=== PATIENT | male | born 1950 | race Caucasian/White ===

== ENCOUNTER → 2017-08-26 | Outpatient (CLI) | payer MEDICARE, OTHER ==
[2017-08-26 12:39] LABS: ADD MAN DIFF? NO
[2017-08-26 12:51] LABS: BASO # 0.1 x10^3/uL (0.0-0.2); BASO % 1 % (0-3); EOS # 0.1 x10^3/uL (0.0-0.7); EOS % 2 % (0-3); HEMATOCRIT 40.7 % (39.0-53.0); HEMOGLOBIN 13.9 g/dL (13.0-17.5); LYMPH # 0.9 x10^3/uL (1.0-4.8); LYMPH % 12 % (24-48); MEAN CORPUSCULAR HEMOGLOBIN 32 pg (25-35); MEAN CORPUSCULAR HGB CONC 34 g/dL (31-37); MEAN CORPUSCULAR VOLUME 93 fL (79-100); MONO # 0.7 x10^3/uL (0.0-1.1); MONO % 9 % (0-9); NEUT # 5.5 x10^3uL (1.8-7.7); NEUT % 76 % (31-73); PLATELET COUNT 289 x10^3/uL (140-400); RED BLOOD COUNT 4.38 x10^6/uL (4.30-5.70); RED CELL DISTRIBUTION WIDTH 13.5 % (11.5-14.5); WHITE BLOOD COUNT 7.2 x10^3/uL (4.0-11.0)
[2017-08-26 12:53] LABS: ANION GAP 9 (6-14); BLOOD UREA NITROGEN 18 mg/dL (8-26); CALCIUM 9.8 mg/dL (8.5-10.1); CARBON DIOXIDE 30 mmol/L (21-32); CHLORIDE 102 mmol/L (98-107); CREATININE 0.6 mg/dL (0.7-1.3); GFR 134.4; GLUCOSE 104 mg/dL (70-99); POTASSIUM 3.8 mmol/L (3.5-5.1); SODIUM 141 mmol/L (136-145)
== END | disposition home or self-care (01) ==
LOC: SURGPAT 11:49
DX: K43.9 Ventral hernia without obstruction or gangrene (principal); R94.31 Abnormal electrocardiogram [ECG] [EKG]
CPT/HCPCS: 36415; 80048; 85025; 93005

== ENCOUNTER 2017-09-02 10:19 | Day surgery (SDC) | payer MEDICARE, OTHER ==
[~2017-09-02 10:19] MED LIST: LIDOCAINE 1% PF 2 ML VIAL. ID; ONDANSETRON PF 4 MG/2 ML VIAL. IV; ceFAZolin 2GM PREMIX 2 GM/50 ML BAG IV; fentaNYL PF VIAL 100 MCG/2 ML VIAL IV
[2017-09-02] MEDS: IV RINGERS,LACTATED 1000ML 1,000 ML IV (11:03)
[2017-09-02] MEDS ORDERED: PROPOFOL 20 ML IV (11:34)
[2017-09-02] MEDS ORDERED: fentaNYL PF VIAL 100 MCG/2 ML VIAL (11:34)
[2017-09-02] MEDS ORDERED: ROCURONIUM 50 MG/5 ML VIAL. (11:35)
[2017-09-02] MEDS ORDERED: DEXAMETHASONE SOD PHOS 20 MG/5 ML VIAL. (12:14)
[2017-09-02] MEDS ORDERED: DESFLURANE 61 TO 120 MINUTES IH (12:14)
[2017-09-02] MEDS ORDERED: NEOSTIGMINE 10 MG/10 ML VIAL. (12:22)
[2017-09-02] MEDS ORDERED: ONDANSETRON PF 4 MG/2 ML VIAL. (12:22)
[2017-09-02] MEDS ORDERED: GLYCOPYRROLATE 1 MG/5 ML VIAL. (12:23)
[2017-09-02] MEDS: BUPIVACAINE-EPI 0.25%-1:200000 50 ML VIAL. (12:27)
[2017-09-02] MEDS: PROCHLORPERAZINE 10 MG/2 ML VIAL. IV (13:50)
[2017-09-02] MEDS: fentaNYL PF VIAL 100 MCG/2 ML VIAL IV ×4 (13:51→14:16)
[2017-09-02] MEDS: MORPHINE SULFATE 4 MG/ML DISP.SYRIN. IV ×4 (13:56→14:41)
[2017-09-02] MEDS: oxyCODONE/APAP 5/325 1 TAB TABLET PO (14:42)
== END 2017-09-02 15:43 | disposition home or self-care (01) ==
LOC: SURG 10:19
DX: K43.6 Other and unspecified ventral hernia with obstruction, without gangrene (principal); E66.01 Morbid (severe) obesity due to excess calories; Z68.41 Body mass index [BMI] 40.0-44.9, adult; I25.10 Atherosclerotic heart disease of native coronary artery without angina pectoris; G47.33 Obstructive sleep apnea (adult) (pediatric); E55.9 Vitamin D deficiency, unspecified; E78.5 Hyperlipidemia, unspecified; I10 Essential (primary) hypertension; J44.9 Chronic obstructive pulmonary disease, unspecified; Z87.891 Personal history of nicotine dependence
CPT/HCPCS: 49653; C1781; J0690; J0780; J1100; J2270; J2405; J2704; J2710; J3010; J3490; J7120

== ENCOUNTER 2018-09-24 14:17 | Emergency (ER) | payer MEDICARE ==
[~2018-09-24] VITALS: Ht 170.2 cm; Wt 124.7 kg
[~2018-09-24 14:17] MED LIST changes: +ALBU0.63 IH; +ASPI-424 PO; +ATORVASTATIN CA80 MG PO; +CRESTOR40 MG PO; +ERGO50007 PO; +HYDR-2145 PO; +ISOS30TA4 PO; -LIDOCAINE 1% PF 2 ML VIAL. ID; +LOSA100T14 PO; +MULT-496 PO; +NIAC500C6 PO; -ONDANSETRON PF 4 MG/2 ML VIAL. IV; +OXYC1TAB15 PO; +TAMS0.4C2 PO; +TELM80TA8 PO; +TEST1.25 TD; -ceFAZolin 2GM PREMIX 2 GM/50 ML BAG IV; -fentaNYL PF VIAL 100 MCG/2 ML VIAL IV
--- NOTE | 2018-09-24 15:08 | RAD ---
Left leg venous Doppler study: Clinical indications: Left leg swelling and pain. Findings: Duplex sonography (including watts scale evaluation and color flow and waveform spectral analysis) of the proximal aspect of the greater saphenous vein and the proximal aspect of the profunda femoral vein and the entire length of the common femoral and superficial femoral and popliteal veins and the tibioperoneal trunk and the proximal aspect of the posterior tibial and peroneal veins of the left leg was performed. Normal compressibility, augmentation of color Doppler flow after calf compression, and respiratory variation of Doppler flow is seen. Thus, there are no sonographic findings of deep venous thrombosis within these veins. Impression: There are no sonographic findings of deep venous thrombosis within the veins discussed above of the left lower extremity. Electronically signed by: Linwood Linton MD (09/24/2018 3:06 PM) [facility]
--- NOTE | 2018-09-24 15:33 | RAD ---
4 views left knee 09/24/2018 2:42 PM Indication: PT STATES HAVING PAIN AND TROUBLE BEARING WT ON KNEE, SWELLING UNABLE TO MOVE KNEE ON HIS OWN. Comparison: None Findings: No evidence of acute fracture or dislocation is seen. Articular surfaces are uninterrupted. Some soft tissue edema may be present anteriorly. There is minimal lateral subluxation of patella with narrowing of the lateral facet joint space. IMPRESSION: 1. No evidence of acute fracture 2. Minimal lateral subluxation of the patella with narrowing of the lateral patellofemoral joint space. Electronically signed by: Nathan Aguirre MD (09/24/2018 3:30 PM) [facility]
[2018-09-24 16:00] VITALS: BP 129/72
--- NOTE | 2018-09-24 16:25 | PHYS DOC ---
Past Medical History Past Medical History: Arthritis Additional Past Surgical Histo: Back, hernia mesh placement, and rotator cuff x 's 2 surgery. Additional Information: Quit 2007. Alcohol Use: None Drug Use: None Adult General Chief Complaint Chief Complaint: LOWER EXT PAIN HPI HPI Patient is a 68 year old male who presents to the ED today complaining of 10 out of 10 left knee pain that began on Friday. Patient denies any known injury. He states the pain is worse on weight-bearing. Patient is concerned he could have a DVT. He is in the ED with a significant other who states she has family history of DVTs and would like patient to be checked out for it. Patient denies any recent long air or car travel, denies any chest pain or shortness of breath. Denies any calf pain. Denies being on any steroids or hormones. Review of Systems Review of Systems Constitutional: Denies fever or chills [] Eyes: Denies change in visual acuity, redness, or eye pain [] HENT: Denies nasal congestion or sore throat [] Respiratory: Denies cough or shortness of breath [] Cardiovascular: No additional information not addressed in HPI [] GI: Denies abdominal pain, nausea, vomiting, bloody stools or diarrhea [] : Denies dysuria or hematuria [] Musculoskeletal: Reports left knee pain Integument: Denies rash or skin lesions [] Neurologic: Denies headache, focal weakness or sensory changes [] All other systems were reviewed and found to be within normal limits, except as documented in this note. Allergies Allergies Allergies Coded Allergies Type Severity Reaction Last Updated Verified No Known Drug Allergies 09/02/17 No Physical Exam Physical Exam Constitutional: Well developed, well nourished, no acute distress, non-toxic appearance. [] HENT: Normocephalic, atraumatic, bilateral external ears normal, oropharynx moist, no oral exudates, nose normal. [] Eyes: PERRLA, EOMI, conjunctiva normal, no discharge. [] Neck: Normal range of motion, no tenderness, supple, no stridor. [] Cardiovascular:Heart rate regular rhythm, no murmur [] Lungs & Thorax: Bilateral breath sounds clear to auscultation [] Abdomen: Bowel sounds normal, soft, no tenderness, no masses, no pulsatile masses. [] Skin: Warm, dry, no erythema, no rash. [] Back: No tenderness, no CVA tenderness. [] Extremities: Morbidly obese patient. Left knee with no obvious deformity. Mild soft tissue swelling noted diffusely throughout the knee. Tenderness on the medial and lateral aspect of the knee. Full range of motion to the left knee. Negative Brent sign, negative Doyle sign, negative anterior-posterior drawer sign. +2 left pedal pulse. Cap refill less than 2 seconds the left toes. Negative Homans sign to the left lower extremity. Neurologic: Alert and oriented X 3, normal motor function, normal sensory function, no focal deficits noted. [] Psychologic: Affect normal, judgement normal, mood normal. [] Current Patient Data Vital Signs Vital Signs Date Time Temp Pulse Resp B/P (MAP) Pulse Ox O2 Delivery O2 Flow Rate FiO2 09/24/18 15:05 98.2 97 20 132/68 (89) 96 Room Air 98.2 EKG EKG [] Radiology/Procedures Radiology/Procedures []PROCEDURE: KNEE LEFT 4V 4 views left knee 09/24/2018 2:42 PM Indication: PT STATES HAVING PAIN AND TROUBLE BEARING WT ON KNEE, SWELLING UNABLE TO MOVE KNEE ON HIS OWN. Comparison: None Findings: No evidence of acute fracture or dislocation is seen. Articular surfaces are uninterrupted. Some soft tissue edema may be present anteriorly. There is minimal lateral subluxation of patella with narrowing of the lateral facet joint space. IMPRESSION: 1. No evidence of acute fracture 2. Minimal lateral subluxation of the patella with narrowing of the lateral patellofemoral joint space. Electronically signed by: Nathan Brady MD (09/24/2018 3:30 PM) [facility] DICTATED and SIGNED BY: NATHAN BRADY MD DATE: 09/24/18 1530 PROCEDURE: VENOUS LOWER EXTREMITY LEFT Left leg venous Doppler study: Clinical indications: Left leg swelling and pain. Findings: Duplex sonography (including watts scale evaluation and color flow and waveform spectral analysis) of the proximal aspect of the greater saphenous vein and the proximal aspect of the profunda femoral vein and the entire length of the common femoral and superficial femoral and popliteal veins and the tibioperoneal trunk and the proximal aspect of the posterior tibial and peroneal veins of the left leg was performed. Normal compressibility, augmentation of color Doppler flow after calf compression, and respiratory variation of Doppler flow is seen. Thus, there are no sonographic findings of deep venous thrombosis within these veins. Impression: There are no sonographic findings of deep venous thrombosis within the veins discussed above of the left lower extremity. Electronically signed by: Rigoberto Linton MD (09/24/2018 3:06 PM) [facility] DICTATED and SIGNED BY: RIGOBERTO LINTON MD DATE: 09/24/18 1506 Course & Med Decision Making Course & Med Decision Making Pertinent Labs and Imaging studies reviewed. (See chart for details) This is a 68-year-old male patient presented to the ED today complaining of left knee pain since Friday, no known injury. Left knee x-rays interpreted by radiologist are negative for any acute findings, patient was worried he could have a blood clot in the left lower extremity. Venous Doppler of the left lower extremity is negative. Anand bandage applied to the left knee by the ED RN, neurovascular exam is intact, ice/ elevation encouraged. Patient has oxycodone at home. Instructed to take it as needed for pain. Provided orthopedic doctor for follow-up as an outpatient Dragon Disclaimer Dragon Disclaimer This electronic medical record was generated, in whole or in part, using a voice recognition dictation system. Departure Departure Impression: Primary Impression: Left knee pain Disposition: HOME, SELF-CARE Condition: STABLE Referrals: Christina MAJANO MD (PCP) KOBY NORTON II, MD follow up in 1-2 weeks Patient Instructions: Knee Pain, Yvja-aw-Jnra Additional Instructions: You were evaluated in the emergency room for left knee pain, your venous Doppler of the left lower extremity is negative for blood clot. Your knee x- rays are negative for any acute findings. Try to ice and elevate the extremity. Take your oxycodone as needed for pain. Follow-up with the provided orthopedic doctor in the next 1 week. 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
== END 2018-09-24 16:45 | disposition home or self-care (01) ==
LOC: ER 14:17
DX: M25.562 Pain in left knee (principal); G89.11 Acute pain due to trauma; Z87.891 Personal history of nicotine dependence; W18.39XA Other fall on same level, initial encounter; Y93.89 Activity, other specified; Y92.89 Other specified places as the place of occurrence of the external cause; Y99.8 Other external cause status
CPT/HCPCS: 73564; 93971; 99284-25

== ENCOUNTER 2019-01-04 08:54 | Day surgery (SDC) | payer MEDICARE ==
[~2019-01-04 08:54] MED LIST changes: +AMIO200T4 PO; +APIX5TAB PO; +BUME1TAB3 PO; +DIGO125T PO; +DILT120C85 PO; +DILT240C2 PO; +HYDROmorphone 2 MG/ML VIAL IV PRN; +IV RINGERS,LACTATED 1000ML 1,000 ML IV SCH; +LIDOCAINE 1% PF 2 ML VIAL. ID PRN; +METO-247 PO; +MORPHINE SULFATE 2 MG/ML VIAL. IV PRN; +ONDANSETRON PF 4 MG/2 ML VIAL. IV PRN; +POTA20TA82 PO; +PROCHLORPERAZINE 10 MG/2 ML VIAL. IV PRN; +fentaNYL PF VIAL 100 MCG/2 ML VIAL IV PRN
[2019-01-04 10:13] LABS: HEMATOCRIT 38.2 % (39.0-53.0); HEMOGLOBIN 12.8 g/dL (13.0-17.5); RED BLOOD COUNT 4.29 x10^6/uL (4.30-5.70); RED CELL DISTRIBUTION WIDTH 16.9 % (11.5-14.5); WHITE BLOOD COUNT 8.8 x10^3/uL (4.0-11.0)
[2019-01-04] MEDS ORDERED: PROPOFOL 20 ML IV ONE (10:16)
[2019-01-04 10:21] LABS: PROTHROMBIN TIME PATIENT 14.2 SEC (11.7-14.0)
[2019-01-04 10:26] LABS: CALCIUM 9.5 mg/dL (8.5-10.1); CREATININE 1.1 mg/dL (0.7-1.3); GFR 66.6; POTASSIUM 3.3 mmol/L (3.5-5.1)
--- NOTE | 2019-01-04 11:04 | PDOC4 ---
PROCEDURE Procedure PROCEDURE Successful external cardioversion INDICATIONS Atrial fibrillation COMPLICATIONS None PROCEDURAL DETAILS An informed consent was obtained from patient. Anesthesiology team administered intravenous propofol for deep sedation. Patient was then given 200 J followed by 300 J of synchronized biphasic DC current with successful conversion of patient's rhythm from atrial fibrillation to sinus rhythm. He was hemodynamically stable without any neurological deficits at the end of procedure. He tolerated the procedure well. CONCLUSIONS Successful cardioversion of atrial fibrillation to sinus rhythm. CASSIE GARCIA MD Jan 04, 2019 11:04
--- NOTE | 2019-01-04 11:06 | EKG ---
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
[2019-01-04 11:37] VITALS: BP 100/63
== END 2019-01-04 12:00 | disposition home or self-care (01) ==
LOC: SURG 08:54
PROVIDERS: ATTEND Internal Medicine Cardiovascular Disease
DX: I48.91 Unspecified atrial fibrillation (principal); I10 Essential (primary) hypertension; J44.9 Chronic obstructive pulmonary disease, unspecified; G47.33 Obstructive sleep apnea (adult) (pediatric); E78.5 Hyperlipidemia, unspecified; I25.10 Atherosclerotic heart disease of native coronary artery without angina pectoris; Z98.890 Other specified postprocedural states
CPT/HCPCS: 36415; 80048; 85027; 85610; 85730; 92960; 93005; J2704

== ENCOUNTER → 2019-01-19 | Outpatient (CLI) | payer MEDICARE ==
[2019-01-04 11:37] VITALS: BP 100/63
[~2019-01-19] MED LIST changes: -HYDROmorphone 2 MG/ML VIAL IV PRN; -IV RINGERS,LACTATED 1000ML 1,000 ML IV SCH; -LIDOCAINE 1% PF 2 ML VIAL. ID PRN; -MORPHINE SULFATE 2 MG/ML VIAL. IV PRN; -ONDANSETRON PF 4 MG/2 ML VIAL. IV PRN; -PROCHLORPERAZINE 10 MG/2 ML VIAL. IV PRN; +ZOLPIDEM 5 MG TABLET. PO ONE; -fentaNYL PF VIAL 100 MCG/2 ML VIAL IV PRN
--- NOTE | 2019-01-20 09:23 | SLEEP ---
DATE OF STUDY: 01/19/2019 SLEEP STUDY ATTENDING PHYSICIAN: Dr. Jesus. REFERRING PHYSICIAN: Dr. Nur. The patient is 68 years old who weighs 255 pounds with a BMI of 39. The patient's Shelton score was 4. The patient underwent a diagnostic sleep study performed at [facility]. During the night study, the patient spent 414 minutes in the bed and slept for 258 minutes with a low sleep efficiency of 62%. Sleep latency was prolonged at 95 minutes with a REM latency of 144 minutes. Overall, sleep architecture showed normal stage 1 sleep, increased stage 2 sleep, normal slow wave and reduced REM sleep. During the night study, the patient had 9 obstructive apneas, no mixed or central apnea and 43 hypopneas. The patient's apnea hypopnea index was 12 per hour with a supine index of 10 per hour and a REM index of 63 per hour. EKG monitoring revealed abnormal rhythm which was irregular and that is consistent with paroxysmal atrial fibrillation with frequent PVCs. Maximum heart rate was 119 beats per minute. PLMS were seen at index of 62 per hour and 14 per hour caused EEG arousals. Nocturnal oximetry study revealed an average oxygen saturation of 90% with lowest of 50%. The nocturnal hypoxia was worse during REM sleep. The 81% of time oxygen saturation remained between 80% and 89% and 6% of time between 70% and 79%. Due to low AHI, the patient did not meet the split night criteria for CPAP initiation. IMPRESSION: 1. Mild sleep apnea-hypopnea syndrome with worsening during REM sleep. Total AHI 12 per hour with a REM AHI of 63 per hour. 2. Nocturnal hypoxia which was worse during REM sleep and is related to obstructive sleep apnea. 3. Abnormal EKG with paroxysmal atrial fibrillation and frequent PVCs. 4. Severe PLMS. RECOMMENDATIONS: 1. The patient would benefit from return to the sleep lab for CPAP titration study.2. Alternate treatment option would include oral appliance as recommended by the dentist. 3. Once the patient is optimally treated, then follow up in 4-6 weeks to assess compliance and to document clinical improvement with treatment. 4. Weight loss is strongly advised. 5. Avoid SPECIAL DAY CLASS TEACHER depressants. 6. Cautioned regarding driving until symptoms of sleep apnea resolve with the above recommendations. 7. The patient should also be further evaluated for symptoms of restless legs during the day. 8. Follow up with Cardiology regarding abnormal EKG. ANGELA COATS MD DR: DESMOND/latricia JOB#: [id number] / [id number] Christina Haque MD, SABATO MD
== END | disposition home or self-care (01) ==
LOC: SLPLAB 19:03
PROVIDERS: ATTEND Internal Medicine Pulmonary Disease
DX: G47.33 Obstructive sleep apnea (adult) (pediatric) (principal); G47.34 Idiopathic sleep related nonobstructive alveolar hypoventilation; G47.61 Periodic limb movement disorder; I48.0 Paroxysmal atrial fibrillation; R94.31 Abnormal electrocardiogram [ECG] [EKG]
CPT/HCPCS: 95810

== ENCOUNTER → 2019-03-10 | Outpatient (CLI) | payer MEDICARE ==
[~2019-03-10] MED LIST changes: -DILT120C85 PO; +DILT120C99 PO
--- NOTE | 2019-03-24 10:08 | SLEEP ---
DATE OF STUDY: ATTENDING PHYSICIAN: Dr. Doug Jesus. The patient is a 69-year-old who weighs 245 pounds with a BMI of 38. The patient's Albion score was 4. The patient had a previous sleep study and was found to have SPENSER at an AHI of 12 per hour with a REM AHI of 63 per hour. The patient returned for CPAP titration study. During the night study, the patient spent 441 minutes in bed and slept for 348 minutes with a sleep efficiency of 79%. Sleep latency was 25 minutes with a REM latency of 37 minutes, which was short. Sleep architecture showed normal stage 1 and stage 2 sleep, increased slow wave and normal REM sleep. EKG monitoring revealed average heart rate of 80 beats per minute, no sustained arrhythmias observed. PLMS were seen at index of 110 per hour and 9 per hour caused EEG arousals. The patient was started on CPAP at a pressure of 5 cm water and titrated up to 17 cm water. At the final pressure, the patient slept for 46 minutes. The patient had supine sleep, but no REM sleep. The patient's AHI was reduced to 0 per hour and oxygen saturation remained above 92%. The patient used a medium size full face mask. IMPRESSION: 1. Sleep apnea diagnosed by previous sleep study. 2. Severe PLMS at an index of 110 per hour and 9 per hour caused EEG arousals. RECOMMENDATIONS: 1. CPAP at 17 cm water completely eliminated the patient's sleep apnea and should be used on a nightly basis. 2. Follow up in 4-6 weeks to assess compliance with CPAP and to document clinical improvement. 3. Weight loss is strongly advised. 4. Avoid SCHEDULING REPRESENTATIVE depressants. 5. Cautioned regarding driving until symptoms of sleep apnea resolve with the use of CPAP. ANGELA COATS MD DR: DESMOND/latricia JOB#: [id number] / [id number] Christina Haque MD, SABATO MD
== END | disposition home or self-care (01) ==
LOC: RT 18:39
PROVIDERS: ATTEND Internal Medicine Pulmonary Disease
DX: G47.30 Sleep apnea, unspecified (principal); G47.61 Periodic limb movement disorder
CPT/HCPCS: 95811

== ENCOUNTER → 2019-07-28 | Outpatient (CLI) | payer MEDICARE ==
[~2019-07-28] MED LIST changes: -DIGO125T PO; +DIGO125T3 PO; +POTA20TA4 PO; -POTA20TA82 PO; -ZOLPIDEM 5 MG TABLET. PO ONE
--- NOTE | 2019-07-29 13:36 | CARD ---
MR#: [id number] Date of Study: 07/28/2019 Ordering Physician: CASSIE GARCIA, Referring Physician: CASSIE GARCIA, Tech: Patricia Sharpe RDCS APPROVED REPORT EXAM: Two-dimensional and M-mode echocardiogram with Doppler and color Doppler. Other Information Quality : AverageHR: 58bpm INDICATION Atrial Fibrillation RISK FACTORS Hypertension Hyperlipidemia 2D DIMENSIONS RVDd4.1 (2.9-3.5cm)Left Atrium(2D)4.2 (1.6-4.0cm) IVSd1.3 (0.7-1.1cm)Aortic Root(2D)3.4 (2.0-3.7cm) LVDd5.5 (3.9-5.9cm)LVOT Diameter2.4 (1.8-2.4cm) PWd1.2 (0.7-1.1cm)LVDs3.7 (2.5-4.0cm) FS (%) 33.1 %SV90.0 ml LVEF(%)61.1 (>50%) Aortic Valve AoV Peak Chetan.170.9cm/Citlaly Peak GR.11.7mmHg LVOT Peak Chetan.108.1cm/sAVA (VMAX)2.95cm2 Mitral Valve MV E Zglyyijc16.6cm/sMV DECEL [id number] MV A Nilajavh50.9cm/sE/A Ratio1.5 Pulmonary Valve PV Peak Hdkprfru405.0cm/s Tricuspid Valve RAP [id number] Pulmonary Vein S1 Cnwvmnwy69.8cm/sD2 Khgklivz16.0cm/s PVa vbsrindn120mqio LEFT VENTRICLE The Left Ventricle is mildly dilated. There is mild concentric left ventricular hypertrophy. The left ventricular systolic function is normal and the ejection fraction is within normal range. The Ejecti on Fraction is 60-65%. There is normal LV segmental wall motion. Tissue Doppler imaging reveals moder ate left ventricular diastolic dysfunction. There is no ventricular septal defect visualized. RIGHT VENTRICLE The right ventricle is mildly dilated. The right ventricular systolic function is normal. ATRIA The left atrium is mildly dilated. The right atrium is moderately dilated. The interatrial septum is intact with no evidence for an atrial septal defect or patent foramen ovale as noted on 2-D or Dopple r imaging. AORTIC VALVE The aortic valve is normal in structure and function. Doppler and Color Flow revealed no significant aortic regurgitation. There is no significant aortic valvular stenosis. MITRAL VALVE The mitral valve is normal in structure and function. There is no mitral valve stenosis. Doppler and Color Flow revealed no mitral valve regurgitation noted. TRICUSPID VALVE The tricuspid valve is normal in structure and function. Doppler and Color Flow revealed no tricuspid valve regurgitation noted. Unable to assess PA pressure. There is no tricuspid valve stenosis. PULMONIC VALVE The pulmonic valve is not well visualized. Doppler and Color Flow revealed no pulmonic valvular regur gitation. There is no pulmonic valvular stenosis. GREAT VESSELS The aortic root is normal in size. The ascending aorta is normal in size. The IVC is normal in size a nd collapses >50% with inspiration. PERICARDIAL EFFUSION There is no pleural effusion. There is no evidence of significant pericardial effusion. Critical Notification Critical Value: No <Conclusion> The left ventricular systolic function is normal and the ejection fraction is within normal range. Th e Ejection Fraction is 60-65%. There is normal LV segmental wall motion. The right ventricle is mildly dilated. Signed by : Fabricio Jenkins, Electronically Approved : 07/28/2019 15:15:53
== END | disposition home or self-care (01) ==
LOC: ECHO 12:30
PROVIDERS: ATTEND Internal Medicine Cardiovascular Disease
DX: I51.7 Cardiomegaly (principal); I48.91 Unspecified atrial fibrillation
CPT/HCPCS: 93306

== ENCOUNTER → 2020-06-13 | Outpatient (CLI) | payer MEDICARE ==
[~2020-06-13] MED LIST changes: -AMIO200T4 PO; +AMIO200T6 PO
--- NOTE | 2020-06-13 10:47 | RAD ---
EXAM: Chest CT without intravenous contrast. HISTORY: COPD. TECHNIQUE: Computed tomographic images of the chest were obtained without contrast. Multiplanar refor matting was performed. *One or more of the following individualized dose reduction techniques were utilized for this examina tion: 1. Automated exposure control. 2. Adjustment of the mA and/or kV according to patient size. 3. Use of iterative reconstruction technique. COMPARISON: 11/25/2018. FINDINGS: The heart is normal in size. The aorta is normal in caliber. There is calcified atheroscler otic plaque involving the aorta and coronary arteries. There is calcification of the aortic valve. No pathologically enlarged mediastinal or hilar lymph node is seen. There are left hilar granulomas. Th ere is patchy groundglass opacity within the bilateral lower lobes, lingula and right middle lobe lik joy due to atelectasis or scarring. There is no consolidated infiltrate. There is no pneumothorax or pleural effusion. There is mild apical predominant emphysema with subpleu ral bleb formation. There is a 4 mm nodule within the anterior right upper lobe (series 3, image 28). There is a 4 mm nodule within the medial right upper lobe (series 3, image 29). There is a 2 mm nodu le within the lateral right upper lobe (series 3, image 27) disease. This may be a partially calcifie d granulomatous. There is no acute finding involving the upper abdomen. There is a 1.8 cm cyst along the upper pole of the left kidney. There is a 3.7 cm cyst within the posterior mid zone of the right kidney. There are degenerative changes throughout the spine. There is no acute osseous finding. There are small areas of lucency within the left aspects of T3 and T4. There are few healed rib fractures. There is left gy necomastia. IMPRESSION: 1. Mild emphysema with mid lower lung predominant atelectasis or pleural parenchymal scarring. There is no consolidated infiltrate. 2. Small right pulmonary nodules, largest of which measures 4 mm is stable compared to the study date d 11/25/2018. Follow-up can be performed in one year to confirm longer-term stability. 3. Bilateral renal cysts. Follow-up is not routinely recommended for simple renal cysts. 4. Multiple small lucent lesions within the left aspects of the T3 and T4 vertebral bodies The absenc e of a correlate on the fairly recent prior exam does not favor hemangiomas. The possibility of lytic lesions is not excluded. Electronically signed by: Haley Can MD (06/13/2020 10:45 AM) [id number]
== END ==
LOC: CT 10:06
PROVIDERS: ATTEND Internal Medicine Pulmonary Disease
DX: J43.9 Emphysema, unspecified (principal); I70.0 Atherosclerosis of aorta; I25.10 Atherosclerotic heart disease of native coronary artery without angina pectoris; N28.1 Cyst of kidney, acquired; R91.1 Solitary pulmonary nodule; N62 Hypertrophy of breast
CPT/HCPCS: 71250

== ENCOUNTER → 2020-08-01 | Outpatient (CLI) | payer MEDICARE, OTHER ==
[~2020-08-01] MED LIST changes: -ISOS30TA4 PO; +ISOS30TA68 PO
--- NOTE | 2020-08-01 21:39 | CARD ---
MR#: [id number] Date of Study: 08/01/2020 Ordering Physician: CASSIE GARCIA, Referring Physician: CASSIE GARCIA, Tech: Deena Ibrahim [facility] APPROVED REPORT EXAM: Two-dimensional and M-mode echocardiogram with Doppler and color Doppler. Other Information Quality : AverageHR: 92bpm Technically limited study due to body habitus. INDICATION Atrial Fibrillation RISK FACTORS Hypertension Hyperlipidemia 2D DIMENSIONS RVDd4.0 (2.9-3.5cm)Left Atrium(2D)4.5 (1.6-4.0cm) IVSd1.2 (0.7-1.1cm)Aortic Root(2D)2.9 (2.0-3.7cm) LVDd6.0 (3.9-5.9cm)LVOT Diameter2.1 (1.8-2.4cm) PWd1.2 (0.7-1.1cm)LVDs3.9 (2.5-4.0cm) FS (%) 34.9 %SV113.7 ml LVEF(%)58.3 (>50%) Aortic Valve AoV Peak Chetan.175.5cm/sAoV VTI42.7cm AO Peak GR.12.3mmHgLVOT Peak Chetan.119.3cm/s LVOT VTI 28.98cmAO Mean GR.7mmHg GARY (VMAX)1.84jd7YCY (VTI)2.34cm2 Mitral Valve MV E Srrkfqvf94.6cm/sMV DECEL OILJ453mo MV A Ejlztvyh61.3cm/sMV EVF16qz E/A Ratio1.5MVA (PHT)3.50cm2 TDI E/Lateral E'6.6E/Medial E'7.5 Pulmonary Valve PV Peak Bqzdayzi142.9cm/sPV Peak Grad.4mmHg Tricuspid Valve TR P. Yckpyjqs570ei/sRAP VEQOUNQK7itFl TR Peak Gr.16lmMuLYLF00rgXf Pulmonary Vein S1 Ftrujwca22.2cm/sD2 Xrojpvxx53.7cm/s PVa lnahogbf182ailg LEFT VENTRICLE The Left Ventricle is mildly dilated. There is mild concentric left ventricular hypertrophy. The left ventricular systolic function is normal and the ejection fraction is within normal range. The Ejecti on Fraction is 50-55%. There is normal LV segmental wall motion. The left ventricular diastolic funct ion and filling is normal for age. RIGHT VENTRICLE The right ventricle is mildly dilated. There is normal right ventricular wall thickness. The right ve ntricular systolic function is normal. ATRIA The left atrium is moderately dilated. The right atrium is mildly dilated. The interatrial septum is intact with no evidence for an atrial septal defect or patent foramen ovale as noted on 2-D or Dopple r imaging. AORTIC VALVE The aortic valve is thickened but opens well. Doppler and Color Flow revealed trace aortic regurgitat ion. There is no significant aortic valvular stenosis. Calculated aortic valve area is 2.52 cm2 with maximum pressure gradient of 14 mmHg and mean pressure gradient of 7 mmHg. MITRAL VALVE The mitral valve is normal in structure and function. There is no evidence of mitral valve prolapse. There is no mitral valve stenosis. Doppler and Color-flow revealed trace mitral regurgitation. TRICUSPID VALVE The tricuspid valve is normal in structure and function. Doppler and Color Flow revealed trace tricus pid regurgitation with an estimated PAP of 27 mmHg. There is no tricuspid valve stenosis. PULMONIC VALVE The pulmonic valve is not well visualized. Doppler and Color Flow revealed no pulmonic valvular regur gitation. There is no pulmonic valvular stenosis. GREAT VESSELS The aortic root is normal in size. The IVC is normal in size and collapses >50% with inspiration. PERICARDIAL EFFUSION There is no evidence of significant pericardial effusion. Critical Notification Critical Value: No <Conclusion> The left ventricular systolic function is normal and the ejection fraction is within normal range. Th e Ejection Fraction is 50-55%. There is normal LV segmental wall motion. Technically difficult study Signed by : Fabricio Jenkins, Electronically Approved : 08/01/2020 21:38:57
== END ==
LOC: ECHO 10:35
PROVIDERS: ATTEND Internal Medicine Cardiovascular Disease
DX: I48.0 Paroxysmal atrial fibrillation (principal); I51.7 Cardiomegaly
CPT/HCPCS: 93306

== ENCOUNTER → 2020-08-07 | Outpatient (CLI) | payer MEDICARE ==
[~2020-08-07] MED LIST changes: +CYCL10TA2 PO; +DILT240T8 PO; +ESZO3TAB28 PO; +FERR-36 PO; +MELO15TA23 PO
[2020-08-07 08:48] LABS: BASO % 1 % (0-3); EOS # 0.1 x10^3/uL (0.0-0.7); EOS % 1 % (0-3); HEMATOCRIT 28.8 % (39.0-53.0); HEMOGLOBIN 9.2 g/dL (13.0-17.5); LYMPH # 0.8 x10^3/uL (1.0-4.8); LYMPH % 12 % (24-48); MEAN CORPUSCULAR HEMOGLOBIN 28 pg (25-35); MEAN CORPUSCULAR HGB CONC 32 g/dL (31-37); MEAN CORPUSCULAR VOLUME 88 fL (79-100); MONO # 0.6 x10^3/uL (0.0-1.1); MONO % 10 % (0-9); NEUT # 4.8 x10^3/uL (1.8-7.7); NEUT % 76 % (31-73); PLATELET COUNT 288 x10^3/uL (140-400); RED BLOOD COUNT 3.26 x10^6/uL (4.30-5.70); RED CELL DISTRIBUTION WIDTH 16.7 % (11.5-14.5); WHITE BLOOD COUNT 6.3 x10^3/uL (4.0-11.0)
[2020-08-07 08:51] LABS: PROTHROMBIN TIME PATIENT 13.9 SEC (11.7-14.0)
[2020-08-07 09:02] LABS: ALBUMIN 3.3 g/dL (3.4-5.0); ANION GAP 7 (6-14); BLOOD UREA NITROGEN 21 mg/dL (8-26); CARBON DIOXIDE 31 mmol/L (21-32); CHLORIDE 103 mmol/L (98-107); CREATININE 1.6 mg/dL (0.7-1.3); GFR 42.9; GLUCOSE 102 mg/dL (70-99); POTASSIUM 4.2 mmol/L (3.5-5.1); SODIUM 141 mmol/L (136-145)
[2020-08-07 09:04] LABS: C-REACTIVE PROTEIN < 0.5 mg/L (0-3.3)
--- NOTE | 2020-08-07 17:13 | RAD ---
EXAM: XR CHEST 2V INDICATION: Reason: JOINT PREHAB CLASS-HX HYPERTENSION-PREOP EVAL RIGHT KNEE REPLACMENT 08/28 / Spl. I nstructions: / History: . TECHNIQUE: PA and lateral views COMPARISON: 11/25/2018 chest x-ray FINDINGS: The heart size is upper normal in size. The great vessels appear unremarkable. There is no hilar or mediastinal mass. Lungs show mild prominence of the central pulmonary vessels. No overt edema. Calcified granuloma in t he posterior left lower lobe incidentally noted. There is no pleural effusion or pneumothorax. There are no significant osseous abnormalities. IMPRESSION: Mild pulmonary vascular congestion. Otherwise no acute process. Electronically signed by: Glenis Mccormack MD (08/07/2020 5:10 PM) [id number]
[2020-08-08 02:08] LABS: HEMOGLOBIN A1C 5.4 % (4.8-5.6)
== END ==
LOC: SURGPAT 14:58
PROVIDERS: ATTEND Orthopaedic Surgery
DX: Z01.818 Encounter for other preprocedural examination (principal); M17.0 Bilateral primary osteoarthritis of knee; I10 Essential (primary) hypertension; Z96.651 Presence of right artificial knee joint
CPT/HCPCS: 36415; 71046; 80048; 82040; 82306; 83036; 85025; 85610; 85730; 86140; 87641

== ENCOUNTER 2020-08-14 18:27 | Emergency (ER) | payer MEDICARE ==
[~2020-08-14] VITALS: Ht 172.7 cm; Wt 115.0 kg
[2020-08-14] MEDS ORDERED: ACETAMINOPHEN 500 MG TABLET PO ONE (19:00)
[2020-08-14] MEDS ORDERED: IV NORMAL SALINE 500ML BAG 500 ML IV ONE ×2 (19:00→21:45)
[2020-08-14 19:12] LABS: BASO % 0 % (0-3); EOS % 0 % (0-3); HEMOGLOBIN 8.7 g/dL (13.0-17.5); LYMPH # 0.2 x10^3/uL (1.0-4.8); LYMPH % 5 % (24-48); MEAN CORPUSCULAR HEMOGLOBIN 30 pg (25-35); MEAN CORPUSCULAR HGB CONC 33 g/dL (31-37); MEAN CORPUSCULAR VOLUME 89 fL (79-100); MONO # 0.3 x10^3/uL (0.0-1.1); MONO % 9 % (0-9); NEUT # 3.2 x10^3/uL (1.8-7.7); NEUT % 85 % (31-73); PLATELET COUNT 225 x10^3/uL (140-400); RED BLOOD COUNT 2.93 x10^6/uL (4.30-5.70); RED CELL DISTRIBUTION WIDTH 18.9 % (11.5-14.5); WHITE BLOOD COUNT 3.8 x10^3/uL (4.0-11.0)
[2020-08-14] MEDS: fentaNYL PF VIAL 100 MCG/2 ML VIAL IV PRN ×3 (19:18→22:17)
[2020-08-14 19:31] LABS: CALCIUM 8.3 mg/dL (8.5-10.1); CREATININE 1.4 mg/dL (0.7-1.3); GFR 50.1; POTASSIUM 3.1 mmol/L (3.5-5.1)
--- NOTE | 2020-08-14 19:35 | RAD ---
AP chest. HISTORY: Fever, short of breath AP view was taken of the chest. Patient's taken a poor inspiration. There is mild atelectasis or infi ltrate at the left costophrenic angle. Heart is mildly prominent. There is no definite effusion. IMPRESSION: 1. Left basilar atelectasis or infiltrate. Electronically signed by: Sukhdeep Champagne MD (08/14/2020 7:33 PM) [id number]
[2020-08-14 19:36] LABS: ALBUMIN/GLOBULIN RATIO 0.9 (1.0-1.7); TOTAL BILIRUBIN 0.6 mg/dL (0.2-1.0); TOTAL PROTEIN 6.4 g/dL (6.4-8.2)
[2020-08-14 19:45] LABS: % BANDS 37 % (0-9); % EOS 1 % (0-5); % LYMPHS 3 % (24-48); % MONOS 6 % (0-10); % OTHERS 1 % (0-0); % SEGS 52 % (35-66)
[2020-08-14 19:46] LABS: ANISOCYTOSIS SLIGHT; PLT ESTIMATE ADEQUATE (ADEQUATE)
[2020-08-14 19:47] LABS: PROTHROMBIN TIME PATIENT 17.6 SEC (11.7-14.0)
[2020-08-14 20:11] LABS: INFLUENZA A PATIENT NEGATIVE (NEGATIVE); INFLUENZA B PATIENT NEGATIVE (NEGATIVE)
--- NOTE | 2020-08-14 20:25 | EKG ---
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
[2020-08-14] MEDS ORDERED: cefTRIAXone IV Push 1 GM VIAL. IVP ONE (20:30)
[2020-08-14] MEDS ORDERED: AZITHRMYCN 500MG IVPB FOR OMNI 250 ML IV ONE (20:30)
[2020-08-14] MEDS ORDERED: POTASSIUM CHLORIDE 20 MEQ TABLET.ER. PO ONE (21:45)
[2020-08-14] MEDS ORDERED: AZIT250T6 PO (23:36)
[2020-08-14] MEDS ORDERED: AMOX1TAB61 PO (23:36)
--- NOTE | 2020-08-14 23:36 | PHYS DOC ---
Past Medical History Past Medical History: A-Fib, Arthritis, Hypertension Past Surgical History: Other Additional Past Surgical Histo: Back, hernia mesh placement, and rotator cuff x's 2 surgery. Smoking Status: Former Smoker Alcohol Use: None Drug Use: None General Adult EDM: Chief Complaint: SHORTNESS OF BREATH HPI: HPI: Patient is a 70 year old male who presents to the emergency department today via EMS with complaints of off-and-on fevers for the past 2 days with increasing shortness of breath. Patient complains of increased shortness of breath with ambulation and moving around the house over the past 2 days. 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 Patient denies chest pain, denies palpitations, denies chest congestion, denies nasal congestion. Patient denies nausea, vomiting, or diarrhea. Patient states he has swelling to his lower extremities that is normal for him and has not noticed any increased swelling lately. Patient denies rashes of his skin, denies abdominal pain, denies constipation, denies loss of taste or loss of smell, does have generalized body aches. Patient states he has not had a COVID-19 vaccine this year, denies being around anybody that has a COVID-19 virus. Patient denies have any recent flu vaccine, patient is unsure if he has had a pneumonia vaccine or not. Review of Systems: Review of Systems: 14 body systems of review of systems have been reviewed. See HPI for pertinent positives and negative responses, otherwise all other systems are negative, nonpertinent or noncontributory. Heart Score: C/O Chest Pain: No Risk Factors: Risk Factors: DM, Current or recent (<one month) smoker, HTN, HLP, family history of CAD, obesity. Risk Scores: Score 0 - 3: 2.5% MACE over next 6 weeks - Discharge Home Score 4 - 6: 20.3% MACE over next 6 weeks - Admit for Clinical Observation Score 7 - 10: 72.7% MACE over next 6 weeks - Early Invasive Strategies Current Medications: Current Medications Medications (Trade) Dose Ordered Sig/Renetta Start Time Stop Time Status Last Admin Dose Admin Acetaminophen (Tylenol) 1,000 mg 1X ONCE 08/14/20 19:00 08/14/20 19:01 DC 08/14/20 19:17 1,000 MG Azithromycin 250 ml @ 250 mls/hr 1X ONCE 08/14/20 20:30 08/14/20 21:29 DC 08/14/20 21:22 250 MLS/HR Ceftriaxone Sodium (Rocephin) 2 gm 1X ONCE 08/14/20 20:30 08/14/20 20:32 DC 08/14/20 21:21 2 GM Fentanyl Citrate (Fentanyl 2ml Vial) 25 mcg PRN Q15MIN PRN 08/14/20 19:00 08/15/20 18:59 08/14/20 22:17 25 MCG Potassium Chloride (Klor-Con) 40 meq 1X ONCE 08/14/20 21:45 08/14/20 21:48 DC 08/14/20 22:17 40 MEQ Sodium Chloride 500 ml @ 500 mls/hr 1X ONCE 08/14/20 21:45 08/14/20 22:44 DC 08/14/20 22:18 500 MLS/HR Allergies: Allergies: Allergies Coded Allergies Type Severity Reaction Last Updated Verified No Known Drug Allergies 12/30/18 No Physical Exam: PE: Constitutional: Well developed, well nourished, no acute distress, non-toxic appearance. 70-year-old male no apparent distress, in no apparent respiratory distress. HENT: Normocephalic, atraumatic, bilateral external ears normal, oropharynx chad st, no oral exudates, nose normal. Oropharynx pink, no uvular edema, no swelling of tonsils, no postnasal drip, no lymphadenopathy noted of the head or neck. Eyes: PERRLA, EOMI, conjunctiva normal, no discharge. Neck: Normal range of motion, no tenderness, supple, no stridor. No meningismus signs, no nuchal rigidity. Cardiovascular:Heart rate regular rhythm, no murmur, heart sounds S1-S2 to auscultation. Lungs & Thorax: Bilateral breath sounds clear to auscultation upper lobes, lower lobes diminished to auscultation. No other adventitious lung sounds appreciated consultation. Abdomen: Bowel sounds normal, soft, no tenderness, no masses, no pulsatile masses. Skin: Warm, dry, no erythema, no rash. Back: No tenderness, no CVA tenderness. Extremities: No tenderness, no cyanosis, no clubbing, ROM intact, no edema. Distal cap refill less than 2 seconds, mild 1+ pitting edema to lower extremities, +2/4 pulses. Neurologic: Alert and oriented X 3, normal motor function, normal sensory function, no focal deficits noted. Psychologic: Affect normal, judgement normal, mood normal. Current Patient Data: Labs: Laboratory Tests Test 08/14/20 19:00 08/14/20 19:41 White Blood Count 3.8 x10^3/uL (4.0-11.0) L Red Blood Count 2.93 x10^6/uL (4.30-5.70) L Hemoglobin 8.7 g/dL (13.0-17.5) L Hematocrit 26.0 % (39.0-53.0) L Mean Corpuscular Volume 89 fL (79-100) Mean Corpuscular Hemoglobin 30 pg (25-35) Mean Corpuscular Hemoglobin Concent 33 g/dL (31-37) Red Cell Distribution Width 18.9 % (11.5-14.5) H Platelet Count 225 x10^3/uL (140-400) Neutrophils (%) (Auto) 85 % (31-73) H Lymphocytes (%) (Auto) 5 % (24-48) L Monocytes (%) (Auto) 9 % (0-9) Eosinophils (%) (Auto) 0 % (0-3) Basophils (%) (Auto) 0 % (0-3) Neutrophils # (Auto) 3.2 x10^3/uL (1.8-7.7) Lymphocytes # (Auto) 0.2 x10^3/uL (1.0-4.8) L Monocytes # (Auto) 0.3 x10^3/uL (0.0-1.1) Eosinophils # (Auto) 0.0 x10^3/uL (0.0-0.7) Basophils # (Auto) 0.0 x10^3/uL (0.0-0.2) Segmented Neutrophils % 52 % (35-66) Band Neutrophils % 37 % (0-9) H Lymphocytes % 3 % (24-48) L Monocytes % 6 % (0-10) Eosinophils % 1 % (0-5) Other Cells % 1 % (0-0) H Platelet Estimate Adequate (ADEQUATE) Anisocytosis Slight Prothrombin Time 17.6 SEC (11.7-14.0) H Prothrombin Time INR 1.5 (0.8-1.1) H Activated Partial Thromboplast Time 45 SEC (24-38) H Sodium Level 132 mmol/L (136-145) L Potassium Level 3.1 mmol/L (3.5-5.1) L Chloride Level 97 mmol/L (98-107) L Carbon Dioxide Level 30 mmol/L (21-32) Anion Gap 5 (6-14) L Blood Urea Nitrogen 22 mg/dL (8-26) Creatinine 1.4 mg/dL (0.7-1.3) H Estimated GFR (Cockcroft-Gault) 50.1 BUN/Creatinine Ratio 16 (6-20) Glucose Level 102 mg/dL (70-99) H Lactic Acid Level 2.0 mmol/L (0.4-2.0) Calcium Level 8.3 mg/dL (8.5-10.1) L Magnesium Level 1.9 mg/dL (1.8-2.4) Total Bilirubin 0.6 mg/dL (0.2-1.0) Aspartate Amino Transferase (AST) 587 U/L (15-37) H Alanine Aminotransferase (ALT) 849 U/L (16-63) H Alkaline Phosphatase 76 U/L (46-116) Total Protein 6.4 g/dL (6.4-8.2) Albumin 3.0 g/dL (3.4-5.0) L Albumin/Globulin Ratio 0.9 (1.0-1.7) L Influenza Type A Antigen Negative (NEGATIVE) Influenza Type B Antigen Negative (NEGATIVE) Laboratory Tests 08/14/20 19:00 Laboratory Tests 08/14/20 19:00 Vital Signs: Vital Signs Date Time Temp Pulse Resp B/P (MAP) Pulse Ox O2 Delivery O2 Flow Rate FiO2 08/14/20 22:17 22 96 Nasal Cannula 1.0 08/14/20 21:32 61 117/58 (77) 08/14/20 18:28 102.6 102.6 EKG: EKG: EKG performed at 2004 by ED nursing staff, shows a normal sinus rhythm without ectopy with a heart rate of 61 bpm, UT interval 0.178, QTc interval 0.543, no acute STEMI, no ACS, no acute ischemia appreciated, EKG interpreted by ED attending physician Dr. Liz. Radiology/Procedures: Radiology/Procedures: PATIENT: JOSE GOLDSTEIN ACCOUNT: [id number] : 1950 LOCATION: ER AGE: 70 SEX: M EXAM STATUS: REG ER ORD. PHYSICIAN: TORSTEN BARBOSA APRN REASON: SOB, FEVER PROCEDURE: CHEST AP ONLY AP chest. HISTORY: Fever, short of breath AP view was taken of the chest. Patient's taken a poor inspiration. There is mild atelectasis or infiltrate at the left costophrenic angle. Heart is mildly prominent. There is no definite effusion. IMPRESSION: 1. Left basilar atelectasis or infiltrate. Electronically signed by: Sukhdeep Champagne MD (08/14/2020 7:33 PM) [id number] DICTATED and SIGNED BY: SUKHDEEP CHAMPAGNE MD DATE: 08/14/20 [id number] Course & Med Decision Making: Course & Med Decision Making Pertinent Labs and Imaging studies reviewed. (See chart for details) 70-year-old male, vital signs reviewed, presents emergency department with signs of shortness of breath over the past 2 days and fevers at home. Patient's oral temperature during examination was 102.6. Patient given 1 g Tylenol in the emergency department, ED work-up consisted of EKG, chest x-ray, serum lab work. Chest x-ray concerning for community-acquired pneumonia, recheck of patient's temperature is now 99.0 oral temp. Patient's laboratory work concerning for mild dehydration, hypokalemia, hyponatremia. Examination of the patient, patient is nontoxic in appearance. Patient is in no respiratory distress. Alba with patient concerns for community-acquired pneumonia, discussed admission to the hospital with patient for IV antibiotics and further evaluation of pneumonia and abnormal labs. Patient states he does not want to be admitted to the hospital. Patient states that he would rather try oral antibiotics at home to treat his pneumonia as he fears catching the COVID-19 virus while he is in the hospital. Patient states that he had a family member of the COVID-19 virus in the hospital here, and he would rather treat himself at home. Discussed with patient will start IV antibiotics in the ED today, will give p.o. potassium. Discussed with patient strict follow-up with primary care doctor tomorrow or the next day, discussed with patient strict return to ER precautions if he is not feeling better or if he feels as if he is doing worse. Patient gave verbal un derstanding of discharge home instructions, strict return to ER precautions with admission to hospital for community-acquired pneumonia and further evaluation of abnormal labs. Prescribed Augmentin and Zithromax prescriptions for home. Patient was given 2 g Rocephin IV in the ED and 500 mg azithromycin IV in the ED prior to discharge. Patient was given IV 1 L of normal saline in the ED. Patient remained nontoxic in appearance, there is no respiratory distress, patient was discharged home for trial of oral antibiotics for pneumonia. Dragon Disclaimer: healthfinch Disclaimer: This electronic medical record was generated, in whole or in part, using a voice recognition dictation system. Departure Departure Impression: Primary Impression: Community acquired pneumonia Qualified Codes: J18.9 - Pneumonia, unspecified organism Additional Impressions: Hyponatremia Hypokalemia Disposition: 01 DC HOME SELF CARE/HOMELESS Condition: GOOD Referrals: Christina JESUS MD (PCP) Patient Instructions: Pneumonia, Adult Additional Instructions: Your evaluated today in the emergency department and I am diagnosing you with community-acquired pneumonia. I have recommended that you stay here for admission and treatment of this pneumonia. You have elected to trial home treatment with antibiotics first, I have given your first IV antibiotics here in the ED today. Please get your antibiotics filled and start taking them in the morning. We discussed that it is imperative you see Dr. Jesus this week preferably by Friday. If at anytime you feel that your symptoms are worsening or you are not getting better please return to the emergency de partment immediately for admission to the hospital for pneumonia. Please return to the emergency department for worsening symptoms or other concerns. Please take your antibiotics as directed, I have prescribed 2 antibiotics that you will take. EMERGENCY DEPARTMENT GENERAL DISCHARGE INSTRUCTIONS Thank you for coming to [facility] Emergency Department (ED) today and trusting us with you care. We trust that you had a positive experience in our Emergency Department. If you wish to speak to the department management, you may call the Director at [phone]. YOUR FOLLOW UP INSTRUCTIONS ARE FOLLOWS: 1. Do you have a private Doctor? If you do not have a private doctor, please ask for a resource list of physicians or clinics that may be able to assist you with fo llow up care. 2. The Emergency Physicain has interpreted your x-rays. The X-Ray specialist will also review them. If there is a change in the findings, you will be notified in 48 hours when at all possible. 3. A lab test or culture has been done, your results will be reviewed and you will be notified if you need a change in treatment. ADDITIONAL INSTRUCTIONS AND INFORMATION: 1. Your care today has been supervised by a physician who is specially trained in emergency care. Many problems require more than one evaluation for a complete diagnosis and treatment. We recommend that you schedule your follow up appointment as recommended to ensure complete treatment of you illness or injury. If you are unable to obtain follow up care and continue to have a problem, or if your condition worsens, we recommend that you return to the ED. 2. We are not able to safely determine your condition over the phone nor are we able to give sound medical advice over the phone. For these safety reasons, if you call for medical advice we will ask you to come to the ED for further evaluation. 3. If you have any questions regarding these discharge instructions please call the ED at [phone]. SAFETY INFORMATION: In the interest of safety, wellness, and injury prevention; we encourage you to wear your sealbelt, if you smoke; quite smoking, and we encourage family to use a protective helmet for bicycling and other sporting events that present an increased risk for head injury. IF YOUR SYMPTOMS WORSEN OR NEW SYMPTOMS DEVELOP, OR YOU HAVE CONCERNS ABOUT YOUR CONDITION; OR IF YOUR CONDITION WORSENS WHILE YOU ARE WAITING FOR YOUR FOLLOW UP APPOINTMENT; EITHER CONTACT YOUR PRIMARY CARE DOCTOR, THE PHYSICIAN WHOSE NAME AND NUMBER YOU WERE GIVEN, OR RETURN TO THE ED IMMEDIATELY. Scripts Azithromycin (AZITHROMYCIN TABLET) 250 Mg Tablet 1 PKG PO UD for PNEUMONIA for 5 Days, #6 TAB 0 Refills 2 the first day followed by 1 for days 2-5 Prov: TORSTEN BARBOSA APRN 08/14/20 Amoxicillin/Potassium Clav (AUGMENTIN 875-125 TABLET) 1 Each Tablet 1 TAB PO BID for PNEUMONIA for 7 Days, #14 TAB 0 Refills Prov: TORSTEN BARBOSA APRN 08/14/20 TORSTEN BARBOSA APRN Aug 14, 2020 23:36
[2020-08-15 00:02] VITALS: BP 137/67
--- NOTE | 2020-08-16 08:56 | NUR ---
IP: Attempted to contact pt concerning COVID results. No answer, left a voicemail to return the call.
--- NOTE | 2020-08-16 10:05 | NUR ---
IP: Pt returned call. Informed pt of negative COVID test. Pt verbalized understanding.
== END 2020-08-15 00:30 | disposition home or self-care (01) ==
LOC: ER 18:27
DX: J18.9 Pneumonia, unspecified organism (principal); Z20.822 Contact with and (suspected) exposure to COVID-19; E87.1 Hypo-osmolality and hyponatremia; E87.6 Hypokalemia; I10 Essential (primary) hypertension; I48.91 Unspecified atrial fibrillation; Z87.891 Personal history of nicotine dependence
CPT/HCPCS: 36415; 71045; 80053; 83605; 83735; 85007; 85025; 85610; 85730; 87040; 87804; 93005; 96365; 96375; 96376; 99285; C9803; J0456; J0696; J3010; J7040; U0003

== ENCOUNTER → 2020-12-08 | Outpatient (CLI) | payer MEDICARE ==
[~2020-12-08] MED LIST changes: +AMOX1TAB61 PO; +AZIT250T6 PO
--- NOTE | 2020-12-08 09:47 | RAD ---
CT chest without contrast. HISTORY: Lung nodule CT scan of the chest was done without contrast. Comparison is made with a study from June 13. There are emphysematous changes in the lungs. There is a 6 mm nodule on image [address] series 3 in the rig ht lower lobe near the diaphragm without change. There is scarring along the spine in the medial righ t lower lobe. There are groundglass changes or groundglass nodule in the lateral right lower lobe on image 44 measuring 1.5 cm without change. There is a 4 mm nodule on image #28 in the anterior right l madison without change. There is linear scarring or atelectasis in the lateral left upper lobe without ch hector. There is mild scarring in the lingula without change. There are calcified granulomas in the lef t lower lobe without change. A new pulmonary nodule is not identified. There is no mediastinal adenop athy. Thyroid is homogeneous. Visualized portions of the liver and spleen are unremarkable. Adrenal g lands are normal. There is a complicated cyst or solid mass in the upper pole of the left kidney mikey uring 1.6 cm without change. Ultrasound of the kidney could be of benefit. There is mild hypertrophic and degenerative change in the thoracic spine. Lucent lesions noted in T3 and T4 are unchanged from the prior study. IMPRESSION: 1. Small pulmonary nodules right lung, follow-up 1 year recommended. 2. Groundglass nodule lateral right lower lobe unchanged. 3. Lucent lesions in the thoracic spine unchanged. 4. Renal lesions unchanged but lesion upper pole left kidney somewhat high in density for a simple cy st, possible complicated cyst or solid lesion follow-up or ultrasound could be of benefit. PQRS Compliance Statement: One or more of the following individualized dose reduction techniques were utilized for this examinat ion: 1. Automated exposure control 2. Adjustment of the mA and/or kV according to patient size 3. Use of iterative reconstruction technique Electronically signed by: Sukhdeep Champagne MD (12/08/2020 9:45 AM) [facility]
== END ==
LOC: CT 09:06
PROVIDERS: ATTEND Internal Medicine Pulmonary Disease
DX: R91.8 Other nonspecific abnormal finding of lung field (principal); J43.9 Emphysema, unspecified; J98.4 Other disorders of lung; M47.814 Spondylosis without myelopathy or radiculopathy, thoracic region; N28.9 Disorder of kidney and ureter, unspecified
CPT/HCPCS: 71250

== ENCOUNTER → 2021-02-13 | Outpatient (CLI) | payer MEDICARE ==
[~2021-02-13] MED LIST changes: +AMIO100T4 PO; +CHOL5000 PO; +LACT1CAP19 PO
[2021-02-13 14:34] LABS: BASO % 1 % (0-3); EOS # 0.1 x10^3/uL (0.0-0.7); EOS % 2 % (0-3); HEMATOCRIT 21.9 % (39.0-53.0); HEMOGLOBIN 7.2 g/dL (13.0-17.5); LYMPH # 0.5 x10^3/uL (1.0-4.8); LYMPH % 10 % (24-48); MEAN CORPUSCULAR HEMOGLOBIN 25 pg (25-35); MEAN CORPUSCULAR HGB CONC 33 g/dL (31-37); MEAN CORPUSCULAR VOLUME 75 fL (79-100); MONO # 0.5 x10^3/uL (0.0-1.1); MONO % 9 % (0-9); NEUT # 4.3 x10^3/uL (1.8-7.7); NEUT % 79 % (31-73); PLATELET COUNT 311 x10^3/uL (140-400); RED BLOOD COUNT 2.91 x10^6/uL (4.30-5.70); RED CELL DISTRIBUTION WIDTH 18.2 % (11.5-14.5); WHITE BLOOD COUNT 5.5 x10^3/uL (4.0-11.0)
[2021-02-13 14:41] LABS: PROTHROMBIN TIME PATIENT 14.6 SEC (11.7-14.0)
[2021-02-13 14:46] LABS: ALBUMIN 3.3 g/dL (3.4-5.0); CREATININE 1.6 mg/dL (0.7-1.3); GFR 42.8; POTASSIUM 3.8 mmol/L (3.5-5.1)
--- NOTE | 2021-02-13 15:38 | RAD ---
AP and Lateral Views of the Chest 02/13/2021 2:26 PM Indication: Reason: pre-op chest,pt to have knee surgery / Spl. Instructions: / History: Comparison: August 07, 2020 Findings: There is diffuse interstitial coarsening. Allowing for differences in technique the appeara nce is similar to comparison study. No pneumothorax, pleural effusion, or acute focal infiltrate is i dentified. Heart is mildly enlarged. Slight granuloma noted left lower lobe. No acute osseous changes are identified. Wedging of inferior thoracic vertebral bodies noted with exaggerated kyphosis. IMPRESSION: Diffuse interstitial coarsening, similar to prior exams, most likely relating to chronic lung disease . Electronically signed by: Nathan Aguirre MD (02/13/2021 3:35 PM) [id number]
[2021-02-14 07:16] LABS: HEMOGLOBIN A1C 5.2 % (4.8-5.6)
== END ==
LOC: SURGPAT 13:08
PROVIDERS: ATTEND Orthopaedic Surgery
DX: Z01.818 Encounter for other preprocedural examination (principal); J84.10 Pulmonary fibrosis, unspecified; I51.7 Cardiomegaly; M40.204 Unspecified kyphosis, thoracic region; M17.11 Unilateral primary osteoarthritis, right knee
CPT/HCPCS: 36415; 71046; 80048; 82040; 82306; 83036; 85025; 85610; 85651; 85730; 87641

== ENCOUNTER → 2021-02-23 | Outpatient (CLI) | payer MEDICARE ==
[~2021-02-23] VITALS: Ht 170.2 cm; Wt 113.9 kg
[~2021-02-23] MED LIST changes: +FERRIC CARBOXYMALTOSE 750 MG in IV NORMAL SALINE 250ML 250 ML IV ONE
[2021-02-23 08:34] VITALS: BP 124/58
[2021-02-23 08:50] VITALS: BP 124/58
[2021-02-23 09:07] LABS: HEMATOCRIT 22.3 % (39.0-53.0)
[2021-02-23 10:09] VITALS: BP 117/56
[2021-02-23 11:10] VITALS: BP 131/67
[2021-02-23 12:30] VITALS: BP 144/68
[2021-02-23 13:17] VITALS: BP 158/69
== END | disposition home or self-care (01) ==
LOC: OPS 08:16
PROVIDERS: ATTEND Family Medicine
DX: D64.9 Anemia, unspecified (principal); M17.11 Unilateral primary osteoarthritis, right knee
CPT/HCPCS: 36415; 36430; 85014; 85018; 86850; 86900; 86901; 86920; 96365; J1439; J7050; P9016; J7030

== ENCOUNTER → 2021-05-22 | Outpatient (CLI) | payer MEDICARE ==
[2021-02-23 13:17] VITALS: BP 158/69
[~2021-05-22] MED LIST changes: +AMIO200T53 PO; -AMIO200T6 PO; +CYCL10TA19 PO; -CYCL10TA2 PO; +FERR325T14 PO; -FERRIC CARBOXYMALTOSE 750 MG in IV NORMAL SALINE 250ML 250 ML IV ONE
--- NOTE | 2021-05-22 14:06 | EKG ---
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
[2021-05-22 14:37] LABS: BASO # 0.1 x10^3/uL (0.0-0.2); BASO % 1 % (0-3); EOS # 0.1 x10^3/uL (0.0-0.7); EOS % 1 % (0-3); HEMATOCRIT 29.9 % (39.0-53.0); HEMOGLOBIN 9.8 g/dL (13.0-17.5); LYMPH # 0.6 x10^3/uL (1.0-4.8); LYMPH % 7 % (24-48); MEAN CORPUSCULAR HEMOGLOBIN 31 pg (25-35); MEAN CORPUSCULAR HGB CONC 33 g/dL (31-37); MEAN CORPUSCULAR VOLUME 94 fL (79-100); MONO # 0.8 x10^3/uL (0.0-1.1); MONO % 9 % (0-9); NEUT # 6.9 x10^3/uL (1.8-7.7); NEUT % 82 % (31-73); PLATELET COUNT 355 x10^3/uL (140-400); RED BLOOD COUNT 3.18 x10^6/uL (4.30-5.70); RED CELL DISTRIBUTION WIDTH 22.4 % (11.5-14.5); WHITE BLOOD COUNT 8.4 x10^3/uL (4.0-11.0)
[2021-05-22 14:53] LABS: ALBUMIN 3.3 g/dL (3.4-5.0); CALCIUM 9.1 mg/dL (8.5-10.1); CREATININE 1.2 mg/dL (0.7-1.3); GFR 59.7; POTASSIUM 3.6 mmol/L (3.5-5.1); PROTHROMBIN TIME PATIENT 14.7 SEC (11.7-14.0)
[2021-05-22 15:57] LABS: % BANDS 2 % (0-9); % BASOS 1 % (0-3); % LYMPHS 5 % (24-48); % MONOS 6 % (0-10); % MYELOS 1 % (0-0); % SEGS 85 % (35-66); ANISOCYTOSIS MOD; PLT ESTIMATE ADEQUATE (ADEQUATE)
--- NOTE | 2021-05-22 16:33 | RAD ---
Site ID: [id number] EXAMINATION: XR CHEST 2V. HISTORY: 71 years Male shortness of breath. COMPARISON: February 13, 2021. Findings: Calcified granuloma in the left lung base measuring 1 cm is again seen with no change. Foot Specialist kim appearing mild interstitial thickening is noted with no airspace consolidation. There is flatteni ng of the diaphragms compatible with pulmonary hyperinflation.. The heart size is normal. There is no effusion or pneumothorax. The mediastinum and fransico appear unremarkable. Impression: COPD. Electronically signed by: Willian Dorman MD (05/22/2021 4:31 PM) [id number]
[2021-05-23 03:25] LABS: HEMOGLOBIN A1C 5.1 % (4.8-5.6)
== END ==
LOC: SURGPAT 13:06
PROVIDERS: ATTEND Orthopaedic Surgery
DX: Z01.818 Encounter for other preprocedural examination (principal); J44.9 Chronic obstructive pulmonary disease, unspecified; J84.10 Pulmonary fibrosis, unspecified; I10 Essential (primary) hypertension; I50.22 Chronic systolic (congestive) heart failure; I25.10 Atherosclerotic heart disease of native coronary artery without angina pectoris; I48.91 Unspecified atrial fibrillation; M17.0 Bilateral primary osteoarthritis of knee; Z79.899 Other long term (current) drug therapy
CPT/HCPCS: 36415; 71046; 80048; 82040; 82306; 83036; 85007; 85025; 85610; 85730; 87641; 93005

== ENCOUNTER → 2021-06-14 | Outpatient (CLI) | payer MEDICARE ==
[2021-02-23 13:17] VITALS: BP 158/69
--- NOTE | 2021-06-15 11:41 | RESP ---
DATE OF SERVICE: 06/14/2021 PULMONARY FUNCTION TEST ATTENDING PHYSICIAN: Pepe Panda MD The patient's FVC was 2.67, which is 69% predicted, FEV1 1.59, which is 56% predicted. The FEV1/FVC ratio was reduced. There was minimal response to bronchodilators. Lung volumes were not performed. Diffusion capacity was 65% predicted. IMPRESSION: 1. Moderate obstructive airway disease. 2. Minimal response to bronchodilators. 3. Mild to moderately reduced diffusion capacity. TONY DR: Shilpa TID: [id number] MTDD
== END ==
LOC: PF 09:42
PROVIDERS: ATTEND Internal Medicine Pulmonary Disease
DX: J44.9 Chronic obstructive pulmonary disease, unspecified (principal)
CPT/HCPCS: 94060; 94640; 94729; 94664

== ENCOUNTER → 2021-06-27 | Outpatient (CLI) | payer MEDICARE ==
[2021-02-23 13:17] VITALS: BP 158/69
[~2021-06-27] MED LIST changes: +VENTOLIN HFA18 GM INH
[2021-06-27 14:04] LABS: BASO # 0.1 x10^3/uL (0.0-0.2); BASO % 1 % (0-3); EOS # 0.1 x10^3/uL (0.0-0.7); EOS % 1 % (0-3); HEMATOCRIT 26.1 % (39.0-53.0); HEMOGLOBIN 8.8 g/dL (13.0-17.5); LYMPH # 0.6 x10^3/uL (1.0-4.8); LYMPH % 7 % (24-48); MEAN CORPUSCULAR HEMOGLOBIN 33 pg (25-35); MEAN CORPUSCULAR HGB CONC 34 g/dL (31-37); MEAN CORPUSCULAR VOLUME 97 fL (79-100); MONO # 0.5 x10^3/uL (0.0-1.1); MONO % 7 % (0-9); NEUT # 6.8 x10^3/uL (1.8-7.7); NEUT % 85 % (31-73); PLATELET COUNT 402 x10^3/uL (140-400); RED BLOOD COUNT 2.69 x10^6/uL (4.30-5.70); RED CELL DISTRIBUTION WIDTH 15.4 % (11.5-14.5)
[2021-06-27 14:10] LABS: ALBUMIN 3.4 g/dL (3.4-5.0); CALCIUM 8.4 mg/dL (8.5-10.1); CREATININE 1.2 mg/dL (0.7-1.3); GFR 59.7; POTASSIUM 3.3 mmol/L (3.5-5.1)
[2021-06-27 14:11] LABS: PROTHROMBIN TIME PATIENT 13.9 SEC (11.7-14.0)
--- NOTE | 2021-07-03 18:12 | PN ---
DATE: 07/04/2021 Postoperative day #1 for right total knee arthroplasty. He is doing very well today. Dressings are intact. No excessive bleeding is noted. He has no signs or symptoms of infection, no signs or symptoms of DVT. He is breathing very well. His pain is very well under control at this point. His hemoglobin is stabilized. He is up and around eating and doing quite well. He has been having a lower blood pressure today, which has been stabilized recently. We will watch that very closely. We will see how he does with physical and occupational therapy and plan on reevaluating him tomorrow and see how he is doing at that point. BRIAN DR: Sharda TID: [id number]
== END ==
LOC: SURGPAT 13:17
PROVIDERS: ATTEND Orthopaedic Surgery
DX: Z01.812 Encounter for preprocedural laboratory examination (principal); M17.0 Bilateral primary osteoarthritis of knee; I10 Essential (primary) hypertension; I25.10 Atherosclerotic heart disease of native coronary artery without angina pectoris; I48.91 Unspecified atrial fibrillation; I50.22 Chronic systolic (congestive) heart failure; Z20.822 Contact with and (suspected) exposure to COVID-19; Z79.899 Other long term (current) drug therapy
CPT/HCPCS: 36415; 80048; 82040; 82306; 85025; 85610; 85651; 85730; 87641; U0003; U0005

== ENCOUNTER 2021-07-31 19:05 | Inpatient (IN) | payer MEDICARE ==
[~2021-07-31] VITALS: Ht 172.7 cm; Wt 113.6 kg
[2021-07-31 19:00] VITALS: BP 131/62
[~2021-07-31 19:05] MED LIST changes: +GABA-585 PO; +GUAI120L35 PO; +METH4TAB2 PO
[2021-07-31] MEDS: oxyCODONE/APAP 5/325 1 TAB TABLET PO PRN (20:46)
[2021-07-31 23:17] VITALS: BP 116/57
[2021-08-01] VITALS (11 sets, daily range): BP systolic 90–144; BP diastolic 46–61
[2021-08-01] MEDS: oxyCODONE/APAP 5/325 1 TAB TABLET PO PRN ×2 (02:21→08:51)
[2021-08-01 08:28] LABS: BASO % 0 % (0-3); EOS # 0.1 x10^3/uL (0.0-0.7); EOS % 1 % (0-3); HEMATOCRIT 23.9 % (39.0-53.0); HEMOGLOBIN 7.8 g/dL (13.0-17.5); LYMPH # 0.4 x10^3/uL (1.0-4.8); LYMPH % 7 % (24-48); MEAN CORPUSCULAR HEMOGLOBIN 32 pg (25-35); MEAN CORPUSCULAR HGB CONC 33 g/dL (31-37); MEAN CORPUSCULAR VOLUME 96 fL (79-100); MONO # 0.4 x10^3/uL (0.0-1.1); MONO % 8 % (0-9); NEUT # 4.3 x10^3/uL (1.8-7.7); NEUT % 83 % (31-73); PLATELET COUNT 233 x10^3/uL (140-400); RED BLOOD COUNT 2.48 x10^6/uL (4.30-5.70); RED CELL DISTRIBUTION WIDTH 18.1 % (11.5-14.5)
[2021-08-01 09:12] LABS: CALCIUM 7.1 mg/dL (8.5-10.1); CREATININE 0.8 mg/dL (0.7-1.3); GFR 95.3; PHOSPHORUS 1.9 mg/dL (2.6-4.7)
[2021-08-01] MEDS ORDERED: ONDANSETRON PF 4 MG/2 ML VIAL. ONE (09:56)
[2021-08-01] MEDS ORDERED: LIDOCAINE 2% PF 5 ML VIAL. ONE (09:56)
[2021-08-01] MEDS ORDERED: PROPOFOL 10 MG/ML (20ML) VIAL. IV ONE (09:56)
[2021-08-01] MEDS ORDERED: DEXAMETHASONE SOD PHOS 4 MG/ML VIAL ONE (09:56)
[2021-08-01] MEDS ORDERED: FAMOTIDINE 20 MG/2 ML VIAL ONE (09:56)
[2021-08-01] MEDS ORDERED: HYDROmorphone 2 MG/ML INJ. ONE ×2 (09:59→14:00)
[2021-08-01] MEDS ORDERED: 0.9 % SODIUM CHLORIDE 20 ML VIAL. IJ ONE (10:00)
[2021-08-01] MEDS ORDERED: DEXMEDETOMIDINE 200 MCG/2 ML VIAL. IV ONE (10:15)
[2021-08-01] MEDS ORDERED: BUPIVACAINE-EPI 0.5% 30 ML VIAL KIT. ONE (10:36)
[2021-08-01] MEDS ORDERED: VANCOMYCIN 1 GM VIAL. ONE (10:36)
[2021-08-01] MEDS: IV RINGERS,LACTATED 1000ML 1,000 ML IV SCH ×2 (11:25→20:30)
[2021-08-01] MEDS: BUMETANIDE 1 MG TABLET. PO SCH ×2 (12:00→21:07)
[2021-08-01] MEDS ORDERED: PHENYLEPHRINE 10 MG/ML VIAL. ONE (12:12)
[2021-08-01 12:23] LABS: % BANDS 11 % (0-9); % EOS 1 % (0-5); % LYMPHS 6 % (24-48); % MYELOS 1 % (0-0); % SEGS 81 % (35-66)
[2021-08-01 12:24] LABS: PLT ESTIMATE ADEQUATE (ADEQUATE)
--- NOTE | 2021-08-01 13:05 | PDOC1 ---
History and Physical Date of Service: DOS: DATE: 08/01/21 TIME: 13:05 Chief Complaint: Chief Complain: Wound dehiscence History of Present Illness: HPI: Patient is a 71-year-old male patient due to a hospital due to concern for right knee wound dehiscence. Patient underwent right TKA on 07/02. It well surgery at that time however developed Covid pneumonia afterwards. Was treated with antibiotics steroids. Patient is discharged to [facility] on Jul 16. Reported to me working with PT there. Noted his previous surgical site was not really healing up at all. Was also having some pain with it as well. Patient was brought back to the hospital due to a wound and capsule dehiscence. Planning to undergo I&D of the surgical site. When I evaluated the patient he was resting in bed. No major complaints to me. Right leg was significantly wrapped. Eager for surgery. Past Medical/Surgical History: PMH/PSH: atrial fibrillation, hypertension, COPD, sleep apnea, hyperlipidemia, vitamin D deficiency, coronary artery disease. Allergies: Allergies: Coded Allergies: No Known Drug Allergies (Unverified , 07/02/21) Family History: Family History: Pancreatic cancer, stomach ulcers Social History: Social History: Former smoker quit in 2007. Denies current alcohol or drug use Current Medications: Current Medications Current Medications Oxycodone/ Acetaminophen (Percocet 5/325) 1 tab PRN Q4HRS PRN PO PAIN Last administered on 08/01/21at 08:51; Start 07/31/21 at 20:00 Propofol (Diprivan) 200 mg STK-MED ONCE IV ; Start 08/01/21 at 09:56; Stop 08/01/21 at 09:56; Status DC Lidocaine HCl (Lidocaine Pf 2% Vial) 5 ml STK-MED ONCE .ROUTE ; Start 08/01/21 at 09:56; Stop 08/01/21 at 09:56; Status DC Ondansetron HCl (Zofran) 4 mg STK-MED ONCE .ROUTE ; Start 08/01/21 at 09:56; Stop 08/01/21 at 09:56; Status DC Dexamethasone Sodium Phosphate (Decadron) 4 mg STK-MED ONCE .ROUTE ; Start 08/01/21 at 09:56; Stop 08/01/21 at 09:57; Status DC Famotidine (Pepcid Vial) 20 mg STK-MED ONCE .ROUTE ; Start 08/01/21 at 09:56; Stop 08/01/21 at 09:57; Status DC Hydromorphone HCl (Dilaudid) 2 mg STK-MED ONCE .ROUTE ; Start 08/01/21 at 09:59; Stop 08/01/21 at 09:59; Status DC Sodium Chloride (SODIUM CHLORIDE 20ml) 20 ml STK-MED ONCE IJ ; Start 08/01/21 at 10:00; Stop 08/01/21 at 10:01; Status DC Dexmedetomidine HCl (Precedex) 200 mcg 1X ONCE IV ; Start 08/01/21 at 10:15; S top 08/01/21 at 10:16; Status DC Bupivacaine HCl/ Epinephrine Bitart (Sensorcain-Epi 0.5% Kit) 30 ml STK-MED ONCE .ROUTE Last administered on 08/01/21at 12:17; Start 08/01/21 at 10:36; Stop 08/01/21 at 10:37; Status DC Vancomycin HCl (Vancomycin) 1 gm STK-MED ONCE .ROUTE Last administered on 08/01/21at 12:17; Start 08/01/21 at 10:36; Stop 08/01/21 at 10:37; Status DC Amiodarone HCl (Cordarone) 200 mg DAILY08 PO ; Start 08/01/21 at 12:00 Bumetanide (Bumex) 1 mg BID PO ; Start 08/01/21 at 12:00 Vitamin D (Vitamin D3) 5,000 unit DAILY PO ; Start 08/01/21 at 12:00 Gabapentin (Neurontin) 100 mg Q8HRS PO ; Start 08/01/21 at 14:00 Metoprolol Succinate (Toprol Xl) 100 mg DAILY PO ; Start 08/01/21 at 12:00 Tamsulosin HCl (Flomax) 0.4 mg DAILY PO ; Start 08/01/21 at 12:00 Amiodarone HCl (Cordarone) 100 mg HS PO ; Start 08/01/21 at 21:00 Atorvastatin Calcium (Lipitor) 80 mg QHS PO ; Start 08/01/21 at 21:00 Diltiazem HCl (Cardizem 24hr Cd) 120 mg DAILY PO ; Start 08/01/21 at 12:00 Losartan Potassium (Cozaar) 50 mg DAILY PO ; Start 08/01/21 at 12:00 Phenylephrine HCl (Jamey-Synephrine Inj) 10 mg STK-MED ONCE .ROUTE ; Start 08/01/21 at 12:12; Stop 08/01/21 at 12:13; Status DC Ringer's Solution 1,000 ml @ 125 mls/hr Q8H IV Last administered on 08/01/21at 11:25; Start 08/01/21 at 12:30; Stop 08/02/21 at 00:29 Active Scripts Active Medrol (Methylprednisolone) 4 Mg Tab.ds.pk 1 Pkg PO UD Codeine-Guaifen 10-100 mg/5 ml (Guaifenesin/Codeine Phosphate) 120 Ml Liquid 5 Ml PO PRN Q6HRS PRN 7 Days Gabapentin (Gabapentin) 100 Mg Capsule 100 Mg PO Q8HRS 30 Days Percocet 5-325 Mg Tablet (Oxycodone/Acetaminophen) 1 Each Tablet 1 Tab PO PRN Q6HRS PRN 10 Days Lunesta (Eszopiclone) 3 Mg Tablet 3 Mg PO HS PRN 10 Days Reported Ventolin Hfa Inhaler (Albuterol Sulfate) 18 Gm Hfa.aer.ad 2 Puff INH Q4HRS Ferrous Sulfate 325 Mg Tablet 1 Tab PO DAILY Culturelle (Lactobacillus Rhamnosus Gg) 1 Each Cap.sprink 1 Cap PO DAILY 30 Days Vitamin D3 (Vitamin D) 125 Mcg Capsule 125 Mcg PO DAILY 5,000 UNITS = 125 MCG Amiodarone Hcl 100 Mg Tablet 1 Tab PO HS 30 Days Meloxicam 15 Mg Tablet 15 Mg PO DAILY Diltiazem 24Hr ER (LA) (Diltiazem HCl) 240 Mg Tab.er.24h 120 Mg PO DAILY Cyclobenzaprine Hcl 10 Mg Tablet 10 Mg PO PRN TID PRN Amiodarone Hcl 200 Mg Tablet 1 Tab PO DAILY08 Metoprolol Succinate ( Xl ) (Metoprolol Succinate) 100 Mg Tab.er.24h 1 Tab PO DAILY Eliquis (Apixaban) 5 Mg Tablet 5 Mg PO BID Potassium Chloride (Potassium Chloride) 20 Meq Tablet.er 80 Meq PO DAILY Bumetanide 1 Mg Tablet 1 Tab PO BID Losartan Potassium 100 Mg Tablet 50 Mg PO DAILY Atorvastatin Calcium 80 Mg Tablet 1 Tab PO DAILY Tamsulosin Hcl 0.4 Mg Cap.er.24h 0.4 Mg PO DAILY Daily Value (Multivitamin) 1 Each Tablet 1 Each PO DAILY Hydrochlorothiazide Tablet (Hydrochlorothiazide) 25 Mg Tablet 25 Mg PO DAILY Adult Low Dose Aspirin Ec (Aspirin) 81 Mg Tablet. 81 Mg PO DAILY ROS: Review of Systems Review of System Unless noted in HPI 14 point review of systems was negative Physical Exam: Vital Signs: Vital Signs Date Time Temp Pulse Resp B/P (MAP) Pulse Ox O2 Delivery O2 Flow Rate FiO2 08/01/21 11:26 99.6 60 23 123/65 93 Nasal Cannula 3.0 99.6 Physcial Exam: GEN: No apparent distress. Alert and oriented HEENT: Normal cephalic, atraumatic, external auditory canals are patent EYES: Extraocular muscles are intact, pupil are equally round and reactive to light and accommodation MUSCULOSKELETAL: Well developed , well nourished, good range of motion ENDOCRINE: No thyromegaly was palpated LYMPHATICS: No cervical chain or axillary nodes were noted HEMATOPOIETIC: No bruising NECK: Supple, no JVD, no thyromegaly was noted LUNGS: Clear to auscultation in all lung carmona without rhonchi or wheezing HEART: RRR, S!, S2 present. Peripheral pulses intact, no obvious murmurs noted ABDOMEN: Soft, nontender. Positive bowel sounds, no organomegaly, normal bowel sounds EXTREMITIES: Right extremity notably at rest. NEUROLOGIC: Normal speech and tone. A&O x 3, moves all extremities, no obvious focal deficits PSYCHIATRIC: Normal affect, normal mood. Stable SKIN: No ulcerations or rashes, good skin turgor, no jaundice VASCULAR: Good capillary refill, neurovascular bundle appears to be intact Labs: Labs: Laboratory Tests Test 07/31/21 21:15 08/01/21 07:30 SARS-CoV-2 Antigen (Rapid) Negative (NEGATIVE) White Blood Count 33.0 x10^3/uL (4.0-11.0) Red Blood Count 2.48 x10^6/uL (4.30-5.70) Hemoglobin 7.8 g/dL (13.0-17.5) Hematocrit 23.9 % (39.0-53.0) Mean Corpuscular Volume 96 fL (79-100) Mean Corpuscular Hemoglobin 32 pg (25-35) Mean Corpuscular Hemoglobin Concent 33 g/dL (31-37) Red Cell Distribution Width 18.1 % (11.5-14.5) Platelet Count 233 x10^3/uL (140-400) Neutrophils (%) (Auto) 83 % (31-73) Lymphocytes (%) (Auto) 7 % (24-48) Monocytes (%) (Auto) 8 % (0-9) Eosinophils (%) (Auto) 1 % (0-3) Basophils (%) (Auto) 0 % (0-3) Neutrophils # (Auto) 4.3 x10^3/uL (1.8-7.7) Lymphocytes # (Auto) 0.4 x10^3/uL (1.0-4.8) Monocytes # (Auto) 0.4 x10^3/uL (0.0-1.1) Eosinophils # (Auto) 0.1 x10^3/uL (0.0-0.7) Basophils # (Auto) 0.0 x10^3/uL (0.0-0.2) Segmented Neutrophils % 81 % (35-66) Band Neutrophils % 11 % (0-9) Lymphocytes % 6 % (24-48) Eosinophils % 1 % (0-5) Myelocytes % 1 % (0-0) Platelet Estimate Adequate (ADEQUATE) Sodium Level 139 mmol/L (136-145) Potassium Level 4.0 mmol/L (3.5-5.1) Chloride Level 104 mmol/L (98-107) Carbon Dioxide Level 31 mmol/L (21-32) Anion Gap 4 (6-14) Blood Urea Nitrogen 18 mg/dL (8-26) Creatinine 0.8 mg/dL (0.7-1.3) Estimated GFR (Cockcroft-Gault) 95.3 Glucose Level 85 mg/dL (70-99) Calcium Level 7.1 mg/dL (8.5-10.1) Phosphorus Level 1.9 mg/dL (2.6-4.7) Laboratory Tests Test 07/31/21 21:15 08/01/21 07:30 SARS-CoV-2 Antigen (Rapid) Negative (NEGATIVE) White Blood Count 33.0 x10^3/uL (4.0-11.0) Red Blood Count 2.48 x10^6/uL (4.30-5.70) Hemoglobin 7.8 g/dL (13.0-17.5) Hematocrit 23.9 % (39.0-53.0) Mean Corpuscular Volume 96 fL (79-100) Mean Corpuscular Hemoglobin 32 pg (25-35) Mean Corpuscular Hemoglobin Concent 33 g/dL (31-37) Red Cell Distribution Width 18.1 % (11.5-14.5) Platelet Count 233 x10^3/uL (140-400) Neutrophils (%) (Auto) 83 % (31-73) Lymphocytes (%) (Auto) 7 % (24-48) Monocytes (%) (Auto) 8 % (0-9) Eosinophils (%) (Auto) 1 % (0-3) Basophils (%) (Auto) 0 % (0-3) Neutrophils # (Auto) 4.3 x10^3/uL (1.8-7.7) Lymphocytes # (Auto) 0.4 x10^3/uL (1.0-4.8) Monocytes # (Auto) 0.4 x10^3/uL (0.0-1.1) Eosinophils # (Auto) 0.1 x10^3/uL (0.0-0.7) Basophils # (Auto) 0.0 x10^3/uL (0.0-0.2) Segmented Neutrophils % 81 % (35-66) Band Neutrophils % 11 % (0-9) Lymphocytes % 6 % (24-48) Eosinophils % 1 % (0-5) Myelocytes % 1 % (0-0) Platelet Estimate Adequate (ADEQUATE) Sodium Level 139 mmol/L (136-145) Potassium Level 4.0 mmol/L (3.5-5.1) Chloride Level 104 mmol/L (98-107) Carbon Dioxide Level 31 mmol/L (21-32) Anion Gap 4 (6-14) Blood Urea Nitrogen 18 mg/dL (8-26) Creatinine 0.8 mg/dL (0.7-1.3) Estimated GFR (Cockcroft-Gault) 95.3 Glucose Level 85 mg/dL (70-99) Calcium Level 7.1 mg/dL (8.5-10.1) Phosphorus Level 1.9 mg/dL (2.6-4.7) Assessment/Plan Assessment/Plan Wound dehiscence status post a right TKA, history A. fib hypertension COPD anemia -Right TKA previously performed 124. Wound healing issues after returning to rehab -Brought back today for I&D of the wound. -Please obtain cultures from the OR -We'll start Vanco Zosyn after surgery for broad coverage. -As needed pain control -Hold off DVT prophylaxis until ortho says okay to resume -Home meds as indicated. Justifications for Admission Other Justification DARIO LINDSAY MD Aug 01, 2021 13:05
[2021-08-01] MEDS ORDERED: SEVOFLURANE 61 TO 120 MINUTES. IH ONE (13:07)
--- NOTE | 2021-08-01 13:08 | PDOC4 ---
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
[2021-08-01] MEDS ORDERED: ZOLPIDEM 5 MG TABLET. PO PRN (13:15)
[2021-08-01] MEDS ORDERED: ONDANSETRON PF 4 MG/2 ML VIAL. IVP PRN (13:15)
[2021-08-01] MEDS ORDERED: diphenhydrAMINE 50 MG/ML VIAL IVP PRN (13:15)
[2021-08-01] MEDS ORDERED: ELECTROLYTE (NON-ICU) PROTOCOL. MC PRN (13:15)
[2021-08-01] MEDS ORDERED: IV NORMAL SALINE 1000ML BAG 1,000 ML IV SCH (13:15)
[2021-08-01] MEDS ORDERED: CALCIUM CARBONATE 500 MG TAB.CHEW PO PRN ×2 (13:15)
[2021-08-01] MEDS ORDERED: METOCLOPRAMIDE HCL 10 MG/2 ML VIAL. IVP PRN (13:15)
[2021-08-01] MEDS ORDERED: 0.9 % SODIUM CHLORIDE 10 ML DISP.SYRIN. IV PRN (13:15)
[2021-08-01] MEDS ORDERED: ACETAMINOPHEN 325 MG TABLET. PO PRN (13:15)
[2021-08-01] MEDS ORDERED: IV DEXTROSE 5% 250 ML BAG. IV PRN (13:15)
[2021-08-01] MEDS ORDERED: DEXTROSE 50% 25 GM / 50ML DISP.SYRIN. IV PRN (13:15)
[2021-08-01] MEDS ORDERED: MORPHINE SULFATE 2 MG/ML INJ. IVP PRN ×3 (13:15→13:45)
[2021-08-01] MEDS ORDERED: PROCHLORPERAZINE 5 MG TABLET. PO PRN (13:15)
[2021-08-01] MEDS ORDERED: fentaNYL PF VIAL 100 MCG/2 ML VIAL ONE (13:31)
[2021-08-01] MEDS: fentaNYL PF VIAL 100 MCG/2 ML VIAL IVP PRN ×2 (13:37→13:48)
[2021-08-01] MEDS ORDERED: IV RINGERS,LACTATED 1000ML 1,000 ML IV SCH ×2 (13:45)
[2021-08-01] MEDS ORDERED: HYDROmorphone 2 MG/ML INJ. IVP PRN (13:45)
[2021-08-01] MEDS ORDERED: fentaNYL PF VIAL 100 MCG/2 ML VIAL IVP PRN ×3 (13:45)
[2021-08-01] MEDS ORDERED: PROCHLORPERAZINE 10 MG/2 ML VIAL. IVP PRN ×2 (13:45)
[2021-08-01] MEDS ORDERED: GABAPENTIN 100 MG CAPSULE. PO SCH (14:00)
[2021-08-01] MEDS ORDERED: LACTOBACILLUS RHAMNOSUS GG 1 CAPSULE. PO SCH (14:00)
[2021-08-01] MEDS: HYDROmorphone 2 MG/ML INJ. IVP PRN ×4 (14:03→14:40)
--- NOTE | 2021-08-01 14:51 | OP ---
DATE OF SURGERY: 07/31/2021 PREOPERATIVE DIAGNOSIS: Wound dehiscence with capsular dehiscence, right knee. POSTOPERATIVE DIAGNOSIS: Wound dehiscence with capsular dehiscence, right knee. PROCEDURE: Irrigation and debridement, right knee; total knee arthroplasty with polyethylene exchange. SURGEON: Julio Serna Jr, DO. DENITRATOR OPERATOR: Clive Medrano. ANESTHESIA: General. COMPLICATIONS: None. ESTIMATED BLOOD LOSS: 50 cc. DESCRIPTION OF PROCEDURE: The patient was taken to the operative suite, given a general anesthetic. Right lower extremity was prepped and draped in a sterile fashion. Incision was made through skin and subcutaneous tissues through the initial incision. This was carefully taken down to the capsule. This was completely torn from the area just superior to the patella by approximately [address] distal to the level of the polyethylene. Suture was removed that had been ruptured at this point and also debridement of that area was undertaken. This was then copiously irrigated. After 4 liters of irrigation, first 1000 with mixture as noted on the chart, this was then closed in an interrupted fashion using Ethibond. This was noted to completely close this down as far as the capsule was concerned after mobilization of soft tissues at this point. This was done only after the polyethylene was removed prior to the irrigation. After that, polyethylene was noted to be very stable, that is when the closure occurred. Then, once this was noted to be very stable, superficial tissues and skin was reapproximated. Sterile dressing was applied. The patient was placed in immobilizer. The patient was then taken from the operative bed to the postoperative bed, taken to the PACU in stable condition. FRANCESCO DR: Sharda TID: [id number]
[2021-08-01] MEDS: ONDANSETRON PF 4 MG/2 ML VIAL. IVP SCH (17:39)
[2021-08-01] MEDS: ONDANSETRON ODT 4 MG TAB.RAPDIS. PO SCH (17:39)
[2021-08-01] MEDS: CHOLECALCIFEROL (VITAMIN D3) 5,000 UNIT CAPSULE PO SCH (17:40)
[2021-08-01] MEDS: FERROUS SULFATE 325 MG TABLET. PO SCH (17:41)
[2021-08-01] MEDS: TAMSULOSIN 0.4 MG CAP.ER.24H. PO SCH (17:41)
[2021-08-01] MEDS: AMIODARONE HCL 200 MG TABLET. PO SCH ×2 (17:43→21:06)
[2021-08-01] MEDS: LOSARTAN POTASSIUM 50 MG TABLET. PO SCH (17:43)
[2021-08-01] MEDS: METOPROLOL SUCC 24HR ER 100 MG TAB.ER.24H. PO SCH (17:44)
[2021-08-01] MEDS ORDERED: PIP/TAZO PER PHARMACY MC PRN (20:15)
[2021-08-01] MEDS ORDERED: VANCOMYCIN 2 GM in IV NORMAL SALINE 500ML BAG 500 ML IV ONE (21:00)
[2021-08-01] MEDS: PIPERACILLIN/TAZOBACTAM 3.375 GM in IV NORMAL SALINE 50ML 50 ML IV SCH (21:04)
[2021-08-01] MEDS: ATORVASTATIN CALCIUM 40 MG TABLET. PO SCH (21:06)
[2021-08-01] MEDS: SENNOSIDES/DOCUSATE 8.6/50MG TABLET. PO SCH (21:07)
[2021-08-02] MEDS: PIPERACILLIN/TAZOBACTAM 3.375 GM in IV NORMAL SALINE 50ML 50 ML IV SCH ×5 (02:14→23:50)
[2021-08-02] MEDS ORDERED: MAGNESIUM HYDROXIDE 2,400 MG/30 ML ORAL.SUSP. PO PRN (06:00)
[2021-08-02] MEDS: ONDANSETRON ODT 4 MG TAB.RAPDIS. PO SCH ×3 (06:00→12:00)
[2021-08-02] MEDS: ONDANSETRON PF 4 MG/2 ML VIAL. IVP SCH ×3 (06:00→12:17)
[2021-08-02] MEDS: GABAPENTIN 100 MG CAPSULE. PO SCH ×3 (06:00→21:42)
[2021-08-02] MEDS: VANCOMYCIN PER PHARMACY MC PRN (06:17)
--- NOTE | 2021-08-02 06:18 | NUR ---
Pharmacy Vancomycin Dosing Note S:Consulted to monitor and dose vancomycin started 08/01/21. O:JOSE GOLDSTEIN is a 71 year old M with KNEE INFECTION . Height: 5 feet, 8 inches Weight: 112.6 kg [place] Body Weight: 68.40 Adjusted Body Weight: 86.08 Dosing Weight: Actual Other Antibiotics: ZOSYN 3.375 GM Q6H LABS: Last BUN: 18 Last Creatinine: 0.8 Creatinine Clearance: 83 mL/min Last WBC: 33 Last Procalcitonin: Tmax (past 24 hours): Microbiology: I/O: Drug Levels: Last level: on at Last dose given 08/01/21 at 2100 Vancomycin Dosing: Loading Dose: 2000 mg x1 Dosing Weight: Actual Target Trough: 10-20 A: Based on: WT AND CRCL P: 1. Begin Vancomycin 1500 mg IV q12h 2. Follow up Trough level on 08/03/21 at 0830 3. Pharmacy will continue to monitor, follow and adjust therapy as needed. DANNY SOMMER RPH, 08/02/2118 Signed: 08/02/21 at 0618 by DANNY SOMMER RPH PHA
[2021-08-02 07:00] VITALS: BP 95/50
[2021-08-02] MEDS ORDERED: SENNOSIDES/DOCUSATE 8.6/50MG TABLET. PO SCH (09:00)
[2021-08-02] MEDS: MULTIVITAMIN with MINERAL TABLET. PO SCH (09:17)
[2021-08-02] MEDS: SENNOSIDES/DOCUSATE 8.6/50MG TABLET. PO SCH ×2 (09:17→21:57)
[2021-08-02] MEDS: CHOLECALCIFEROL (VITAMIN D3) 5,000 UNIT CAPSULE PO SCH (09:17)
[2021-08-02] MEDS: TAMSULOSIN 0.4 MG CAP.ER.24H. PO SCH (09:18)
[2021-08-02] MEDS: FERROUS SULFATE 325 MG TABLET. PO SCH ×2 (09:18→16:11)
[2021-08-02] MEDS: ACETAMINOPHEN 500 MG TABLET PO SCH ×3 (09:19→21:57)
[2021-08-02] MEDS: AMIODARONE HCL 200 MG TABLET. PO SCH ×2 (09:30→21:43)
[2021-08-02] MEDS: BUMETANIDE 1 MG TABLET. PO SCH ×2 (09:31→21:44)
[2021-08-02] MEDS: LOSARTAN POTASSIUM 50 MG TABLET. PO SCH (09:32)
[2021-08-02] MEDS: METOPROLOL SUCC 24HR ER 100 MG TAB.ER.24H. PO SCH (09:32)
[2021-08-02] MEDS: VANCOMYCIN 1.5 GM in IV NORMAL SALINE 500ML BAG 500 ML IV SCH ×2 (09:33→21:45)
[2021-08-02] MEDS ORDERED: LOSA-73 PO (10:06)
[2021-08-02] MEDS ORDERED: UMEC62.5 IH (10:07)
[2021-08-02 10:52] VITALS: BP 119/52
[2021-08-02] MEDS: IPRATRPIUM/ALBUTEROL 0.5/2.5MG 3 ML NEBU. NEB SCH ×3 (11:05→18:35)
[2021-08-02] MEDS ORDERED: ONDANSETRON PF 4 MG/2 ML VIAL. IVP PRN (12:00)
[2021-08-02] MEDS ORDERED: ONDANSETRON ODT 4 MG TAB.RAPDIS. PO PRN (12:00)
--- NOTE | 2021-08-02 13:43 | PDOC ---
[facility] [facility] PROGRESS NOTE Date of Service DOS: DATE: 08/02/21 TIME: 13:42 Chief Complaint Chief Complaint Wound dehiscence status post a right TKA, history A. fib hypertension COPD anemia -Right TKA previously performed 124. Wound healing issues after returning to rehab -Brought back today for I&D of the wound. -Please obtain cultures from the OR -We'll start Vanco Zosyn after surgery for broad coverage. -As needed pain control -Hold off DVT prophylaxis until ortho says okay to resume -Home meds as indicated. History of Present Illness History of Present Illness 08/02 Patient evaluated examined at bedside. Reports he had some confusion overnight got little agitated but is feeling better now pain well controlled. Still waiting on culture results. Continue broad antibiotics for now we will narrow as results available. Vitals/I&O Vitals/I&O: Vital Signs Date Time Temp Pulse Resp B/P (MAP) Pulse Ox O2 Delivery O2 Flow Rate FiO2 08/02/21 11:09 91 Nasal Cannula 5.0 08/02/21 10:52 98.4 65 18 119/52 (74) 98.4 I & O 08/01/21 08/01/21 08/02/21 15:00 23:00 07:00 Intake Total 1250 ml 100 ml 100 ml Output Total 130 ml 200 ml 850 ml Balance 1120 ml -100 ml -750 ml Physical Exam General: Alert, Oriented X3, Cooperative Heart: Regular rate, Normal S1, Normal S2 Lungs: Clear, Other Abdomen: Normal bowel sounds, Soft, No tenderness Extremities: No edema, Normal pulses Skin: No significant lesion Comment Review of Relevant I have reviewed the following items rajeev (where applicable) has been applied. Medications: Current Medications Medications (Trade) Dose Ordered Sig/Renetta Route PRN Reason Start Time Stop Time Status Last Admin Dose Admin Amiodarone HCl (Cordarone) 100 mg HS PO 08/01/21 21:00 08/01/21 21:06 Atorvastatin Calcium (Lipitor) 80 mg QHS PO 08/01/21 21:00 08/01/21 21:06 Senna/Docusate Sodium (Senna Plus) 1 tab BID PO 08/01/21 21:00 08/02/21 09:17 Multivitamins (Thera M Plus) 1 tab DAILY PO 08/02/21 09:00 08/02/21 09:17 Ferrous Sulfate (Feosol) 325 mg BIDWMEALS PO 08/01/21 17:00 08/02/21 09:18 Acetaminophen (Tylenol) 1,000 mg Q6H PO 08/02/21 09:00 08/02/21 09:19 Gabapentin (Neurontin) 100 mg Q8HRS PO 08/02/21 06:00 08/02/21 06:00 Ondansetron HCl (Zofran) 4 mg Q6HRS IVP 08/01/21 18:00 08/02/21 12:01 DC 08/02/21 12:17 Cefazolin Sodium/ Dextrose 50 ml @ 100 mls/hr Q6H IV 08/01/21 18:00 08/02/21 06:29 DC 08/02/21 06:00 Fentanyl Citrate (Fentanyl 2ml Vial) 50 mcg PRN Q5MIN PRN IVP MODERATE PAIN 4-6 08/01/21 13:45 08/02/21 13:44 08/01/21 13:48 Hydromorphone HCl (Dilaudid) 0.5 mg PRN Q10MIN PRN IVP SEVERE PAIN 7-10, 2nd CHOICE 08/01/21 13:45 08/02/21 13:44 08/01/21 14:40 Vancomycin HCl (Vanco Per Pharmacy) 1 each PRN DAILY PRN MC SEE COMMENTS 08/01/21 20:15 08/02/21 06:17 Vancomycin HCl 2 gm/Sodium Chloride 500 ml @ 250 mls/hr 1X ONCE IV 08/01/21 21:00 08/01/21 22:59 DC 08/01/21 21:03 Piperacillin Sod/ Tazobactam Sod 3.375 gm/Sodium Chloride 50 ml @ 100 mls/hr Q6HRS IV 08/01/21 21:00 08/02/21 12:16 Vancomycin HCl 1.5 gm/Sodium Chloride 500 ml @ 250 mls/hr Q12H IV 08/02/21 09:00 08/02/21 09:33 Albuterol/ Ipratropium (Duoneb) 3 ml RTQID NEB 08/02/21 12:00 08/02/21 11:05 Justifications for Admission Other Justification DARIO LINDSAY MD Aug 02, 2021 13:43
[2021-08-02 15:00] VITALS: BP 108/38
[2021-08-02] MEDS ORDERED: BISACODYL 10 MG SUPP.RECT. PR PRN (16:00)
[2021-08-02] MEDS: oxyCODONE/APAP 5/325 1 TAB TABLET PO PRN ×2 (16:11→21:42)
[2021-08-02 19:00] VITALS: BP 94/37
[2021-08-02] MEDS: ATORVASTATIN CALCIUM 40 MG TABLET. PO SCH (21:42)
[2021-08-02] MEDS: LACTOBACILLUS RHAMNOSUS GG 1 CAPSULE. PO SCH (21:42)
[2021-08-02 23:25] VITALS: BP 107/53
[2021-08-03] VITALS (10 sets, daily range): BP systolic 104–132; BP diastolic 44–59
[2021-08-03] MEDS: ACETAMINOPHEN 500 MG TABLET PO SCH ×4 (04:25→20:27)
[2021-08-03] MEDS: oxyCODONE/APAP 5/325 1 TAB TABLET PO PRN ×4 (04:32→18:18)
[2021-08-03] MEDS: PIPERACILLIN/TAZOBACTAM 3.375 GM in IV NORMAL SALINE 50ML 50 ML IV SCH ×2 (05:44→11:59)
[2021-08-03] MEDS: GABAPENTIN 100 MG CAPSULE. PO SCH ×3 (05:44→20:27)
[2021-08-03 07:44] LABS: WHITE BLOOD COUNT 5.2 x10^3/uL (4.0-11.0)
[2021-08-03] MEDS: IPRATRPIUM/ALBUTEROL 0.5/2.5MG 3 ML NEBU. NEB SCH ×4 (08:23→21:15)
--- NOTE | 2021-08-03 08:27 | PDOC ---
ORTHO PROGRESS NOTES DATE: 08/03/21 TIME: 08:25 Subjective Patient tells me his right knee is a little sore at times, after physical therapy otherwise he feels like he is tolerating it. No other complaints today Vitals Vital Signs Date Time Temp Pulse Resp B/P (MAP) Pulse Ox O2 Delivery O2 Flow Rate FiO2 08/03/21 03:23 98.0 62 18 108/46 (66) 94 Nasal Cannula 5.0 98.0 Notes He is awake and alert in bed. Dressing shows very little drainage. Normal motor and sensation are present in his foot. No growth on cultures yet Assessment and Plan We will continue PT and OT. We will following with cultures. KOBY NORTON II, MD Aug 03, 2021 08:26
[2021-08-03] MEDS: TAMSULOSIN 0.4 MG CAP.ER.24H. PO SCH (08:47)
[2021-08-03] MEDS: MULTIVITAMIN with MINERAL TABLET. PO SCH (08:47)
[2021-08-03] MEDS: AMIODARONE HCL 200 MG TABLET. PO SCH ×2 (08:47→20:28)
[2021-08-03] MEDS: FERROUS SULFATE 325 MG TABLET. PO SCH ×2 (08:48→17:25)
[2021-08-03] MEDS: LOSARTAN POTASSIUM 50 MG TABLET. PO SCH (08:48)
[2021-08-03] MEDS: LACTOBACILLUS RHAMNOSUS GG 1 CAPSULE. PO SCH ×2 (08:48→20:27)
[2021-08-03] MEDS: CHOLECALCIFEROL (VITAMIN D3) 5,000 UNIT CAPSULE PO SCH (08:48)
[2021-08-03] MEDS: BUMETANIDE 1 MG TABLET. PO SCH ×2 (08:55→17:26)
[2021-08-03] MEDS: SENNOSIDES/DOCUSATE 8.6/50MG TABLET. PO SCH ×2 (09:00→20:28)
[2021-08-03] MEDS ORDERED: NON FORMULARY ITEM (Umeclidinium Bromide (Incruse Ellipta) 62.5 MCG) IH SCH (09:00)
[2021-08-03] MEDS: METOPROLOL SUCC 24HR ER 100 MG TAB.ER.24H. PO SCH (09:00)
[2021-08-03 09:10] LABS: CREATININE 0.7 mg/dL (0.7-1.3); GFR 111.2
[2021-08-03 09:17] LABS: VANC TR 18.9 mcg/mL (10.0-20.0)
[2021-08-03] MEDS: VANCOMYCIN PER PHARMACY MC PRN (09:32)
--- NOTE | 2021-08-03 09:33 | NUR ---
Pharmacy Vancomycin Dosing Note S: Consulted to monitor and dose vancomycin started 08/01/21. O: JOSE GOLDSTEIN is a 71 year old M with KNEE INFECTION. Other Antibiotics: ZOSYN 3.375 GM Q6H LABS: Last BUN: 18 Last Creatinine: 0.7 Creatinine Clearance: 82 mL/min Last WBC: 5.2 Last Procalcitonin: -- Tmax (past 24 hours): 98.5 Microbiology: 08/01: R knee cx: NGTD I/O: 1090 / 350 Drug Levels: Last Trough level: 18.9 on 08/03/21 at 0855 Last dose given 08/02/21 at 2145 Vancomycin Dosing: Dosing Weight: Actual Target Trough: 15-20 A: Based on: patient's trough level and renal function. P: 1. Continue Vancomycin 1500 mg IV q12h. 2. Follow up Trough level as needed. 3. Pharmacy will continue to monitor, follow and adjust therapy as needed. JOAN ARGUELLO [facility], 08/03/21 0915
[2021-08-03] MEDS: VANCOMYCIN 1.5 GM in IV NORMAL SALINE 500ML BAG 500 ML IV SCH (09:38)
--- NOTE | 2021-08-03 13:00 | PDOC ---
[employer] PROGRESS NOTE Date of Service DOS: DATE: 08/03/21 TIME: 12:59 Chief Complaint Chief Complaint Wound dehiscence status post a right TKA, history A. fib hypertension COPD anemia -Right TKA previously performed 124. Wound healing issues after returning to rehab -Brought back today for I&D of the wound. -Please obtain cultures from the OR -We'll start Vanco Zosyn after surgery for broad coverage. -As needed pain control -Hold off DVT prophylaxis until ortho says okay to resume -Home meds as indicated. History of Present Illness History of Present Illness 08/03 Patient evaluated examined at bedside. Resting in bed just finished lunch. No further agitation episodes overnight. Says his leg feels okay pain control. Still waiting on some culture results. Continue current antibiotics narrow as needed. 08/02 Patient evaluated examined at bedside. Reports he had some confusion overnight got little agitated but is feeling better now pain well controlled. Still waiting on culture results. Continue broad antibiotics for now we will narrow as results available. Vitals/I&O Vitals/I&O: Vital Signs Date Time Temp Pulse Resp B/P (MAP) Pulse Ox O2 Delivery O2 Flow Rate FiO2 08/03/21 11:31 Nasal Cannula 4.0 08/03/21 11:00 98.3 59 18 110/44 (66) 94 98.3 I & O 08/02/21 08/02/21 08/03/21 15:00 23:00 07:00 Intake Total 530 ml 260 ml 300 ml Output Total 350 ml Balance 530 ml -90 ml 300 ml Physical Exam General: Alert, Oriented X3, Cooperative Heart: Regular rate, Normal S1, Normal S2 Lungs: Clear, Other Abdomen: Normal bowel sounds, Soft, No tenderness Extremities: No edema, Normal pulses Skin: No significant lesion Labs Labs: Laboratory Tests Test 08/03/21 08:55 Hemoglobin 7.0 g/dL (13.0-17.5) Hematocrit 22.0 % (39.0-53.0) Mean Corpuscular Hemoglobin Concent 32 g/dL (31-37) Creatinine 0.7 mg/dL (0.7-1.3) Estimated GFR (Cockcroft-Gault) 111.2 Vancomycin Level Trough 18.9 mcg/mL (10.0-20.0) Vancomycin Last Dose Date 08/02/21 Vancomycin Last Dose Time 2100 Comment Review of Relevant I have reviewed the following items rajeev (where applicable) has been applied. Medications: Current Medications Medications (Trade) Dose Ordered Sig/Renetta Route PRN Reason Start Time Stop Time Status Last Admin Dose Admin Vancomycin HCl (Vancomycin Trough Level) 1 each 1X ONCE MC 08/03/21 08:30 08/03/21 08:31 DC 08/03/21 09:28 Lactobacillus Rhamnosus (Culturelle) 1 cap BID PO 08/02/21 21:00 08/03/21 08:48 Justifications for Admission Other Justification DARIO LINDSAY MD Aug 03, 2021 13:00
--- NOTE | 2021-08-03 14:18 | NUR ---
Nurse's note: Non administered scheduled tylenol and stool softeners. PRN percocet given for pain; patient is having loose to liquid stools.
--- NOTE | 2021-08-03 15:41 | NUR ---
SW following. Discussed with RN, pt getting blood today. Awaiting cultures. [facility] reviewing since they were pt's first choice before COVID positive test last admission. SW will continue to follow.
[2021-08-03] MEDS: SMZ/TMP 800/160MG TABLET. PO SCH ×2 (17:26→20:26)
[2021-08-03] MEDS: ATORVASTATIN CALCIUM 40 MG TABLET. PO SCH (20:26)
[2021-08-03] MEDS: ZOLPIDEM 5 MG TABLET. PO PRN (20:28)
[2021-08-04 03:04] VITALS: BP 136/58
[2021-08-04] MEDS: ACETAMINOPHEN 500 MG TABLET PO SCH ×4 (03:24→21:58)
[2021-08-04] MEDS: oxyCODONE/APAP 5/325 1 TAB TABLET PO PRN ×3 (04:00→21:58)
[2021-08-04] MEDS: GABAPENTIN 100 MG CAPSULE. PO SCH ×3 (05:03→21:56)
[2021-08-04 07:00] VITALS: BP 107/52
[2021-08-04 07:21] LABS: HEMATOCRIT 26.7 % (39.0-53.0); HEMOGLOBIN 8.5 g/dL (13.0-17.5)
[2021-08-04 07:32] LABS: CREATININE 0.9 mg/dL (0.7-1.3); GFR 83.2
[2021-08-04] MEDS: IPRATRPIUM/ALBUTEROL 0.5/2.5MG 3 ML NEBU. NEB SCH ×4 (07:58→20:08)
[2021-08-04] MEDS: SENNOSIDES/DOCUSATE 8.6/50MG TABLET. PO SCH ×2 (08:45→21:58)
[2021-08-04] MEDS: FERROUS SULFATE 325 MG TABLET. PO SCH ×2 (08:46→16:01)
[2021-08-04] MEDS: LACTOBACILLUS RHAMNOSUS GG 1 CAPSULE. PO SCH ×2 (08:46→21:56)
[2021-08-04] MEDS: LOSARTAN POTASSIUM 50 MG TABLET. PO SCH (08:46)
[2021-08-04] MEDS: METOPROLOL SUCC 24HR ER 100 MG TAB.ER.24H. PO SCH (08:46)
[2021-08-04] MEDS: MULTIVITAMIN with MINERAL TABLET. PO SCH (08:46)
[2021-08-04] MEDS: AMIODARONE HCL 200 MG TABLET. PO SCH ×2 (08:47→21:57)
[2021-08-04] MEDS: TAMSULOSIN 0.4 MG CAP.ER.24H. PO SCH (08:47)
[2021-08-04] MEDS: SMZ/TMP 800/160MG TABLET. PO SCH (08:48)
[2021-08-04] MEDS: BUMETANIDE 1 MG TABLET. PO SCH ×2 (08:48→16:01)
[2021-08-04] MEDS: CHOLECALCIFEROL (VITAMIN D3) 5,000 UNIT CAPSULE PO SCH (08:48)
[2021-08-04] MEDS: oxyCODONE IR 5 MG TABLET PO PRN (08:58)
[2021-08-04 11:27] VITALS: BP 110/53
--- NOTE | 2021-08-04 11:29 | PDOC ---
[employer] PROGRESS NOTE Date of Service DOS: DATE: 08/04/21 TIME: 11:28 Chief Complaint Chief Complaint Wound dehiscence status post a right TKA, history A. fib hypertension COPD anemia -Right TKA previously performed 124. Wound healing issues after returning to rehab -Brought back today for I&D of the wound. -Please obtain cultures from the OR -We'll start Vanco Zosyn after surgery for broad coverage. -As needed pain control -Hold off DVT prophylaxis until ortho says okay to resume -Home meds as indicated. History of Present Illness History of Present Illness 08/04 Evaluated examined at bedside. He had just worked with physical therapy. Prefe rs [facility] on discharge whenever that is. Culture results showed a few stenotrophomonas organisms. Antibiotics switched over to Bactrim yesterday afternoon due to this. We will consult infectious disease today for recommendations and duration. 08/03 Patient evaluated examined at bedside. Resting in bed just finished lunch. No further agitation episodes overnight. Says his leg feels okay pain control. Still waiting on some culture results. Continue current antibiotics narrow as needed. 08/02 Patient evaluated examined at bedside. Reports he had some confusion overnight got little agitated but is feeling better now pain well controlled. Still waiting on culture results. Continue broad antibiotics for now we will narrow as results available. Vitals/I&O Vitals/I&O: Vital Signs Date Time Temp Pulse Resp B/P (MAP) Pulse Ox O2 Delivery O2 Flow Rate FiO2 08/04/21 11:27 97.7 67 22 110/53 (72) 90 Nasal Cannula 97.7 08/04/21 09:33 4.5 I & O 08/03/21 08/03/21 08/04/21 15:00 23:00 07:00 Intake Total 330 ml Output Total 650 ml 450 ml Balance -320 ml -450 ml Physical Exam General: Alert, Oriented X3, Cooperative Heart: Regular rate, Normal S1, Normal S2 Lungs: Clear, Other Abdomen: Normal bowel sounds, Soft, No tenderness Extremities: No edema, Normal pulses Skin: No significant lesion Labs Labs: Laboratory Tests Test 08/04/21 06:50 Hemoglobin 8.5 g/dL (13.0-17.5) Hematocrit 26.7 % (39.0-53.0) Mean Corpuscular Hemoglobin Concent 32 g/dL (31-37) Creatinine 0.9 mg/dL (0.7-1.3) Estimated GFR (Cockcroft-Gault) 83.2 Comment Review of Relevant I have reviewed the following items rajeev (where applicable) has been applied. Medications: Current Medications Medications (Trade) Dose Ordered Sig/Renetta Route PRN Reason Start Time Stop Time Status Last Admin Dose Admin Bumetanide (Bumex) 1 mg [id number] PO 08/03/21 16:00 08/04/21 08:48 Trimethoprim/ Sulfamethoxazole (Bactrim Ds) 2 tab BID PO 08/03/21 16:30 08/04/21 08:48 Justifications for Admission Other Justification DARIO LINDSAY MD Aug 04, 2021 11:29
[2021-08-04 14:52] VITALS: BP 114/52
--- NOTE | 2021-08-04 14:52 | PDOC2 ---
Consult: DATE OF CONSULTATION: August 04, 2021 REFERRING PHYSICIAN: Dr. Chase Perez MD REPORT TITLE: Infectious Disease Consultation REASON FOR CONSULTATION: Right total knee arthroplasty infection antibiotic management HISTORY OF PRESENT ILLNESS: Mr. Capps is a pleasant 71-year-old gentleman with a longstanding history of COPD on oxygen home, history of atrial fibrillation, coronary artery disease, sleep apnea, hypertension, hyperlipidemia, vitamin D deficiency, who underwent a right total knee arthroplasty replacement on July 02, 2021.. He has been staying at [facility]. On July 24, 2021 he was found to have wound dehiscence. He was started on cephalexin. He was subsequently admitted to [facility] due to altered mental status with abnormal labs and ROX. White count at admission was 11.5, creatinine of 3.3, troponin was elevated at 140, AST was 317, ALT of 679, lactate of 2.1, blood culture cultures returned positive for coagulase-negative staph, Corynebacterium diphtheroids from 07/24/2021, which was thought to be contaminant. Swab culture from the knee was positive for MSSA. Patient was transitioned from Zosyn and Zyvox to cefazolin. Patient was transferred to [facility] for further evaluation treatment. Patient also received blood transfusion for anemia. Patient was found to have wound and capsule dehiscence here at [facility].at [facility] he underwent irrigation and debridement of the right knee, right total knee arthroplasty with polyethylene exchange. Cultures have returned positive for stenotrophomonas. Patient is currently on Bactrim. ID consultation has been requested for further evaluation and treatment. Today patient denies any fever, chills, nausea, vomiting, abdominal pain. Postop site pain is under control unless he undergoes dressing change or PT and OT. Patient also has diarrhea. Denies any blood in stool. Denies worsening shortness of breath. Remains on nasal O2 by nasal cannula. Past medical history Atrial fibrillation, hypertension, COPD, sleep apnea, hyperlipidemia, vitamin D deficiency, coronary disease, Social history Quit tobaccoism in 2006, quit alcohol in 2007, , at bedside, no pets at home, [facility] as above Current medication Bactrim Was on cefazolin for MSSA right knee arthroplasty infection Other medications reviewed in medication list Allergies no known drug allergies Review of system negative except for above in HPI Family history noncontributory Physical exam Vital signs noted afebrile stable on O2 by nasal cannula Constitutional alert oriented x3 male in bed comfortably no acute distress pleasant cooperative HEENT pupils equal reactive, normal conjunctival, oropharynx clear, no thrush Neck supple no JVD Lungs decreased breath sound at the bases on oxygen via nasal cannula Heart S1-S2 Abdomen soft obese bowel sounds present nontender nondistended no rebound or guarding Vasques in place Extremities trace bilateral lower extremity edema. Right lower extremity in brace and take dressing, not taken down, no thigh tenderness, able to wiggle toes, bilateral upper extremity edema right greater than left. Neuro alert oriented x3 grossly nonfocal was all 4 extremities Psychiatric affect is appropriate PIV looks clean LABORATORY AND X-RAY DATA: Reviewed Microbiology Intraoperative cultures positive for stenotrophomonas S to levofloxacin and bactrim Previous Knee swab cultures positive for MSSA IMPRESSION: Wound dehiscence of RT knee incision site Recent right TKA June 2021 Status post Irrigation and debridement of the right knee, right total knee arthroplasty with polyethylene exchange on 08/01. Cultures positive for stenotrophomonas Previous Rt knee cultures were positive for MSSA was on cefazolin prior to transfer from [facility] History of Right TKA June 2021 Atrial fibrillation COPD on O2 by nasal cannula Polymicrobial Bacteremia at [facility] gram-positive cocci, gram- positive rods on July 24, 2021 with coagulase-negative staph and diphtheroids contaminant Anemia Acute kidney injury at outside facility improved Questionable peripheral arterial disease Diarrhea C. difficile PCR was negative at [facility] per report Recommendations DC Bactrim Limited choices for MSSA and stenotrophomonas right total knee arthroplasty infection Start Eravacycline,was on cefazolin [facility] Obtain ultrasound of right upper extremity to rule out DVT Check C. difficile PCR Wound care as directed Patient remains at risk of failure of right TKA despite I&D due to drug- resistant bacteria MSSA and stenotrophomonas Patient would like salvage treatment at this time with antibiotics Pros and cons discussed Risk of failure remains despite aggressive antibiotic treatment Patient and verbalizes understanding Monitor labs and cultures PT and OT as tolerated Continue supportive care Records from [facility] reviewed Thank you Dr. Perez for allowing me to participate in this patient's care. We will continue to follow. Discussed with at bedside. Discussed with RN. BRUNO ZAVALA MD Aug 04, 2021 14:52
--- NOTE | 2021-08-04 15:36 | RAD ---
Right upper extremity venous Doppler dated 08/04/2021 3:33 PM No comparison available. CLINICAL INDICATION: Arm swelling FINDINGS: Grayscale, color-flow and spectral waveform analysis performed to include the deep venous system of t he right upper extremity. Normal compressibility, phasicity and augmentation of flow involving the de ep veins. No filling defects. There is noncompressibility and lack of flow in the right cephalic vein proximally to the mid forearm region.. IMPRESSION: 1. No evidence of right upper extremity deep vein thrombosis 2. Superficial thrombophlebitis involving the right cephalic vein Electronically signed by: Gordy Carrasco MD (08/04/2021 3:34 PM) HALEY
--- NOTE | 2021-08-04 17:00 | NUR ---
Dr. Perez aware of patients superfiscial thrombophlebitis involving the right cephalic vein, orders to elevate right arm. Orders from Dr. Huggins for PICC line placement
[2021-08-04 19:00] VITALS: BP 113/63
--- NOTE | 2021-08-04 21:06 | RAD ---
Single view chest dated 08/04/2021 9:03 PM: COMPARISON: 07/08/2021 Clinical Indication: PICC placement. Findings: Single upright portable exam of the chest was performed. Heart and mediastinal contours are stable. T here is patchy airspace disease at the perihilar regions and bilateral lung bases, increased from juan or study. Blunting of the costophrenic sulci. No pneumothorax. Left-sided PICC with tip projected to the level of the brachiocephalic vein-SVC junction. IMPRESSION: 1. Left-sided PICC with tip projected to the level of the brachiocephalic vein-SVC junction. 2. Increasing bilateral airspace disease. Electronically signed by: Gordy Carrasco MD (08/04/2021 9:04 PM) SAM
[2021-08-04] MEDS: ATORVASTATIN CALCIUM 40 MG TABLET. PO SCH (21:56)
[2021-08-04] MEDS: ZOLPIDEM 5 MG TABLET. PO PRN (21:58)
[2021-08-04] MEDS: ERAVACYCLINE IV SCH (21:59)
[2021-08-04] MEDS: NORMAL SALINE IV SCH (21:59)
[2021-08-04 23:00] VITALS: BP 122/53
--- NOTE | 2021-08-05 01:37 | EKG ---
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
[2021-08-05] MEDS: oxyCODONE IR 5 MG TABLET PO PRN ×2 (02:25→10:16)
[2021-08-05 03:00] VITALS: BP 111/50
[2021-08-05] MEDS: ACETAMINOPHEN 500 MG TABLET PO SCH ×4 (03:00→21:14)
--- NOTE | 2021-08-05 03:00 | NUR ---
Patient's acetaminophen intake close to the limit, 0300 dose not administered, monitoring,
[2021-08-05] MEDS: oxyCODONE/APAP 5/325 1 TAB TABLET PO PRN ×3 (03:31→19:22)
[2021-08-05] MEDS: GABAPENTIN 100 MG CAPSULE. PO SCH ×3 (06:13→21:10)
[2021-08-05 07:00] VITALS: BP 114/50
[2021-08-05 07:24] LABS: BASO % 0 % (0-3); EOS # 0.1 x10^3/uL (0.0-0.7); EOS % 1 % (0-3); HEMOGLOBIN 8.5 g/dL (13.0-17.5); LYMPH # 0.7 x10^3/uL (1.0-4.8); LYMPH % 8 % (24-48); MEAN CORPUSCULAR HEMOGLOBIN 30 pg (25-35); MEAN CORPUSCULAR HGB CONC 31 g/dL (31-37); MEAN CORPUSCULAR VOLUME 95 fL (79-100); MONO # 0.4 x10^3/uL (0.0-1.1); MONO % 5 % (0-9); NEUT # 7.4 x10^3/uL (1.8-7.7); NEUT % 86 % (31-73); PLATELET COUNT 477 x10^3/uL (140-400); RED BLOOD COUNT 2.83 x10^6/uL (4.30-5.70); RED CELL DISTRIBUTION WIDTH 17.2 % (11.5-14.5); WHITE BLOOD COUNT 8.7 x10^3/uL (4.0-11.0)
[2021-08-05] MEDS: IPRATRPIUM/ALBUTEROL 0.5/2.5MG 3 ML NEBU. NEB SCH ×4 (07:32→20:03)
[2021-08-05 08:07] LABS: ALBUMIN 1.4 g/dL (3.4-5.0); ALBUMIN/GLOBULIN RATIO 0.5 (1.0-1.7); C-REACTIVE PROTEIN 115.5 mg/L (0-3.3); CALCIUM 6.6 mg/dL (8.5-10.1); CREATININE 0.9 mg/dL (0.7-1.3); GFR 83.2; TOTAL BILIRUBIN 0.2 mg/dL (0.2-1.0); TOTAL PROTEIN 4.4 g/dL (6.4-8.2)
[2021-08-05] MEDS: TAMSULOSIN 0.4 MG CAP.ER.24H. PO SCH (08:21)
[2021-08-05] MEDS: LOSARTAN POTASSIUM 50 MG TABLET. PO SCH (08:21)
[2021-08-05] MEDS: MULTIVITAMIN with MINERAL TABLET. PO SCH (08:22)
[2021-08-05] MEDS: AMIODARONE HCL 200 MG TABLET. PO SCH ×2 (08:22→21:07)
[2021-08-05] MEDS: LACTOBACILLUS RHAMNOSUS GG 1 CAPSULE. PO SCH ×2 (08:22→21:08)
[2021-08-05] MEDS: BUMETANIDE 1 MG TABLET. PO SCH ×2 (08:22→15:58)
[2021-08-05] MEDS: FERROUS SULFATE 325 MG TABLET. PO SCH ×2 (08:23→15:58)
[2021-08-05] MEDS: METOPROLOL SUCC 24HR ER 100 MG TAB.ER.24H. PO SCH (08:23)
[2021-08-05] MEDS: CHOLECALCIFEROL (VITAMIN D3) 5,000 UNIT CAPSULE PO SCH (08:23)
[2021-08-05] MEDS: SENNOSIDES/DOCUSATE 8.6/50MG TABLET. PO SCH ×2 (09:00→21:08)
[2021-08-05] MEDS: ERAVACYCLINE IV SCH ×2 (09:07→21:07)
[2021-08-05] MEDS: NORMAL SALINE IV SCH ×2 (09:07→21:07)
[2021-08-05 11:00] VITALS: BP 120/45
[2021-08-05] MEDS ORDERED: POTASSIUM CHLORIDE 20 MEQ TABLET.ER. PO ONE (11:00)
--- NOTE | 2021-08-05 13:51 | PDOC ---
Infectious Disease Note Subjective: Subjective Pt says cont to have diarrhea Postop pain is u nder control but has it with movement Vital Signs: Vital Signs Vital Signs Date Time Temp Pulse Resp B/P (MAP) Pulse Ox O2 Delivery O2 Flow Rate FiO2 08/05/21 11:31 Nasal Cannula 4.0 08/05/21 11:00 98.4 50 18 120/45 (70) 87 98.4 Physical Exam: PHYSICAL EXAM Constitutional alert oriented x3 male in bed comfortably no acute distress pleasant cooperative HEENT pupils equal reactive, normal conjunctival, oropharynx clear, no thrush Neck supple no JVD Lungs decreased breath sound at the bases on oxygen via nasal cannula Heart S1-S2 Abdomen soft obese bowel sounds present nontender nondistended no rebound or guarding Vasques in place Extremities trace bilateral lower extremity edema. Right lower extremity in brace and take dressing, not taken down, no thigh tenderness, able to wiggle toes, bilateral upper extremity edema right greater than left. Neuro alert oriented x3 grossly nonfocal was all 4 extremities Psychiatric affect is appropriate PIV looks clean Medications: Inpatient Meds: Medications reviewed. Labs: Lab Laboratory Tests Test 08/05/21 06:20 White Blood Count 8.7 x10^3/uL (4.0-11.0) Red Blood Count 2.83 x10^6/uL (4.30-5.70) Hemoglobin 8.5 g/dL (13.0-17.5) Hematocrit 27.0 % (39.0-53.0) Mean Corpuscular Volume 95 fL (79-100) Mean Corpuscular Hemoglobin 30 pg (25-35) Mean Corpuscular Hemoglobin Concent 31 g/dL (31-37) Red Cell Distribution Width 17.2 % (11.5-14.5) Platelet Count 477 x10^3/uL (140-400) Neutrophils (%) (Auto) 86 % (31-73) Lymphocytes (%) (Auto) 8 % (24-48) Monocytes (%) (Auto) 5 % (0-9) Eosinophils (%) (Auto) 1 % (0-3) Basophils (%) (Auto) 0 % (0-3) Neutrophils # (Auto) 7.4 x10^3/uL (1.8-7.7) Lymphocytes # (Auto) 0.7 x10^3/uL (1.0-4.8) Monocytes # (Auto) 0.4 x10^3/uL (0.0-1.1) Eosinophils # (Auto) 0.1 x10^3/uL (0.0-0.7) Basophils # (Auto) 0.0 x10^3/uL (0.0-0.2) Erythrocyte Sedimentation Rate 33 (0-15) Sodium Level 138 mmol/L (136-145) Potassium Level 3.0 mmol/L (3.5-5.1) Chloride Level 102 mmol/L (98-107) Carbon Dioxide Level 28 mmol/L (21-32) Anion Gap 8 (6-14) Blood Urea Nitrogen 8 mg/dL (8-26) Creatinine 0.9 mg/dL (0.7-1.3) Estimated GFR (Cockcroft-Gault) 83.2 BUN/Creatinine Ratio 9 (6-20) Glucose Level 86 mg/dL (70-99) Calcium Level 6.6 mg/dL (8.5-10.1) Total Bilirubin 0.2 mg/dL (0.2-1.0) Aspartate Amino Transf (AST/SGOT) 39 U/L (15-37) Alanine Aminotransferase (ALT/SGPT) 75 U/L (16-63) Alkaline Phosphatase 91 U/L (46-116) C-Reactive Protein, Quantitative 115.5 mg/L (0-3.3) Total Protein 4.4 g/dL (6.4-8.2) Albumin 1.4 g/dL (3.4-5.0) Albumin/Globulin Ratio 0.5 (1.0-1.7) Objective: Assessment: Wound dehiscence of RT knee incision site Recent right TKA June 2021 Status post Irrigation and debridement of the right knee, right total knee arthroplasty with polyethylene exchange on 08/01. Cultures positive for stenotrophomonas Previous Rt knee cultures were positive for MSSA was on cefazolin prior to transfer from [facility] History of Right TKA June 2021 Atrial fibrillation COPD on O2 by nasal cannula Polymicrobial Bacteremia at [facility] gram-positive cocci, gram- positive rods on July 24, 2021 with coagulase-negative staph and diphtheroids contaminant Anemia Acute kidney injury at outside facility improved Questionable peripheral arterial disease Diarrhea C. difficile PCR was negative at [facility] per report Right upper extremity thrombophlebitis Plan: Plan of Care Limited choices for MSSA and stenotrophomonas right total knee arthroplasty infection Cont Eravacycline,was on cefazolin prior to transfer from [facility] Follow-up C. difficile PCR Right upper extremity thrombophlebitis management per primary Wound care as directed Patient remains at risk of failure of right TKA despite I&D due to drug- resistant bacteria MSSA and stenotrophomonas despite aggressive antibiotic treatment Patient would like salvage treatment at this time with antibiotics Pros and cons discussed Patient and verbalizes understanding Monitor labs and cultures PT and OT as tolerated Continue supportive care BRUNO ZAVALA MD Aug 05, 2021 13:51
--- NOTE | 2021-08-05 14:48 | PDOC ---
[employer] PROGRESS NOTE Date of Service DOS: DATE: 08/05/21 TIME: 14:47 Chief Complaint Chief Complaint Wound dehiscence status post a right TKA, history A. fib hypertension COPD anemia -Right TKA previously performed 124. Wound healing issues after returning to rehab -Brought back today for I&D of the wound. -Please obtain cultures from the OR -We'll start Vanco Zosyn after surgery for broad coverage. -As needed pain control -Hold off DVT prophylaxis until ortho says okay to resume -Home meds as indicated. History of Present Illness History of Present Illness 08/05 Evaluate examined at bedside. Resting in bed doing well. No major complaints t o me. Antibiotics changed to Erivacycline yesterday per ID. Continue. Possible d/c to rehab this week? discussed with bedside rn 08/04 Evaluated examined at bedside. He had just worked with physical therapy. Prefers [facility] on discharge whenever that is. Culture results showed a few stenotrophomonas organisms. Antibiotics switched over to Bactrim yesterday afternoon due to this. We will consult infectious disease today for recommendations and duration. 08/03 Patient evaluated examined at bedside. Resting in bed just finished lunch. No further agitation episodes overnight. Says his leg feels okay pain control. S till waiting on some culture results. Continue current antibiotics narrow as needed. 08/02 Patient evaluated examined at bedside. Reports he had some confusion overnight got little agitated but is feeling better now pain well controlled. Still waiting on culture results. Continue broad antibiotics for now we will narrow as results available. Vitals/I&O Vitals/I&O: Vital Signs Date Time Temp Pulse Resp B/P (MAP) Pulse Ox O2 Delivery O2 Flow Rate FiO2 08/05/21 11:31 Nasal Cannula 4.0 08/05/21 11:00 98.4 50 18 120/45 (70) 87 98.4 I & O 08/04/21 08/04/21 08/05/21 15:00 23:00 07:00 Intake Total 400 ml 250 ml Output Total 350 ml 1650 ml Balance 400 ml -100 ml -1650 ml Physical Exam Physical Exam: Constitutional alert oriented x3 male in bed comfortably no acute distress pleasant cooperative HEENT pupils equal reactive, normal conjunctival, oropharynx clear, no thrush Neck supple no JVD Lungs decreased breath sound at the bases on oxygen via nasal cannula Heart S1-S2 Abdomen soft obese bowel sounds present nontender nondistended no rebound or guarding Vasques in place Extremities trace bilateral lower extremity edema. Right lower extremity in brace and take dressing, not taken down, no thigh tenderness, able to wiggle toes, bilateral upper extremity edema right greater than left. Neuro alert oriented x3 grossly nonfocal was all 4 extremities Psychiatric affect is appropriate PIV looks clean General: Alert, Oriented X3, Cooperative Heart: Regular rate, Normal S1, Normal S2 Lungs: Clear, Other Abdomen: Normal bowel sounds, Soft, No tenderness Extremities: No edema, Normal pulses Skin: No significant lesion Labs Labs: Laboratory Tests Test 08/05/21 06:20 White Blood Count 8.7 x10^3/uL (4.0-11.0) Red Blood Count 2.83 x10^6/uL (4.30-5.70) Hemoglobin 8.5 g/dL (13.0-17.5) Hematocrit 27.0 % (39.0-53.0) Mean Corpuscular Volume 95 fL (79-100) Mean Corpuscular Hemoglobin 30 pg (25-35) Mean Corpuscular Hemoglobin Concent 31 g/dL (31-37) Red Cell Distribution Width 17.2 % (11.5-14.5) Platelet Count 477 x10^3/uL (140-400) Neutrophils (%) (Auto) 86 % (31-73) Lymphocytes (%) (Auto) 8 % (24-48) Monocytes (%) (Auto) 5 % (0-9) Eosinophils (%) (Auto) 1 % (0-3) Basophils (%) (Auto) 0 % (0-3) Neutrophils # (Auto) 7.4 x10^3/uL (1.8-7.7) Lymphocytes # (Auto) 0.7 x10^3/uL (1.0-4.8) Monocytes # (Auto) 0.4 x10^3/uL (0.0-1.1) Eosinophils # (Auto) 0.1 x10^3/uL (0.0-0.7) Basophils # (Auto) 0.0 x10^3/uL (0.0-0.2) Erythrocyte Sedimentation Rate 33 (0-15) Sodium Level 138 mmol/L (136-145) Potassium Level 3.0 mmol/L (3.5-5.1) Chloride Level 102 mmol/L (98-107) Carbon Dioxide Level 28 mmol/L (21-32) Anion Gap 8 (6-14) Blood Urea Nitrogen 8 mg/dL (8-26) Creatinine 0.9 mg/dL (0.7-1.3) Estimated GFR (Cockcroft-Gault) 83.2 BUN/Creatinine Ratio 9 (6-20) Glucose Level 86 mg/dL (70-99) Calcium Level 6.6 mg/dL (8.5-10.1) Total Bilirubin 0.2 mg/dL (0.2-1.0) Aspartate Amino Transf (AST/SGOT) 39 U/L (15-37) Alanine Aminotransferase (ALT/SGPT) 75 U/L (16-63) Alkaline Phosphatase 91 U/L (46-116) C-Reactive Protein, Quantitative 115.5 mg/L (0-3.3) Total Protein 4.4 g/dL (6.4-8.2) Albumin 1.4 g/dL (3.4-5.0) Albumin/Globulin Ratio 0.5 (1.0-1.7) Comment Review of Relevant I have reviewed the following items rajeev (where applicable) has been applied. Medications: Current Medications Medications (Trade) Dose Ordered Sig/Renetta Route PRN Reason Start Time Stop Time Status Last Admin Dose Admin Eravacycline 100 mg/Sodium Chloride 250 ml @ 250 mls/hr Q12HR IV 08/04/21 18:00 08/05/21 09:07 Potassium Chloride (Klor-Con) 40 meq 1X ONCE PO 08/05/21 11:00 08/05/21 11:01 DC 08/05/21 10:48 Justifications for Admission Other Justification DARIO LINDSAY MD Aug 05, 2021 14:48
[2021-08-05 15:00] VITALS: BP 109/48
[2021-08-05 19:00] VITALS: BP 134/53
[2021-08-05] MEDS: ATORVASTATIN CALCIUM 40 MG TABLET. PO SCH (21:08)
[2021-08-05] MEDS: ZOLPIDEM 5 MG TABLET. PO PRN (21:08)
[2021-08-05 23:00] VITALS: BP 122/45
[2021-08-06 03:00] VITALS: BP 143/44
[2021-08-06] MEDS: ACETAMINOPHEN 500 MG TABLET PO SCH ×4 (03:00→20:50)
[2021-08-06] MEDS: GABAPENTIN 100 MG CAPSULE. PO SCH ×3 (06:14→20:49)
[2021-08-06 06:40] LABS: CALCIUM 6.7 mg/dL (8.5-10.1); CREATININE 0.8 mg/dL (0.7-1.3); GFR 95.3; POTASSIUM 3.3 mmol/L (3.5-5.1)
[2021-08-06 07:00] VITALS: BP 108/43
[2021-08-06] MEDS: IPRATRPIUM/ALBUTEROL 0.5/2.5MG 3 ML NEBU. NEB SCH ×4 (08:43→21:02)
[2021-08-06] MEDS: METOPROLOL SUCC 24HR ER 100 MG TAB.ER.24H. PO SCH (09:00)
[2021-08-06] MEDS: SENNOSIDES/DOCUSATE 8.6/50MG TABLET. PO SCH ×2 (09:00→20:50)
[2021-08-06] MEDS: CHOLECALCIFEROL (VITAMIN D3) 5,000 UNIT CAPSULE PO SCH (09:15)
[2021-08-06] MEDS: FERROUS SULFATE 325 MG TABLET. PO SCH ×2 (09:15→17:36)
[2021-08-06] MEDS: TAMSULOSIN 0.4 MG CAP.ER.24H. PO SCH (09:15)
[2021-08-06] MEDS: LACTOBACILLUS RHAMNOSUS GG 1 CAPSULE. PO SCH ×2 (09:15→20:49)
[2021-08-06] MEDS: MULTIVITAMIN with MINERAL TABLET. PO SCH (09:15)
[2021-08-06] MEDS: BUMETANIDE 1 MG TABLET. PO SCH ×2 (09:16→16:17)
[2021-08-06] MEDS: AMIODARONE HCL 200 MG TABLET. PO SCH ×2 (09:17→20:49)
[2021-08-06] MEDS: LOSARTAN POTASSIUM 50 MG TABLET. PO SCH (09:17)
[2021-08-06] MEDS: NORMAL SALINE IV SCH ×2 (09:18→20:50)
[2021-08-06] MEDS: ERAVACYCLINE IV SCH ×2 (09:18→20:50)
[2021-08-06] MEDS: oxyCODONE/APAP 5/325 1 TAB TABLET PO PRN ×3 (10:23→20:51)
[2021-08-06 11:00] VITALS: BP 109/52
--- NOTE | 2021-08-06 11:34 | PDOC ---
[employer] PROGRESS NOTE Date of Service DOS: DATE: 08/06/21 TIME: 11:33 Chief Complaint Chief Complaint Wound dehiscence status post a right TKA, history A. fib hypertension COPD anemia -Right TKA previously performed 124. Wound healing issues after returning to rehab -Brought back today for I&D of the wound. -Please obtain cultures from the OR -We'll start Vanco Zosyn after surgery for broad coverage. -As needed pain control -Hold off DVT prophylaxis until ortho says okay to resume -Home meds as indicated. History of Present Illness History of Present Illness 08/06 Patient evaluated examined at bedside. Resting in bed doing well. Says he thin ks he has his day and nights mixed up as he is awake throughout much of the night. Otherwise doing well. Continue IV antibiotics planning for 6-week course. Can DC to rehab in the next day or 2. 08/05 Evaluate examined at bedside. Resting in bed doing well. No major complaints to me. Antibiotics changed to Erivacycline yesterday per ID. Continue. Possible d/c to rehab this week? discussed with bedside rn 08/04 Evaluated examined at bedside. He had just worked with physical therapy. Prefers [facility] on discharge whenever that is. Culture results showed a few stenotrophomonas organisms. Antibiotics switched over to Bactrim yesterday afternoon due to this. We will consult infectious disease today for recommendations and duration. 08/03 Patient evaluated examined at bedside. Resting in bed just finished lunch. No further agitation episodes overnight. Says his leg feels okay pain control. Still waiting on some culture results. Continue current antibiotics narrow as needed. 08/02 Patient evaluated examined at bedside. Reports he had some confusion overnight got little agitated but is feeling better now pain well controlled. Still waiting on culture results. Continue broad antibiotics for now we will narrow as results available. Vitals/I&O Vitals/I&O: Vital Signs Date Time Temp Pulse Resp B/P (MAP) Pulse Ox O2 Delivery O2 Flow Rate FiO2 08/06/21 09:17 59 108/43 08/06/21 08:45 94 Nasal Cannula 4.0 08/06/21 07:00 98.4 10 98.4 I & O 08/05/21 08/05/21 08/06/21 15:00 23:00 07:00 Intake Total 250 ml 100 ml Output Total 300 ml Balance 250 ml -200 ml Physical Exam Physical Exam: Constitutional alert oriented x3 male in bed comfortably no acute distress pleasant cooperative HEENT pupils equal reactive, normal conjunctival, oropharynx clear, no thrush Neck supple no JVD Lungs decreased breath sound at the bases on oxygen via nasal cannula Heart S1-S2 Abdomen soft obese bowel sounds present nontender nondistended no rebound or guarding Vasques in place Extremities trace bilateral lower extremity edema. Right lower extremity in brace and take dressing, not taken down, no thigh tenderness, able to wiggle toes, bilateral upper extremity edema right greater than left. Neuro alert oriented x3 grossly nonfocal was all 4 extremities Psychiatric affect is appropriate PIV looks clean General: Alert, Oriented X3, Cooperative Heart: Regular rate, Normal S1, Normal S2 Lungs: Clear, Other Abdomen: Normal bowel sounds, Soft, No tenderness Extremities: No edema, Normal pulses Skin: No significant lesion Labs Labs: Laboratory Tests Test 08/06/21 06:20 Sodium Level 137 mmol/L (136-145) Potassium Level 3.3 mmol/L (3.5-5.1) Chloride Level 102 mmol/L (98-107) Carbon Dioxide Level 32 mmol/L (21-32) Anion Gap 3 (6-14) Blood Urea Nitrogen 8 mg/dL (8-26) Creatinine 0.8 mg/dL (0.7-1.3) Estimated GFR (Cockcroft-Gault) 95.3 Glucose Level 81 mg/dL (70-99) Calcium Level 6.7 mg/dL (8.5-10.1) Comment Review of Relevant I have reviewed the following items rajeev (where applicable) has been applied. Justifications for Admission Other Justification DARIO LINDSAY MD Aug 06, 2021 11:34
[2021-08-06] MEDS: VANCOMYCIN 125 MG/2.5 ML ORAL SOLUTION. PO SCH ×3 (12:27→20:50)
--- NOTE | 2021-08-06 13:35 | PDOC ---
Infectious Disease Note Subjective Subjective Pt says cont to have diarrhea Postop pain is u nder control but has it with movement ROS ROS no n/v/abd pain Vital Sign Vital Signs Vital Signs Date Time Temp Pulse Resp B/P (MAP) Pulse Ox O2 Delivery O2 Flow Rate FiO2 08/06/21 11:00 82.1 71 11 109/52 (71) 93 Nasal Cannula 5.0 82.1 Physical Exam PHYSICAL EXAM Constitutional alert oriented x3 male in bed comfortably no acute distress pleasant cooperative HEENT pupils equal reactive, normal conjunctival, oropharynx clear, no thrush Neck supple no JVD Lungs decreased breath sound at the bases on oxygen via nasal cannula Heart S1-S2 Abdomen soft obese bowel sounds present nontender nondistended no rebound or guarding Vasques in place Extremities trace bilateral lower extremity edema. Right lower extremity in brace and take dressing, not taken down, no thigh tenderness, able to wiggle toes, bilateral upper extremity edema right greater than left. Neuro alert oriented x3 grossly nonfocal was all 4 extremities Psychiatric affect is appropriate PIV looks clean Labs Lab Laboratory Tests Test 08/06/21 06:20 Sodium Level 137 mmol/L (136-145) Potassium Level 3.3 mmol/L (3.5-5.1) Chloride Level 102 mmol/L (98-107) Carbon Dioxide Level 32 mmol/L (21-32) Anion Gap 3 (6-14) Blood Urea Nitrogen 8 mg/dL (8-26) Creatinine 0.8 mg/dL (0.7-1.3) Estimated GFR (Cockcroft-Gault) 95.3 Glucose Level 81 mg/dL (70-99) Calcium Level 6.7 mg/dL (8.5-10.1) Micro Microbiology 08/01/21 Gram Stain - Final, Complete 08/01/21 Aerobic and Anaerobic Culture - Final, Complete Stenotrophomonas Maltophilia Objective Assessment Wound dehiscence of RT knee incision site Recent right TKA June 2021 Status post Irrigation and debridement of the right knee, right total knee arthroplasty with polyethylene exchange on 08/01. Cultures positive for stenotrophomonas Previous Rt knee cultures were positive for MSSA was on cefazolin prior to transfer from [facility] History of Right TKA June 2021 Atrial fibrillation COPD on O2 by nasal cannula Polymicrobial Bacteremia at [facility] gram-positive cocci, gram- positive rods on July 24, 2021 with coagulase-negative staph and diphtheroids contaminant Anemia Acute kidney injury at outside facility improved Questionable peripheral arterial disease Diarrhea C. difficile PCR was negative at [facility] per report Right upper extremity thrombophlebitis c diff Plan Plan of Care Limited choices for MSSA and stenotrophomonas right total knee arthroplasty infection Cont Eravacycline,was on cefazolin prior to transfer [facility] Right upper extremity thrombophlebitis management per primary Wound care as directed Patient remains at risk of failure of right TKA despite I&D due to drug- resistant bacteria MSSA and stenotrophomonas despite aggressive antibiotic treatment Patient would like salvage treatment at this time with antibiotics Pros and cons discussed Patient and verbalizes understanding Monitor labs and cultures PT and OT as tolerated Continue supportive care d/w and son SARATH ZAVALA MD Aug 06, 2021 13:35
[2021-08-06 19:00] VITALS: BP 125/50
[2021-08-06] MEDS: ATORVASTATIN CALCIUM 40 MG TABLET. PO SCH (20:49)
[2021-08-06] MEDS: ZOLPIDEM 5 MG TABLET. PO PRN (20:49)
[2021-08-07 03:00] VITALS: BP 148/43
[2021-08-07] MEDS: ACETAMINOPHEN 500 MG TABLET PO SCH ×4 (03:03→21:07)
[2021-08-07] MEDS: GABAPENTIN 100 MG CAPSULE. PO SCH ×3 (04:44→21:05)
[2021-08-07] MEDS: oxyCODONE/APAP 5/325 1 TAB TABLET PO PRN ×3 (04:45→21:05)
[2021-08-07 07:00] VITALS: BP 133/59
[2021-08-07] MEDS: IPRATRPIUM/ALBUTEROL 0.5/2.5MG 3 ML NEBU. NEB SCH ×4 (07:48→19:54)
[2021-08-07 07:56] LABS: CALCIUM 6.8 mg/dL (8.5-10.1); CREATININE 0.8 mg/dL (0.7-1.3); GFR 95.3
[2021-08-07 07:59] LABS: POTASSIUM 2.9 mmol/L (3.5-5.1)
[2021-08-07] MEDS: FERROUS SULFATE 325 MG TABLET. PO SCH ×2 (08:07→17:05)
[2021-08-07] MEDS: AMIODARONE HCL 200 MG TABLET. PO SCH ×2 (08:08→21:06)
[2021-08-07] MEDS: SENNOSIDES/DOCUSATE 8.6/50MG TABLET. PO SCH ×2 (09:00→21:07)
[2021-08-07] MEDS: LACTOBACILLUS RHAMNOSUS GG 1 CAPSULE. PO SCH ×2 (09:08→21:05)
[2021-08-07] MEDS: BUMETANIDE 1 MG TABLET. PO SCH ×2 (09:08→15:56)
[2021-08-07] MEDS: POTASSIUM CHLORIDE 20 MEQ TABLET.ER. PO SCH ×2 (09:08→21:05)
[2021-08-07] MEDS: VANCOMYCIN 125 MG/2.5 ML ORAL SOLUTION. PO SCH ×4 (09:09→21:05)
[2021-08-07] MEDS: LOSARTAN POTASSIUM 50 MG TABLET. PO SCH (09:09)
[2021-08-07] MEDS: MULTIVITAMIN with MINERAL TABLET. PO SCH (09:09)
[2021-08-07] MEDS: TAMSULOSIN 0.4 MG CAP.ER.24H. PO SCH (09:09)
[2021-08-07] MEDS: METOPROLOL SUCC 24HR ER 100 MG TAB.ER.24H. PO SCH (09:09)
[2021-08-07] MEDS: CHOLECALCIFEROL (VITAMIN D3) 5,000 UNIT CAPSULE PO SCH (09:09)
[2021-08-07] MEDS: NORMAL SALINE IV SCH ×2 (09:58→21:04)
[2021-08-07] MEDS: ERAVACYCLINE IV SCH ×2 (09:58→21:04)
[2021-08-07 11:00] VITALS: BP 139/47
--- NOTE | 2021-08-07 11:27 | PDOC ---
Infectious Disease Note Subjective: Subjective Patient without complaints today Diarrhea is improving Pain is under control Vital Signs: Vital Signs Vital Signs Date Time Temp Pulse Resp B/P (MAP) Pulse Ox O2 Delivery O2 Flow Rate FiO2 08/07/21 11:02 92 Nasal Cannula 4.5 08/07/21 09:09 67 133/59 08/07/21 07:00 98.3 16 98.3 Physical Exam: PHYSICAL EXAM Constitutional alert oriented x3 male in bed comfortably no acute distress pleasant cooperative HEENT pupils equal reactive, normal conjunctival, oropharynx clear, no thrush Neck supple no JVD Lungs decreased breath sound at the bases on oxygen via nasal cannula Heart S1-S2 Abdomen soft obese bowel sounds present nontender nondistended no rebound or guarding Vasques in place Extremities trace bilateral lower extremity edema. Right lower extremity in brace and take dressing, not taken down, no thigh tenderness, able to wiggle toes, bilateral upper extremity edema right greater than left. Neuro alert oriented x3 grossly nonfocal was all 4 extremities Psychiatric affect is appropriate PIV looks clean Medications: Inpatient Meds: Medications reviewed. Labs: Lab Laboratory Tests Test 08/07/21 06:30 Sodium Level 140 mmol/L (136-145) Potassium Level 2.9 mmol/L (3.5-5.1) Chloride Level 100 mmol/L (98-107) Carbon Dioxide Level 32 mmol/L (21-32) Anion Gap 8 (6-14) Blood Urea Nitrogen 8 mg/dL (8-26) Creatinine 0.8 mg/dL (0.7-1.3) Estimated GFR (Cockcroft-Gault) 95.3 Glucose Level 89 mg/dL (70-99) Calcium Level 6.8 mg/dL (8.5-10.1) Magnesium Level 1.7 mg/dL (1.8-2.4) Objective: Assessment: Wound dehiscence of RT knee incision site Recent right TKA June 2021 Status post Irrigation and debridement of the right knee, right total knee arthroplasty with polyethylene exchange on 08/01. Cultures positive for stenotrophomonas Previous Rt knee cultures were positive for MSSA was on cefazolin prior to transfer from [facility] C diff colitis History of Right TKA June 2021 Atrial fibrillation COPD on O2 by nasal cannula Polymicrobial Bacteremia at [facility] gram-positive cocci, gram- positive rods on July 24, 2021 with coagulase-negative staph and diphtheroids contaminant Anemia Acute kidney injury at outside facility improved Questionable peripheral arterial disease Right upper extremity thrombophlebitis Plan: Plan of Care Limited choices for MSSA and stenotrophomonas right total knee arthroplasty infection Cont Eravacycline,was on cefazolin prior to transfer from [facility] cont po vanco qid for c diff colitis Right upper extremity thrombophlebitis management per primary Wound care as directed Patient remains at risk of failure of right TKA despite I&D due to drug- resistant bacteria MSSA and stenotrophomonas despite aggressive antibiotic treatment Patient would like salvage treatment at this time with antibiotics Pros and cons discussed Patient and verbalizes understanding Monitor labs and cultures PT and OT as tolerated Continue supportive care BRUNO ZAVALA MD Aug 07, 2021 11:27
--- NOTE | 2021-08-07 14:16 | PDOC ---
[employer] PROGRESS NOTE Date of Service DOS: DATE: 08/07/21 TIME: 14:15 Chief Complaint Chief Complaint Wound dehiscence status post a right TKA, history A. fib hypertension COPD anemia -Right TKA previously performed 124. Wound healing issues after returning to rehab -Brought back today for I&D of the wound. -Please obtain cultures from the OR -We'll start Vanco Zosyn after surgery for broad coverage. -As needed pain control -Hold off DVT prophylaxis until ortho says okay to resume -Home meds as indicated. History of Present Illness History of Present Illness 08/07/2021 No acute events overnight. Patient seen examined bedside. Pending placement for [facility]. Will likely need IV antibiotics for 6 weeks total. 08/06 Patient evaluated examined at bedside. Resting in bed doing well. Says he thinks he has his day and nights mixed up as he is awake throughout much of the night. Otherwise doing well. Continue IV antibiotics planning for 6-week course. Can DC to rehab in the next day or 2. 08/05 Evaluate examined at bedside. Resting in bed doing well. No major complaints to me. Antibiotics changed to Erivacycline yesterday per ID. Continue. Possible d/c to rehab this week? discussed with bedside rn 08/04 Evaluated examined at bedside. He had just worked with physical therapy. Prefers [facility] on discharge whenever that is. Culture results showed a few stenotrophomonas organisms. Antibiotics switched over to Bactrim yesterday afternoon due to this. We will consult infectious disease today for recommendations and duration. 08/03 Patient evaluated examined at bedside. Resting in bed just finished lunch. No further agitation episodes overnight. Says his leg feels okay pain control. Still waiting on some culture results. Continue current antibiotics narrow as needed. 08/02 Patient evaluated examined at bedside. Reports he had some confusion overnight got little agitated but is feeling better now pain well controlled. Still waiting on culture results. Continue broad antibiotics for now we will narrow as results available. Vitals/I&O Vitals/I&O: Vital Signs Date Time Temp Pulse Resp B/P (MAP) Pulse Ox O2 Delivery O2 Flow Rate FiO2 08/07/21 11:02 92 Nasal Cannula 4.5 08/07/21 09:09 67 133/59 08/07/21 07:00 98.3 16 98.3 I & O 08/06/21 08/06/21 08/07/21 15:00 23:00 07:00 Intake Total 250 ml 100 ml Output Total 1200 ml Balance 250 ml -1100 ml Physical Exam Physical Exam: Constitutional alert oriented x3 male in bed comfortably no acute distress pleasant cooperative HEENT pupils equal reactive, normal conjunctival, oropharynx clear, no thrush Neck supple no JVD Lungs decreased breath sound at the bases on oxygen via nasal cannula Heart S1-S2 Abdomen soft obese bowel sounds present nontender nondistended no rebound or guarding Vasques in place Extremities trace bilateral lower extremity edema. Right lower extremity in brace and take dressing, not taken down, no thigh tenderness, able to wiggle toes, bilateral upper extremity edema right greater than left. Neuro alert oriented x3 grossly nonfocal was all 4 extremities Psychiatric affect is appropriate PIV looks clean General: Alert, Oriented X3, Cooperative Heart: Regular rate, Normal S1, Normal S2 Lungs: Clear, Other Abdomen: Normal bowel sounds, Soft, No tenderness Extremities: No edema, Normal pulses Skin: No significant lesion Labs Labs: Laboratory Tests Test 08/07/21 06:30 Sodium Level 140 mmol/L (136-145) Potassium Level 2.9 mmol/L (3.5-5.1) Chloride Level 100 mmol/L (98-107) Carbon Dioxide Level 32 mmol/L (21-32) Anion Gap 8 (6-14) Blood Urea Nitrogen 8 mg/dL (8-26) Creatinine 0.8 mg/dL (0.7-1.3) Estimated GFR (Cockcroft-Gault) 95.3 Glucose Level 89 mg/dL (70-99) Calcium Level 6.8 mg/dL (8.5-10.1) Magnesium Level 1.7 mg/dL (1.8-2.4) Comment Review of Relevant I have reviewed the following items rajeev (where applicable) has been applied. Medications: Current Medications Medications (Trade) Dose Ordered Sig/Renetta Route PRN Reason Start Time Stop Time Status Last Admin Dose Admin Potassium Chloride (Klor-Con) 40 meq BID PO 08/07/21 09:00 08/08/21 08:59 08/07/21 09:08 Justifications for Admission Other Justification PENNIE RODGERS MD Aug 07, 2021 14:16
[2021-08-07 15:00] VITALS: BP 141/55
[2021-08-07] MEDS ORDERED: MAGNESIUM SULFATE 2GM 50 ML IV ONE (16:30)
[2021-08-07 19:00] VITALS: BP 140/87
[2021-08-07] MEDS: ZOLPIDEM 5 MG TABLET. PO PRN (21:05)
[2021-08-07] MEDS: ATORVASTATIN CALCIUM 40 MG TABLET. PO SCH (21:05)
[2021-08-07 22:41] VITALS: BP 132/43
[2021-08-08] MEDS: ACETAMINOPHEN 500 MG TABLET PO SCH ×4 (03:05→21:29)
[2021-08-08 03:37] VITALS: BP 142/88
[2021-08-08] MEDS: GABAPENTIN 100 MG CAPSULE. PO SCH ×3 (05:05→21:29)
[2021-08-08] MEDS: oxyCODONE/APAP 5/325 1 TAB TABLET PO PRN ×4 (05:05→21:29)
[2021-08-08] MEDS: IPRATRPIUM/ALBUTEROL 0.5/2.5MG 3 ML NEBU. NEB SCH ×4 (07:31→20:02)
[2021-08-08 07:34] VITALS: BP 123/58
[2021-08-08] MEDS: LACTOBACILLUS RHAMNOSUS GG 1 CAPSULE. PO SCH ×2 (08:37→21:29)
[2021-08-08] MEDS: MULTIVITAMIN with MINERAL TABLET. PO SCH (08:37)
[2021-08-08] MEDS: CHOLECALCIFEROL (VITAMIN D3) 5,000 UNIT CAPSULE PO SCH (08:37)
[2021-08-08] MEDS: BUMETANIDE 1 MG TABLET. PO SCH ×2 (08:38→16:34)
[2021-08-08] MEDS: FERROUS SULFATE 325 MG TABLET. PO SCH ×2 (08:38→16:46)
[2021-08-08] MEDS: LOSARTAN POTASSIUM 50 MG TABLET. PO SCH (08:38)
[2021-08-08] MEDS: AMIODARONE HCL 200 MG TABLET. PO SCH ×2 (08:38→21:30)
[2021-08-08] MEDS: TAMSULOSIN 0.4 MG CAP.ER.24H. PO SCH (08:39)
[2021-08-08] MEDS: METOPROLOL SUCC 24HR ER 100 MG TAB.ER.24H. PO SCH (08:39)
[2021-08-08] MEDS: VANCOMYCIN 125 MG/2.5 ML ORAL SOLUTION. PO SCH ×4 (08:40→21:28)
[2021-08-08] MEDS: SENNOSIDES/DOCUSATE 8.6/50MG TABLET. PO SCH ×2 (09:00→21:29)
[2021-08-08] MEDS: ERAVACYCLINE IV SCH ×2 (09:36→21:28)
[2021-08-08] MEDS: NORMAL SALINE IV SCH ×2 (09:36→21:28)
[2021-08-08 10:58] VITALS: BP 133/52
--- NOTE | 2021-08-08 11:33 | PDOC ---
Infectious Disease Note Subjective: Subjective Patient without complaints D/W RN Vital Signs: Vital Signs Vital Signs Date Time Temp Pulse Resp B/P (MAP) Pulse Ox O2 Delivery O2 Flow Rate FiO2 08/08/21 11:14 95 Nasal Cannula 4.5 08/08/21 10:58 98.5 51 20 133/52 (79) 98.5 Physical Exam: PHYSICAL EXAM Constitutional alert oriented x3 male in bed comfortably no acute distress pleasant cooperative HEENT pupils equal reactive, normal conjunctival, oropharynx clear, no thrush Neck supple no JVD Lungs decreased breath sound at the bases on oxygen via nasal cannula Heart S1-S2 Abdomen soft obese bowel sounds present nontender nondistended no rebound or guarding Vasques in place Extremities trace bilateral lower extremity edema. Right lower extremity in brace and take dressing, not taken down, no thigh tenderness, able to wiggle toes, bilateral upper extremity edema right greater than left. Neuro alert oriented x3 grossly nonfocal was all 4 extremities Psychiatric affect is appropriate PIV looks clean Medications: Inpatient Meds: Medications reviewed. Objective: Assessment: Wound dehiscence of RT knee incision site Recent right TKA June 2021 Status post Irrigation and debridement of the right knee, right total knee arthroplasty with polyethylene exchange on 08/01. Cultures positive for stenotrophomonas Previous Rt knee cultures were positive for MSSA was on cefazolin prior to transfer [facility] C diff colitis History of Right TKA June 2021 Atrial fibrillation COPD on O2 by nasal cannula Polymicrobial Bacteremia at [facility] gram-positive cocci, gram- positive rods on July 24, 2021 with coagulase-negative staph and diphtheroid s contaminant Anemia Acute kidney injury at outside facility improved Questionable peripheral arterial disease Right upper extremity thrombophlebitis Plan: Plan of Care Limited choices for MSSA and stenotrophomonas right total knee arthroplasty infection Cont Eravacycline,was on cefazolin prior to transfer from [facility] will need for atleast 6 weeks cont po vanco qid for c diff colitis Right upper extremity thrombophlebitis management per primary Wound care as directed Patient remains at risk of failure of right TKA despite I&D due to drug- resistant bacteria MSSA and stenotrophomonas despite aggressive antibiotic treatment Patient would like salvage treatment at this time with antibiotics Pros and cons discussed Patient and verbalizes understanding Monitor labs and cultures PT and OT as tolerated Continue supportive care D/W BRUNO MENDOZA MD Aug 08, 2021 11:33
[2021-08-08 14:46] VITALS: BP 130/46
[2021-08-08] MEDS ORDERED: FERR325T14 PO (15:03)
--- NOTE | 2021-08-08 15:03 | PDOC ---
[employer] PROGRESS NOTE Date of Service DOS: DATE: 08/08/21 TIME: 15:00 Chief Complaint Chief Complaint Wound dehiscence status post a right TKA, history A. fib hypertension COPD anemia -Right TKA previously performed 124. Wound healing issues after returning to rehab -Brought back today for I&D of the wound. -Please obtain cultures from the OR -We'll start Vanco Zosyn after surgery for broad coverage. -As needed pain control -Hold off DVT prophylaxis until ortho says okay to resume -Home meds as indicated. History of Present Illness History of Present Illness 08/08/2021 No acute events overnight. Patient seen examined bedside. Patient accepted at [facility]. We will plan for discharge tomorrow. Will need to continue 6 weeks of IV antibiotics 08/07/2021 No acute events overnight. Patient seen examined bedside. Pending placement for [facility]. Will likely need IV antibiotics for 6 weeks total. 08/06 Patient evaluated examined at bedside. Resting in bed doing well. Says he thinks he has his day and nights mixed up as he is awake throughout much of the night. Otherwise doing well. Continue IV antibiotics planning for 6-week course. Can DC to rehab in the next day or 2. 08/05 Evaluate examined at bedside. Resting in bed doing well. No major complaints to me. Antibiotics changed to Erivacycline yesterday per ID. Continue. Possible d/c to rehab this week? discussed with bedside rn 08/04 Evaluated examined at bedside. He had just worked with physical therapy. Prefers [facility] on discharge whenever that is. Culture results showed a few stenotrophomonas organisms. Antibiotics switched over to Bactrim yesterday afternoon due to this. We will consult infectious disease today for recommendations and duration. 08/03 Patient evaluated examined at bedside. Resting in bed just finished lunch. No further agitation episodes overnight. Says his leg feels okay pain control. St ill waiting on some culture results. Continue current antibiotics narrow as needed. 08/02 Patient evaluated examined at bedside. Reports he had some confusion overnight got little agitated but is feeling better now pain well controlled. Still waiting on culture results. Continue broad antibiotics for now we will narrow as results available. Vitals/I&O Vitals/I&O: Vital Signs Date Time Temp Pulse Resp B/P (MAP) Pulse Ox O2 Delivery O2 Flow Rate FiO2 3/2/22 14:46 98.4 53 22 130/46 (74) 95 Nasal Cannula 5.0 98.4 I & O 08/07/21 08/07/21 08/08/21 15:00 23:00 07:00 Intake Total 250 ml 450 ml 200 ml Output Total 450 ml Balance 250 ml 0 ml 200 ml Physical Exam Physical Exam: Constitutional alert oriented x3 male in bed comfortably no acute distress pleasant cooperative HEENT pupils equal reactive, normal conjunctival, oropharynx clear, no thrush Neck supple no JVD Lungs decreased breath sound at the bases on oxygen via nasal cannula Heart S1-S2 Abdomen soft obese bowel sounds present nontender nondistended no rebound or guarding Vasques in place Extremities trace bilateral lower extremity edema. Right lower extremity in brace and take dressing, not taken down, no thigh tenderness, able to wiggle toes, bilateral upper extremity edema right greater than left. Neuro alert oriented x3 grossly nonfocal was all 4 extremities Psychiatric affect is appropriate PIV looks clean General: Alert, Oriented X3, Cooperative Heart: Regular rate, Normal S1, Normal S2 Lungs: Clear, Other Abdomen: Normal bowel sounds, Soft, No tenderness Extremities: No edema, Normal pulses Skin: No significant lesion Comment Review of Relevant I have reviewed the following items rajeev (where applicable) has been applied. Medications: Current Medications Medications (Trade) Dose Ordered Sig/Renetta Route PRN Reason Start Time Stop Time Status Last Admin Dose Admin Magnesium Sulfate 50 ml @ 25 mls/hr 1X ONCE IV 08/07/21 16:30 08/07/21 18:29 DC 08/07/21 17:24 Justifications for Admission Other Justification PENNIE RODGERS MD Aug 08, 2021 15:03
--- NOTE | 2021-08-08 15:35 | NUR ---
Nurse's note; Non administered pt's scheduled tylenol; he is on percocet q4 hours instead.
[2021-08-08 19:00] VITALS: BP 115/61
--- NOTE | 2021-08-08 19:40 | PN ---
DATE: 08/08/2021 He is seen again today postoperative for an I and D and polyethylene exchange for his right knee. He actually is doing very well. The incision looks very good. There is not a whole lot of significant swelling to the lower extremity at this point, and from my standpoint orthopedically, I do not feel he needs any further debridement. He has no signs or symptoms of DVT or any other acute issues at the present time. We greatly appreciate the medical input as far as his current care. We will continue to observe him and the incision very closely at this time. MARTHA DR: Sharda TID: [id number]
[2021-08-08] MEDS: ATORVASTATIN CALCIUM 40 MG TABLET. PO SCH (21:29)
[2021-08-08] MEDS: ZOLPIDEM 5 MG TABLET. PO PRN (21:29)
[2021-08-08 23:00] VITALS: BP 133/60
[2021-08-09] MEDS: ACETAMINOPHEN 500 MG TABLET PO SCH ×5 (01:25→23:22)
[2021-08-09 03:12] VITALS: BP 146/56
[2021-08-09] MEDS: GABAPENTIN 100 MG CAPSULE. PO SCH ×3 (06:17→20:52)
[2021-08-09] MEDS: oxyCODONE/APAP 5/325 1 TAB TABLET PO PRN ×4 (06:17→20:53)
[2021-08-09 07:00] VITALS: BP 135/61
[2021-08-09] MEDS: IPRATRPIUM/ALBUTEROL 0.5/2.5MG 3 ML NEBU. NEB SCH ×4 (07:35→20:00)
--- NOTE | 2021-08-09 08:49 | DISCH ---
DISCHARGE INSTRUCTIONS Condition on Discharge Condition on Discharge: Stable Activity After Discharge Activity Instructions for Disc: No restrictions, Activity as tolerated Lifting Instructions after Dis: Do not lift >10 pounds Exercise Instruction after Dis: Walk 30 min, 5 x per week Driving Instructions after Dis: Do not drive today Weight Bearing Status after Di: No restrictions Diet after Discharge Diet after Discharge: No Added Salt Checks after Discharge Checks after discharge: Check blood press - daily, Weigh Yourself Daily Contacting the DR. after DC Call your doctor for: If your condition worsens Follow-Up Follow up with: PCP within 2 weeks of discharge Follow Up With: Orthopedic surgery as scheduled Treatment/Equipment after DC Discharge Respiratory Equipmen: Oxygen Infusion Equipment, home use: IV Line Comment: Continue with IV antibiotics for 6 weeks PENNIE RODGERS MD Aug 09, 2021 08:49
[2021-08-09] MEDS: SENNOSIDES/DOCUSATE 8.6/50MG TABLET. PO SCH ×2 (09:00→19:14)
[2021-08-09] MEDS: LACTOBACILLUS RHAMNOSUS GG 1 CAPSULE. PO SCH ×2 (09:19→20:52)
[2021-08-09] MEDS: VANCOMYCIN 125 MG/2.5 ML ORAL SOLUTION. PO SCH ×4 (09:19→20:52)
[2021-08-09] MEDS: AMIODARONE HCL 200 MG TABLET. PO SCH ×2 (09:19→20:52)
[2021-08-09] MEDS: METOPROLOL SUCC 24HR ER 100 MG TAB.ER.24H. PO SCH (09:20)
[2021-08-09] MEDS: TAMSULOSIN 0.4 MG CAP.ER.24H. PO SCH (09:20)
[2021-08-09] MEDS: LOSARTAN POTASSIUM 50 MG TABLET. PO SCH (09:20)
[2021-08-09] MEDS: FERROUS SULFATE 325 MG TABLET. PO SCH ×2 (09:20→16:35)
[2021-08-09] MEDS: CHOLECALCIFEROL (VITAMIN D3) 5,000 UNIT CAPSULE PO SCH (09:20)
[2021-08-09] MEDS: BUMETANIDE 1 MG TABLET. PO SCH ×2 (09:20→16:34)
[2021-08-09] MEDS: MULTIVITAMIN with MINERAL TABLET. PO SCH (09:50)
[2021-08-09] MEDS: ERAVACYCLINE IV SCH ×2 (09:52→20:53)
[2021-08-09] MEDS: NORMAL SALINE IV SCH ×2 (09:52→20:53)
[2021-08-09 09:54] LABS: CALCIUM 7.1 mg/dL (8.5-10.1); CREATININE 0.8 mg/dL (0.7-1.3); GFR 95.3; MAGNESIUM 1.9 mg/dL (1.8-2.4); POTASSIUM 3.5 mmol/L (3.5-5.1)
--- NOTE | 2021-08-09 10:46 | SNU/HH DC ---
DISCHARGE ORDERS DISCHARGE INFORMATION: DISCHARGE DATE: Aug 09, 2021 CONDITION ON DISCHARGE: Guarded CODE STATUS: Code Status: Full GROUP HOME: SNF STAY <30 DAYS: Yes POST DISCHARGE ORDERS: ACTIVITY ORDERS: No restrictions, Activity as tolerated WEIGHT BEARING STATUS: No restrictions DIET AFTER DISCHARGE: Cardiac CHECKS AFTER DISCHARGE: CHECKS AFTER DISCHARGE: Check blood press - daily, Weigh Yourself Daily COMMENTS: Continue with IV antibiotics for 6 weeks FOLLOW-UP: PHYSICIAN FOLLOW-UP: PCP within 2 weeks of discharge ADDITIONAL FOLLOW-UP: Orthopedic surgery as scheduled TREATMENT/EQUIPMENT ORDERS: INFUSION EQUIPMENT NEEDED: IV Line RESPIRATORY EQUIPMENT NEEDED: Oxygen Physical Therapy For: Evalulation/Treatment Occupational Therapy For: Evaluation/Treatment DISCHARGE MEDICATIONS: Home Meds Active Scripts Ferrous Sulfate (FERROUS SULFATE) 325 Mg Tablet, 1 TAB PO QODAY for for 30 Days, #30 TAB 3 Refills Prov:PENNIE RODGERS MD 08/08/21 Gabapentin (GABAPENTIN ) 100 Mg Capsule, 100 MG PO Q8HRS for . for 30 Days, #90 CAP Prov:CASTLE,NIAL K III DO 07/16/21 Oxycodone/Apap 5-325 (PERCOCET 5-325 MG TABLET ) 1 Each Tablet, 1 TAB PO PRN Q6HRS PRN for PAIN for 10 Days, #20 TAB 0 Refills Prov:CASTLE,NIAL K III DO 07/16/21 Eszopiclone (LUNESTA) 3 Mg Tablet, 3 MG PO HS PRN for INSOMNIA for 10 Days, #10 TAB Prov:CASTLE,NIAL K III DO 07/16/21 Reported Medications Umeclidinium [place] (Incruse Ellipta) 62.5 Mcg Blst.w.dev, 62.5 MCG IH DAILY for COPD 08/02/21 Losartan Potassium (LOSARTAN POTASSIUM) 50 Mg Tablet, 50 MG PO DAILY for HYPERTENSION, TAB 08/02/21 Albuterol Sulfate (VENTOLIN HFA INHALER) 18 Gm Hfa.aer.ad, 2 PUFF INH Q4HRS for FOR ASTHMA, EACH 0 Refills 06/27/21 Lactobacillus Rhamnosus Gg (CULTURELLE) 1 Each Cap.sprink, 1 CAP PO DAILY for PROBIOTIC for 30 Days, #30 CAP 0 Refills 02/13/21 Cholecalciferol (Vitamin D3) (Vitamin D3 ) 125 Mcg Capsule, 125 MCG PO DAILY for SUPPLEMENT, CAP 5,000 UNITS = 125 MCG 02/13/21 Amiodarone Hcl (AMIODARONE HCL) 100 Mg Tablet, 1 TAB PO HS for A FIB for 30 Days, #30 TAB 0 Refills 02/13/21 Meloxicam (MELOXICAM) 15 Mg Tablet, 15 MG PO DAILY for PAIN CONTROL, TAB 08/07/20 Diltiazem HCl (Diltiazem 24Hr ER (LA)) 240 Mg Tab.er.24h, 120 MG PO DAILY for AFIB, TAB.SR 08/07/20 Amiodarone Hcl (AMIODARONE HCL) 200 Mg Tablet, 1 TAB PO DAILY08 for atrial fibrillation, #90 TAB 3 Refills 12/30/18 Metoprolol Succinate (METOPROLOL SUCCINATE ( XL )) 100 Mg Tab.er.24h, 1 TAB PO DAILY for heart rate, #30 TAB 5 Refills 11/30/18 Apixaban (ELIQUIS) 5 Mg Tablet, 5 MG PO BID for a-fib, TAB 11/30/18 Bumetanide (BUMETANIDE) 1 Mg Tablet, 1 TAB PO BID for heart failure, #90 TAB 1 Refill 11/30/18 Atorvastatin Calcium (ATORVASTATIN CALCIUM) 80 Mg Tablet, 1 TAB PO DAILY, #30 TAB 5 Refills 08/26/17 Tamsulosin Hcl (TAMSULOSIN HCL) 0.4 Mg Cap.er.24h, 0.4 MG PO DAILY 08/10/13 Multivitamin (DAILY VALUE) 1 Each Tablet, 1 EACH PO DAILY 08/10/13 Hydrochlorothiazide (HYDROCHLOROTHIAZIDE TABLET ) 25 Mg Tablet, 25 MG PO DAILY 08/10/13 Aspirin (ADULT LOW DOSE ASPIRIN EC) 81 Mg Tablet.dr, 81 MG PO DAILY 08/10/13 Discontinued Reported Medications Cyclobenzaprine Hcl (CYCLOBENZAPRINE HCL) 10 Mg Tablet, 10 MG PO PRN TID PRN for SPASMS, TAB 08/07/20 PENNIE RODGERS MD Aug 09, 2021 10:46
[2021-08-09 11:00] VITALS: BP 133/59
--- NOTE | 2021-08-09 12:46 | PDOC ---
Infectious Disease Note Subjective: Subjective Patient without complaints D/W RN Vital Signs: Vital Signs Vital Signs Date Time Temp Pulse Resp B/P (MAP) Pulse Ox O2 Delivery O2 Flow Rate FiO2 08/09/21 11:39 91 Nasal Cannula 4.5 08/09/21 11:00 98.0 50 20 133/59 (83) 98.0 Physical Exam: PHYSICAL EXAM Constitutional alert oriented x3 male in bed comfortably no acute distress pleasant cooperative HEENT pupils equal reactive, normal conjunctival, oropharynx clear, no thrush Neck supple no JVD Lungs decreased breath sound at the bases on oxygen via nasal cannula Heart S1-S2 Abdomen soft obese bowel sounds present nontender nondistended no rebound or guarding Vasques in place Extremities trace bilateral lower extremity edema. Right lower extremity in brace and take dressing, not taken down, no thigh tenderness, able to wiggle toes, bilateral upper extremity edema right greater than left. Neuro alert oriented x3 grossly nonfocal was all 4 extremities Psychiatric affect is appropriate PIV looks clean Medications: Inpatient Meds: Medications reviewed. Labs: Lab Laboratory Tests Test 08/09/21 09:15 Sodium Level 138 mmol/L (136-145) Potassium Level 3.5 mmol/L (3.5-5.1) Chloride Level 98 mmol/L (98-107) Carbon Dioxide Level 33 mmol/L (21-32) Anion Gap 7 (6-14) Blood Urea Nitrogen 10 mg/dL (8-26) Creatinine 0.8 mg/dL (0.7-1.3) Estimated GFR (Cockcroft-Gault) 95.3 Glucose Level 83 mg/dL (70-99) Calcium Level 7.1 mg/dL (8.5-10.1) Magnesium Level 1.9 mg/dL (1.8-2.4) Objective: Assessment: Wound dehiscence of RT knee incision site Recent right TKA June 2021 Status post Irrigation and debridement of the right knee, right total knee arthroplasty with polyethylene exchange on 08/01. Cultures positive for stenotrophomonas Previous Rt knee cultures were positive for MSSA was on cefazolin prior to transfer from [facility] C diff colitis History of Right TKA June 2021 Atrial fibrillation COPD on O2 by nasal cannula Polymicrobial Bacteremia at [facility] gram-positive cocci, gram- positive rods on July 24, 2021 with coagulase-negative staph and diphtheroids contaminant Anemia Acute kidney injury at outside facility improved Questionable peripheral arterial disease Right upper extremity thrombophlebitis Plan: Plan of Care Limited choices for MSSA and stenotrophomonas right total knee arthroplasty infection Cont Eravacycline,was on cefazolin prior to transfer from [facility] will need for atleast 6 weeks cont po vanco qid for c diff colitis Right upper extremity thrombophlebitis management per primary Wound care as directed Patient remains at risk of failure of right TKA despite I&D due to drug- resistant bacteria MSSA and stenotrophomonas despite aggressive antibiotic treatment Patient would like salvage treatment at this time with antibiotics Pros and cons discussed Patient and verbalizes understanding Monitor labs and cultures PT and OT as tolerated Continue supportive care D/W RN Per [facility], Eravacycline is not available Pt has no other choices as above Hold DC and SW to assist with placement to a facility which will accept pt on Eravacycline D/W RN D/W at bedside BRUNO ZAVALA MD Aug 09, 2021 12:46
[2021-08-09] MEDS ORDERED: OXYC1TAB15 PO (14:00)
[2021-08-09 15:00] VITALS: BP 131/60
[2021-08-09 19:00] VITALS: BP 130/40
[2021-08-09] MEDS: ATORVASTATIN CALCIUM 40 MG TABLET. PO SCH (20:52)
[2021-08-09] MEDS: ZOLPIDEM 5 MG TABLET. PO PRN (20:53)
[2021-08-09 23:47] VITALS: BP 117/49
[2021-08-10 03:52] VITALS: BP 131/51
[2021-08-10] MEDS: oxyCODONE/APAP 5/325 1 TAB TABLET PO PRN ×4 (06:08→20:13)
[2021-08-10] MEDS: GABAPENTIN 100 MG CAPSULE. PO SCH ×3 (06:08→20:14)
[2021-08-10 07:00] VITALS: BP 182/72
[2021-08-10] MEDS: IPRATRPIUM/ALBUTEROL 0.5/2.5MG 3 ML NEBU. NEB SCH ×4 (07:32→20:00)
--- NOTE | 2021-08-10 08:27 | PDOC ---
[employer] PROGRESS NOTE Date of Service DOS: DATE: 08/09/21 TIME: 08:27 Chief Complaint Chief Complaint Wound dehiscence status post a right TKA, history A. fib hypertension COPD anemia -Right TKA previously performed 124. Wound healing issues after returning to rehab -Brought back today for I&D of the wound. -Please obtain cultures from the OR -We'll start Vanco Zosyn after surgery for broad coverage. -As needed pain control -Hold off DVT prophylaxis until ortho says okay to resume -Home meds as indicated. History of Present Illness History of Present Illness 08/08/2021 No acute events overnight. Patient seen examined bedside. Patient accepted at [facility]. We will plan for discharge tomorrow. Will need to continue 6 weeks of IV antibiotics 08/07/2021 No acute events overnight. Patient seen examined bedside. Pending placement for [facility]. Will likely need IV antibiotics for 6 weeks total. 08/06 Patient evaluated examined at bedside. Resting in bed doing well. Says he thinks he has his day and nights mixed up as he is awake throughout much of the night. Otherwise doing well. Continue IV antibiotics planning for 6-week course. Can DC to rehab in the next day or 2. 08/05 Evaluate examined at bedside. Resting in bed doing well. No major complaints to me. Antibiotics changed to Erivacycline yesterday per ID. Continue. Possible d/c to rehab this week? discussed with bedside rn 08/04 Evaluated examined at bedside. He had just worked with physical therapy. Prefers [facility] on discharge whenever that is. Culture results showed a few stenotrophomonas organisms. Antibiotics switched over to Bactrim yesterday afternoon due to this. We will consult infectious disease today for recommendations and duration. 08/03 Patient evaluated examined at bedside. Resting in bed just finished lunch. No further agitation episodes overnight. Says his leg feels okay pain control. St ill waiting on some culture results. Continue current antibiotics narrow as needed. 08/02 Patient evaluated examined at bedside. Reports he had some confusion overnight got little agitated but is feeling better now pain well controlled. Still waiting on culture results. Continue broad antibiotics for now we will narrow as results available. Vitals/I&O Vitals/I&O: Vital Signs Date Time Temp Pulse Resp B/P (MAP) Pulse Ox O2 Delivery O2 Flow Rate FiO2 3/4/22 07:27 Nasal Cannula 5.0 08/10/21 07:00 98.1 52 20 182/72 (108) 95 98.1 I & O 08/09/21 08/09/21 08/10/21 15:00 23:00 07:00 Intake Total 250 ml 200 ml Output Total 1200 ml 900 ml Balance -950 ml -700 ml Physical Exam Physical Exam: Constitutional alert oriented x3 male in bed comfortably no acute distress pleasant cooperative HEENT pupils equal reactive, normal conjunctival, oropharynx clear, no thrush Neck supple no JVD Lungs decreased breath sound at the bases on oxygen via nasal cannula Heart S1-S2 Abdomen soft obese bowel sounds present nontender nondistended no rebound or guarding Vasques in place Extremities trace bilateral lower extremity edema. Right lower extremity in brace and take dressing, not taken down, no thigh tenderness, able to wiggle toes, bilateral upper extremity edema right greater than left. Neuro alert oriented x3 grossly nonfocal was all 4 extremities Psychiatric affect is appropriate PIV looks clean General: Alert, Oriented X3, Cooperative Heart: Regular rate, Normal S1, Normal S2 Lungs: Clear, Other Abdomen: Normal bowel sounds, Soft, No tenderness Extremities: No edema, Normal pulses Skin: No significant lesion Labs Labs: Laboratory Tests Test 08/09/21 09:15 Sodium Level 138 mmol/L (136-145) Potassium Level 3.5 mmol/L (3.5-5.1) Chloride Level 98 mmol/L (98-107) Carbon Dioxide Level 33 mmol/L (21-32) Anion Gap 7 (6-14) Blood Urea Nitrogen 10 mg/dL (8-26) Creatinine 0.8 mg/dL (0.7-1.3) Estimated GFR (Cockcroft-Gault) 95.3 Glucose Level 83 mg/dL (70-99) Calcium Level 7.1 mg/dL (8.5-10.1) Magnesium Level 1.9 mg/dL (1.8-2.4) Comment Review of Relevant I have reviewed the following items rajeev (where applicable) has been applied. Justifications for Admission Other Justification EPNNIE RODGERS MD Aug 10, 2021 08:27
[2021-08-10] MEDS: METOPROLOL SUCC 24HR ER 100 MG TAB.ER.24H. PO SCH (09:00)
[2021-08-10] MEDS: ACETAMINOPHEN 500 MG TABLET PO SCH ×3 (09:00→20:13)
[2021-08-10] MEDS: SENNOSIDES/DOCUSATE 8.6/50MG TABLET. PO SCH ×2 (09:00→20:12)
[2021-08-10] MEDS: MULTIVITAMIN with MINERAL TABLET. PO SCH (09:23)
[2021-08-10] MEDS: FERROUS SULFATE 325 MG TABLET. PO SCH ×2 (09:23→16:11)
[2021-08-10] MEDS: LACTOBACILLUS RHAMNOSUS GG 1 CAPSULE. PO SCH ×2 (09:23→20:13)
[2021-08-10] MEDS: BUMETANIDE 1 MG TABLET. PO SCH ×2 (09:23→16:11)
[2021-08-10] MEDS: TAMSULOSIN 0.4 MG CAP.ER.24H. PO SCH (09:23)
[2021-08-10] MEDS: CHOLECALCIFEROL (VITAMIN D3) 5,000 UNIT CAPSULE PO SCH (09:23)
[2021-08-10] MEDS: VANCOMYCIN 125 MG/2.5 ML ORAL SOLUTION. PO SCH ×4 (09:24→20:17)
[2021-08-10] MEDS: AMIODARONE HCL 200 MG TABLET. PO SCH ×2 (09:24→20:16)
[2021-08-10] MEDS: LOSARTAN POTASSIUM 50 MG TABLET. PO SCH (09:24)
[2021-08-10] MEDS: NORMAL SALINE IV SCH ×2 (09:38→20:11)
[2021-08-10] MEDS: ERAVACYCLINE IV SCH ×2 (09:38→20:11)
[2021-08-10 11:00] VITALS: BP 125/45
--- NOTE | 2021-08-10 13:55 | PDOC ---
Infectious Disease Note Subjective Subjective Patient without complaints D/W RN ROS ROS no n/v/d/sob Vital Sign Vital Signs Vital Signs Date Time Temp Pulse Resp B/P (MAP) Pulse Ox O2 Delivery O2 Flow Rate FiO2 08/10/21 12:59 100 Nasal Cannula 4.5 08/10/21 11:00 97.9 53 20 125/45 (71) 97.9 Physical Exam PHYSICAL EXAM Constitutional alert oriented x3 male in bed comfortably no acute distress pleasant cooperative HEENT pupils equal reactive, normal conjunctival, oropharynx clear, no thrush Neck supple no JVD Lungs decreased breath sound at the bases on oxygen via nasal cannula Heart S1-S2 Abdomen soft obese bowel sounds present nontender nondistended no rebound or guarding Vasques in place Extremities trace bilateral lower extremity edema. Right lower extremity in brace and take dressing, not taken down, no thigh tenderness, able to wiggle toes, bilateral upper extremity edema right greater than left. Neuro alert oriented x3 grossly nonfocal was all 4 extremities Psychiatric affect is appropriate PIV looks clean Labs Micro Microbiology 08/01/21 Gram Stain - Final, Complete 08/01/21 Aerobic and Anaerobic Culture - Final, Complete Stenotrophomonas Maltophilia Objective Assessment Wound dehiscence of RT knee incision site Recent right TKA June 2021 Status post Irrigation and debridement of the right knee, right total knee arthroplasty with polyethylene exchange on 08/01. Cultures positive for stenotrophomonas Previous Rt knee cultures were positive for MSSA was on cefazolin prior to transfer from [facility] History of Right TKA June 2021 Atrial fibrillation COPD on O2 by nasal cannula Polymicrobial Bacteremia at [facility] gram-positive cocci, gram- positive rods on July 24, 2021 with coagulase-negative staph and diphtheroids contaminant Anemia Acute kidney injury at outside facility improved Questionable peripheral arterial disease Diarrhea C. difficile PCR was negative at [facility] per report Right upper extremity thrombophlebitis c diff Plan Plan of Care Limited choices for MSSA and stenotrophomonas right total knee arthroplasty infection Cont Eravacycline,was on cefazolin prior to transfer from [facility] will need for atleast 6 weeks cont po vanco qid for c diff colitis Right upper extremity thrombophlebitis management per primary Wound care as directed Patient remains at risk of failure of right TKA despite I&D due to drug- resistant bacteria MSSA and stenotrophomonas despite aggressive antibiotic treatment Patient would like salvage treatment at this time with antibiotics Pros and cons discussed Patient and verbalizes understanding Monitor labs and cultures PT and OT as tolerated Continue supportive care D/W RN Per [facility], Eravacycline is not available Pt has no other choices as above Hold DC and SW to assist with placement to a facility which will accept pt on Eravacycline D/W RN D/W at bedside SARATH ZAVALA MD Aug 10, 2021 13:54
[2021-08-10 15:00] VITALS: BP 123/84
--- NOTE | 2021-08-10 15:06 | PDOC ---
[employer] PROGRESS NOTE Date of Service DOS: DATE: 08/10/21 TIME: 15:04 Chief Complaint Chief Complaint Wound dehiscence status post a right TKA, history A. fib hypertension COPD anemia -Right TKA previously performed 124. Wound healing issues after returning to rehab -Brought back today for I&D of the wound. -Please obtain cultures from the OR -We'll start Vanco Zosyn after surgery for broad coverage. -As needed pain control -Hold off DVT prophylaxis until ortho says okay to resume -Home meds as indicated. History of Present Illness History of Present Illness 08/10/2021 No acute events overnight. Patient seen examined bedside. AF and hypertensive with systolics in the 180s. Still on IV antibiotics and will need to continue for 6 weeks. Pending placement that the has the capability to administer IV antibiotics specifically for Eravacycline 08/08/2021 No acute events overnight. Patient seen examined bedside. Patient accepted at [facility]. We will plan for discharge tomorrow. Will need to continue 6 weeks of IV antibiotics 08/07/2021 No acute events overnight. Patient seen examined bedside. Pending placement for [facility]. Will likely need IV antibiotics for 6 weeks total. 08/06 Patient evaluated examined at bedside. Resting in bed doing well. Says he t hinks he has his day and nights mixed up as he is awake throughout much of the night. Otherwise doing well. Continue IV antibiotics planning for 6-week course. Can DC to rehab in the next day or 2. 08/05 Evaluate examined at bedside. Resting in bed doing well. No major complaints to me. Antibiotics changed to Erivacycline yesterday per ID. Continue. Possible d/c to rehab this week? discussed with bedside rn 08/04 Evaluated examined at bedside. He had just worked with physical therapy. Prefers [facility] on discharge whenever that is. Culture results showed a few stenotrophomonas organisms. Antibiotics switched over to Bactrim yesterday afternoon due to this. We will consult infectious disease today for recommendations and duration. 08/03 Patient evaluated examined at bedside. Resting in bed just finished lunch. No further agitation episodes overnight. Says his leg feels okay pain control. Still waiting on some culture results. Continue current antibiotics narrow as needed. 08/02 Patient evaluated examined at bedside. Reports he had some confusion overnight got little agitated but is feeling better now pain well controlled. Still waiting on culture results. Continue broad antibiotics for now we will narrow as results available. Vitals/I&O Vitals/I&O: Vital Signs Date Time Temp Pulse Resp B/P (MAP) Pulse Ox O2 Delivery O2 Flow Rate FiO2 08/10/21 12:59 100 Nasal Cannula 4.5 08/10/21 11:00 97.9 53 20 125/45 (71) 97.9 I & O 08/09/21 08/09/21 08/10/21 15:00 23:00 07:00 Intake Total 250 ml 200 ml Output Total 1200 ml 900 ml Balance -950 ml -700 ml Physical Exam Physical Exam: Constitutional alert oriented x3 male in bed comfortably no acute distress pleasant cooperative HEENT pupils equal reactive, normal conjunctival, oropharynx clear, no thrush Neck supple no JVD Lungs decreased breath sound at the bases on oxygen via nasal cannula Heart S1-S2 Abdomen soft obese bowel sounds present nontender nondistended no rebound or guarding Vasques in place Extremities trace bilateral lower extremity edema. Right lower extremity in brace and take dressing, not taken down, no thigh tenderness, able to wiggle toes, bilateral upper extremity edema right greater than left. Neuro alert oriented x3 grossly nonfocal was all 4 extremities Psychiatric affect is appropriate PIV looks clean General: Alert, Oriented X3, Cooperative Heart: Regular rate, Normal S1, Normal S2 Lungs: Clear, Other Abdomen: Normal bowel sounds, Soft, No tenderness Extremities: No edema, Normal pulses Skin: No significant lesion Comment Review of Relevant I have reviewed the following items rajeev (where applicable) has been applied. Justifications for Admission Other Justification PENNIE RODGERS MD Aug 10, 2021 15:06
[2021-08-10 19:00] VITALS: BP 127/49
[2021-08-10] MEDS: ATORVASTATIN CALCIUM 40 MG TABLET. PO SCH (20:12)
[2021-08-10 23:00] VITALS: BP 93/36
[2021-08-11] MEDS: oxyCODONE/APAP 5/325 1 TAB TABLET PO PRN ×3 (02:31→15:55)
[2021-08-11] MEDS: ACETAMINOPHEN 500 MG TABLET PO SCH ×4 (02:31→21:17)
[2021-08-11 03:00] VITALS: BP 123/49
[2021-08-11] MEDS: GABAPENTIN 100 MG CAPSULE. PO SCH ×3 (06:39→21:16)
[2021-08-11 07:00] VITALS: BP 110/45
[2021-08-11] MEDS: IPRATRPIUM/ALBUTEROL 0.5/2.5MG 3 ML NEBU. NEB SCH ×4 (07:30→20:00)
[2021-08-11] MEDS: ERAVACYCLINE IV SCH ×2 (09:00→21:15)
[2021-08-11] MEDS: NORMAL SALINE IV SCH ×2 (09:00→21:15)
[2021-08-11] MEDS: MULTIVITAMIN with MINERAL TABLET. PO SCH (09:18)
[2021-08-11] MEDS: LACTOBACILLUS RHAMNOSUS GG 1 CAPSULE. PO SCH ×2 (09:18→21:16)
[2021-08-11] MEDS: SENNOSIDES/DOCUSATE 8.6/50MG TABLET. PO SCH ×2 (09:18→21:00)
[2021-08-11] MEDS: FERROUS SULFATE 325 MG TABLET. PO SCH ×2 (09:19→18:18)
[2021-08-11] MEDS: BUMETANIDE 1 MG TABLET. PO SCH ×2 (09:19→15:55)
[2021-08-11] MEDS: LOSARTAN POTASSIUM 50 MG TABLET. PO SCH (09:19)
[2021-08-11] MEDS: CHOLECALCIFEROL (VITAMIN D3) 5,000 UNIT CAPSULE PO SCH (09:20)
[2021-08-11] MEDS: VANCOMYCIN 125 MG/2.5 ML ORAL SOLUTION. PO SCH ×4 (09:20→21:18)
[2021-08-11] MEDS: TAMSULOSIN 0.4 MG CAP.ER.24H. PO SCH (09:20)
[2021-08-11] MEDS: AMIODARONE HCL 200 MG TABLET. PO SCH ×2 (09:20→21:18)
[2021-08-11] MEDS: METOPROLOL SUCC 24HR ER 100 MG TAB.ER.24H. PO SCH (09:20)
[2021-08-11] MEDS: fentaNYL PF VIAL 100 MCG/2 ML VIAL IVP PRN ×2 (09:25→18:19)
[2021-08-11 11:00] VITALS: BP 114/49
--- NOTE | 2021-08-11 12:13 | PN ---
DATE: 08/11/2021 The patient is seen again today. No signs or symptoms of active problems or issues with his wound or lower extremity at this point. No signs or symptoms of DVT and the distal neurovascular status is intact. Obviously, no acute changes. He is here today so that we can get him ready for discharge on Friday. Originally, it appeared that he was going to be leaving the hospital last week; however, according to him, there was some question about specific antibiotics, etc. Orthopedically, he appears stable at this point. Therefore, we will continue watching him very closely. He will continue with his antibiotics. He will continue with weightbearing as tolerated, but he must keep the knee in extension due to the soft tissue injury that was repaired. BRUCE DR: Sharda TID: [id number]
--- NOTE | 2021-08-11 12:27 | PDOC ---
[employer] PROGRESS NOTE Date of Service DOS: DATE: 08/11/21 TIME: 12:26 Chief Complaint Chief Complaint Wound dehiscence status post a right TKA, history A. fib hypertension COPD anemia -Right TKA previously performed 124. Wound healing issues after returning to rehab -Brought back today for I&D of the wound. -Please obtain cultures from the OR -We'll start Vanco Zosyn after surgery for broad coverage. -As needed pain control -Hold off DVT prophylaxis until ortho says okay to resume -Home meds as indicated. History of Present Illness History of Present Illness 08/11/2021 No acute events overnight. Patient seen examined bedside. AF and VSS. Pending SNF placement to accept IV antibiotics. Patient's chart, labs, images were reviewed and discussed with RN 08/10/2021 No acute events overnight. Patient seen examined bedside. AF and hypertensive with systolics in the 180s. Still on IV antibiotics and will need to continue for 6 weeks. Pending placement that the has the capability to administer IV antibiotics specifically for Eravacycline 08/08/2021 No acute events overnight. Patient seen examined bedside. Patient accepted at [facility]. We will plan for discharge tomorrow. Will need to continue 6 weeks of IV antibiotics 08/07/2021 No acute events overnight. Patient seen examined bedside. Pending placement for [facility]. Will likely need IV antibiotics for 6 weeks total. 08/06 Patient evaluated examined at bedside. Resting in bed doing well. Says he thinks he has his day and nights mixed up as he is awake throughout much of the night. Otherwise doing well. Continue IV antibiotics planning for 6-week course. Can DC to rehab in the next day or 2. 08/05 Evaluate examined at bedside. Resting in bed doing well. No major complaints to me. Antibiotics changed to Erivacycline yesterday per ID. Continue. Possible d/c to rehab this week? discussed with bedside rn 08/04 Evaluated examined at bedside. He had just worked with physical therapy. Prefers [facility] on discharge whenever that is. Culture results showed a few stenotrophomonas organisms. Antibiotics switched over to Bactrim yesterday afternoon due to this. We will consult infectious disease today for recommendations and duration. 08/03 Patient evaluated examined at bedside. Resting in bed just finished lunch. No further agitation episodes overnight. Says his leg feels okay pain control. Still waiting on some culture results. Continue current antibiotics narrow as needed. 08/02 Patient evaluated examined at bedside. Reports he had some confusion overnight got little agitated but is feeling better now pain well controlled. Still waiting on culture results. Continue broad antibiotics for now we will narrow as results available. Vitals/I&O Vitals/I&O: Vital Signs Date Time Temp Pulse Resp B/P (MAP) Pulse Ox O2 Delivery O2 Flow Rate FiO2 08/11/21 11:00 98.4 54 16 114/49 (70) 96 Nasal Cannula 5.0 98.4 I & O 08/10/21 08/10/21 08/11/21 15:00 23:00 07:00 Intake Total 250 ml 120 ml Output Total 2000 ml 400 ml Balance -1750 ml -280 ml Physical Exam Physical Exam: Constitutional alert oriented x3 male in bed comfortably no acute distress pleasant cooperative HEENT pupils equal reactive, normal conjunctival, oropharynx clear, no thrush Neck supple no JVD Lungs decreased breath sound at the bases on oxygen via nasal cannula Heart S1-S2 Abdomen soft obese bowel sounds present nontender nondistended no rebound or guarding Vasques in place Extremities trace bilateral lower extremity edema. Right lower extremity in brace and take dressing, not taken down, no thigh tenderness, able to wiggle toes, bilateral upper extremity edema right greater than left. Neuro alert oriented x3 grossly nonfocal was all 4 extremities Psychiatric affect is appropriate PIV looks clean General: Alert, Oriented X3, Cooperative Heart: Regular rate, Normal S1, Normal S2 Lungs: Clear, Other Abdomen: Normal bowel sounds, Soft, No tenderness Extremities: No edema, Normal pulses Skin: No significant lesion Comment Review of Relevant I have reviewed the following items rajeev (where applicable) has been applied. Justifications for Admission Other Justification PENNIE RODGERS MD Aug 11, 2021 12:27
--- NOTE | 2021-08-11 13:19 | PDOC ---
Infectious Disease Note Subjective Subjective Patient without complaints D/W RN GAGE ALMONTE No nausea vomiting diarrhea Vital Sign Vital Signs Vital Signs Date Time Temp Pulse Resp B/P (MAP) Pulse Ox O2 Delivery O2 Flow Rate FiO2 08/11/21 11:00 98.4 54 16 114/49 (70) 96 Nasal Cannula 5.0 98.4 Physical Exam PHYSICAL EXAM Constitutional alert oriented x3 male in bed comfortably no acute distress pleasant cooperative HEENT pupils equal reactive, normal conjunctival, oropharynx clear, no thrush Neck supple no JVD Lungs decreased breath sound at the bases on oxygen via nasal cannula Heart S1-S2 Abdomen soft obese bowel sounds present nontender nondistended no rebound or guarding Vasques in place Extremities trace bilateral lower extremity edema. Right lower extremity in brace and take dressing, not taken down, no thigh tenderness, able to wiggle toes, bilateral upper extremity edema right greater than left. Neuro alert oriented x3 grossly nonfocal was all 4 extremities Psychiatric affect is appropriate PIV looks clean Labs Micro Microbiology 08/01/21 Gram Stain - Final, Complete 08/01/21 Aerobic and Anaerobic Culture - Final, Complete Stenotrophomonas Maltophilia Objective Assessment Wound dehiscence of RT knee incision site Recent right TKA June 2021 Status post Irrigation and debridement of the right knee, right total knee arthroplasty with polyethylene exchange on 08/01. Cultures positive for stenotrophomonas Previous Rt knee cultures were positive for MSSA was on cefazolin prior to transfer from [facility] History of Right TKA June 2021 Atrial fibrillation COPD on O2 by nasal cannula Polymicrobial Bacteremia at [facility] gram-positive cocci, gram- positive rods on July 24, 2021 with coagulase-negative staph and diphtheroids contaminant Anemia Acute kidney injury at outside facility improved Questionable peripheral arterial disease Diarrhea C. difficile PCR was negative at [facility] per report Right upper extremity thrombophlebitis c diff Plan Plan of Care Limited choices for MSSA and stenotrophomonas right total knee arthroplasty infection Cont Eravacycline,was on cefazolin prior to transfer from [facility] will need for atleast 6 weeks cont po vanco qid for c diff colitis Right upper extremity thrombophlebitis management per primary Wound care as directed Patient remains at risk of failure of right TKA despite I&D due to drug- resistant bacteria MSSA and stenotrophomonas despite aggressive antibiotic treatment Patient would like salvage treatment at this time with antibiotics Pros and cons discussed Patient and verbalizes understanding Monitor labs and cultures PT and OT as tolerated Continue supportive care D/W RN Per [facility], Eravacycline is not available Pt has no other choices as above Hold DC and SW to assist with placement to a facility which will accept pt on Eravacycline D/W RN D/W at bedside SARATH ZAVALA MD Aug 11, 2021 13:19
[2021-08-11 15:00] VITALS: BP 88/35
[2021-08-11 19:15] VITALS: BP 113/56
[2021-08-11] MEDS: ATORVASTATIN CALCIUM 40 MG TABLET. PO SCH (21:16)
[2021-08-11 23:05] VITALS: BP 111/52
[2021-08-12] MEDS: fentaNYL PF VIAL 100 MCG/2 ML VIAL IVP PRN ×3 (00:39→21:33)
[2021-08-12 03:20] VITALS: BP 132/54
[2021-08-12] MEDS: ACETAMINOPHEN 500 MG TABLET PO SCH ×4 (03:33→21:00)
[2021-08-12 07:00] VITALS: BP 159/54
[2021-08-12] MEDS: GABAPENTIN 100 MG CAPSULE. PO SCH ×3 (07:13→21:11)
[2021-08-12] MEDS: IPRATRPIUM/ALBUTEROL 0.5/2.5MG 3 ML NEBU. NEB SCH ×4 (07:20→20:32)
[2021-08-12] MEDS: MULTIVITAMIN with MINERAL TABLET. PO SCH (09:18)
[2021-08-12] MEDS: LACTOBACILLUS RHAMNOSUS GG 1 CAPSULE. PO SCH ×2 (09:19→21:11)
[2021-08-12] MEDS: TAMSULOSIN 0.4 MG CAP.ER.24H. PO SCH (09:19)
[2021-08-12] MEDS: AMIODARONE HCL 200 MG TABLET. PO SCH ×2 (09:19→21:14)
[2021-08-12] MEDS: METOPROLOL SUCC 24HR ER 100 MG TAB.ER.24H. PO SCH (09:19)
[2021-08-12] MEDS: BUMETANIDE 1 MG TABLET. PO SCH ×2 (09:20→18:50)
[2021-08-12] MEDS: VANCOMYCIN 125 MG/2.5 ML ORAL SOLUTION. PO SCH ×4 (09:20→21:12)
[2021-08-12] MEDS: FERROUS SULFATE 325 MG TABLET. PO SCH ×2 (09:20→18:50)
[2021-08-12] MEDS: SENNOSIDES/DOCUSATE 8.6/50MG TABLET. PO SCH ×2 (09:21→20:25)
[2021-08-12] MEDS: CHOLECALCIFEROL (VITAMIN D3) 5,000 UNIT CAPSULE PO SCH (09:21)
[2021-08-12] MEDS: LOSARTAN POTASSIUM 50 MG TABLET. PO SCH (09:21)
[2021-08-12] MEDS: NORMAL SALINE IV SCH ×2 (09:23→21:11)
[2021-08-12] MEDS: ERAVACYCLINE IV SCH ×2 (09:23→21:11)
[2021-08-12 11:00] VITALS: BP 118/45
[2021-08-12 11:13] LABS: BASO % 1 % (0-3); EOS # 0.1 x10^3/uL (0.0-0.7); EOS % 1 % (0-3); HEMATOCRIT 26.7 % (39.0-53.0); HEMOGLOBIN 8.4 g/dL (13.0-17.5); LYMPH # 1.2 x10^3/uL (1.0-4.8); LYMPH % 14 % (24-48); MEAN CORPUSCULAR HEMOGLOBIN 30 pg (25-35); MEAN CORPUSCULAR HGB CONC 32 g/dL (31-37); MEAN CORPUSCULAR VOLUME 94 fL (79-100); MONO # 0.8 x10^3/uL (0.0-1.1); MONO % 9 % (0-9); NEUT # 6.8 x10^3/uL (1.8-7.7); NEUT % 76 % (31-73); PLATELET COUNT 553 x10^3/uL (140-400); RED BLOOD COUNT 2.85 x10^6/uL (4.30-5.70); RED CELL DISTRIBUTION WIDTH 17.4 % (11.5-14.5); WHITE BLOOD COUNT 8.9 x10^3/uL (4.0-11.0)
[2021-08-12 11:27] LABS: CALCIUM 7.3 mg/dL (8.5-10.1); CREATININE 0.9 mg/dL (0.7-1.3); GFR 83.2; MAGNESIUM 1.8 mg/dL (1.8-2.4); PHOSPHORUS 2.9 mg/dL (2.6-4.7); POTASSIUM 3.2 mmol/L (3.5-5.1)
--- NOTE | 2021-08-12 12:39 | PDOC ---
Infectious Disease Note Subjective: Subjective Patient without complaints though has recurrence of diarrhea this morning D/W RN Vital Signs: Vital Signs Vital Signs Date Time Temp Pulse Resp B/P (MAP) Pulse Ox O2 Delivery O2 Flow Rate FiO2 08/12/21 11:00 97.6 51 18 118/45 (69) 92 Room Air 97.6 08/12/21 10:00 5.0 Physical Exam: PHYSICAL EXAM Constitutional alert oriented x3 male in bed comfortably no acute distress pleasant cooperative HEENT pupils equal reactive, normal conjunctival, oropharynx clear, no thrush Neck supple no JVD Lungs decreased breath sound at the bases on oxygen via nasal cannula Heart S1-S2 Abdomen soft obese bowel sounds present nontender nondistended no rebound or guarding Vasques in place Extremities trace bilateral lower extremity edema. Right lower extremity in brace and take dressing, not taken down, no thigh tenderness, able to wiggle toes, bilateral upper extremity edema right greater than left. Neuro alert oriented x3 grossly nonfocal was all 4 extremities Psychiatric affect is appropriate PIV looks clean Medications: Inpatient Meds: Medications reviewed. Labs: Lab Laboratory Tests Test 08/12/21 10:40 White Blood Count 8.9 x10^3/uL (4.0-11.0) Red Blood Count 2.85 x10^6/uL (4.30-5.70) Hemoglobin 8.4 g/dL (13.0-17.5) Hematocrit 26.7 % (39.0-53.0) Mean Corpuscular Volume 94 fL (79-100) Mean Corpuscular Hemoglobin 30 pg (25-35) Mean Corpuscular Hemoglobin Concent 32 g/dL (31-37) Red Cell Distribution Width 17.4 % (11.5-14.5) Platelet Count 553 x10^3/uL (140-400) Neutrophils (%) (Auto) 76 % (31-73) Lymphocytes (%) (Auto) 14 % (24-48) Monocytes (%) (Auto) 9 % (0-9) Eosinophils (%) (Auto) 1 % (0-3) Basophils (%) (Auto) 1 % (0-3) Neutrophils # (Auto) 6.8 x10^3/uL (1.8-7.7) Lymphocytes # (Auto) 1.2 x10^3/uL (1.0-4.8) Monocytes # (Auto) 0.8 x10^3/uL (0.0-1.1) Eosinophils # (Auto) 0.1 x10^3/uL (0.0-0.7) Basophils # (Auto) 0.0 x10^3/uL (0.0-0.2) Sodium Level 140 mmol/L (136-145) Potassium Level 3.2 mmol/L (3.5-5.1) Chloride Level 100 mmol/L (98-107) Carbon Dioxide Level 35 mmol/L (21-32) Anion Gap 5 (6-14) Blood Urea Nitrogen 14 mg/dL (8-26) Creatinine 0.9 mg/dL (0.7-1.3) Estimated GFR (Cockcroft-Gault) 83.2 Glucose Level 76 mg/dL (70-99) Calcium Level 7.3 mg/dL (8.5-10.1) Phosphorus Level 2.9 mg/dL (2.6-4.7) Magnesium Level 1.8 mg/dL (1.8-2.4) Objective: Assessment: Wound dehiscence of RT knee incision site Recent right TKA June 2021 Status post Irrigation and debridement of the right knee, right total knee arthroplasty with polyethylene exchange on 08/01. Cultures positive for stenotrophomonas Previous Rt knee cultures were positive for MSSA was on cefazolin prior to transfer from [facility] C diff colitis History of Right TKA June 2021 Atrial fibrillation COPD on O2 by nasal cannula Polymicrobial Bacteremia at [facility] gram-positive cocci, gram- positive rods on July 24, 2021 with coagulase-negative staph and diphtheroids contaminant Anemia Acute kidney injury at outside facility improved Questionable peripheral arterial disease Right upper extremity thrombophlebitis Plan: Plan of Care Limited choices for MSSA and stenotrophomonas right total knee arthroplasty infection Cont Eravacycline,was on cefazolin prior to transfer from [facility] will need for atleast 6 weeks cont po vanco qid for c diff colitis Right upper extremity thrombophlebitis management per primary Wound care as directed Patient remains at risk of failure of right TKA despite I&D due to drug- resistant bacteria MSSA and stenotrophomonas despite aggressive antibiotic treatment Patient would like salvage treatment at this time with antibiotics Pros and cons discussed Patient and verbalizes understanding Monitor labs and cultures PT and OT as tolerated Continue supportive care D/W RN Per [facility], Eravacycline is not available last Friday Pt has no other choices as above Hold DC and SW to assist with placement to a facility which will accept pt on Eravacycline D/W RN D/W at bedside BRUNO ZAVALA MD Aug 12, 2021 12:39
--- NOTE | 2021-08-12 12:49 | PDOC ---
[employer] PROGRESS NOTE Date of Service DOS: DATE: 08/12/21 TIME: 12:48 Chief Complaint Chief Complaint Complex left knee infection with stenotrophomonas and MSSA C. 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 fib Hypertension COPD History of Present Illness History of Present Illness 08/12/2021 Patient seen and examined I reviewed the chart with his Discussed with RN He has IV Ervacycline hanging Discussed with pharmacy 08/11/2021 No acute events overnight. Patient seen examined bedside. AF and VSS. Pending SNF placement to accept IV antibiotics. Patient's chart, labs, images were reviewed and discussed with RN 08/10/2021 No acute events overnight. Patient seen examined bedside. AF and hypertensive with systolics in the 180s. Still on IV antibiotics and will need to continue for 6 weeks. Pending placement that the has the capability to administer IV antibiotics specifically for Eravacycline 08/08/2021 No acute events overnight. Patient seen examined bedside. Patient accepted at [facility]. We will plan for discharge tomorrow. Will need to continue 6 weeks of IV antibiotics 08/07/2021 No acute events overnight. Patient seen examined bedside. Pending placement for [facility]. Will likely need IV antibiotics for 6 weeks total. 08/06 Patient evaluated examined at bedside. Resting in bed doing well. Says he thinks he has his day and nights mixed up as he is awake throughout much of the night. Otherwise doing well. Continue IV antibiotics planning for 6-week course. Can DC to rehab in the next day or 2. 08/05 Evaluate examined at bedside. Resting in bed doing well. No major complaints to me. Antibiotics changed to Erivacycline yesterday per ID. Continue. Possible d/c to rehab this week? discussed with bedside rn 08/04 Evaluated examined at bedside. He had just worked with physical therapy. Prefers [facility] on discharge whenever that is. Culture results showed a few stenotrophomonas organisms. Antibiotics switched over to Bactrim yesterday afternoon due to this. We will consult infectious disease today for recommendations and duration. 08/03 Patient evaluated examined at bedside. Resting in bed just finished lunch. No further agitation episodes overnight. Says his leg feels okay pain control. Still waiting on some culture results. Continue current antibiotics narrow as needed. 08/02 Patient evaluated examined at bedside. Reports he had some confusion overnight got little agitated but is feeling better now pain well controlled. Still waiting on culture results. Continue broad antibiotics for now we will narrow as results available. Vitals/I&O Vitals/I&O: Vital Signs Date Time Temp Pulse Resp B/P (MAP) Pulse Ox O2 Delivery O2 Flow Rate FiO2 08/12/21 11:00 97.6 51 18 118/45 (69) 92 Room Air 97.6 08/12/21 10:00 5.0 I & O 08/11/21 08/11/21 08/12/21 15:00 23:00 07:00 Intake Total 120 ml 120 ml 200 ml Output Total 1450 ml 450 ml Balance 120 ml -1330 ml -250 ml Physical Exam Physical Exam: Constitutional alert oriented x3 male in bed comfortably no acute distress pleasant cooperative HEENT pupils equal reactive, normal conjunctival, oropharynx clear, no thrush Neck supple no JVD Lungs decreased breath sound at the bases on oxygen via nasal cannula Heart S1-S2 Abdomen soft obese bowel sounds present nontender nondistended no rebound or guarding Vasques in place Extremities trace bilateral lower extremity edema. Right lower extremity in brace and take dressing, not taken down, no thigh tenderness, able to wiggle toes, bilateral upper extremity edema right greater than left. Neuro alert oriented x3 grossly nonfocal was all 4 extremities Psychiatric affect is appropriate PIV looks clean General: Alert, Oriented X3, Cooperative Heart: Regular rate, Normal S1, Normal S2 Lungs: Clear, Other Abdomen: Normal bowel sounds, Soft, No tenderness Extremities: No edema, Normal pulses Skin: No significant lesion Labs Labs: Laboratory Tests Test 08/12/21 10:40 White Blood Count 8.9 x10^3/uL (4.0-11.0) Red Blood Count 2.85 x10^6/uL (4.30-5.70) Hemoglobin 8.4 g/dL (13.0-17.5) Hematocrit 26.7 % (39.0-53.0) Mean Corpuscular Volume 94 fL (79-100) Mean Corpuscular Hemoglobin 30 pg (25-35) Mean Corpuscular Hemoglobin Concent 32 g/dL (31-37) Red Cell Distribution Width 17.4 % (11.5-14.5) Platelet Count 553 x10^3/uL (140-400) Neutrophils (%) (Auto) 76 % (31-73) Lymphocytes (%) (Auto) 14 % (24-48) Monocytes (%) (Auto) 9 % (0-9) Eosinophils (%) (Auto) 1 % (0-3) Basophils (%) (Auto) 1 % (0-3) Neutrophils # (Auto) 6.8 x10^3/uL (1.8-7.7) Lymphocytes # (Auto) 1.2 x10^3/uL (1.0-4.8) Monocytes # (Auto) 0.8 x10^3/uL (0.0-1.1) Eosinophils # (Auto) 0.1 x10^3/uL (0.0-0.7) Basophils # (Auto) 0.0 x10^3/uL (0.0-0.2) Sodium Level 140 mmol/L (136-145) Potassium Level 3.2 mmol/L (3.5-5.1) Chloride Level 100 mmol/L (98-107) Carbon Dioxide Level 35 mmol/L (21-32) Anion Gap 5 (6-14) Blood Urea Nitrogen 14 mg/dL (8-26) Creatinine 0.9 mg/dL (0.7-1.3) Estimated GFR (Cockcroft-Gault) 83.2 Glucose Level 76 mg/dL (70-99) Calcium Level 7.3 mg/dL (8.5-10.1) Phosphorus Level 2.9 mg/dL (2.6-4.7) Magnesium Level 1.8 mg/dL (1.8-2.4) Assessment and Plan Assessmemt and Plan Complex left knee infection with stenotrophomonas and MSSA C. 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 fib Hypertension COPD Plan IV Ervacycline P.o. vancomycin Wound long term meds DVT prophylaxis Full code Appreciate subspecialist input Eventually the goal is to change him to p.o. antibiotics that will cover for stenotrophomonas and MSSA and then go to nursing home Comment Review of Relevant I have reviewed the following items rajeev (where applicable) has been applied. Justifications for Admission Other Justification RE MOJICA III DO Aug 12, 2021 12:49
[2021-08-12 13:03] LABS: ALBUMIN 1.4 g/dL (3.4-5.0); DIRECT BILIRUBIN 0.1 mg/dL (0.0-0.2); TOTAL BILIRUBIN 0.3 mg/dL (0.2-1.0); TOTAL PROTEIN 4.3 g/dL (6.4-8.2)
[2021-08-12 13:24] LABS: % BANDS 14 % (0-9); % BASOS 1 % (0-3); % LYMPHS 12 % (24-48); % METAS 1 % (0-0); % MONOS 5 % (0-10); % MYELOS 1 % (0-0); % SEGS 66 % (35-66)
[2021-08-12 13:25] LABS: HYPOCHROMIA SLIGHT; PLT ESTIMATE INCREASED (ADEQUATE)
[2021-08-12 13:26] LABS: ANISOCYTOSIS SLIGHT; MICROCYTOSIS SLIGHT; POIKILOCYTOSIS SLIGHT
[2021-08-12] MEDS: oxyCODONE/APAP 5/325 1 TAB TABLET PO PRN (13:26)
[2021-08-12 13:27] LABS: TOXIC GRANULATION SLIGHT
[2021-08-12 15:00] VITALS: BP 141/49
[2021-08-12 19:00] VITALS: BP 131/52
[2021-08-12] MEDS: ATORVASTATIN CALCIUM 40 MG TABLET. PO SCH (21:11)
[2021-08-12 23:01] VITALS: BP 145/70
[2021-08-13] MEDS: ACETAMINOPHEN 500 MG TABLET PO SCH ×2 (03:00→09:40)
[2021-08-13 03:04] VITALS: BP 151/63
[2021-08-13] MEDS: oxyCODONE/APAP 5/325 1 TAB TABLET PO PRN ×2 (04:57→13:24)
[2021-08-13] MEDS: GABAPENTIN 100 MG CAPSULE. PO SCH ×2 (05:00→13:23)
[2021-08-13 07:00] VITALS: BP 134/50
[2021-08-13] MEDS: IPRATRPIUM/ALBUTEROL 0.5/2.5MG 3 ML NEBU. NEB SCH ×2 (07:36→11:24)
[2021-08-13] MEDS: SENNOSIDES/DOCUSATE 8.6/50MG TABLET. PO SCH (09:00)
[2021-08-13] MEDS: METOPROLOL SUCC 24HR ER 100 MG TAB.ER.24H. PO SCH (09:39)
[2021-08-13] MEDS: AMIODARONE HCL 200 MG TABLET. PO SCH (09:40)
[2021-08-13] MEDS: FERROUS SULFATE 325 MG TABLET. PO SCH (09:40)
[2021-08-13] MEDS: TAMSULOSIN 0.4 MG CAP.ER.24H. PO SCH (09:40)
[2021-08-13] MEDS: MULTIVITAMIN with MINERAL TABLET. PO SCH (09:40)
[2021-08-13] MEDS: BUMETANIDE 1 MG TABLET. PO SCH (09:40)
[2021-08-13] MEDS: ERAVACYCLINE IV SCH (09:41)
[2021-08-13] MEDS: LOSARTAN POTASSIUM 50 MG TABLET. PO SCH (09:41)
[2021-08-13] MEDS: LACTOBACILLUS RHAMNOSUS GG 1 CAPSULE. PO SCH (09:41)
[2021-08-13] MEDS: CHOLECALCIFEROL (VITAMIN D3) 5,000 UNIT CAPSULE PO SCH (09:41)
[2021-08-13] MEDS: NORMAL SALINE IV SCH (09:41)
[2021-08-13] MEDS: VANCOMYCIN 125 MG/2.5 ML ORAL SOLUTION. PO SCH ×2 (09:41→13:23)
[2021-08-13] MEDS: fentaNYL PF VIAL 100 MCG/2 ML VIAL IVP PRN (09:52)
[2021-08-13 11:00] VITALS: BP 153/60
--- NOTE | 2021-08-13 11:46 | PDOC ---
[employer] PROGRESS NOTE Date of Service DOS: DATE: 08/13/21 TIME: 11:41 Chief Complaint Chief Complaint Complex left knee infection with stenotrophomonas and MSSA C. 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 fib Hypertension COPD History of Present Illness History of Present Illness 08/13/2021 Patient seen and examined His discharge seems to be on hold due to logistical issues with his IV antibiotic eravacycline I made several phone calls including to the pharmacy x2, the usp unit x2, and case management team x2 and with the infectious disease physician trying to clarify the situation. Patient seems frustrated Chart reviewed Discussed with RN 08/12/2021 Patient seen and examined I reviewed the chart with his Discussed with RN He has IV Ervacycline hanging Discussed with pharmacy 08/11/2021 No acute events overnight. Patient seen examined bedside. AF and VSS. Pending SNF placement to accept IV antibiotics. Patient's chart, labs, images were reviewed and discussed with RN 08/10/2021 No acute events overnight. Patient seen examined bedside. AF and hypertensive with systolics in the 180s. Still on IV antibiotics and will need to continue for 6 weeks. Pending placement that the has the capability to administer IV antibiotics specifically for Eravacycline 08/08/2021 No acute events overnight. Patient seen examined bedside. Patient accepted at [facility]. We will plan for discharge tomorrow. Will need to continue 6 weeks of IV antibiotics 08/07/2021 No acute events overnight. Patient seen examined bedside. Pending placement for [facility]. Will likely need IV antibiotics for 6 weeks total. 08/06 Patient evaluated examined at bedside. Resting in bed doing well. Says he thinks he has his day and nights mixed up as he is awake throughout much of the night. Otherwise doing well. Continue IV antibiotics planning for 6-week course. Can DC to rehab in the next day or 2. 08/05 Evaluate examined at bedside. Resting in bed doing well. No major complaints to me. Antibiotics changed to Erivacycline yesterday per ID. Continue. Possible d/c to rehab this week? discussed with bedside rn 08/04 Evaluated examined at bedside. He had just worked with physical therapy. Prefers [facility] on discharge whenever that is. Culture results showed a few stenotrophomonas organisms. Antibiotics switched over to Bactrim yesterday afternoon due to this. We will consult infectious disease today for recommendations and duration. 08/03 Patient evaluated examined at bedside. Resting in bed just finished lunch. No further agitation episodes overnight. Says his leg feels okay pain control. Still waiting on some culture results. Continue current antibiotics narrow as needed. 08/02 Patient evaluated examined at bedside. Reports he had some confusion overnight got little agitated but is feeling better now pain well controlled. Still waiting on culture results. Continue broad antibiotics for now we will narrow a s results available. Vitals/I&O Vitals/I&O: Vital Signs Date Time Temp Pulse Resp B/P (MAP) Pulse Ox O2 Delivery O2 Flow Rate FiO2 08/13/21 11:25 Nasal Cannula 4.0 08/13/21 09:41 51 134/50 08/13/21 07:36 96 08/13/21 07:00 97.6 8 97.6 I & O 08/12/21 08/12/21 08/13/21 15:00 23:00 07:00 Intake Total 120 ml 120 ml Output Total 1400 ml 500 ml 1700 ml Balance -1280 ml -380 ml -1700 ml Physical Exam Physical Exam: Constitutional alert oriented x3 male in bed comfortably no acute distress pleasant cooperative HEENT pupils equal reactive, normal conjunctival, oropharynx clear, no thrush Neck supple no JVD Lungs decreased breath sound at the bases on oxygen via nasal cannula Heart S1-S2 Abdomen soft obese bowel sounds present nontender nondistended no rebound or guarding Vasques in place Extremities trace bilateral lower extremity edema. Right lower extremity in bra ce and take dressing, not taken down, no thigh tenderness, able to wiggle toes, bilateral upper extremity edema right greater than left. Neuro alert oriented x3 grossly nonfocal was all 4 extremities Psychiatric affect is appropriate PIV looks clean General: Alert, Oriented X3, Cooperative Heart: Regular rate, Normal S1, Normal S2 Lungs: Clear, Other Abdomen: Normal bowel sounds, Soft, No tenderness Extremities: No edema, Normal pulses Skin: No significant lesion Assessment and Plan Assessmemt and Plan Assessmemt and Plan Complex left knee infection with stenotrophomonas and MSSA C. 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 fib Hypertension COPD Plan Is discharge seems to be on hold due to logistical issues with the IV eravacycline I made several phone calls including to the pharmacy x2, the usp unit x2, and case management team x2 and with the infectious disease physician trying to clarify the situation. For now continue the following; IV Ervacycline P.o. vancomycin Wound assisted meds DVT prophylaxis Full code Appreciate subspecialist input We hope to get him to usp soon if we can clarify the logistical issues of the IV eravacycline Comment Review of Relevant I have reviewed the following items rajeev (where applicable) has been applied. Justifications for Admission Other Justification RE MOJICA III DO Aug 13, 2021 11:46
--- NOTE | 2021-08-13 11:49 | SNU/HH DC ---
DISCHARGE ORDERS DISCHARGE INFORMATION: DISCHARGE DATE: Aug 09, 2021 CONDITION ON DISCHARGE: Guarded CODE STATUS: Code Status: Full MCC: SNF STAY <30 DAYS: Yes HOSPICE: HOSPICE: No HOSPICE EVAL & TREAT: No LTAC: ADMIT TO LTAC: No POST DISCHARGE ORDERS: ACTIVITY ORDERS: No restrictions, Activity as tolerated WEIGHT BEARING STATUS: No restrictions DIET AFTER DISCHARGE: Cardiac OTHER ORDERS: IVR ervacycline per infectious disease recommendat CHECKS AFTER DISCHARGE: CHECKS AFTER DISCHARGE: Check blood press - daily, Weigh Yourself Daily COMMENTS: Continue with IV antibiotics for 6 weeks FOLLOW-UP: PHYSICIAN FOLLOW-UP: PCP within 2 weeks of discharge ADDITIONAL FOLLOW-UP: Orthopedic surgery as scheduled TREATMENT/EQUIPMENT ORDERS: INFUSION EQUIPMENT NEEDED: IV Line RESPIRATORY EQUIPMENT NEEDED: Oxygen Physical Therapy For: Evalulation/Treatment Occupational Therapy For: Evaluation/Treatment DISCHARGE MEDICATIONS: Home Meds Active Scripts Oxycodone/Apap 5-325 (PERCOCET 5-325 MG TABLET ) 1 Each Tablet, 1 TAB PO PRN Q6HRS PRN for PAIN for 3 Days, #12 TAB 0 Refills Prov:PENNIE RODGERS MD 08/09/21 Ferrous Sulfate (FERROUS SULFATE) 325 Mg Tablet, 1 TAB PO QODAY for for 30 Days, #30 TAB 3 Refills Prov:PENNIE RODEGRS MD 08/08/21 Gabapentin (GABAPENTIN ) 100 Mg Capsule, 100 MG PO Q8HRS for . for 30 Days, #90 CAP Prov:CASTLE,NIAL K III DO 07/16/21 Oxycodone/Apap 5-325 (PERCOCET 5-325 MG TABLET ) 1 Each Tablet, 1 TAB PO PRN Q6HRS PRN for PAIN for 10 Days, #20 TAB 0 Refills Prov:CASTLE,NIAL K III DO 07/16/21 Eszopiclone (LUNESTA) 3 Mg Tablet, 3 MG PO HS PRN for INSOMNIA for 10 Days, #10 TAB Prov:CASTLE,NIAL K III DO 07/16/21 Reported Medications Umeclidinium [place] (Incruse Ellipta) 62.5 Mcg Blst.w.dev, 62.5 MCG IH DAILY for COPD 08/02/21 Losartan Potassium (LOSARTAN POTASSIUM) 50 Mg Tablet, 50 MG PO DAILY for HYPERTENSION, TAB 08/02/21 Albuterol Sulfate (VENTOLIN HFA INHALER) 18 Gm Hfa.aer.ad, 2 PUFF INH Q4HRS for FOR ASTHMA, EACH 0 Refills 06/27/21 Lactobacillus Rhamnosus Gg (CULTURELLE) 1 Each Cap.sprink, 1 CAP PO DAILY for PROBIOTIC for 30 Days, #30 CAP 0 Refills 02/13/21 Cholecalciferol (Vitamin D3) (Vitamin D3 ) 125 Mcg Capsule, 125 MCG PO DAILY for SUPPLEMENT, CAP 5,000 UNITS = 125 MCG 02/13/21 Amiodarone Hcl (AMIODARONE HCL) 100 Mg Tablet, 1 TAB PO HS for A FIB for 30 Days, #30 TAB 0 Refills 02/13/21 Meloxicam (MELOXICAM) 15 Mg Tablet, 15 MG PO DAILY for PAIN CONTROL, TAB 08/07/20 Diltiazem HCl (Diltiazem 24Hr ER (LA)) 240 Mg Tab.er.24h, 120 MG PO DAILY for AFIB, TAB.SR 08/07/20 Amiodarone Hcl (AMIODARONE HCL) 200 Mg Tablet, 1 TAB PO DAILY08 for atrial fibri llation, #90 TAB 3 Refills 12/30/18 Metoprolol Succinate (METOPROLOL SUCCINATE ( XL )) 100 Mg Tab.er.24h, 1 TAB PO DAILY for heart rate, #30 TAB 5 Refills 11/30/18 Apixaban (ELIQUIS) 5 Mg Tablet, 5 MG PO BID for a-fib, TAB 11/30/18 Bumetanide (BUMETANIDE) 1 Mg Tablet, 1 TAB PO BID for heart failure, #90 TAB 1 Refill 11/30/18 Atorvastatin Calcium (ATORVASTATIN CALCIUM) 80 Mg Tablet, 1 TAB PO DAILY, #30 TAB 5 Refills 08/26/17 Tamsulosin Hcl (TAMSULOSIN HCL) 0.4 Mg Cap.er.24h, 0.4 MG PO DAILY 08/10/13 Multivitamin (DAILY VALUE) 1 Each Tablet, 1 EACH PO DAILY 08/10/13 Hydrochlorothiazide (HYDROCHLOROTHIAZIDE TABLET ) 25 Mg Tablet, 25 MG PO DAILY 08/10/13 Aspirin (ADULT LOW DOSE ASPIRIN EC) 81 Mg Tablet.dr, 81 MG PO DAILY 08/10/13 Discontinued Reported Medications Cyclobenzaprine Hcl (CYCLOBENZAPRINE HCL) 10 Mg Tablet, 10 MG PO PRN TID PRN for SPASMS, TAB 08/07/20 RE MOJICA III DO Aug 13, 2021 11:49
--- NOTE | 2021-08-13 13:37 | PDOC ---
Infectious Disease Note Subjective: Subjective Patient without complaints though has recurrence of diarrhea this morning D/W RN Vital Signs: Vital Signs Vital Signs Date Time Temp Pulse Resp B/P (MAP) Pulse Ox O2 Delivery O2 Flow Rate FiO2 08/13/21 13:24 Nasal Cannula 4.0 08/13/21 11:48 51 08/13/21 09:41 134/50 08/13/21 07:36 96 08/13/21 07:00 97.6 8 97.6 Physical Exam: PHYSICAL EXAM Constitutional alert oriented x3 male in bed comfortably no acute distress pleasant cooperative HEENT pupils equal reactive, normal conjunctival, oropharynx clear, no thrush Neck supple no JVD Lungs decreased breath sound at the bases on oxygen via nasal cannula Heart S1-S2 Abdomen soft obese bowel sounds present nontender nondistended no rebound or guarding Vasques in place Extremities trace bilateral lower extremity edema. Right lower extremity in brace and take dressing, not taken down, no thigh tenderness, able to wiggle toes, bilateral upper extremity edema right greater than left. Neuro alert oriented x3 grossly nonfocal was all 4 extremities Psychiatric affect is appropriate PIV looks clean Medications: Inpatient Meds: Medications reviewed. Objective: Assessment: Wound dehiscence of RT knee incision site Recent right TKA June 2021 Status post Irrigation and debridement of the right knee, right total knee arthroplasty with polyethylene exchange on 08/01. Cultures positive for stenotrophomonas Previous Rt knee cultures were positive for MSSA was on cefazolin prior to transfer from [facility] C diff colitis History of Right TKA June 2021 Atrial fibrillation COPD on O2 by nasal cannula Polymicrobial Bacteremia at [facility] gram-positive cocci, gram- positive rods on July 24, 2021 with coagulase-negative staph and diphtheroids contaminant Anemia Acute kidney injury at outside facility improved Questionable peripheral arterial disease Right upper extremity thrombophlebitis Plan: Plan of Care Limited choices for MSSA and stenotrophomonas right total knee arthroplasty infection Cont Eravacycline,was on cefazolin prior to transfer from [facility] will need for atleast 6 weeks cont po vanco qid for c diff colitis Right upper extremity thrombophlebitis management per primary Wound care as directed Patient remains at risk of failure of right TKA despite I&D due to drug- resistant bacteria MSSA and stenotrophomonas despite aggressive antibiotic treatment Patient would like salvage treatment at this time with antibiotics Pros and cons discussed Patient and verbalizes understanding Monitor labs and cultures PT and OT as tolerated Continue supportive care Follow-up ID clinic as scheduled phone [phone] in 2 weeks D/W BRUNO MENDOZA MD Aug 13, 2021 13:37
[2021-08-13] MEDS ORDERED: VANC125C10 PO (13:40)
--- NOTE | 2021-08-13 14:10 | NUR ---
Discharge Note: Patient was discharged/transferred to [facility] for rehab and antibiotic treatment. Patient was discharged with single lumen PICC to the left arm and Vasques catheter, per Dr's orders. Patient was transferred via stretcher. All discharge summary/instructions were sent to facility with transport. Report was given to MANDEEP Clinton at [facility]. All belongings were taken by or sent with patient.
== END 2021-08-13 14:10 | DRG 466 ==
LOC: 5 NORTH 19:05
PROVIDERS: ADMIT Internal Medicine; ATTEND Orthopaedic Surgery
PROC: 30233N1 Transfusion of Nonautologous Red Blood Cells into Peripheral Vein, Percutaneous Approach (ICD-10-PCS; 2021-08-01)
PROC: 0SPC0JZ Removal of Synthetic Substitute from Right Knee Joint, Open Approach (ICD-10-PCS; 2021-08-01)
PROC: 0SRC0JZ Replacement of Right Knee Joint with Synthetic Substitute, Open Approach (ICD-10-PCS; principal; 2021-08-01 11:45)
PROC: 5A09357 Assistance with Respiratory Ventilation, Less than 24 Consecutive Hours, Continuous Positive Airway Pressure (ICD-10-PCS; 2021-08-06)
PROC: 5A09357 Assistance with Respiratory Ventilation, Less than 24 Consecutive Hours, Continuous Positive Airway Pressure (ICD-10-PCS; 2021-08-09)
DX: T84.53XA Infection and inflammatory reaction due to internal right knee prosthesis, initial encounter (principal); E43 Unspecified severe protein-calorie malnutrition; T81.30XA Disruption of wound, unspecified, initial encounter; A04.72 Enterocolitis due to Clostridium difficile, not specified as recurrent; J44.0 Chronic obstructive pulmonary disease with (acute) lower respiratory infection; N17.9 Acute kidney failure, unspecified; D64.9 Anemia, unspecified; E55.9 Vitamin D deficiency, unspecified; E78.5 Hyperlipidemia, unspecified; G47.33 Obstructive sleep apnea (adult) (pediatric); I10 Essential (primary) hypertension; I25.10 Atherosclerotic heart disease of native coronary artery without angina pectoris; I48.91 Unspecified atrial fibrillation; I80.8 Phlebitis and thrombophlebitis of other sites; Y83.1 Surgical operation with implant of artificial internal device as the cause of abnormal reaction of the patient, or of later complication, without mention of misadventure at the time of the procedure; Z80.0 Family history of malignant neoplasm of digestive organs; Z87.891 Personal history of nicotine dependence; Z99.81 Dependence on supplemental oxygen; B95.61 Methicillin susceptible Staphylococcus aureus infection as the cause of diseases classified elsewhere
CPT/HCPCS: 36415; 36430; 36569; 71045; 80048; 80053; 80076; 80202; 82565; 83735; 84100; 85007; 85014; 85018; 85025; 85651; 86140; 86850; 86900; 86901; 86920; 87075; 87077; 87186; 87426; 87493; 93005; 93971; 94640; 94660; 94760; A4213; A4930; A6253; A6258; A6450; A6454; A6550; C1776; J0690; J1100; J1170; J2270; J2370; J2405; J2543; J2704; J3010; J3370; J3475; J3490; J7040; J7050; J7120; P9016; U0003; 97110-GO; 97110-GP; 97530-GO; 97530-GP; 97535-GO; G0378; J0122; J7030

== ENCOUNTER 2021-08-22 03:52 | Inpatient (IN) | payer MEDICARE ==
[~2021-08-22] VITALS: Ht 170.2 cm; Wt 108.5 kg
[~2021-08-22 03:52] MED LIST changes: +LOSA-73 PO; +UMEC62.5 IH; +VANC125C10 PO
[2021-08-22 04:52] LABS: BASO # 0.1 x10^3/uL (0.0-0.2); BASO % 1 % (0-3); EOS % 0 % (0-3); HEMATOCRIT 23.1 % (39.0-53.0); HEMOGLOBIN 7.4 g/dL (13.0-17.5); LYMPH % 4 % (24-48); MEAN CORPUSCULAR HEMOGLOBIN 30 pg (25-35); MEAN CORPUSCULAR HGB CONC 32 g/dL (31-37); MEAN CORPUSCULAR VOLUME 92 fL (79-100); MONO # 1.6 x10^3/uL (0.0-1.1); MONO % 7 % (0-9); NEUT # 19.8 x10^3/uL (1.8-7.7); NEUT % 88 % (31-73); PLATELET COUNT 434 x10^3/uL (140-400); RED BLOOD COUNT 2.52 x10^6/uL (4.30-5.70); RED CELL DISTRIBUTION WIDTH 17.9 % (11.5-14.5); WHITE BLOOD COUNT 22.5 x10^3/uL (4.0-11.0)
--- NOTE | 2021-08-22 04:56 | PHYS DOC ---
Past Medical History Past Medical History: A-Fib, Arthritis, Hypertension Additional Past Medical Histor: BPH,ENTEROCOLITIS,C-DIFF,SLEEP APNEA,COVID- 19,OSTEOARTHRITIS,OBESITY Past Surgical History: Knee Replacement, Other Additional Past Surgical Histo: Back, hernia mesh placement, and rotator cuff x's 2 surgery. Smoking Status: Former Smoker Alcohol Use: None Drug Use: None General Adult EDM: Chief Complaint: KNEE INJURY HPI: HPI: 71 yo M PMH atrial fibrillation on eliquis, hypertension, COPD, sleep apnea, hyperlipidemia, vitamin D deficiency, coronary artery disease and h/o R TKA 07/02 complicated w/wound dehiscence and MSSA (OR washout 08/01) on azithro x2 weeks (started 08/09) presents to the ED from residential family with concern for bleeding to the right knee. Patient on arrival has no active knee, hip or ankle pain. States he "slipped on my sock" while getting out of bed and "only banged it a little," on tile floor. Denies hitting his head or loss of consciousness. States " they freaked out about a little blood." Tetanus is up-to-date. Is not aware he has a fever. EMR was reviewed and patient was positive for C. difficile the end of July and COVID-19 the end of June. Reports patient is on the azithromycin 1 g twice daily for 2 weeks, started 08/09. Review of Systems: Review of Systems: Constitutional: Denies fever or chills. [] Eyes: Denies change in visual acuity. [] HENT: Denies nasal congestion or sore throat. [] Respiratory: Denies cough or shortness of breath. [] Cardiovascular: Denies chest pain or syncope GI: Denies abdominal pain, nausea, vomiting, bloody stools or diarrhea. [] : Denies hematuria or flank pain Musculoskeletal: Denies back pain or joint pain. [] Integument: Denies rash. Or diaphoresis Neurologic: Denies headache, focal weakness or sensory changes. [] Endocrine: Denies polyuria or polydipsia. [] Lymphatic: Denies swollen glands. [] Psychiatric: Denies depression or anxiety. [] Heart Score: C/O Chest Pain: No Risk Factors: Risk Factors: DM, Current or recent (<one month) smoker, HTN, HLP, family history of CAD, obesity. Risk Scores: Score 0 - 3: 2.5% MACE over next 6 weeks - Discharge Home Score 4 - 6: 20.3% MACE over next 6 weeks - Admit for Clinical Observation Score 7 - 10: 72.7% MACE over next 6 weeks - Early Invasive Strategies Current Medications: Current Medications Medications (Trade) Dose Ordered Sig/Renetta Start Time Stop Time Status Last Admin Dose Admin Acetaminophen (Tylenol) 650 mg 1X ONCE 08/22/21 05:00 08/22/21 05:01 08/22/21 04:48 650 MG Allergies: Allergies: Allergies Coded Allergies Type Severity Reaction Last Updated Verified No Known Drug Allergies 07/02/21 No Physical Exam: PE: Constitutional: morbily obese, febrile, sarcastic sense of humor HENT: Normocephalic, atraumatic, Eyes: EOMI, conjunctiva normal, no discharge. Neck: Normal range of motion, supple, Cardiovascular: S1/2 present, regular rhythm Lungs & Thorax: Speaking in full sentences, bilateral equal chest rise, no tachypnea or increased work of breathing Abdomen: soft, no tenderness, Skin: Warm, dry, no erythema, no rash. [] Back: No midline spinal step offs or tenderness, no CVA tenderness, early sacral decubiti/skin breakdown, crepitus Extremities: No tenderness, no cyanosis, equal lower extremity edema, Steri- Strips intact with mild wound dehiscence approximately 1.5 cm right patella with blood on Steri-Strips, no active bleeding Neurologic: Alert and oriented X 3, normal motor function, normal sensory function, no focal deficits noted. [] Psychologic: Affect normal, judgement normal, mood normal. [] : deras in place, dark yellow urine with sediment, no rash Current Patient Data: Vital Signs: Vital Signs Date Time Temp Pulse Resp B/P (MAP) Pulse Ox O2 Delivery O2 Flow Rate FiO2 08/22/21 03:52 101.5 58 18 131/59 (83) 100 Nasal Cannula 4.5 101.5 EKG: EKG: Sinus bradycardia with low limb lead voltage like related to habitus, QTC prolo nged in the 550s, T wave inversion V2, V3 and V4, no ST elevation or ST depression, no active chest pain Radiology/Procedures: Radiology/Procedures: IMAGING REPORT Signed PATIENT: JOSE GOLDSTEIN Gene ACCOUNT: [id number] : 1950 LOCATION: ER AGE: 71 SEX: M EXAM STATUS: REG ER ORD. PHYSICIAN: LEIDA RAHMAN DO REASON: ams PROCEDURE: CT HEAD WO CONTRAST CT head without contrast PQRS statement: CT scans at this facility use dose reduction including either automated exposure control, iterative reconstructions, and /or weight based radiation dosing via mA and kV modification when appropriate to reduce radiation dose to as low as reasonably achievable. HISTORY: Altered mental status. FINDINGS: There is a mild asymmetric enlarged subarachnoid space overlying the right frontal lobe on axial images 15-19 and a subtle density from a bridging vein, this is stable to prior CT head imaging from November 26, 2018. Generalized brain atrophy stable. Cerebral periventricular white matter hypoattenuation likely changes of chronic microvascular ischemic disease stable. Ocular proptosis. Mild fluid density left mastoid. Orbits, bones unremarkable. IMPRESSION: No acute intracranial CT abnormality. Electronically signed by: Volodymyr Sanderson MD (08/22/2021 5:29 AM) [facility] DICTATED and SIGNED BY: VOLODYMYR SANDERSON MD DATE: 08/22/21 0524 IMAGING REPORT Signed PATIENT: JOSE GOLDSTEIN ACCOUNT: [id number] : 1950 LOCATION: ER AGE: 71 SEX: M EXAM STATUS: REG ER ORD. PHYSICIAN: LEIDA RAHMAN DO REASON: FEVER PROCEDURE: KNEE RIGHT 3V Right knee x-rays 3 views HISTORY: Fever. FINDINGS: Total knee arthroplasty. No bony lysis or cement resorption underlying the hardware to suggest loosening. No periprosthetic fracture. No dislocation. Arterial vascular calcifications. There is soft tissue edema throughout the knee, and lower thigh and upper calf. IMPRESSION: No acute osseous injury. Soft tissue edema. Electronically signed by: Volodymyr Sanderson MD (08/22/2021 5:06 AM) [facility] DICTATED and SIGNED BY: VOLODYMYR SANDERSON MD DATE: 08/22/21 0504 IMAGING REPORT Signed PATIENT: JOSE GOLDSTEIN ACCOUNT: [id number] : 1950 LOCATION: ER AGE: 71 SEX: M EXAM STATUS: PRE ER ORD. PHYSICIAN: LEIDA RAHMAN DO REASON: FEVER PROCEDURE: PORTABLE CHEST 1V AP chest x-ray HISTORY: Fever. COMPARISON: Chest x-ray June 03, 2022 FINDINGS: Left PICC line tip radiographic region proximal right atrium. Cardiomegaly stable. No pneumothorax. No pleural effusions. Improved aeration at the lung bases. There are mild interstitial and alveolar infiltrates at the lung bases remaining. IMPRESSION: Left PICC line. Improved aeration of the lung bases with decreased density of the opacities since the prior exam with mild interstitial and alveolar infiltrates remaining which could represent residual edema or multilobar pneumonia given the history of fever. Electronically signed by: Volodymyr Sanderson MD (08/22/2021 4:59 AM) [facility] DICTATED and SIGNED BY: VOLODYMYR SANDERSON MD DATE: 08/22/21 0457 Course & Med Decision Making: Course & Med Decision Making Pertinent Labs and Imaging studies reviewed. (See chart for details) Concern for very mild wound dehiscence of right knee with no traumatic injury on physical exam or x-ray imaging. Incidental finding of fever on arrival and labs concerning for sepsis secondary to pneumonia versus UTI with hypokalemia. Elevated liver enzymes are improving. Potassium replacement started in the emergency department. Patient is already on azithromycin. Will add Rocephin and admit to medicine for further medical management. Patient stable time admission and agrees with this plan. I have spoken with the patient and/or caregivers. I have explained the patient's condition, diagnosis and treatment plan based on the information available to me at this time. I have answered the patient's and/or caregivers questions and answered any concerns. The patient and/or caregivers have as good an understanding of the patient's diagnosis, condition and treatment plan as can be expected at this point. The patient has been stabilized within the capability of the emergency department. The patient will be transported for further care and management or will be moved to an observation or inpatient service. I have communicated with the staff or medical practitioner taking over this patient's care. Vipin Disclaimer: Vipin Disclaimer: This electronic medical record was generated, in whole or in part, using a voice recognition dictation system. Departure Departure Impression: Primary Impression: Sepsis Additional Impressions: Pneumonia UTI (urinary tract infection) Disposition: ADMITTED INPATIENT Admitting Physician: NANCY (Dr. Mathews) Condition: GUARDED Referrals: Christina MAJANO MD (PCP) LEIDA RAHMAN DO Aug 22, 2021 04:56
[2021-08-22] MEDS ORDERED: ACETAMINOPHEN 325 MG TABLET. PO ONE (05:00)
--- NOTE | 2021-08-22 05:01 | RAD ---
AP chest x-ray HISTORY: Fever. COMPARISON: Chest x-ray June 03, 2022 FINDINGS: Left PICC line tip radiographic region proximal right atrium. Cardiomegaly stable. No pneum othorax. No pleural effusions. Improved aeration at the lung bases. There are mild interstitial and a lveolar infiltrates at the lung bases remaining. IMPRESSION: Left PICC line. Improved aeration of the lung bases with decreased density of the opaciti es since the prior exam with mild interstitial and alveolar infiltrates remaining which could represe nt residual edema or multilobar pneumonia given the history of fever. Electronically signed by: Nima Sanderson MD (08/22/2021 4:59 AM) [facility]
[2021-08-22 05:04] LABS: BILIRUBIN,URINE NEGATIVE (NEG); CLARITY,URINE CLOUDY; COLOR,URINE YELLOW; NITRITE,URINE POSITIVE (NEG); PROTEIN,URINE >=300 mg/dL (NEG-TRACE); UROBILINOGEN,URINE 0.2 mg/dL (0.2 mg/dL)
[2021-08-22 05:05] LABS: BACTERIA,URINE FEW /HPF (0-FEW); RBC,URINE TNTC /HPF (0-2); WBC,URINE TNTC /HPF (0-4)
--- NOTE | 2021-08-22 05:08 | RAD ---
Right knee x-rays 3 views HISTORY: Fever. FINDINGS: Total knee arthroplasty. No bony lysis or cement resorption underlying the hardware to sugg est loosening. No periprosthetic fracture. No dislocation. Arterial vascular calcifications. There is soft tissue edema throughout the knee, and lower thigh and upper calf. IMPRESSION: No acute osseous injury. Soft tissue edema. Electronically signed by: Nima Sanderson MD (08/22/2021 5:06 AM) [facility]
[2021-08-22 05:09] LABS: ALBUMIN 1.6 g/dL (3.4-5.0); ALBUMIN/GLOBULIN RATIO 0.5 (1.0-1.7); CALCIUM 7.6 mg/dL (8.5-10.1); GFR 73.7; TOTAL BILIRUBIN 0.6 mg/dL (0.2-1.0); TOTAL PROTEIN 4.6 g/dL (6.4-8.2)
--- NOTE | 2021-08-22 05:31 | RAD ---
CT head without contrast PQRS statement: CT scans at this facility use dose reduction including either automated exposure cont rol, iterative reconstructions, and /or weight based radiation dosing via mA and kV modification when appropriate to reduce radiation dose to as low as reasonably achievable. HISTORY: Altered mental status. FINDINGS: There is a mild asymmetric enlarged subarachnoid space overlying the right frontal lobe on axial images 15-19 and a subtle density from a bridging vein, this is stable to prior CT head imaging from November 26, 2018. Generalized brain atrophy stable. Cerebral periventricular white matter hypoatte nuation likely changes of chronic microvascular ischemic disease stable. Ocular proptosis. Mild fluid density left mastoid. Orbits, bones unremarkable. IMPRESSION: No acute intracranial CT abnormality. Electronically signed by: Nima Sanderson MD (08/22/2021 5:29 AM) [facility]
[2021-08-22] MEDS ORDERED: POTASSIUM BICARB 20 MEQ EFFERVESCENT TABLET. PO ONE (06:00)
[2021-08-22] MEDS ORDERED: cefTRIAXone IV Push 1 GM VIAL. IVP ONE (06:00)
[2021-08-22 07:00] VITALS: BP 113/50
[2021-08-22 08:13] LABS: % BANDS 5 % (0-9); % LYMPHS 6 % (24-48); % MONOS 3 % (0-10); % SEGS 86 % (35-66); PLT ESTIMATE INCREASED (ADEQUATE)
[2021-08-22] MEDS ORDERED: ONDANSETRON PF 4 MG/2 ML VIAL. IVP PRN (08:45)
[2021-08-22] MEDS ORDERED: MAG HYDROX/ALUMINUM HYD/SIMETH 30 ML ORAL.SUSP PO PRN (08:45)
[2021-08-22] MEDS ORDERED: ACETAMINOPHEN 325 MG TABLET. PO PRN (08:45)
[2021-08-22] MEDS ORDERED: ZOLPIDEM 5 MG TABLET. PO PRN (08:45)
[2021-08-22] MEDS ORDERED: CALCIUM CARBONATE 500 MG TAB.CHEW PO PRN (08:45)
[2021-08-22] MEDS ORDERED: HYDROcodone/APAP 5/325MG 1 TAB TABLET PO PRN (08:45)
[2021-08-22] MEDS ORDERED: METOPROLOL SUCC 24HR ER 100 MG TAB.ER.24H. PO SCH (09:00)
[2021-08-22] MEDS: LOSARTAN POTASSIUM 50 MG TABLET. PO SCH (09:00)
--- NOTE | 2021-08-22 09:06 | PDOC1 ---
History and Physical Date of Admission Date of Admission DATE: 08/22/21 TIME: 08:56 Identification/Chief Complaint Chief Complaint Fever Source Source: Patient History of Present Illness History of Present Illness Patient is a 71-year-old male with past medical history A. fib, COPD, BPH, h/o right TKA with wound dehiscence, who presents to the ED with complaints of fall and right knee bleeding. He does take Eliquis for his history of atrial fibrillation. Upon arrival in the ED he was febrile at 101.5F by axillary temperature. Labs on admission showed WBC 22.5, hemoglobin 7.4, potassium 3.0, AST 59, ALT 72, albumin 1.6. Urinalysis with small leukocyte esterase, nitrite positive, large blood, WBCs TNTC. States he has had a Vasques catheter in since his surgery June. His last admission was also complicated by MSSA bacteremia, for which he is to follow-up with ID today. Patient is currently without complaints. He has been admitted for further medical management. Past Medical History Cardiovascular: CAD, HTN, Hyperlipidemia Pulmonary: COPD, Other CENTRAL NERVOUS SYSTEM: Other GI: GERD Heme/Onc: No pertinent hx Hepatobiliary: No pertinent hx Psych: Depression Musculoskeletal: Osteoarthritis Rheumatologic: No pertinent hx Infectious disease: No pertinent hx Renal/: No pertinent hx Endocrine: No pertinent hx Past Surgical History Past Surgical History: Hernia Repair, Other (Right knee TKA) Family History Family History: Diabetes, Hypertension Social History Smoke: No ALCOHOL: none Drugs: None Current Problem List Problem List Problems Medical Problems: (1) Pneumonia Status: Acute (2) Sepsis Status: Acute (3) UTI (urinary tract infection) Status: Acute Current Medications Current Medications Current Medications Acetaminophen (Tylenol) 650 mg 1X ONCE PO Last administered on 08/22/21at 04:48; Start 08/22/21 at 05:00; Stop 08/22/21 at 05:01; Status DC Ceftriaxone Sodium (Rocephin) 1 gm 1X ONCE IVP Last administered on 08/22/21at 05:35; Start 08/22/21 at 06:00; Stop 08/22/21 at 06:01; Status DC Potassium Bicarbonate (Potassium Effervescent Tablet) 40 meq 1X ONCE PO Last administered on 08/22/21at 05:42; Start 08/22/21 at 06:00; Stop 08/22/21 at 06:01; Status DC Ondansetron HCl (Zofran) 4 mg PRN Q6HRS PRN IVP NAUSEA/VOMITING; Start 08/22/21 at 08:45 Al Hydroxide/Mg Hydroxide (Mylanta Plus Xs) 30 ml PRN Q3HRS PRN PO HEARTBURN / GAS; Start 08/22/21 at 08:45; Status UNV Calcium Carbonate/ Glycine (Tums) 500 mg PRN Q3HRS PRN PO UPSET STOMACH; Start 08/22/21 at 08:45; Status UNV Zolpidem Tartrate (Ambien) 5 mg PRN QHS PRN PO INSOMNIA, MAY REPEAT IN 1HR; Start 08/22/21 at 08:45; Status UNV Acetaminophen/ Hydrocodone Bitart (Lortab 5/325) 1 tab PRN Q4HRS PRN PO MILD PAIN 1-3; Start 08/22/21 at 08:45; Status UNV Acetaminophen (Tylenol) 650 mg PRN Q6HRS PRN PO Headaches, Temp > 101.5F; Start 08/22/21 at 08:45; Status UNV Amiodarone HCl (Cordarone) 200 mg DAILY08 PO ; Start 08/23/21 at 08:00; Status UNV Apixaban (Eliquis) 5 mg BID PO ; Start 08/22/21 at 09:00; Status UNV Aspirin (Ecotrin) 81 mg DAILY PO ; Start 08/22/21 at 09:00; Status UNV Bumetanide (Bumex) 1 mg BID PO ; Start 08/22/21 at 09:00; Status UNV Ferrous Sulfate (Feosol) 325 mg QODAY PO ; Start 08/22/21 at 09:00; Status UNV Gabapentin (Neurontin) 100 mg Q8HRS PO ; Start 08/22/21 at 14:00; Status UNV Hydrochlorothiazide (Hydrodiuril) 25 mg DAILY PO ; Start 08/22/21 at 09:00; Status UNV Lactobacillus Rhamnosus (Culturelle) 1 cap DAILY PO ; Start 08/22/21 at 09:00; Status UNV Losartan Potassium (Cozaar) 50 mg DAILY PO ; Start 08/22/21 at 09:00; Status UNV Metoprolol Succinate (Toprol Xl) 100 mg DAILY PO ; Start 08/22/21 at 09:00; Status UNV Oxycodone/ Acetaminophen (Percocet 5/325) 1 tab PRN Q6HRS PRN PO PAIN; Start 08/22/21 at 09:00; Status UNV Tamsulosin HCl (Flomax) 0.4 mg DAILY PO ; Start 08/22/21 at 09:00; Status UNV Non-Formulary Medication (Atorvastatin Calcium ) 1 tab DAILY PO ; Start 08/22/21 at 09:00; Status UNV Active Scripts Active Percocet 5-325 Mg Tablet (Oxycodone/Acetaminophen) 1 Each Tablet 1 Tab PO PRN Q6HRS PRN 3 Days Ferrous Sulfate 325 Mg Tablet 1 Tab PO QODAY 30 Days Percocet 5-325 Mg Tablet (Oxycodone/Acetaminophen) 1 Each Tablet 1 Tab PO PRN Q6HRS PRN 10 Days Lunesta (Eszopiclone) 3 Mg Tablet 3 Mg PO HS PRN 10 Days Reported Vancocin Hcl (Vancomycin Hcl) 125 Mg Capsule 1 Cap PO QID 3 Days Incruse Ellipta (Umeclidinium [place]) 62.5 Mcg Blst.w.dev 62.5 Mcg IH DAILY Losartan Potassium 50 Mg Tablet 50 Mg PO DAILY Ventolin Hfa Inhaler (Albuterol Sulfate) 18 Gm Hfa.aer.ad 2 Puff INH Q4HRS Culturelle (Lactobacillus Rhamnosus Gg) 1 Each Cap.sprink 1 Cap PO DAILY 30 Days Vitamin D3 (Vitamin D) 125 Mcg Capsule 125 Mcg PO DAILY 5,000 UNITS = 125 MCG Amiodarone Hcl 100 Mg Tablet 1 Tab PO HS 30 Days Meloxicam 15 Mg Tablet 15 Mg PO DAILY Diltiazem 24Hr ER (LA) (Diltiazem HCl) 240 Mg Tab.er.24h 120 Mg PO DAILY Amiodarone Hcl 200 Mg Tablet 1 Tab PO DAILY08 Metoprolol Succinate ( Xl ) (Metoprolol Succinate) 100 Mg Tab.er.24h 1 Tab PO DAILY Eliquis (Apixaban) 5 Mg Tablet 5 Mg PO BID Bumetanide 1 Mg Tablet 1 Tab PO BID Atorvastatin Calcium 80 Mg Tablet 1 Tab PO DAILY Tamsulosin Hcl 0.4 Mg Cap.er.24h 0.4 Mg PO DAILY Daily Value (Multivitamin) 1 Each Tablet 1 Each PO DAILY Hydrochlorothiazide Tablet (Hydrochlorothiazide) 25 Mg Tablet 25 Mg PO DAILY Adult Low Dose Aspirin Ec (Aspirin) 81 Mg Tablet. 81 Mg PO DAILY Allergies Allergies: Coded Allergies: No Known Drug Allergies (Unverified , 07/02/21) ROS Review of System GENERAL: No history of weight change, weakness or fevers. SKIN: No bruising, hair changes or rashes. EYES: No blurred, double or loss of vision. NOSE AND THROAT: No history of nosebleeds, hoarseness or sore throat. HEART: Denies chest pain, denies palpitations. LUNGS: Denies cough, hemoptysis, wheezing or shortness of breath. GASTROINTESTINAL: Denies nausea, vomiting, abdominal pain. GENITOURINARY: Denies dysuria, frequency, urgency, hematuria. NEUROLOGIC: Denies history of numbness, tingling, tremor or weakness. PSYCHIATRIC: Denies anxiety, denies depression. ENDOCRINE: No history of heat or cold intolerance, polyuria or polydipsia. EXTREMITIES: Bleeding to the right knee. Denies muscle weakness, joint pain, pain on walking or stiffness. Physical Exam Physical Exam General: Alert, Oriented X3, Cooperative, No acute distress HEENT: PERRLA, EOMI Lungs: Clear to auscultation, Normal air movement Heart: RRR, no murmurs Cardiovascular: S1, S2 Abdomen: Normal bowel sounds, Soft, No tenderness Genitourinary: Urinary catheter in place Extremities: 2+ edema. No clubbing, No cyanosis Skin: Contusion to right knee with hemostasis. No rashes, No significant lesion Neuro: Normal speech, Normal tone, Sensation intact Psych/Mental Status: Mental status NL, Mood NL Vitals Vitals Vital Signs Date Time Temp Pulse Resp B/P (MAP) Pulse Ox O2 Delivery O2 Flow Rate FiO2 08/22/21 06:00 100.3 100.3 08/22/21 05:54 56 31 116/56 (76) 96 Nasal Cannula 4.5 Labs Labs Laboratory Tests Test 08/22/21 04:40 08/22/21 04:47 08/22/21 07:33 White Blood Count 22.5 x10^3/uL (4.0-11.0) Red Blood Count 2.52 x10^6/uL (4.30-5.70) Hemoglobin 7.4 g/dL (13.0-17.5) Hematocrit 23.1 % (39.0-53.0) Mean Corpuscular Volume 92 fL (79-100) Mean Corpuscular Hemoglobin 30 pg (25-35) Mean Corpuscular Hemoglobin Concent 32 g/dL (31-37) Red Cell Distribution Width 17.9 % (11.5-14.5) Platelet Count 434 x10^3/uL (140-400) Neutrophils (%) (Auto) 88 % (31-73) Lymphocytes (%) (Auto) 4 % (24-48) Monocytes (%) (Auto) 7 % (0-9) Eosinophils (%) (Auto) 0 % (0-3) Basophils (%) (Auto) 1 % (0-3) Neutrophils # (Auto) 19.8 x10^3/uL (1.8-7.7) Lymphocytes # (Auto) 1.0 x10^3/uL (1.0-4.8) Monocytes # (Auto) 1.6 x10^3/uL (0.0-1.1) Eosinophils # (Auto) 0.0 x10^3/uL (0.0-0.7) Basophils # (Auto) 0.1 x10^3/uL (0.0-0.2) Segmented Neutrophils % 86 % (35-66) Band Neutrophils % 5 % (0-9) Lymphocytes % 6 % (24-48) Monocytes % 3 % (0-10) Platelet Estimate Increased (ADEQUATE) Sodium Level 141 mmol/L (136-145) Potassium Level 3.0 mmol/L (3.5-5.1) Chloride Level 102 mmol/L (98-107) Carbon Dioxide Level 35 mmol/L (21-32) Anion Gap 4 (6-14) Blood Urea Nitrogen 19 mg/dL (8-26) Creatinine 1.0 mg/dL (0.7-1.3) Estimated GFR (Cockcroft-Gault) 73.7 BUN/Creatinine Ratio 19 (6-20) Glucose Level 78 mg/dL (70-99) Lactic Acid Level 1.7 mmol/L (0.4-2.0) Calcium Level 7.6 mg/dL (8.5-10.1) Total Bilirubin 0.6 mg/dL (0.2-1.0) Aspartate Amino Transf (AST/SGOT) 59 U/L (15-37) Alanine Aminotransferase (ALT/SGPT) 72 U/L (16-63) Alkaline Phosphatase 163 U/L (46-116) Troponin I High Sensitivity 11 ng/L (4-75) Total Protein 4.6 g/dL (6.4-8.2) Albumin 1.6 g/dL (3.4-5.0) Albumin/Globulin Ratio 0.5 (1.0-1.7) Urine Collection Type Unknown Urine Color Yellow Urine Clarity Cloudy Urine pH 6.0 (<5.0-8.0) Urine Specific [place] 1.020 (1.000-1.030) Urine Protein >=300 mg/dL (NEG-TRACE) Urine Glucose (UA) Negative mg/dL (NEG) Urine Ketones (Stick) Negative mg/dL (NEG) Urine Blood Large (NEG) Urine Nitrite Positive (NEG) Urine Bilirubin Negative (NEG) Urine Urobilinogen Dipstick 0.2 mg/dL (0.2 mg/dL) Urine Leukocyte Esterase Small (NEG) Urine RBC Tntc /HPF (0-2) Urine WBC Tntc /HPF (0-4) Urine Squamous Epithelial Cells Occ /LPF Urine Bacteria Few /HPF (0-FEW) Urine Mucus Mod /LPF Glucose (Fingerstick) 78 mg/dL (70-99) Laboratory Tests Test 08/22/21 04:40 08/22/21 04:47 08/22/21 07:33 White Blood Count 22.5 x10^3/uL (4.0-11.0) Red Blood Count 2.52 x10^6/uL (4.30-5.70) Hemoglobin 7.4 g/dL (13.0-17.5) Hematocrit 23.1 % (39.0-53.0) Mean Corpuscular Volume 92 fL (79-100) Mean Corpuscular Hemoglobin 30 pg (25-35) Mean Corpuscular Hemoglobin Concent 32 g/dL (31-37) Red Cell Distribution Width 17.9 % (11.5-14.5) Platelet Count 434 x10^3/uL (140-400) Neutrophils (%) (Auto) 88 % (31-73) Lymphocytes (%) (Auto) 4 % (24-48) Monocytes (%) (Auto) 7 % (0-9) Eosinophils (%) (Auto) 0 % (0-3) Basophils (%) (Auto) 1 % (0-3) Neutrophils # (Auto) 19.8 x10^3/uL (1.8-7.7) Lymphocytes # (Auto) 1.0 x10^3/uL (1.0-4.8) Monocytes # (Auto) 1.6 x10^3/uL (0.0-1.1) Eosinophils # (Auto) 0.0 x10^3/uL (0.0-0.7) Basophils # (Auto) 0.1 x10^3/uL (0.0-0.2) Segmented Neutrophils % 86 % (35-66) Band Neutrophils % 5 % (0-9) Lymphocytes % 6 % (24-48) Monocytes % 3 % (0-10) Platelet Estimate Increased (ADEQUATE) Sodium Level 141 mmol/L (136-145) Potassium Level 3.0 mmol/L (3.5-5.1) Chloride Level 102 mmol/L (98-107) Carbon Dioxide Level 35 mmol/L (21-32) Anion Gap 4 (6-14) Blood Urea Nitrogen 19 mg/dL (8-26) Creatinine 1.0 mg/dL (0.7-1.3) Estimated GFR (Cockcroft-Gault) 73.7 BUN/Creatinine Ratio 19 (6-20) Glucose Level 78 mg/dL (70-99) Lactic Acid Level 1.7 mmol/L (0.4-2.0) Calcium Level 7.6 mg/dL (8.5-10.1) Total Bilirubin 0.6 mg/dL (0.2-1.0) Aspartate Amino Transf (AST/SGOT) 59 U/L (15-37) Alanine Aminotransferase (ALT/SGPT) 72 U/L (16-63) Alkaline Phosphatase 163 U/L (46-116) Troponin I High Sensitivity 11 ng/L (4-75) Total Protein 4.6 g/dL (6.4-8.2) Albumin 1.6 g/dL (3.4-5.0) Albumin/Globulin Ratio 0.5 (1.0-1.7) Urine Collection Type Unknown Urine Color Yellow Urine Clarity Cloudy Urine pH 6.0 (<5.0-8.0) Urine Specific [place] 1.020 (1.000-1.030) Urine Protein >=300 mg/dL (NEG-TRACE) Urine Glucose (UA) Negative mg/dL (NEG) Urine Ketones (Stick) Negative mg/dL (NEG) Urine Blood Large (NEG) Urine Nitrite Positive (NEG) Urine Bilirubin Negative (NEG) Urine Urobilinogen Dipstick 0.2 mg/dL (0.2 mg/dL) Urine Leukocyte Esterase Small (NEG) Urine RBC Tntc /HPF (0-2) Urine WBC Tntc /HPF (0-4) Urine Squamous Epithelial Cells Occ /LPF Urine Bacteria Few /HPF (0-FEW) Urine Mucus Mod /LPF Glucose (Fingerstick) 78 mg/dL (70-99) Images Images IMAGING REPORT Signed PATIENT: JOSE CAPPS ACCOUNT: [id number] : 1950 LOCATION: ER AGE: 71 SEX: M EXAM STATUS: REG ER ORD. PHYSICIAN: LEIDA RAHMAN DO REASON: ams PROCEDURE: CT HEAD WO CONTRAST CT head without contrast PQRS statement: CT scans at this facility use dose reduction including either automated exposure control, iterative reconstructions, and /or weight based radiation dosing via mA and kV modification when appropriate to reduce radiation dose to as low as reasonably achievable. HISTORY: Altered mental status. FINDINGS: There is a mild asymmetric enlarged subarachnoid space overlying the right frontal lobe on axial images 15-19 and a subtle density from a bridging vein, this is stable to prior CT head imaging from November 26, 2018. Generalized brain atrophy stable. Cerebral periventricular white matter hypoattenuation likely changes of chronic microvascular ischemic disease stable. Ocular proptosis. Mild fluid density left mastoid. Orbits, bones unremarkable. IMPRESSION: No acute intracranial CT abnormality. Electronically signed by: Volodymyr Sanderson MD (08/22/2021 5:29 AM) [facility] DICTATED and SIGNED BY: VOLODYMYR SANDERSON MD DATE: 08/22/21 0524 IMAGING REPORT Signed PATIENT: JOSE CAPPS ACCOUNT: [id number] : 1950 LOCATION: ER AGE: 71 SEX: M EXAM STATUS: REG ER ORD. PHYSICIAN: LEIDA RAHMAN DO REASON: FEVER PROCEDURE: KNEE RIGHT 3V Right knee x-rays 3 views HISTORY: Fever. FINDINGS: Total knee arthroplasty. No bony lysis or cement resorption underlying the hardware to suggest loosening. No periprosthetic fracture. No dislocation. Arterial vascular calcifications. There is soft tissue edema throughout the knee, and lower thigh and upper calf. IMPRESSION: No acute osseous injury. Soft tissue edema. Electronically signed by: Volodymyr Sanderson MD (08/22/2021 5:06 AM) [facility] DICTATED and SIGNED BY: VOLODYMYR SANDERSON MD DATE: 08/22/21 0504 IMAGING REPORT Signed PATIENT: JOSE CAPPS ACCOUNT: [id number] : 1950 LOCATION: ER AGE: 71 SEX: M EXAM STATUS: PRE ER ORD. PHYSICIAN: LEIDA RAHMAN DO REASON: FEVER PROCEDURE: PORTABLE CHEST 1V AP chest x-ray HISTORY: Fever. COMPARISON: Chest x-ray June 03, 2022 FINDINGS: Left PICC line tip radiographic region proximal right atrium. Cardiomegaly stable. No pneumothorax. No pleural effusions. Improved aeration at the lung bases. There are mild interstitial and alveolar infiltrates at the lung bases remaining. IMPRESSION: Left PICC line. Improved aeration of the lung bases with decreased density of the opacities since the prior exam with mild interstitial and alveolar infiltrates remaining which could represent residual edema or multilobar pneumonia given the history of fever. Electronically signed by: Volodymyr Sanderson MD (08/22/2021 4:59 AM) [facility] VTE Prophylaxis Ordered VTE Prophylaxis Devices: No VTE Pharmacological Prophylaxi: Yes Assessment/Plan Assessment/Plan Sepsis Febrile illness UTI C. difficile Multilobar pneumonia History bacteremia Plan: Patient is reportedly on azithromycin 1 g at his nursing facility. He did receive Rocephin 1 g IV in the ER. Consult placed to ID for further antibiotic management Patient still with diarrhea this morning, but no abdominal tenderness. Will retest for C. difficile. Hemostasis was achieved to right knee. Will consult orthopedic surgery if any further concerns about history TKA. FEN - Cardiac diet PPX - Eliquis FULL CODE Dispo - inpatient for above. Patient names his son (Doug Capps) as surrogate decision-maker. Justifications for Admission Other Justification MANJEET WOODSON MD Aug 22, 2021 09:06
[2021-08-22] MEDS: BUMETANIDE 1 MG TABLET. PO SCH ×2 (10:45→14:23)
[2021-08-22] MEDS: APIXABAN 5 MG TABLET. PO SCH ×2 (10:45→20:27)
[2021-08-22] MEDS: hydroCHLOROthiazide 25 MG TABLET PO SCH (10:45)
[2021-08-22] MEDS: ASPIRIN ENTERIC COATED 81 MG TABLET.DR. PO SCH (10:46)
[2021-08-22] MEDS: AMIODARONE HCL 200 MG TABLET. PO SCH (10:46)
[2021-08-22] MEDS: LACTOBACILLUS RHAMNOSUS GG 1 CAPSULE. PO SCH (10:46)
[2021-08-22] MEDS: GABAPENTIN 100 MG CAPSULE. PO SCH ×2 (10:47→14:23)
[2021-08-22] MEDS: TAMSULOSIN 0.4 MG CAP.ER.24H. PO SCH (10:47)
[2021-08-22] MEDS: FERROUS SULFATE 325 MG TABLET. PO SCH (10:47)
[2021-08-22 11:00] VITALS: BP 111/48
--- NOTE | 2021-08-22 11:01 | NUR ---
SS following for discharge planning. SS reviewed pt chart and discussed with pt RN. Pt is from home and is currently requiring oxygen at 4.5 liters nasal canula. Pt has no home oxygen. ID consulted. Probable need for PT/OT when medically ready to participate. SS will continue to follow for discharge planning.
[2021-08-22] MEDS: ASCORBIC ACID 1,000 MG TABLET PO SCH (12:23)
[2021-08-22] MEDS: MULTIVITAMIN with MINERAL TABLET. PO SCH (12:23)
[2021-08-22 13:24] LABS: BILIRUBIN,URINE NEGATIVE (NEG); CLARITY,URINE CLEAR; COLOR,URINE STRAW; NITRITE,URINE NEGATIVE (NEG); PH,URINE 7.5 (<5.0-8.0); PROTEIN,URINE NEGATIVE (NEG-TRACE); UROBILINOGEN,URINE 0.2 mg/dL (0.2 mg/dL)
[2021-08-22 13:28] LABS: RBC,URINE 0 /HPF (0-2)
[2021-08-22 13:29] LABS: BACTERIA,URINE 0 /HPF (0-FEW)
--- NOTE | 2021-08-22 13:34 | PDOC ---
Infectious Disease Note Subjective Subjective Patient is known patient recently discharged from the hospital now returned with after having a fall with bleeding from the knee and found to have fever and leukocytosis. Patient says he was doing fine he was supposed to actually see me in the office for follow-up visit and he woke up from the bed and try to get up and the leg legs get keep giving out because of the socks and went down. Patient denies any complaints. He did not know that he had fever. Denies any nausea vomiting diarrhea chest pain shortness of breath abdominal pain urinary symptoms bowel symptoms or knee pain. He had been little bit up with on the parallel bar was not able to walk yet. He does have a Vasques catheter which has been replaced today. ROS ROS Denies any headache fever chills any drainage from the knee nausea vomiting abdominal pain Vital Sign Vital Signs Vital Signs Date Time Temp Pulse Resp B/P (MAP) Pulse Ox O2 Delivery O2 Flow Rate FiO2 08/22/21 10:46 54 113/50 08/22/21 07:00 98.5 20 95 Nasal Cannula 4.5 98.5 Physical Exam PHYSICAL EXAM Constitutional alert oriented x3 male in bed comfortably no acute distress pleasant cooperative HEENT pupils equal reactive, normal conjunctival, oropharynx clear, no thrush Neck supple no JVD Lungs decreased breath sound at the bases on oxygen via nasal cannula Heart S1-S2 Abdomen soft obese bowel sounds present nontender nondistended no rebound or guarding Vasques in place Extremities trace bilateral lower extremity edema. Right lower extremity Steri- Strips on the knee with discoloration i.e. the old blood seen. No surrounding erythema or purulence. Neuro alert oriented x3 grossly nonfocal was all 4 extremities Psychiatric affect is appropriate PICC line looks clean Medications: Inpatient Meds: Medications reviewed. Labs Lab Laboratory Tests Test 08/22/21 04:40 08/22/21 04:47 08/22/21 07:33 White Blood Count 22.5 x10^3/uL (4.0-11.0) Red Blood Count 2.52 x10^6/uL (4.30-5.70) Hemoglobin 7.4 g/dL (13.0-17.5) Hematocrit 23.1 % (39.0-53.0) Mean Corpuscular Volume 92 fL (79-100) Mean Corpuscular Hemoglobin 30 pg (25-35) Mean Corpuscular Hemoglobin Concent 32 g/dL (31-37) Red Cell Distribution Width 17.9 % (11.5-14.5) Platelet Count 434 x10^3/uL (140-400) Neutrophils (%) (Auto) 88 % (31-73) Lymphocytes (%) (Auto) 4 % (24-48) Monocytes (%) (Auto) 7 % (0-9) Eosinophils (%) (Auto) 0 % (0-3) Basophils (%) (Auto) 1 % (0-3) Neutrophils # (Auto) 19.8 x10^3/uL (1.8-7.7) Lymphocytes # (Auto) 1.0 x10^3/uL (1.0-4.8) Monocytes # (Auto) 1.6 x10^3/uL (0.0-1.1) Eosinophils # (Auto) 0.0 x10^3/uL (0.0-0.7) Basophils # (Auto) 0.1 x10^3/uL (0.0-0.2) Segmented Neutrophils % 86 % (35-66) Band Neutrophils % 5 % (0-9) Lymphocytes % 6 % (24-48) Monocytes % 3 % (0-10) Platelet Estimate Increased (ADEQUATE) Sodium Level 141 mmol/L (136-145) Potassium Level 3.0 mmol/L (3.5-5.1) Chloride Level 102 mmol/L (98-107) Carbon Dioxide Level 35 mmol/L (21-32) Anion Gap 4 (6-14) Blood Urea Nitrogen 19 mg/dL (8-26) Creatinine 1.0 mg/dL (0.7-1.3) Estimated GFR (Cockcroft-Gault) 73.7 BUN/Creatinine Ratio 19 (6-20) Glucose Level 78 mg/dL (70-99) Lactic Acid Level 1.7 mmol/L (0.4-2.0) Calcium Level 7.6 mg/dL (8.5-10.1) Total Bilirubin 0.6 mg/dL (0.2-1.0) Aspartate Amino Transf (AST/SGOT) 59 U/L (15-37) Alanine Aminotransferase (ALT/SGPT) 72 U/L (16-63) Alkaline Phosphatase 163 U/L (46-116) Troponin I High Sensitivity 11 ng/L (4-75) Total Protein 4.6 g/dL (6.4-8.2) Albumin 1.6 g/dL (3.4-5.0) Albumin/Globulin Ratio 0.5 (1.0-1.7) Urine Collection Type Unknown Urine Color Yellow Urine Clarity Cloudy Urine pH 6.0 (<5.0-8.0) Urine Specific [place] 1.020 (1.000-1.030) Urine Protein >=300 mg/dL (NEG-TRACE) Urine Glucose (UA) Negative mg/dL (NEG) Urine Ketones (Stick) Negative mg/dL (NEG) Urine Blood Large (NEG) Urine Nitrite Positive (NEG) Urine Bilirubin Negative (NEG) Urine Urobilinogen Dipstick 0.2 mg/dL (0.2 mg/dL) Urine Leukocyte Esterase Small (NEG) Urine RBC Tntc /HPF (0-2) Urine WBC Tntc /HPF (0-4) Urine Squamous Epithelial Cells Occ /LPF Urine Bacteria Few /HPF (0-FEW) Urine Mucus Mod /LPF Glucose (Fingerstick) 78 mg/dL (70-99) Objective Assessment Assessment: Status post fall with bleeding from the right knee Fever likely from UTI and or pneumonia Recent right TKA June 2021 Right knee wound dehiscence requiring Status post Irrigation and debridement of the right knee, right total knee arthroplasty with polyethylene exchange on 08/01. Cultures positive for stenotrophomonas Previous Rt knee cultures were positive (superficial) for MSSA was on cefazolin prior to transfer from [facility] C diff colitis History of Right TKA June 2021 Atrial fibrillation COPD on O2 by nasal cannula Polymicrobial Bacteremia at [facility] gram-positive cocci, gram- positive rods on July 24, 2021 with coagulase-negative staph and diphtheroids contaminant Anemia Acute kidney injury at outside facility improved Questionable peripheral arterial disease Urinary retention requiring Vasques catheter Right upper extremity thrombophlebitis Plan Plan of Care Add cefepime for the time being We will follow cultures Limited choices for MSSA and stenotrophomonas right total knee arthroplasty infection Cont Eravacycline,was on cefazolin prior to transfer from [facility] will need for atleast 6 weeks cont po vanco qid for c diff colitis Right upper extremity thrombophlebitis management per primary Wound care as directed Patient remains at risk of failure of right TKA despite I&D due to drug- resistant bacteria MSSA and stenotrophomonas despite aggressive antibiotic treatment Patient would like salvage treatment at this time with antibiotics Pros and cons discussed Patient and verbalizes understanding Monitor labs and cultures PT and OT as tolerated Continue supportive care Follow-up ID clinic as scheduled phone [phone] in 2 weeks D/W SARATH MENDOZA MD Aug 22, 2021 13:34
[2021-08-22 15:00] VITALS: BP 93/27
[2021-08-22] MEDS: ERAVACYCLINE IV SCH ×2 (15:37→20:28)
[2021-08-22] MEDS: NORMAL SALINE IV SCH ×2 (15:37→20:28)
--- NOTE | 2021-08-22 18:04 | EKG ---
[facility] [address] [place] [address] Test Date: 2021-08-22 Test Time: 04:38:23 Pat Name: JOSE GOLDSTEIN Department: Room: 536 1 Gender: M Chummer: : 1950 Requested By: LEIDA RAHMAN Order Number: [id number] Reading MD: Measurements Intervals [place] Rate: 56 P: -56 CO: 174 QRS: -4 QRSD: 102 T: 85 QT: 566 QTc: 550 Interpretive Statements SINUS RHYTHM LOW LIMB LEAD VOLTAGE QRS(T) CONTOUR ABNORMALITY CONSIDER ANTEROSEPTAL MYOCARDIAL DAMAGE PROLONGED QT POSSIBLY ABNORMAL ECG RI6.02 No previous ECG available for comparison
[2021-08-22 19:00] VITALS: BP 104/45
[2021-08-22] MEDS: CEFEPIME HCL IV Push 2 GM VIAL. IVP SCH (20:27)
[2021-08-22] MEDS: ATORVASTATIN CALCIUM 40 MG TABLET. PO SCH (20:27)
[2021-08-22] MEDS: VANCOMYCIN 125 MG/2.5 ML ORAL SOLUTION. PO SCH (20:28)
[2021-08-22] MEDS: oxyCODONE/APAP 5/325 1 TAB TABLET PO PRN (20:28)
[2021-08-22 23:00] VITALS: BP 126/70
[2021-08-23] VITALS (8 sets, daily range): BP systolic 101–120; BP diastolic 35–54
[2021-08-23 04:56] LABS: BASO # 0.1 x10^3/uL (0.0-0.2); BASO % 0 % (0-3); EOS # 0.1 x10^3/uL (0.0-0.7); EOS % 1 % (0-3); HEMATOCRIT 21.3 % (39.0-53.0); LYMPH # 0.9 x10^3/uL (1.0-4.8); LYMPH % 5 % (24-48); MEAN CORPUSCULAR HEMOGLOBIN 29 pg (25-35); MEAN CORPUSCULAR HGB CONC 32 g/dL (31-37); MEAN CORPUSCULAR VOLUME 92 fL (79-100); MONO # 1.4 x10^3/uL (0.0-1.1); MONO % 8 % (0-9); NEUT # 15.7 x10^3/uL (1.8-7.7); NEUT % 87 % (31-73); PLATELET COUNT 380 x10^3/uL (140-400); RED BLOOD COUNT 2.31 x10^6/uL (4.30-5.70); RED CELL DISTRIBUTION WIDTH 18.2 % (11.5-14.5); WHITE BLOOD COUNT 18.1 x10^3/uL (4.0-11.0)
[2021-08-23 05:14] LABS: HEMOGLOBIN 6.8 g/dL (13.0-17.5)
[2021-08-23 05:34] LABS: C-REACTIVE PROTEIN 121.4 mg/L (0-3.3); CALCIUM 7.4 mg/dL (8.5-10.1); GFR 73.7
[2021-08-23] MEDS: GABAPENTIN 100 MG CAPSULE. PO SCH ×3 (05:36→20:23)
[2021-08-23 05:49] LABS: POTASSIUM 2.8 mmol/L (3.5-5.1)
[2021-08-23] MEDS: POTASSIUM CHLORIDE 20MEQ 100 ML IV SCH ×2 (06:13→07:36)
--- NOTE | 2021-08-23 08:41 | PDOC2 ---
CONSULT Date of Consult Date of Consult DATE: 08/23/21 TIME: 08:36 Reason for Consult Reason for Consult: Recent knee surgery Referring Physician Referring Physician: Joseluis Identification/Chief Complaint Chief Complaint Tired Source Source: Chart review, Patient History of Present Illness Reason for Visit: Patient is a pleasant 71-year-old who underwent a total knee arthroplasty followed by I&D and polyexchange. He has been on a PICC line and IV antibiotics. He denies any knee pain. He has been at a rehab facility and scraped his knee as he was arising. He is adamant that he did not suffer a fall. He feels like his knee has been doing well lately. He was admitted for fever with possible pneumonia and UTI. Past Medical History Cardiovascular: CAD, HTN, Hyperlipidemia Pulmonary: COPD, Other CENTRAL NERVOUS SYSTEM: Other GI: GERD Heme/Onc: No pertinent hx Hepatobiliary: No pertinent hx Psych: Depression Musculoskeletal: Osteoarthritis Rheumatologic: No pertinent hx Infectious disease: No pertinent hx Renal/: No pertinent hx Endocrine: No pertinent hx Past Surgical History Past Surgical History: Hernia Repair, Other (Right knee TKA) Family History Family History: Diabetes, Hypertension Social History No ALCOHOL: none Drugs: None Lives: with Family Current Problem List Problem List Problems Medical Problems: (1) Pneumonia Status: Acute (2) Sepsis Status: Acute (3) UTI (urinary tract infection) Status: Acute Current Medications Current Medications Current Medications Acetaminophen (Tylenol) 650 mg 1X ONCE PO Last administered on 08/22/21at 04:48; Start 08/22/21 at 05:00; Stop 08/22/21 at 05:01; Status DC Ceftriaxone Sodium (Rocephin) 1 gm 1X ONCE IVP Last administered on 08/22/21at 05:35; Start 08/22/21 at 06:00; Stop 08/22/21 at 06:01; Status DC Potassium Bicarbonate (Potassium Effervescent Tablet) 40 meq 1X ONCE PO Last administered on 08/22/21at 05:42; Start 08/22/21 at 06:00; Stop 08/22/21 at 06:01; Status DC Ondansetron HCl (Zofran) 4 mg PRN Q6HRS PRN IVP NAUSEA/VOMITING; Start 08/22/21 at 08:45 Al Hydroxide/Mg Hydroxide (Mylanta Plus Xs) 30 ml PRN Q3HRS PRN PO HEARTBURN / GAS; Start 08/22/21 at 08:45 Calcium Carbonate/ Glycine (Tums) 500 mg PRN Q3HRS PRN PO UPSET STOMACH; Start 08/22/21 at 08:45 Zolpidem Tartrate (Ambien) 5 mg PRN QHS PRN PO INSOMNIA, MAY REPEAT IN 1HR; Start 08/22/21 at 08:45 Acetaminophen/ Hydrocodone Bitart (Lortab 5/325) 1 tab PRN Q4HRS PRN PO MILD PAIN 1-3; Start 08/22/21 at 08:45 Acetaminophen (Tylenol) 650 mg PRN Q6HRS PRN PO Headaches, Temp > 101.5F; Start 08/22/21 at 08:45 Amiodarone HCl (Cordarone) 200 mg DAILY08 PO Last administered on 08/22/21at 10:46; Start 08/22/21 at 09:00 Apixaban (Eliquis) 5 mg BID PO Last administered on 08/22/21at 20:27; Start 08/22/21 at 09:00 Aspirin (Ecotrin) 81 mg DAILY PO Last administered on 08/22/21at 10:46; Start 08/22/21 at 09:00 Bumetanide (Bumex) 1 mg BID92 PO Last administered on 08/22/21at 14:23; Start 08/22/21 at 09:00 Ferrous Sulfate (Feosol) 325 mg QODAY PO Last administered on 08/22/21at 10:47; Start 08/22/21 at 09:00 Gabapentin (Neurontin) 100 mg Q8HRS PO Last administered on 08/23/21at 05:36; Start 08/22/21 at 10:00 Hydrochlorothiazide (Hydrodiuril) 25 mg DAILY PO Last administered on 08/22/21at 10:45; Start 08/22/21 at 09:00 Lactobacillus Rhamnosus (Culturelle) 1 cap DAILY PO Last administered on 08/22/21at 10:46; Start 08/22/21 at 09:00 Losartan Potassium (Cozaar) 50 mg DAILY PO ; Start 08/22/21 at 09:00 Metoprolol Succinate (Toprol Xl) 100 mg DAILY PO ; Start 08/22/21 at 09:00; Stop 08/22/21 at 21:07; Status DC Oxycodone/ Acetaminophen (Percocet 5/325) 1 tab PRN Q6HRS PRN PO MODERATE PAIN Last administered on 08/22/21 20:28; Start 08/22/21 at 09:00 Tamsulosin HCl (Flomax) 0.4 mg DAILY PO Last administered on 08/22/21at 10:47; Start 08/22/21 at 09:00 Atorvastatin Calcium (Lipitor) 80 mg QHS PO Last administered on 08/22/21 20:27; Start 08/22/21 at 21:00 Ascorbic Acid (Vitamin C) 1,000 mg DAILY PO Last administered on 08/22/21 12:23; Start 08/22/21 at 12:00 Multivitamins (Thera M Plus) 1 tab DAILY PO Last administered on 08/22/21 12:23; Start 08/22/21 at 12:00 Cefepime HCl (Maxipime) 2 gm Q12HR IVP Last administered on 08/22/21 20:27; Start 08/22/21 at 21:00 Vancomycin HCl (Vancomycin Oral Solution) 125 mg BID PO Last administered on 08/22/21 20:28; Start 08/22/21 at 21:00 Eravacycline 100 mg/Sodium Chloride 250 ml @ 250 mls/hr Q12HR IV Last administered on 08/22/21 20:28; Start 08/22/21 at 14:00 Metoprolol Succinate (Toprol Xl) 50 mg DAILY PO ; Start 08/23/21 at 09:00 Potassium Chloride/Water 100 ml @ 100 mls/hr Q1H IV Last administered on 08/23/21at 07:36; Start 08/23/21 at 06:15; Stop 08/23/21 at 08:14; Status DC Potassium Chloride (Klor-Con) 40 meq 1X ONCE PO ; Start 08/23/21 at 09:00; Stop 08/23/21 at 09:01 Potassium Chloride (Klor-Con) 40 meq 1X ONCE PO ; Start 08/23/21 at 21:00; Stop 08/23/21 at 21:01 Active Scripts Active Percocet 5-325 Mg Tablet (Oxycodone/Acetaminophen) 1 Each Tablet 1 Tab PO PRN Q6HRS PRN 3 Days Ferrous Sulfate 325 Mg Tablet 1 Tab PO QODAY 30 Days Percocet 5-325 Mg Tablet (Oxycodone/Acetaminophen) 1 Each Tablet 1 Tab PO PRN Q6HRS PRN 10 Days Lunesta (Eszopiclone) 3 Mg Tablet 3 Mg PO HS PRN 10 Days Reported Vancocin Hcl (Vancomycin Hcl) 125 Mg Capsule 1 Cap PO QID 3 Days Incruse Ellipta (Umeclidinium [place]) 62.5 Mcg Blst.w.dev 62.5 Mcg IH DAILY Losartan Potassium 50 Mg Tablet 50 Mg PO DAILY Ventolin Hfa Inhaler (Albuterol Sulfate) 18 Gm Hfa.aer.ad 2 Puff INH Q4HRS Culturelle (Lactobacillus Rhamnosus Gg) 1 Each Cap.sprink 1 Cap PO DAILY 30 Days Vitamin D3 (Vitamin D) 125 Mcg Capsule 125 Mcg PO DAILY 5,000 UNITS = 125 MCG Amiodarone Hcl 100 Mg Tablet 1 Tab PO HS 30 Days Meloxicam 15 Mg Tablet 15 Mg PO DAILY Diltiazem 24Hr ER (LA) (Diltiazem HCl) 240 Mg Tab.er.24h 120 Mg PO DAILY Amiodarone Hcl 200 Mg Tablet 1 Tab PO DAILY08 Metoprolol Succinate ( Xl ) (Metoprolol Succinate) 100 Mg Tab.er.24h 1 Tab PO D AILY Eliquis (Apixaban) 5 Mg Tablet 5 Mg PO BID Bumetanide 1 Mg Tablet 1 Tab PO BID Atorvastatin Calcium 80 Mg Tablet 1 Tab PO DAILY Tamsulosin Hcl 0.4 Mg Cap.er.24h 0.4 Mg PO DAILY Daily Value (Multivitamin) 1 Each Tablet 1 Each PO DAILY Hydrochlorothiazide Tablet (Hydrochlorothiazide) 25 Mg Tablet 25 Mg PO DAILY Adult Low Dose Aspirin Ec (Aspirin) 81 Mg Tablet.dr 81 Mg PO DAILY Allergies Allergies: Coded Allergies: No Known Drug Allergies (Unverified , 07/02/21) ROS General: YES: Fatigue PSYCHOLOGICAL ROS: No: Anxiety, Behavioral Disorder, Concentration difficultie, Decreased libido, Depression, Disorientation, Hallucinations, Hostility, Irritablity, Memory difficulties, Mood Swings, Obsessive thoughts, Physical abuse, Sexual abuse, Sleep disturbances, Suicidal ideation, Other Eyes: No Blurry vision, No Decreased vision, No Double vision, No Dry eyes, No Excessive tearing, No Eye Pain, No Itchy Eyes, No Loss of vision, No Photophobia, No Scotomata, No Uses contacts, No Uses glasses, No Other HEENT: No: Heacaches, Visual Changes, Hearing change, Nasal congestion, Nasal discharge, Oral lesions, Sinus pain, Sore Throat, Epistaxis, Sneezing, Snoring, Tinnitus, Vertigo, Vocal changes, Other ALLERGY AND IMMUNOLOGY: No: Hives, Insect Bite Sensitivity, Itchy/Watery Eyes, Nasal Congestion, Post Nasal Drip, Seasonal Allergies, Other Hematological and Lymphatic: No: Bleeding Problems, Blood Clots, Blood Transfusions, Brusing, Night Sweats, Pallor, Swollen Lymph Nodes, Other ENDOCRINE: No: Breast Changes, Galactorrhea, Hair Pattern Changes, Hot Flashes, Malaise/lethargy, Mood Swings, Palpitations, Polydipsia/polyuria, Skin Changes, Temperature Intolerance, Unexpected Weight Changes, Other Respiratory: No: Cough, Hemoptysis, Orthopnea, Pleuritic Pain, Shortness of breath, SOB with excertion, Sputum Changes, Stridor, Tachypnea, Wheezing, Other Cardiovascular: No Chest Pain, No Palpitations, No Orthopnea, No Paroxysmal Noc. Dyspnea, No Edema, No Lt Headedness, No Other Gastrointestinal: No Nausea, No Vomiting, No Abdominal Pain, No Diarrhea, No Constipation, No Melena, No Hematochezia, No Other Genitourinary: YES Other (Vasques in place) Musculoskeletal: Yes Joint Stiffness Neurological: No Behavorial Changes, No Bowel/Bladder ControlChng, No Confusion, No Dizziness, No Gait Disturbance, No Headaches, No Impaired Coord/balance, No Memory Loss, No Numbness/Tingling, No Seizures, No Speech Problems, No Tremors, No Visual Changes, No Weakness, No Other Physical Exam General: Alert, Oriented X3, No acute distress HEENT: Atraumatic, EOMI Lungs: Other (Respirations are unlabored with symmetric chest rise) Heart: Regular rate Abdomen: Soft, No tenderness Extremities: No edema, Normal pulses Skin: No rashes, No breakdown Neuro: Normal speech, Strength at 5/5 X4 ext Psych/Mental Status: Mental status NL, Mood NL MUSCULOSKELETAL: Other (Examination of his right lower extremity shows a well- healed anterior midline incision. He has a superficial abrasion, smaller than a dime at the midportion of his incision just lateral to it. There is some dried blood present there. Not able to express any fluid or blood. No obvious effusion to palpation.) Vitals VITALS Vital Signs Date Time Temp Pulse Resp B/P (MAP) Pulse Ox O2 Delivery O2 Flow Rate FiO2 08/23/21 03:00 48 Nasal Cannula 4.5 08/22/21 23:00 98.2 20 126/70 (88) 97 98.2 Labs Labs Laboratory Tests Test 08/22/21 04:40 08/22/21 04:47 08/22/21 07:33 08/22/21 10:30 White Blood Count 22.5 x10^3/uL (4.0-11.0) Red Blood Count 2.52 x10^6/uL (4.30-5.70) Hemoglobin 7.4 g/dL (13.0-17.5) Hematocrit 23.1 % (39.0-53.0) Mean Corpuscular Volume 92 fL (79-100) Mean Corpuscular Hemoglobin 30 pg (25-35) Mean Corpuscular Hemoglobin Concent 32 g/dL (31-37) Red Cell Distribution Width 17.9 % (11.5-14.5) Platelet Count 434 x10^3/uL (140-400) Neutrophils (%) (Auto) 88 % (31-73) Lymphocytes (%) (Auto) 4 % (24-48) Monocytes (%) (Auto) 7 % (0-9) Eosinophils (%) (Auto) 0 % (0-3) Basophils (%) (Auto) 1 % (0-3) Neutrophils # (Auto) 19.8 x10^3/uL (1.8-7.7) Lymphocytes # (Auto) 1.0 x10^3/uL (1.0-4.8) Monocytes # (Auto) 1.6 x10^3/uL (0.0-1.1) Eosinophils # (Auto) 0.0 x10^3/uL (0.0-0.7) Basophils # (Auto) 0.1 x10^3/uL (0.0-0.2) Segmented Neutrophils % 86 % (35-66) Band Neutrophils % 5 % (0-9) Lymphocytes % 6 % (24-48) Monocytes % 3 % (0-10) Platelet Estimate Increased (ADEQUATE) Sodium Level 141 mmol/L (136-145) Potassium Level 3.0 mmol/L (3.5-5.1) Chloride Level 102 mmol/L (98-107) Carbon Dioxide Level 35 mmol/L (21-32) Anion Gap 4 (6-14) Blood Urea Nitrogen 19 mg/dL (8-26) Creatinine 1.0 mg/dL (0.7-1.3) Estimated GFR (Cockcroft-Gault) 73.7 BUN/Creatinine Ratio 19 (6-20) Glucose Level 78 mg/dL (70-99) Lactic Acid Level 1.7 mmol/L (0.4-2.0) Calcium Level 7.6 mg/dL (8.5-10.1) Total Bilirubin 0.6 mg/dL (0.2-1.0) Aspartate Amino Transf (AST/SGOT) 59 U/L (15-37) Alanine Aminotransferase (ALT/SGPT) 72 U/L (16-63) Alkaline Phosphatase 163 U/L (46-116) Troponin I High Sensitivity 11 ng/L (4-75) Total Protein 4.6 g/dL (6.4-8.2) Albumin 1.6 g/dL (3.4-5.0) Albumin/Globulin Ratio 0.5 (1.0-1.7) Urine Collection Type Unknown Urine Color Yellow Urine Clarity Cloudy Urine pH 6.0 (<5.0-8.0) Urine Specific [place] 1.020 (1.000-1.030) Urine Protein >=300 mg/dL (NEG-TRACE) Urine Glucose (UA) Negative mg/dL (NEG) Urine Ketones (Stick) Negative mg/dL (NEG) Urine Blood Large (NEG) Urine Nitrite Positive (NEG) Urine Bilirubin Negative (NEG) Urine Urobilinogen Dipstick 0.2 mg/dL (0.2 mg/dL) Urine Leukocyte Esterase Small (NEG) Urine RBC Tntc /HPF (0-2) Urine WBC Tntc /HPF (0-4) Urine Squamous Epithelial Cells Occ /LPF Urine Bacteria Few /HPF (0-FEW) Urine Mucus Mod /LPF Glucose (Fingerstick) 78 mg/dL (70-99) Clostridium difficile Toxin (PCR) Negative (NEGATIVE) Test 08/22/21 12:30 08/22/21 16:38 08/23/21 03:50 08/23/21 03:57 Urine Collection Type Unknown Urine Color Straw Urine Clarity Clear Urine pH 7.5 (<5.0-8.0) Urine Specific [place] 1.015 (1.000-1.030) Urine Protein Negative mg/dL (NEG-TRACE) Urine Glucose (UA) Negative mg/dL (NEG) Urine Ketones (Stick) Negative mg/dL (NEG) Urine Blood Large (NEG) Urine Nitrite Negative (NEG) Urine Bilirubin Negative (NEG) Urine Urobilinogen Dipstick 0.2 mg/dL (0.2 mg/dL) Urine Leukocyte Esterase Trace (NEG) Urine RBC 0 /HPF (0-2) Urine WBC 1-4 /HPF (0-4) Urine Squamous Epithelial Cells Occ /LPF Urine Bacteria 0 /HPF (0-FEW) Urine Mucus Slight /LPF Glucose (Fingerstick) 138 mg/dL (70-99) White Blood Count 18.1 x10^3/uL (4.0-11.0) Red Blood Count 2.31 x10^6/uL (4.30-5.70) Hemoglobin 6.8 g/dL (13.0-17.5) Hematocrit 21.3 % (39.0-53.0) Mean Corpuscular Volume 92 fL (79-100) Mean Corpuscular Hemoglobin 29 pg (25-35) Mean Corpuscular Hemoglobin Concent 32 g/dL (31-37) Red Cell Distribution Width 18.2 % (11.5-14.5) Platelet Count 380 x10^3/uL (140-400) Neutrophils (%) (Auto) 87 % (31-73) Lymphocytes (%) (Auto) 5 % (24-48) Monocytes (%) (Auto) 8 % (0-9) Eosinophils (%) (Auto) 1 % (0-3) Basophils (%) (Auto) 0 % (0-3) Neutrophils # (Auto) 15.7 x10^3/uL (1.8-7.7) Lymphocytes # (Auto) 0.9 x10^3/uL (1.0-4.8) Monocytes # (Auto) 1.4 x10^3/uL (0.0-1.1) Eosinophils # (Auto) 0.1 x10^3/uL (0.0-0.7) Basophils # (Auto) 0.1 x10^3/uL (0.0-0.2) Sodium Level 141 mmol/L (136-145) Potassium Level 2.8 mmol/L (3.5-5.1) Chloride Level 103 mmol/L (98-107) Carbon Dioxide Level 38 mmol/L (21-32) Anion Gap 0 (6-14) Blood Urea Nitrogen 22 mg/dL (8-26) Creatinine 1.0 mg/dL (0.7-1.3) Estimated GFR (Cockcroft-Gault) 73.7 Glucose Level 106 mg/dL (70-99) Calcium Level 7.4 mg/dL (8.5-10.1) C-Reactive Protein, Quantitative 121.4 mg/L (0-3.3) Iron Level 6 ug/dL (65-175) Total Iron Binding Capacity 119 ug/dL (250-450) Iron Saturation 5 % (15-34) Ferritin 249 ng/mL (26-388) Laboratory Tests Test 08/22/21 10:30 08/22/21 12:30 08/22/21 16:38 08/23/21 03:50 Clostridium difficile Toxin (PCR) Negative (NEGATIVE) Urine Collection Type Unknown Urine Color Straw Urine Clarity Clear Urine pH 7.5 (<5.0-8.0) Urine Specific [place] 1.015 (1.000-1.030) Urine Protein Negative mg/dL (NEG-TRACE) Urine Glucose (UA) Negative mg/dL (NEG) Urine Ketones (Stick) Negative mg/dL (NEG) Urine Blood Large (NEG) Urine Nitrite Negative (NEG) Urine Bilirubin Negative (NEG) Urine Urobilinogen Dipstick 0.2 mg/dL (0.2 mg/dL) Urine Leukocyte Esterase Trace (NEG) Urine RBC 0 /HPF (0-2) Urine WBC 1-4 /HPF (0-4) Urine Squamous Epithelial Cells Occ /LPF Urine Bacteria 0 /HPF (0-FEW) Urine Mucus Slight /LPF Glucose (Fingerstick) 138 mg/dL (70-99) White Blood Count 18.1 x10^3/uL (4.0-11.0) Red Blood Count 2.31 x10^6/uL (4.30-5.70) Hemoglobin 6.8 g/dL (13.0-17.5) Hematocrit 21.3 % (39.0-53.0) Mean Corpuscular Volume 92 fL (79-100) Mean Corpuscular Hemoglobin 29 pg (25-35) Mean Corpuscular Hemoglobin Concent 32 g/dL (31-37) Red Cell Distribution Width 18.2 % (11.5-14.5) Platelet Count 380 x10^3/uL (140-400) Neutrophils (%) (Auto) 87 % (31-73) Lymphocytes (%) (Auto) 5 % (24-48) Monocytes (%) (Auto) 8 % (0-9) Eosinophils (%) (Auto) 1 % (0-3) Basophils (%) (Auto) 0 % (0-3) Neutrophils # (Auto) 15.7 x10^3/uL (1.8-7.7) Lymphocytes # (Auto) 0.9 x10^3/uL (1.0-4.8) Monocytes # (Auto) 1.4 x10^3/uL (0.0-1.1) Eosinophils # (Auto) 0.1 x10^3/uL (0.0-0.7) Basophils # (Auto) 0.1 x10^3/uL (0.0-0.2) Sodium Level 141 mmol/L (136-145) Potassium Level 2.8 mmol/L (3.5-5.1) Chloride Level 103 mmol/L (98-107) Carbon Dioxide Level 38 mmol/L (21-32) Anion Gap 0 (6-14) Blood Urea Nitrogen 22 mg/dL (8-26) Creatinine 1.0 mg/dL (0.7-1.3) Estimated GFR (Cockcroft-Gault) 73.7 Glucose Level 106 mg/dL (70-99) Calcium Level 7.4 mg/dL (8.5-10.1) C-Reactive Protein, Quantitative 121.4 mg/L (0-3.3) Test 08/23/21 03:57 Iron Level 6 ug/dL (65-175) Total Iron Binding Capacity 119 ug/dL (250-450) Iron Saturation 5 % (15-34) Ferritin 249 ng/mL (26-388) Images Images CT head was reviewed. Portable chest was reviewed. Urinalysis x2 were reviewed Assessment/Plan Assessment/Plan Given the patient's lack of pain and the appearance of the wound, I do not really suspect anything going on in his knee. I did discuss his case with Dr. Huggins who also felt that a lack of knee involvement was appropriate at this time and that we should focus on possible pneumonia or UTI in his care. The patient denies having any falls or trauma. He is not in any pain in his knee. He can participate in PT OT as tolerated from my standpoint. KOBY NORTON II, MD Aug 23, 2021 08:41
[2021-08-23] MEDS: ERAVACYCLINE IV SCH ×2 (08:45→20:20)
[2021-08-23] MEDS: NORMAL SALINE IV SCH ×2 (08:45→20:20)
[2021-08-23] MEDS: MULTIVITAMIN with MINERAL TABLET. PO SCH (08:50)
[2021-08-23] MEDS: CEFEPIME HCL IV Push 2 GM VIAL. IVP SCH ×2 (08:50→20:23)
[2021-08-23] MEDS: hydroCHLOROthiazide 25 MG TABLET PO SCH (08:51)
[2021-08-23] MEDS: TAMSULOSIN 0.4 MG CAP.ER.24H. PO SCH (08:51)
[2021-08-23] MEDS: LOSARTAN POTASSIUM 50 MG TABLET. PO SCH (08:52)
[2021-08-23] MEDS: AMIODARONE HCL 200 MG TABLET. PO SCH (08:53)
[2021-08-23] MEDS: METOPROLOL SUCC 24HR ER 50 MG TAB.ER.24H. PO SCH (08:53)
[2021-08-23] MEDS: LACTOBACILLUS RHAMNOSUS GG 1 CAPSULE. PO SCH (08:55)
[2021-08-23] MEDS: APIXABAN 5 MG TABLET. PO SCH ×2 (08:55→20:23)
[2021-08-23] MEDS: ASCORBIC ACID 1,000 MG TABLET PO SCH (08:55)
[2021-08-23] MEDS: BUMETANIDE 1 MG TABLET. PO SCH ×2 (08:55→15:22)
[2021-08-23] MEDS: ASPIRIN ENTERIC COATED 81 MG TABLET.DR. PO SCH (08:55)
[2021-08-23] MEDS ORDERED: POTASSIUM CHLORIDE 20 MEQ TABLET.ER. PO ONE ×2 (09:00→21:00)
[2021-08-23] MEDS: VANCOMYCIN 125 MG/2.5 ML ORAL SOLUTION. PO SCH ×2 (09:26→20:23)
[2021-08-23 09:52] LABS: FECAL OB PT POSITIVE (NEG)
[2021-08-23] MEDS ORDERED: ANTI-COAG MONITOR BY PHARMACY. MC PRN (11:30)
--- NOTE | 2021-08-23 13:44 | PDOC ---
[employer] PROGRESS NOTE Date of Service DOS: DATE: 08/23/21 TIME: 13:33 Chief Complaint Chief Complaint Sepsis Febrile illness UTI Multilobar pneumonia History bacteremia Blood loss anemia History of Present Illness History of Present Illness Patient is a 71-year-old male with past medical history A. fib, COPD, BPH, h/o right TKA with wound dehiscence, who presents to the ED with complaints of fall and right knee bleeding. He does take Eliquis for his history of atrial fibrillation. Upon arrival in the ED he was febrile at 101.5F by axillary temperature. Labs on admission showed WBC 22.5, hemoglobin 7.4, potassium 3.0, AST 59, ALT 72, albumin 1.6. Urinalysis with small leukocyte esterase, nitrite positive, large blood, WBCs TNTC. States he has had a Vasques catheter in since his surgery June. His last admission was also complicated by MSSA bacteremia, for which he is to follow-up with ID today. Patient is currently without complaints. He has been admitted for further medical management. 08/23/2021: Patient seen with at bedside. Hemoglobin 6.8 today, potassium 2.8. 1 uPRBC has been ordered, replace potassium. FOBT is positive. Patient states he had an upper endoscopy, colonoscopy, and capsule pill study that came back normal. He does admit to internal hemorrhoids. He also complains of continued diarrhea, but C. difficile is negative. Patient and confirm that he finished his full dose of vancomycin at [facility]. Will discontinue oral vancomycin. Suspect continued diarrhea side effect of his antibiotic use. Patient states that he has tried things in the past for his diarrhea, and did have relief with one medication that he cannot recall. He feels this information my pain doctor Sherin's records. Will consult GI for positive FOBT. Discussed with pharmacy that the only medications in this hospital to help with diarrhea are Imodium, Lomotil, and Pepto-Bismol. Patient denies relief with Pepto-Bismol at home and [id number] Imodium. Will order Imodium and Lomotil as needed. Vitals/I&O Vitals/I&O: Vital Signs Date Time Temp Pulse Resp B/P (MAP) Pulse Ox O2 Delivery O2 Flow Rate FiO2 08/23/21 13:06 98.3 57 18 116/49 98.3 08/23/21 11:00 96 Nasal Cannula 4.5 I & O 08/22/21 08/22/21 08/23/21 15:00 23:00 07:00 Intake Total 960 ml 2410 ml Output Total 2150 ml 650 ml Balance 960 ml 260 ml -650 ml Physical Exam Physical Exam: Constitutional alert oriented x3 male in bed comfortably no acute distress pleasant cooperative HEENT pupils equal reactive, normal conjunctival, oropharynx clear, no thrush Neck supple no JVD Lungs decreased breath sound at the bases on oxygen via nasal cannula Heart S1-S2 Abdomen soft obese bowel sounds present nontender nondistended no rebound or guarding Vasques in place Extremities trace bilateral lower extremity edema. Right lower extremity Steri- Strips on the knee with discoloration i.e. the old blood seen. No surrounding erythema or purulence. Neuro alert oriented x3 grossly nonfocal was all 4 extremities Psychiatric affect is appropriate PICC line looks clean Medications: Inpatient Meds: Medications reviewed. General: Alert, Oriented X3, No acute distress Heart: Regular rate Lungs: Clear, Other Abdomen: Soft, No tenderness Extremities: No edema, Normal pulses Skin: No rashes, No breakdown Labs Labs: Laboratory Tests Test 08/22/21 16:38 08/23/21 03:50 08/23/21 03:57 08/23/21 09:37 Glucose (Fingerstick) 138 mg/dL (70-99) White Blood Count 18.1 x10^3/uL (4.0-11.0) Red Blood Count 2.31 x10^6/uL (4.30-5.70) Hemoglobin 6.8 g/dL (13.0-17.5) Hematocrit 21.3 % (39.0-53.0) Mean Corpuscular Volume 92 fL (79-100) Mean Corpuscular Hemoglobin 29 pg (25-35) Mean Corpuscular Hemoglobin Concent 32 g/dL (31-37) Red Cell Distribution Width 18.2 % (11.5-14.5) Platelet Count 380 x10^3/uL (140-400) Neutrophils (%) (Auto) 87 % (31-73) Lymphocytes (%) (Auto) 5 % (24-48) Monocytes (%) (Auto) 8 % (0-9) Eosinophils (%) (Auto) 1 % (0-3) Basophils (%) (Auto) 0 % (0-3) Neutrophils # (Auto) 15.7 x10^3/uL (1.8-7.7) Lymphocytes # (Auto) 0.9 x10^3/uL (1.0-4.8) Monocytes # (Auto) 1.4 x10^3/uL (0.0-1.1) Eosinophils # (Auto) 0.1 x10^3/uL (0.0-0.7) Basophils # (Auto) 0.1 x10^3/uL (0.0-0.2) Sodium Level 141 mmol/L (136-145) Potassium Level 2.8 mmol/L (3.5-5.1) Chloride Level 103 mmol/L (98-107) Carbon Dioxide Level 38 mmol/L (21-32) Anion Gap 0 (6-14) Blood Urea Nitrogen 22 mg/dL (8-26) Creatinine 1.0 mg/dL (0.7-1.3) Estimated GFR (Cockcroft-Gault) 73.7 Glucose Level 106 mg/dL (70-99) Calcium Level 7.4 mg/dL (8.5-10.1) C-Reactive Protein, Quantitative 121.4 mg/L (0-3.3) Iron Level 6 ug/dL (65-175) Total Iron Binding Capacity 119 ug/dL (250-450) Iron Saturation 5 % (15-34) Ferritin 249 ng/mL (26-388) Stool Occult Blood Positive (NEG) Assessment and Plan Assessmemt and Plan Problems Medical Problems: (1) Pneumonia Status: Acute (2) Sepsis Status: Acute (3) UTI (urinary tract infection) Status: Acute Comment Review of Relevant I have reviewed the following items rajeev (where applicable) has been applied. Medications: Current Medications Medications (Trade) Dose Ordered Sig/Renetta Route PRN Reason Start Time Stop Time Status Last Admin Dose Admin Atorvastatin Calcium (Lipitor) 80 mg QHS PO 08/22/21 21:00 08/22/21 20:27 Cefepime HCl (Maxipime) 2 gm Q12HR IVP 08/22/21 21:00 08/23/21 08:50 Vancomycin HCl (Vancomycin Oral Solution) 125 mg BID PO 08/22/21 21:00 08/23/21 09:26 Eravacycline 100 mg/Sodium Chloride 250 ml @ 250 mls/hr Q12HR IV 08/22/21 14:00 08/23/21 08:45 Metoprolol Succinate (Toprol Xl) 50 mg DAILY PO 08/23/21 09:00 08/23/21 08:53 Potassium Chloride/Water 100 ml @ 100 mls/hr Q1H IV 08/23/21 06:15 08/23/21 08:14 DC 08/23/21 07:36 Potassium Chloride (Klor-Con) 40 meq 1X ONCE PO 08/23/21 09:00 08/23/21 09:01 DC 08/23/21 08:51 Info (Anti-Coagulation Monitoring By Pharmacy) 1 each PRN DAILY PRN MC PER PROTOCOL 08/23/21 11:30 08/23/21 11:27 Justifications for Admission Other Justification MANJEET WOODSON MD Aug 23, 2021 13:44
--- NOTE | 2021-08-23 13:52 | PDOC ---
Infectious Disease Note Subjective Subjective pt is feeling better ROS ROS no n/v/d/sob/fever Vital Sign Vital Signs Vital Signs Date Time Temp Pulse Resp B/P (MAP) Pulse Ox O2 Delivery O2 Flow Rate FiO2 08/23/21 13:06 98.3 57 18 116/49 98.3 08/23/21 11:00 96 Nasal Cannula 4.5 Physical Exam PHYSICAL EXAM Constitutional alert oriented x3 male in bed comfortably no acute distress pleasant cooperative HEENT pupils equal reactive, normal conjunctival, oropharynx clear, no thrush Neck supple no JVD Lungs decreased breath sound at the bases on oxygen via nasal cannula Heart S1-S2 Abdomen soft obese bowel sounds present nontender nondistended no rebound or guarding Vasques in place Extremities trace bilateral lower extremity edema. Right lower extremity Steri- Strips on the knee with discoloration i.e. the old blood seen. No surrounding erythema or purulence. Neuro alert oriented x3 grossly nonfocal was all 4 extremities Psychiatric affect is appropriate PICC line looks clean Medications: Inpatient Meds: Medications reviewed. Labs Lab Laboratory Tests Test 08/22/21 16:38 08/23/21 03:50 08/23/21 03:57 08/23/21 09:37 Glucose (Fingerstick) 138 mg/dL (70-99) White Blood Count 18.1 x10^3/uL (4.0-11.0) Red Blood Count 2.31 x10^6/uL (4.30-5.70) Hemoglobin 6.8 g/dL (13.0-17.5) Hematocrit 21.3 % (39.0-53.0) Mean Corpuscular Volume 92 fL (79-100) Mean Corpuscular Hemoglobin 29 pg (25-35) Mean Corpuscular Hemoglobin Concent 32 g/dL (31-37) Red Cell Distribution Width 18.2 % (11.5-14.5) Platelet Count 380 x10^3/uL (140-400) Neutrophils (%) (Auto) 87 % (31-73) Lymphocytes (%) (Auto) 5 % (24-48) Monocytes (%) (Auto) 8 % (0-9) Eosinophils (%) (Auto) 1 % (0-3) Basophils (%) (Auto) 0 % (0-3) Neutrophils # (Auto) 15.7 x10^3/uL (1.8-7.7) Lymphocytes # (Auto) 0.9 x10^3/uL (1.0-4.8) Monocytes # (Auto) 1.4 x10^3/uL (0.0-1.1) Eosinophils # (Auto) 0.1 x10^3/uL (0.0-0.7) Basophils # (Auto) 0.1 x10^3/uL (0.0-0.2) Sodium Level 141 mmol/L (136-145) Potassium Level 2.8 mmol/L (3.5-5.1) Chloride Level 103 mmol/L (98-107) Carbon Dioxide Level 38 mmol/L (21-32) Anion Gap 0 (6-14) Blood Urea Nitrogen 22 mg/dL (8-26) Creatinine 1.0 mg/dL (0.7-1.3) Estimated GFR (Cockcroft-Gault) 73.7 Glucose Level 106 mg/dL (70-99) Calcium Level 7.4 mg/dL (8.5-10.1) C-Reactive Protein, Quantitative 121.4 mg/L (0-3.3) Iron Level 6 ug/dL (65-175) Total Iron Binding Capacity 119 ug/dL (250-450) Iron Saturation 5 % (15-34) Ferritin 249 ng/mL (26-388) Stool Occult Blood Positive (NEG) Micro urine with PSA bc neg Objective Assessment Assessment: Status post fall with bleeding from the right knee Fever likely from UTI and or pneumonia Recent right TKA June 2021 Right knee wound dehiscence requiring Status post Irrigation and debridement of the right knee, right total knee arthroplasty with polyethylene exchange on 08/01. Cultures positive for stenotrophomonas Previous Rt knee cultures were positive (superficial) for MSSA was on cefazolin prior to transfer from [facility] C diff colitis History of Right TKA June 2021 Atrial fibrillation COPD on O2 by nasal cannula Polymicrobial Bacteremia at [facility] gram-positive cocci, gram- positive rods on July 24, 2021 with coagulase-negative staph and diphtheroids contaminant Anemia Urinary retention requiring Vasques catheter/UTI Plan Plan of Care cefepime We will follow cultures Limited choices for MSSA and stenotrophomonas right total knee arthroplasty infection Cont Eravacycline,was on cefazolin prior to transfer from [facility] will need for atleast 6 weeks cont po vanco qid for c diff colitis Right upper extremity thrombophlebitis management per primary Wound care as directed Patient remains at risk of failure of right TKA despite I&D due to drug- resistant bacteria MSSA and stenotrophomonas despite aggressive antibiotic treatment Patient would like salvage treatment at this time with antibiotics Pros and cons discussed Patient and verbalizes understanding Monitor labs and cultures PT and OT as tolerated Continue supportive care Follow-up ID clinic as scheduled phone [phone] in 2 weeks D/W SARATH MENDOZA MD Aug 23, 2021 13:52
--- NOTE | 2021-08-23 15:21 | PDOC2 ---
GI CONSULT Date of Service: DATE: 08/23/21 TIME: 14:53 Reason For Consult: GI bleed HPI: HPI: 71 y/o male w/ recent knee surgeries/infection. Admitted now after slipping off bed, noted initially w/ fever, and later UTI and chronic anemia (ACD/ERIC) requiring transfusion. Reports past GI workup x 2 for ERIC, mostly recently w/ Dr. uDff last year - says EGD, colonoscopy, SBCE, and SBS were unrevealing for GI source. Was previously on PO iron but told to stop because it could cause "GI upset" - he was having diarrhea at the time and thought this could be the cause. Also had an outpt transfusion and iron infusion once. Recent C Diff (now negative) - still having some diarrhea (about 5 stools today). PCP gave him Rx for diarrhea once that worked (can't remember name) - past use of Imodium and Pepto were unhelpful. No reflux/heartburn, dysphagia, n/v, abd pain, constipation, hematochezia, or melena. Good appetite but doesn't always care for the food here especially when it arrives cold. Would prefer a fried egg sandwich for breakfast instead of s crambled eggs and toast. No GB, liver, pancreas, or PUD history. On ASA and Eliquis. 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, depression, OA, COVID, UTI umbilical hernia repair, right TKA w/ I&D and polyexchange, shoulder surgery, right tibfib repair FH: Family History: Cancer (pancreatic - mother), Hypertension, Other (ulcerative colitis - father) Social History: Smoke: Quit ALCOHOL: other (past use) Drugs: None ROS: GEN: Denies fevers, chills, sweats HEENT: Denies blurred vision, sore throat CV: Denies chest pain RESP: Denies shortness of air, cough GI: Per HPI : Denies hematuria, dysuria ENDO: Denies weight changes NEURO: Denies confusion, dizziness MSK: +weakness SKIN: Denies jaundice, pruritus Vitals: Vitals: Vital Signs Date Time Temp Pulse Resp B/P (MAP) Pulse Ox O2 Delivery O2 Flow Rate FiO2 08/23/21 13:06 98.3 57 18 116/49 98.3 08/23/21 11:00 96 Nasal Cannula 4.5 Labs: Labs: Laboratory Tests Test 08/22/21 16:38 08/23/21 03:50 08/23/21 03:57 08/23/21 09:37 Glucose (Fingerstick) 138 mg/dL (70-99) White Blood Count 18.1 x10^3/uL (4.0-11.0) Red Blood Count 2.31 x10^6/uL (4.30-5.70) Hemoglobin 6.8 g/dL (13.0-17.5) Hematocrit 21.3 % (39.0-53.0) Mean Corpuscular Volume 92 fL (79-100) Mean Corpuscular Hemoglobin 29 pg (25-35) Mean Corpuscular Hemoglobin Concent 32 g/dL (31-37) Red Cell Distribution Width 18.2 % (11.5-14.5) Platelet Count 380 x10^3/uL (140-400) Neutrophils (%) (Auto) 87 % (31-73) Lymphocytes (%) (Auto) 5 % (24-48) Monocytes (%) (Auto) 8 % (0-9) Eosinophils (%) (Auto) 1 % (0-3) Basophils (%) (Auto) 0 % (0-3) Neutrophils # (Auto) 15.7 x10^3/uL (1.8-7.7) Lymphocytes # (Auto) 0.9 x10^3/uL (1.0-4.8) Monocytes # (Auto) 1.4 x10^3/uL (0.0-1.1) Eosinophils # (Auto) 0.1 x10^3/uL (0.0-0.7) Basophils # (Auto) 0.1 x10^3/uL (0.0-0.2) Sodium Level 141 mmol/L (136-145) Potassium Level 2.8 mmol/L (3.5-5.1) Chloride Level 103 mmol/L (98-107) Carbon Dioxide Level 38 mmol/L (21-32) Anion Gap 0 (6-14) Blood Urea Nitrogen 22 mg/dL (8-26) Creatinine 1.0 mg/dL (0.7-1.3) Estimated GFR (Cockcroft-Gault) 73.7 Glucose Level 106 mg/dL (70-99) Calcium Level 7.4 mg/dL (8.5-10.1) C-Reactive Protein, Quantitative 121.4 mg/L (0-3.3) Iron Level 6 ug/dL (65-175) Total Iron Binding Capacity 119 ug/dL (250-450) Iron Saturation 5 % (15-34) Ferritin 249 ng/mL (26-388) Stool Occult Blood Positive (NEG) CULTURE URINE Preliminary GREATER THAN 100,000 CFU/ML GRAM NEGATIVE RODS on 08/23/21 at 0813. FINAL ID= PSEUDOMONAS AERUGINOSA BLOOD CULTURE Preliminary NO GROWTH AFTER 1 DAY Allergies: Coded Allergies: No Known Drug Allergies (Unverified , 07/02/21) Medications: Current Medications Medications (Trade) Dose Ordered Sig/Renetta Route PRN Reason Start Time Stop Time Status Last Admin Dose Admin Atorvastatin Calcium (Lipitor) 80 mg QHS PO 08/22/21 21:00 08/22/21 20:27 Cefepime HCl (Maxipime) 2 gm Q12HR IVP 08/22/21 21:00 08/23/21 08:50 Vancomycin HCl (Vancomycin Oral Solution) 125 mg BID PO 08/22/21 21:00 08/23/21 09:26 Metoprolol Succinate (Toprol Xl) 50 mg DAILY PO 08/23/21 09:00 08/23/21 08:53 Potassium Chloride/Water 100 ml @ 100 mls/hr Q1H IV 08/23/21 06:15 08/23/21 08:14 DC 08/23/21 07:36 Potassium Chloride (Klor-Con) 40 meq 1X ONCE PO 08/23/21 09:00 08/23/21 09:01 DC 08/23/21 08:51 Info (Anti-Coagulation Monitoring By Pharmacy) 1 each PRN DAILY PRN MC PER PROTOCOL 08/23/21 11:30 08/23/21 11:27 Imaging: Imaging: Head CT IMPRESSION: No acute intracranial CT abnormality. Knee X-Ray IMPRESSION: No acute osseous injury. Soft tissue edema. CXR MPRESSION: Left PICC line. Improved aeration of the lung bases with decreased density of the opacities since the prior exam with mild interstitial and alveolar infiltrates remaining which could represent residual edema or multilobar pneumonia given the history of fever. PE: GEN: NAD HEENT: Atraumatic, PERRL LUNGS: CTAB HEART: irregular ABD: NABS, S/ND/NT EXTREMITY/SKIN: left knee w/ bandage/dried blood NEURO/PSYCH: A & O 3 A/P: A/P: Recent knee surgeries/infection (MSSA and stenotrophomonas), UTI (PSEUDOMONAS AERUGINOSA) Chronic ERIC, +Hemoccult - reports previous extensive GI workup unrevealing - baseline 7-8 range, has needed past transfusions Diarrhea on antibiotics w/ recent C Diff CRC screen - UTD Anticoagulated w/ Eliquis and ASA -- Will review records from [facility]/office and update re: results of past workup for an emia and any past treatments from our office for diarrhea. ?diarrhea related to ongoing antibiotic use? Previously completed vanco (also receiving here) for C Diff and test negative now. ID following. Agree w/ trial of Imodium and/or Lomotil. Could consider trial of Colestid if ineffective. ERIC is a chronic issue - should continue iron in some form long-term - he is hesitant to retry PO now (though iron usually causes constipation, not diarrhea). ?iron infusion - will d/w Dr. Duff. Difficult with need for anticoagulation. Update: EGD and colonoscopy 03/26/21 for suspected UGI bleeding/unexplained ERIC (by Dr. Duff): normal esophagus, chronic gastritis (no biopsy), normal duodenum (no biopsy), sigmoid diverticulosis, non-bleeding internal hemorrhoids, and increased mucosa vascular patterin in sigmoid colon (biopsy w/ trauma/prolapse changes, possibly related to diverticular disease or prolasping mucosal folds - no colitis). Was taking Meloxicam prior to 'scopes. Office notes indicate normal SBS on 04/05/21. SBCE 04/12/21 for anemia (read by Dr. Schwartz): multiple small bowel angioectasias and one gastric angioectasia, multiple small bowel erosions, abnormal fold in proximal small bowel, small bowel ulcer. Recommendation for CT enterography, H. pylori breath test, celiac panel, and consideration for SB endoscopy pending those results. RICHARDSON LANDEROS Aug 23, 2021 15:21
[2021-08-23] MEDS ORDERED: IRON SUCROSE COMPLEX 400 MG in IV NORMAL SALINE 250ML 250 ML IV ONE (16:45)
[2021-08-23] MEDS: ATORVASTATIN CALCIUM 40 MG TABLET. PO SCH (20:23)
[2021-08-23] MEDS: LOPERAMIDE 2 MG CAPSULE PO PRN (20:53)
[2021-08-24] MEDS: DIPHENOXYLATE/ATROPINE TABLET. PO PRN ×2 (02:11→12:29)
[2021-08-24] MEDS: oxyCODONE/APAP 5/325 1 TAB TABLET PO PRN (02:15)
[2021-08-24 03:09] VITALS: BP 135/65
[2021-08-24 05:08] LABS: BASO % 0 % (0-3); EOS # 0.1 x10^3/uL (0.0-0.7); EOS % 1 % (0-3); HEMOGLOBIN 8.8 g/dL (13.0-17.5); LYMPH # 0.3 x10^3/uL (1.0-4.8); LYMPH % 4 % (24-48); MEAN CORPUSCULAR HEMOGLOBIN 30 pg (25-35); MEAN CORPUSCULAR HGB CONC 33 g/dL (31-37); MEAN CORPUSCULAR VOLUME 92 fL (79-100); MONO # 0.4 x10^3/uL (0.0-1.1); MONO % 5 % (0-9); NEUT # 7.7 x10^3/uL (1.8-7.7); NEUT % 90 % (31-73); PLATELET COUNT 371 x10^3/uL (140-400); RED BLOOD COUNT 2.93 x10^6/uL (4.30-5.70); WHITE BLOOD COUNT 8.6 x10^3/uL (4.0-11.0)
[2021-08-24 05:27] LABS: CALCIUM 7.5 mg/dL (8.5-10.1); CREATININE 0.9 mg/dL (0.7-1.3); GFR 83.2; POTASSIUM 3.9 mmol/L (3.5-5.1)
[2021-08-24] MEDS: GABAPENTIN 100 MG CAPSULE. PO SCH ×2 (06:16→13:56)
[2021-08-24 07:00] VITALS: BP 110/68
[2021-08-24] MEDS ORDERED: POTASSIUM CHLORIDE 20 MEQ TABLET.ER. PO SCH (08:00)
[2021-08-24] MEDS: TAMSULOSIN 0.4 MG CAP.ER.24H. PO SCH (08:45)
[2021-08-24] MEDS: hydroCHLOROthiazide 25 MG TABLET PO SCH (08:45)
[2021-08-24] MEDS: LACTOBACILLUS RHAMNOSUS GG 1 CAPSULE. PO SCH (08:45)
[2021-08-24] MEDS: ASCORBIC ACID 1,000 MG TABLET PO SCH (08:45)
[2021-08-24] MEDS: APIXABAN 5 MG TABLET. PO SCH (08:45)
[2021-08-24] MEDS: METOPROLOL SUCC 24HR ER 50 MG TAB.ER.24H. PO SCH (08:46)
[2021-08-24] MEDS: VANCOMYCIN 125 MG/2.5 ML ORAL SOLUTION. PO SCH (08:46)
[2021-08-24] MEDS: MULTIVITAMIN with MINERAL TABLET. PO SCH (08:46)
[2021-08-24] MEDS: AMIODARONE HCL 200 MG TABLET. PO SCH (08:46)
[2021-08-24] MEDS: ASPIRIN ENTERIC COATED 81 MG TABLET.DR. PO SCH (08:46)
[2021-08-24] MEDS: BUMETANIDE 1 MG TABLET. PO SCH ×2 (08:46→13:56)
[2021-08-24] MEDS: CEFEPIME HCL IV Push 2 GM VIAL. IVP SCH (08:47)
[2021-08-24] MEDS: FERROUS SULFATE 325 MG TABLET. PO SCH (08:47)
[2021-08-24] MEDS: LOPERAMIDE 2 MG CAPSULE PO PRN (08:50)
[2021-08-24] MEDS: ERAVACYCLINE IV SCH (08:51)
[2021-08-24] MEDS: NORMAL SALINE IV SCH (08:51)
[2021-08-24] MEDS: LOSARTAN POTASSIUM 50 MG TABLET. PO SCH (08:54)
--- NOTE | 2021-08-24 09:51 | PDOC ---
Date of Service: DATE: 08/24/21 TIME: 09:46 Subjective: Subjective: Diarrhea yesterday, then after a medication "it was like someone turned off the faucet." No bleeding. Wants his Hgb to be built up to 13-14 range. Tolerating diet. Objective: Objective: D/w nurse - given Imodium and Lomotil, seems to be helping. S/p iron infusion. Vital Signs: Vital Signs Date Time Temp Pulse Resp B/P (MAP) Pulse Ox O2 Delivery O2 Flow Rate FiO2 08/24/21 08:54 63 110/68 08/24/21 07:00 98.3 20 95 Nasal Cannula 98.3 08/23/21 23:00 5.0 Labs: Laboratory Tests Test 08/24/21 05:00 White Blood Count 8.6 x10^3/uL Red Blood Count 2.93 x10^6/uL Hemoglobin 8.8 g/dL Hematocrit 27.0 % Mean Corpuscular Volume 92 fL Mean Corpuscular Hemoglobin 30 pg Mean Corpuscular Hemoglobin Concent 33 g/dL Red Cell Distribution Width 18.0 % Platelet Count 371 x10^3/uL Neutrophils (%) (Auto) 90 % Lymphocytes (%) (Auto) 4 % Monocytes (%) (Auto) 5 % Eosinophils (%) (Auto) 1 % Basophils (%) (Auto) 0 % Neutrophils # (Auto) 7.7 x10^3/uL Lymphocytes # (Auto) 0.3 x10^3/uL Monocytes # (Auto) 0.4 x10^3/uL Eosinophils # (Auto) 0.1 x10^3/uL Basophils # (Auto) 0.0 x10^3/uL Sodium Level 139 mmol/L Potassium Level 3.9 mmol/L Chloride Level 101 mmol/L Carbon Dioxide Level 36 mmol/L Anion Gap 2 Blood Urea Nitrogen 20 mg/dL Creatinine 0.9 mg/dL Estimated GFR (Cockcroft-Gault) 83.2 Glucose Level 113 mg/dL Calcium Level 7.5 mg/dL PE: GEN: NAD LUNGS: clear, NC 5L HEART: RRR ABD: S/ND/NT NEURO/PSYCH: A & O 3 A/P: S/p knee surgery/MSSA, psuedomonas UTI Chronic ERIC w/ h/o SB AVMs (see workup per GI consult) - was off iron - given transfusion/infusion yesterday - on Eliquis and ASA Diarrhea on antibiotics w/ recent C Diff (negative now) - improved w/ Imodium/Lomotil -- Continue iron chronically. Avoid NSAIDs. Diarrhea improved - monitor on PRN Lomotil and/or Imodium - try Colestid if needed. Justicifation of Admission Dx: Justifications for Admission: Justification of Admission Dx: Yes RICHARDSON LANDEROS Aug 24, 2021 09:51
[2021-08-24 11:00] VITALS: BP 141/78
[2021-08-24] MEDS ORDERED: METO50TA4 PO (11:30)
[2021-08-24] MEDS ORDERED: DIPH1TAB5 PO (11:30)
--- NOTE | 2021-08-24 11:31 | SNU/HH DC ---
DISCHARGE ORDERS DISCHARGE INFORMATION: DISCHARGE DATE: Aug 24, 2021 FINAL DIAGNOSIS Problems Medical Problems: (1) Pneumonia Status: Acute (2) Sepsis Status: Acute (3) UTI (urinary tract infection) Status: Acute CONDITION ON DISCHARGE: Stable CODE STATUS: Code Status: Full CORRECTION: SNF STAY <30 DAYS: Yes POST DISCHARGE ORDERS: ACTIVITY ORDERS: No restrictions, Activity as tolerated WEIGHT BEARING STATUS: No restrictions, As tolerated BATHING ORDERS: Shower-keep dressing dry, No Tub Bath until see DIET AFTER DISCHARGE: Cardiac WOUND/INCISION CARE: Keep wound/cast CDI, Change dressing OTHER ORDERS: IVR ervacycline per infectious disease recommendat CHECKS AFTER DISCHARGE: CHECKS AFTER DISCHARGE: Check blood press - daily, Weigh Yourself Daily TREATMENT/EQUIPMENT ORDERS: RESPIRATORY EQUIPMENT NEEDED: Oxygen Physical Therapy For: Evalulation/Treatment Occupational Therapy For: Evaluation/Treatment DISCHARGE MEDICATIONS: Home Meds Active Scripts Diphenoxylate Hcl/Atropine (DIPHENOXYLATE-ATROPINE TABLET) 1 Each Tablet, 1 TAB PO PRN QID PRN for DIARRHEA for 14 Days, TAB 2 Refills Prov:MANJEET WOODSON MD 08/24/21 Oxycodone/Apap 5-325 (PERCOCET 5-325 MG TABLET ) 1 Each Tablet, 1 TAB PO PRN Q6HRS PRN for PAIN for 3 Days, #12 TAB 0 Refills Prov:PENNIE RODGERS MD 08/09/21 Ferrous Sulfate (FERROUS SULFATE) 325 Mg Tablet, 1 TAB PO QODAY for for 30 Days, #30 TAB 3 Refills Prov:PENNIE RODGERS MD 08/08/21 Gabapentin (GABAPENTIN ) 100 Mg Capsule, 100 MG PO Q8HRS for . for 30 Days, #90 CAP Prov:CASTLE,NIAL K III DO 07/16/21 Oxycodone/Apap 5-325 (PERCOCET 5-325 MG TABLET ) 1 Each Tablet, 1 TAB PO PRN Q6HRS PRN for PAIN for 10 Days, #20 TAB 0 Refills Prov:CASTLE,NIAL K III DO 07/16/21 Eszopiclone (LUNESTA) 3 Mg Tablet, 3 MG PO HS PRN for INSOMNIA for 10 Days, #10 TAB Prov:CASTLE,NIAL K III DO 07/16/21 Reported Medications Vancomycin Hcl (VANCOCIN HCL) 125 Mg Capsule, 1 CAP PO QID for Cdiff for 3 Days, #12 CAP 0 Refills 08/13/21 Umeclidinium [place] (Incruse Ellipta) 62.5 Mcg Blst.w.dev, 62.5 MCG IH DAILY for COPD 08/02/21 Losartan Potassium (LOSARTAN POTASSIUM) 50 Mg Tablet, 50 MG PO DAILY for HYPERTENSION, TAB 08/02/21 Albuterol Sulfate (VENTOLIN HFA INHALER) 18 Gm Hfa.aer.ad, 2 PUFF INH Q4HRS for FOR ASTHMA, EACH 0 Refills 06/27/21 Lactobacillus Rhamnosus Gg (CULTURELLE) 1 Each Cap.sprink, 1 CAP PO DAILY for PROBIOTIC for 30 Days, #30 CAP 0 Refills 02/13/21 Cholecalciferol (Vitamin D3) (Vitamin D3 ) 125 Mcg Capsule, 125 MCG PO DAILY for SUPPLEMENT, CAP 5,000 UNITS = 125 MCG 02/13/21 Amiodarone Hcl (AMIODARONE HCL) 100 Mg Tablet, 1 TAB PO HS for A FIB for 30 Days, #30 TAB 0 Refills 02/13/21 Meloxicam (MELOXICAM) 15 Mg Tablet, 15 MG PO DAILY for PAIN CONTROL, TAB 08/07/20 Diltiazem HCl (Diltiazem 24Hr ER (LA)) 240 Mg Tab.er.24h, 120 MG PO DAILY for AFIB, TAB.SR 08/07/20 Amiodarone Hcl (AMIODARONE HCL) 200 Mg Tablet, 1 TAB PO DAILY08 for atrial fibrillation, #90 TAB 3 Refills 12/30/18 Metoprolol Succinate (METOPROLOL SUCCINATE ( XL )) 100 Mg Tab.er.24h, 1 TAB PO DAILY for heart rate, #30 TAB 5 Refills 11/30/18 Apixaban (ELIQUIS) 5 Mg Tablet, 5 MG PO BID for a-fib, TAB 11/30/18 Bumetanide (BUMETANIDE) 1 Mg Tablet, 1 TAB PO BID for heart failure, #90 TAB 1 Refill 11/30/18 Atorvastatin Calcium (ATORVASTATIN CALCIUM) 80 Mg Tablet, 1 TAB PO DAILY, #30 TAB 5 Refills 08/26/17 Tamsulosin Hcl (TAMSULOSIN HCL) 0.4 Mg Cap.er.24h, 0.4 MG PO DAILY 08/10/13 Multivitamin (DAILY VALUE) 1 Each Tablet, 1 EACH PO DAILY 08/10/13 Hydrochlorothiazide (HYDROCHLOROTHIAZIDE TABLET ) 25 Mg Tablet, 25 MG PO DAILY 08/10/13 Aspirin (ADULT LOW DOSE ASPIRIN EC) 81 Mg Tablet.dr, 81 MG PO DAILY 08/10/13 MANJEET WOODSON MD Aug 24, 2021 11:31
--- NOTE | 2021-08-24 11:42 | PDOC ---
[employer] PROGRESS NOTE Date of Service DOS: DATE: 08/24/21 TIME: 11:37 Chief Complaint Chief Complaint Sepsis Febrile illness UTI Multilobar pneumonia History bacteremia Blood loss anemia History of Present Illness History of Present Illness Patient is a 71-year-old male with past medical history A. fib, COPD, BPH, h/o right TKA with wound dehiscence, who presents to the ED with complaints of fall and right knee bleeding. He does take Eliquis for his history of atrial fibrillation. Upon arrival in the ED he was febrile at 101.5F by axillary temperature. Labs on admission showed WBC 22.5, hemoglobin 7.4, potassium 3.0, AST 59, ALT 72, albumin 1.6. Urinalysis with small leukocyte esterase, nitrite positive, large blood, WBCs TNTC. States he has had a Vasques catheter in since his surgery June. His last admission was also complicated by MSSA bacteremia, for which he is to follow-up with ID today. Patient is currently without complaints. He has been admitted for further medical management. 08/23/2021: Patient seen with at bedside. Hemoglobin 6.8 today, potassium 2.8. 1 uPRBC has been ordered, replace potassium. FOBT is positive. Patient states he had an upper endoscopy, colonoscopy, and capsule pill study that came back normal. He does admit to internal hemorrhoids. He also complains of continued diarrhea, but C. difficile is negative. Patient and confirm that he finished his full dose of vancomycin at [facility]. Will discontinue oral vancomycin. Suspect continued diarrhea side effect of his antibiotic use. Patient states that he has tried things in the past for his diarrhea, and did have relief with one medication that he cannot recall. He feels this information my pain doctor Sherin's records. Will consult GI for positive FOBT. Discussed with pharmacy that the only medications in this hospital to help with diarrhea are Imodium, Lomotil, and Pepto-Bismol. Patient denies relief with Pepto-Bismol at home and [id number] Imodium. Will order Imodium and Lomotil as needed. 08/24/2021: Patient seen and evaluated bedside. Reports some improvement in his diarrhea. He was seen by orthopedic surgery with no new concerns of right knee. Hemoglobin stable at 8.8. Continue IV antibiotics for drug-resistant bacteria MSSA and stenotrophomona, per ID. He is stable for discharge back to [facility]. Greater than 30 minutes spent managing the discharge of this patient. Vitals/I&O Vitals/I&O: Vital Signs Date Time Temp Pulse Resp B/P (MAP) Pulse Ox O2 Delivery O2 Flow Rate FiO2 08/24/21 08:54 63 110/68 08/24/21 07:50 Nasal Cannula 4.5 08/24/21 07:00 98.3 20 95 98.3 I & O 08/23/21 08/23/21 08/24/21 15:00 23:00 07:00 Intake Total 1410 ml 800 ml Output Total 850 ml 1250 ml 550 ml Balance 560 ml -450 ml -550 ml Physical Exam Physical Exam: Constitutional alert oriented x3 male in bed comfortably no acute distress pleasant cooperative HEENT pupils equal reactive, normal conjunctival, oropharynx clear, no thrush Neck supple no JVD Lungs decreased breath sound at the bases on oxygen via nasal cannula Heart S1-S2 Abdomen soft obese bowel sounds present nontender nondistended no rebound or guarding Vasques in place Extremities trace bilateral lower extremity edema. Right lower extremity Steri- Strips on the knee with discoloration i.e. the old blood seen. No surrounding erythema or purulence. Neuro alert oriented x3 grossly nonfocal was all 4 extremities Psychiatric affect is appropriate PICC line looks clean Medications: Inpatient Meds: Medications reviewed. General: Alert, Oriented X3, No acute distress Heart: Regular rate Lungs: Clear, Other Abdomen: Soft, No tenderness Extremities: No edema, Normal pulses Skin: No rashes, No breakdown Labs Labs: Laboratory Tests Test 08/24/21 05:00 White Blood Count 8.6 x10^3/uL (4.0-11.0) Red Blood Count 2.93 x10^6/uL (4.30-5.70) Hemoglobin 8.8 g/dL (13.0-17.5) Hematocrit 27.0 % (39.0-53.0) Mean Corpuscular Volume 92 fL (79-100) Mean Corpuscular Hemoglobin 30 pg (25-35) Mean Corpuscular Hemoglobin Concent 33 g/dL (31-37) Red Cell Distribution Width 18.0 % (11.5-14.5) Platelet Count 371 x10^3/uL (140-400) Neutrophils (%) (Auto) 90 % (31-73) Lymphocytes (%) (Auto) 4 % (24-48) Monocytes (%) (Auto) 5 % (0-9) Eosinophils (%) (Auto) 1 % (0-3) Basophils (%) (Auto) 0 % (0-3) Neutrophils # (Auto) 7.7 x10^3/uL (1.8-7.7) Lymphocytes # (Auto) 0.3 x10^3/uL (1.0-4.8) Monocytes # (Auto) 0.4 x10^3/uL (0.0-1.1) Eosinophils # (Auto) 0.1 x10^3/uL (0.0-0.7) Basophils # (Auto) 0.0 x10^3/uL (0.0-0.2) Sodium Level 139 mmol/L (136-145) Potassium Level 3.9 mmol/L (3.5-5.1) Chloride Level 101 mmol/L (98-107) Carbon Dioxide Level 36 mmol/L (21-32) Anion Gap 2 (6-14) Blood Urea Nitrogen 20 mg/dL (8-26) Creatinine 0.9 mg/dL (0.7-1.3) Estimated GFR (Cockcroft-Gault) 83.2 Glucose Level 113 mg/dL (70-99) Calcium Level 7.5 mg/dL (8.5-10.1) Assessment and Plan Assessmemt and Plan Problems Medical Problems: (1) Pneumonia Status: Acute (2) Sepsis Status: Acute (3) UTI (urinary tract infection) Status: Acute Comment Review of Relevant I have reviewed the following items rajeev (where applicable) has been applied. Medications: Current Medications Medications (Trade) Dose Ordered Sig/Renetta Route PRN Reason Start Time Stop Time Status Last Admin Dose Admin Potassium Chloride (Klor-Con) 40 meq 1X ONCE PO 08/23/21 21:00 08/23/21 21:01 DC 08/23/21 20:23 Diphenoxylate HCl/ Atropine (Lomotil) 1 tab PRN QID PRN PO DIARRHEA 08/23/21 14:00 08/24/21 02:11 Loperamide HCl (Imodium) 2 mg PRN Q15MIN PRN PO DIARRHEA 08/23/21 13:45 3/18/22 08:50 Iron Sucrose 400 mg/Sodium Chloride 270 ml @ 90 mls/hr 1X ONCE IV 08/23/21 16:45 08/23/21 19:44 DC 08/23/21 18:00 Potassium Chloride (Klor-Con) 20 meq [id number] PO 08/24/21 08:00 08/24/21 08:46 Justifications for Admission Other Justification MANJEET WOODSON MD Aug 24, 2021 11:42
--- NOTE | 2021-08-24 11:43 | PDOC3 ---
Discharge Summary Visit Information Date of Admission: Aug 22, 2021 Date of Discharge: Aug 24, 2021 Final Diagnosis Problems Medical Problems: (1) Pneumonia Status: Acute (2) Sepsis Status: Acute (3) UTI (urinary tract infection) Status: Acute Brief Hospital Course Allergies Allergies Coded Allergies Type Severity Reaction Last Updated Verified No Known Drug Allergies 07/02/21 No Vital Signs Vital Signs Date Time Temp Pulse Resp B/P (MAP) Pulse Ox O2 Delivery O2 Flow Rate FiO2 08/24/21 08:54 63 110/68 08/24/21 07:50 Nasal Cannula 4.5 08/24/21 07:00 98.3 20 95 98.3 Lab Results Laboratory Tests Test 08/22/21 12:30 08/22/21 16:38 08/23/21 03:50 08/23/21 03:57 Urine Collection Type Unknown Urine Color Straw Urine Clarity Clear Urine pH 7.5 (<5.0-8.0) Urine Specific [place] 1.015 (1.000-1.030) Urine Protein Negative mg/dL (NEG-TRACE) Urine Glucose (UA) Negative mg/dL (NEG) Urine Ketones (Stick) Negative mg/dL (NEG) Urine Blood Large (NEG) Urine Nitrite Negative (NEG) Urine Bilirubin Negative (NEG) Urine Urobilinogen Dipstick 0.2 mg/dL (0.2 mg/dL) Urine Leukocyte Esterase Trace (NEG) Urine RBC 0 /HPF (0-2) Urine WBC 1-4 /HPF (0-4) Urine Squamous Epithelial Cells Occ /LPF Urine Bacteria 0 /HPF (0-FEW) Urine Mucus Slight /LPF Glucose (Fingerstick) 138 mg/dL (70-99) White Blood Count 18.1 x10^3/uL (4.0-11.0) Red Blood Count 2.31 x10^6/uL (4.30-5.70) Hemoglobin 6.8 g/dL (13.0-17.5) Hematocrit 21.3 % (39.0-53.0) Mean Corpuscular Volume 92 fL (79-100) Mean Corpuscular Hemoglobin 29 pg (25-35) Mean Corpuscular Hemoglobin Concent 32 g/dL (31-37) Red Cell Distribution Width 18.2 % (11.5-14.5) Platelet Count 380 x10^3/uL (140-400) Neutrophils (%) (Auto) 87 % (31-73) Lymphocytes (%) (Auto) 5 % (24-48) Monocytes (%) (Auto) 8 % (0-9) Eosinophils (%) (Auto) 1 % (0-3) Basophils (%) (Auto) 0 % (0-3) Neutrophils # (Auto) 15.7 x10^3/uL (1.8-7.7) Lymphocytes # (Auto) 0.9 x10^3/uL (1.0-4.8) Monocytes # (Auto) 1.4 x10^3/uL (0.0-1.1) Eosinophils # (Auto) 0.1 x10^3/uL (0.0-0.7) Basophils # (Auto) 0.1 x10^3/uL (0.0-0.2) Sodium Level 141 mmol/L (136-145) Potassium Level 2.8 mmol/L (3.5-5.1) Chloride Level 103 mmol/L (98-107) Carbon Dioxide Level 38 mmol/L (21-32) Anion Gap 0 (6-14) Blood Urea Nitrogen 22 mg/dL (8-26) Creatinine 1.0 mg/dL (0.7-1.3) Estimated GFR (Cockcroft-Gault) 73.7 Glucose Level 106 mg/dL (70-99) Calcium Level 7.4 mg/dL (8.5-10.1) C-Reactive Protein, Quantitative 121.4 mg/L (0-3.3) Iron Level 6 ug/dL (65-175) Total Iron Binding Capacity 119 ug/dL (250-450) Iron Saturation 5 % (15-34) Ferritin 249 ng/mL (26-388) Test 08/23/21 09:37 08/24/21 05:00 Stool Occult Blood Positive (NEG) White Blood Count 8.6 x10^3/uL (4.0-11.0) Red Blood Count 2.93 x10^6/uL (4.30-5.70) Hemoglobin 8.8 g/dL (13.0-17.5) Hematocrit 27.0 % (39.0-53.0) Mean Corpuscular Volume 92 fL (79-100) Mean Corpuscular Hemoglobin 30 pg (25-35) Mean Corpuscular Hemoglobin Concent 33 g/dL (31-37) Red Cell Distribution Width 18.0 % (11.5-14.5) Platelet Count 371 x10^3/uL (140-400) Neutrophils (%) (Auto) 90 % (31-73) Lymphocytes (%) (Auto) 4 % (24-48) Monocytes (%) (Auto) 5 % (0-9) Eosinophils (%) (Auto) 1 % (0-3) Basophils (%) (Auto) 0 % (0-3) Neutrophils # (Auto) 7.7 x10^3/uL (1.8-7.7) Lymphocytes # (Auto) 0.3 x10^3/uL (1.0-4.8) Monocytes # (Auto) 0.4 x10^3/uL (0.0-1.1) Eosinophils # (Auto) 0.1 x10^3/uL (0.0-0.7) Basophils # (Auto) 0.0 x10^3/uL (0.0-0.2) Sodium Level 139 mmol/L (136-145) Potassium Level 3.9 mmol/L (3.5-5.1) Chloride Level 101 mmol/L (98-107) Carbon Dioxide Level 36 mmol/L (21-32) Anion Gap 2 (6-14) Blood Urea Nitrogen 20 mg/dL (8-26) Creatinine 0.9 mg/dL (0.7-1.3) Estimated GFR (Cockcroft-Gault) 83.2 Glucose Level 113 mg/dL (70-99) Calcium Level 7.5 mg/dL (8.5-10.1) Laboratory Tests Test 08/24/21 05:00 White Blood Count 8.6 x10^3/uL (4.0-11.0) Red Blood Count 2.93 x10^6/uL (4.30-5.70) Hemoglobin 8.8 g/dL (13.0-17.5) Hematocrit 27.0 % (39.0-53.0) Mean Corpuscular Volume 92 fL (79-100) Mean Corpuscular Hemoglobin 30 pg (25-35) Mean Corpuscular Hemoglobin Concent 33 g/dL (31-37) Red Cell Distribution Width 18.0 % (11.5-14.5) Platelet Count 371 x10^3/uL (140-400) Neutrophils (%) (Auto) 90 % (31-73) Lymphocytes (%) (Auto) 4 % (24-48) Monocytes (%) (Auto) 5 % (0-9) Eosinophils (%) (Auto) 1 % (0-3) Basophils (%) (Auto) 0 % (0-3) Neutrophils # (Auto) 7.7 x10^3/uL (1.8-7.7) Lymphocytes # (Auto) 0.3 x10^3/uL (1.0-4.8) Monocytes # (Auto) 0.4 x10^3/uL (0.0-1.1) Eosinophils # (Auto) 0.1 x10^3/uL (0.0-0.7) Basophils # (Auto) 0.0 x10^3/uL (0.0-0.2) Sodium Level 139 mmol/L (136-145) Potassium Level 3.9 mmol/L (3.5-5.1) Chloride Level 101 mmol/L (98-107) Carbon Dioxide Level 36 mmol/L (21-32) Anion Gap 2 (6-14) Blood Urea Nitrogen 20 mg/dL (8-26) Creatinine 0.9 mg/dL (0.7-1.3) Estimated GFR (Cockcroft-Gault) 83.2 Glucose Level 113 mg/dL (70-99) Calcium Level 7.5 mg/dL (8.5-10.1) Brief Hospital Course Patient is a 71-year-old male with past medical history A. fib, COPD, BPH, h/o right TKA with wound dehiscence, who presents to the ED with complaints of fall and right knee bleeding. He does take Eliquis for his history of atrial fibrillation. Upon arrival in the ED he was febrile at 101.5F by axillary temperature. Labs on admission showed WBC 22.5, hemoglobin 7.4, potassium 3.0, AST 59, ALT 72, albumin 1.6. Urinalysis with small leukocyte esterase, nitrite positive, large blood, WBCs TNTC. States he has had a Vasques catheter in since his surgery June. His last admission was also complicated by MSSA bacteremia, for which he is to follow-up with ID today. Patient is currently without complaints. He has been admitted for further medical management. 08/23/2021: Patient seen with at bedside. Hemoglobin 6.8 today, potassium 2.8. 1 uPRBC has been ordered, replace potassium. FOBT is positive. Patient states he had an upper endoscopy, colonoscopy, and capsule pill study that came back normal. He does admit to internal hemorrhoids. He also complains of continued diarrhea, but C. difficile is negative. Patient and confirm that he finished his full dose of vancomycin at [facility]. Will discontinue oral vancomycin. Suspect continued diarrhea side effect of his antibiotic use. Patient states that he has tried things in the past for his diarrhea, and did have relief with one medication that he cannot recall. He feels this information my pain doctor Sherin's records. Will consult GI for positive FOBT. Discussed with pharmacy that the only medications in this hospital to help with diarrhea are Imodium, Lomotil, and Pepto-Bismol. Patient denies relief with Pepto-Bismol at home and [id number] Imodium. Will order Imodium and Lomotil as needed. 08/24/2021: Patient seen and evaluated bedside. Reports some improvement in his diarrhea. He was seen by orthopedic surgery with no new concerns of right knee. Hemoglobin stable at 8.8. Continue IV antibiotics for drug-resistant bacteria MSSA and stenotrophomona, per ID. He is stable for discharge back to [facility]. Greater than 30 minutes spent managing the discharge of this patient. Discharge Information Condition at Discharge: Stable Follow Up: Weeks Disposition/Orders: D/C to Another Facility Scheduled Albuterol Sulfate (Ventolin Hfa Inhaler) 18 Gm Hfa.aer.ad, 2 PUFF INH Q4HRS for FOR ASTHMA, Ref 0 (Reported) Entered as Reported by: ANJUM TINEO on 06/27/21 1334 Amiodarone Hcl (Amiodarone Hcl) 200 Mg Tablet, 1 TAB PO DAILY08 for atrial fibrillation, #90 Ref 3 (Reported) Entered as Reported by: CARRI ALVARES on 12/30/18 1416 Last Action: Continued on 08/22/21 0852 by MANJEET WOODSON MD Amiodarone Hcl (Amiodarone Hcl) 100 Mg Tablet, 1 TAB PO HS for A FIB for 30 Days, #30 Ref 0 (Reported) Entered as Reported by: Nyasia Miranda on 02/13/21 1434 Apixaban (Eliquis) 5 Mg Tablet, 5 MG PO BID for a-fib, (Reported) Entered as Reported by: Polo Horta on 11/30/18 171 Last Action: Continued on 08/22/21851 by MANJEET WOODSON MD Aspirin (Adult Low Dose Aspirin Ec) 81 Mg Tablet.dr, 81 MG PO DAILY, (Reported) Entered as Reported by: HUGH MAHMOOD on 08/10/13 0913 Last Action: Continued on 08/22/21851 by MANJEET WOODSON MD Atorvastatin Calcium (Atorvastatin Calcium) 80 Mg Tablet, 1 TAB PO DAILY, #30 Ref 5 (Reported) Entered as Reported by: JEFF TURNER on 08/26/17 1206 Last Action: Converted on 08/22/21851 by MANJEET WOODSON MD Bumetanide (Bumetanide) 1 Mg Tablet, 1 TAB PO BID for heart failure, #90 Ref 1 (Reported) Entered as Reported by: Polo Horta on 11/30/18 171 Last Action: Continued on 08/22/21851 by MANJEET WOODSON MD Cholecalciferol (Vitamin D3) (Vitamin D3 ) 125 Mcg Capsule, 125 MCG PO DAILY for SUPPLEMENT, (Reported) 5,000 UNITS = 125 MCG Entered as Reported by: Nyasia Miranda on 02/13/21 1434 Diltiazem HCl (Diltiazem 24Hr ER (LA)) 240 Mg Tab.er.24h, 120 MG PO DAILY for AFIB, (Reported) Entered as Reported by: DEREK CARDONA on 08/07/20 1545 Ferrous Sulfate (Ferrous Sulfate) 325 Mg Tablet, 1 TAB PO QODAY for for 30 Days, #30 Ref 3 Prescribed by: PENNIE RODGERS MD on 08/08/21 1503 Last Action: Continued on 08/22/21851 by MANJEET WOODSON MD Gabapentin (Gabapentin ) 100 Mg Capsule, 100 MG PO Q8HRS for . for 30 Days, #90 Prescribed by: RE MOJICA on 07/16/21 1202 Last Action: Continued on 08/22/21851 by MANJEET WOODSON MD Hydrochlorothiazide (Hydrochlorothiazide Tablet ) 25 Mg Tablet, 25 MG PO DAILY, (Reported) Entered as Reported by: HUGH MAHMOOD on 08/10/1313 Last Action: Continued on 08/22/21851 by MANJEET WOODSON MD Lactobacillus Rhamnosus Gg (Culturelle) 1 Each Cap.sprink, 1 CAP PO DAILY for PROBIOTIC for 30 Days, #30 Ref 0 (Reported) Entered as Reported by: Nyasia Miranda on 02/13/21 1434 Last Action: Continued on 08/22/21851 by MANJEET WOODSON MD Losartan Potassium (Losartan Potassium) 50 Mg Tablet, 50 MG PO DAILY for HYPERT ENSION, (Reported) Entered as Reported by: ESDRAS PRAKASH on 08/02/21 1006 Last Action: Continued on 08/22/21851 by MANJEET WOODSON MD Meloxicam (Meloxicam) 15 Mg Tablet, 15 MG PO DAILY for PAIN CONTROL, (Reported) Entered as Reported by: DEREK CARDONA on 08/07/20 1545 Metoprolol Succinate (Metoprolol Succinate ( Xl )) 100 Mg Tab.er.24h, 1 TAB PO DAILY for heart rate, #30 Ref 5 (Reported) Entered as Reported by: Polo Horta on 11/30/18 1751 Last Action: Continued on 08/22/21851 by MANJEET WOODSON MD Multivitamin (Daily Value) 1 Each Tablet, 1 EACH PO DAILY, (Reported) Entered as Reported by: HUGH MAHMOOD on 08/10/1315 Tamsulosin Hcl (Tamsulosin Hcl) 0.4 Mg Cap.er.24h, 0.4 MG PO DAILY, (Reported) Entered as Reported by: HUGH MAHMOOD on 08/10/13 0916 Last Action: Continued on 08/22/21851 by MANJEET WOODSON MD Umeclidinium [place] (Incruse Ellipta) 62.5 Mcg Blst.w.dev, 62.5 MCG IH DAILY for COPD, (Reported) Entered as Reported by: ESDRAS PRAKASH on 08/02/21 1007 Vancomycin Hcl (Vancocin Hcl) 125 Mg Capsule, 1 CAP PO QID for Cdiff for 3 Days, #12 Ref 0 (Reported) Entered as Reported by: YASMINE AMIN on 08/13/21 1340 Scheduled PRN Diphenoxylate Hcl/Atropine (Diphenoxylate-Atropine Tablet) 1 Each Tablet, 1 TAB PO PRN QID PRN for DIARRHEA for 14 Days, Ref 2 Prescribed by: MANJEET WOODSON MD on 08/24/21 1130 Eszopiclone (Lunesta) 3 Mg Tablet, 3 MG PO HS PRN for INSOMNIA for 10 Days, #10 Prescribed by: RE MOJICA on 07/16/21 1203 Oxycodone/Apap 5-325 (Percocet 5-325 Mg Tablet ) 1 Each Tablet, 1 TAB PO PRN Q6HRS PRN for PAIN for 10 Days, #20 Ref 0 Prescribed by: RE MOJICA on 07/16/21 1203 Last Action: Continued on 08/22/21 0852 by MANJEET WOODSON MD Oxycodone/Apap 5-325 (Percocet 5-325 Mg Tablet ) 1 Each Tablet, 1 TAB PO PRN Q6HRS PRN for PAIN for 3 Days, #12 Ref 0 Prescribed by: PENNIE RODGERS MD on 08/09/21 1400 Justicifation of Admission Dx: Justifications for Admission: Justification of Admission Dx: Yes MANJEET WOODSON MD Aug 24, 2021 11:43
--- NOTE | 2021-08-24 12:12 | PDOC ---
Infectious Disease Note Subjective Subjective pt is feeling better ROS ROS no n/v/d/sob Vital Sign Vital Signs Vital Signs Date Time Temp Pulse Resp B/P (MAP) Pulse Ox O2 Delivery O2 Flow Rate FiO2 08/24/21 11:00 98.5 63 20 141/78 (99) 96 Room Air 98.5 08/24/21 07:50 4.5 Physical Exam PHYSICAL EXAM Constitutional alert oriented x3 male in bed comfortably no acute distress pleasant cooperative HEENT pupils equal reactive, normal conjunctival, oropharynx clear, no thrush Neck supple no JVD Lungs decreased breath sound at the bases on oxygen via nasal cannula Heart S1-S2 Abdomen soft obese bowel sounds present nontender nondistended no rebound or guarding Vasques in place Extremities trace bilateral lower extremity edema. Right lower extremity Steri- Strips on the knee with discoloration i.e. the old blood seen. No surrounding erythema or purulence. Neuro alert oriented x3 grossly nonfocal was all 4 extremities Psychiatric affect is appropriate PICC line looks clean Medications: Inpatient Meds: Medications reviewed. Labs Lab Laboratory Tests Test 08/24/21 05:00 White Blood Count 8.6 x10^3/uL (4.0-11.0) Red Blood Count 2.93 x10^6/uL (4.30-5.70) Hemoglobin 8.8 g/dL (13.0-17.5) Hematocrit 27.0 % (39.0-53.0) Mean Corpuscular Volume 92 fL (79-100) Mean Corpuscular Hemoglobin 30 pg (25-35) Mean Corpuscular Hemoglobin Concent 33 g/dL (31-37) Red Cell Distribution Width 18.0 % (11.5-14.5) Platelet Count 371 x10^3/uL (140-400) Neutrophils (%) (Auto) 90 % (31-73) Lymphocytes (%) (Auto) 4 % (24-48) Monocytes (%) (Auto) 5 % (0-9) Eosinophils (%) (Auto) 1 % (0-3) Basophils (%) (Auto) 0 % (0-3) Neutrophils # (Auto) 7.7 x10^3/uL (1.8-7.7) Lymphocytes # (Auto) 0.3 x10^3/uL (1.0-4.8) Monocytes # (Auto) 0.4 x10^3/uL (0.0-1.1) Eosinophils # (Auto) 0.1 x10^3/uL (0.0-0.7) Basophils # (Auto) 0.0 x10^3/uL (0.0-0.2) Sodium Level 139 mmol/L (136-145) Potassium Level 3.9 mmol/L (3.5-5.1) Chloride Level 101 mmol/L (98-107) Carbon Dioxide Level 36 mmol/L (21-32) Anion Gap 2 (6-14) Blood Urea Nitrogen 20 mg/dL (8-26) Creatinine 0.9 mg/dL (0.7-1.3) Estimated GFR (Cockcroft-Gault) 83.2 Glucose Level 113 mg/dL (70-99) Calcium Level 7.5 mg/dL (8.5-10.1) Micro urine with PSA, pansensitive bc 1/3 G + cocci ,likely contaminant Objective Assessment Assessment: Status post fall with bleeding from the right knee Fever likely from UTI and or pneumonia Recent right TKA June 2021 Right knee wound dehiscence requiring Status post Irrigation and debridement of the right knee, right total knee arthroplasty with polyethylene exchange on 08/01. Cultures positive for stenotrophomonas Previous Rt knee cultures were positive (superficial) for MSSA was on cefazolin prior to transfer from [facility] C diff colitis History of Right TKA June 2021 Atrial fibrillation COPD on O2 by nasal cannula Polymicrobial Bacteremia at [facility] gram-positive cocci, gram- positive rods on July 24, 2021 with coagulase-negative staph and diphtheroids contaminant Anemia Urinary retention requiring Vasques catheter/UTI Plan Plan of Care cefepime , change to cipro for 1 wk We will follow cultures Limited choices for MSSA and stenotrophomonas right total knee arthroplasty infection Cont Eravacycline,was on cefazolin prior to transfer from [facility] will need for atleast 6 weeks cont po vanco qid for c diff colitis Right upper extremity thrombophlebitis management per primary Wound care as directed Patient remains at risk of failure of right TKA despite I&D due to drug- resistant bacteria MSSA and stenotrophomonas despite aggressive antibiotic treatment Patient would like salvage treatment at this time with antibiotics Pros and cons discussed Patient and verbalizes understanding Monitor labs and cultures PT and OT as tolerated Continue supportive care Follow-up ID clinic as scheduled phone [phone] in 2 weeks D/W SARATH MENDOZA MD Aug 24, 2021 12:12
--- NOTE | 2021-08-24 15:45 | NUR ---
Discharge Note: Patient was discharged/transferred back to [facility], where patient was before admission for rehab and IV antibiotics. Patient was discharged with Left Upper arm PICC and Vasques catheter. Patient and Brittney agreeable with discharge plans. Report was called to MANDEEP Peña, at [facility]. Patient and took all personal belongings with them. Patient was transferred over to facility via stretcher transport. All discharge paperwork and prescriptions were sent with transport to facility.
== END 2021-08-24 15:45 | DRG 871 ==
LOC: ER 03:52 → 5 NORTH 05:47
PROVIDERS: ADMIT Internal Medicine; ATTEND Internal Medicine
PROC: 30233N1 Transfusion of Nonautologous Red Blood Cells into Peripheral Vein, Percutaneous Approach (ICD-10-PCS; principal; 2021-08-23)
DX: A41.9 Sepsis, unspecified organism (principal); J18.9 Pneumonia, unspecified organism; A04.72 Enterocolitis due to Clostridium difficile, not specified as recurrent; J44.0 Chronic obstructive pulmonary disease with (acute) lower respiratory infection; N17.9 Acute kidney failure, unspecified; N39.0 Urinary tract infection, site not specified; D50.0 Iron deficiency anemia secondary to blood loss (chronic); D63.8 Anemia in other chronic diseases classified elsewhere; E78.5 Hyperlipidemia, unspecified; F32.A Depression, unspecified; G31.9 Degenerative disease of nervous system, unspecified; G47.33 Obstructive sleep apnea (adult) (pediatric); I11.9 Hypertensive heart disease without heart failure; I25.10 Atherosclerotic heart disease of native coronary artery without angina pectoris; I48.91 Unspecified atrial fibrillation; I80.8 Phlebitis and thrombophlebitis of other sites; K64.8 Other hemorrhoids; N40.0 Benign prostatic hyperplasia without lower urinary tract symptoms; S80.219A Abrasion, unspecified knee, initial encounter; Z79.01 Long term (current) use of anticoagulants; Z82.49 Family history of ischemic heart disease and other diseases of the circulatory system; Z83.3 Family history of diabetes mellitus; Z87.891 Personal history of nicotine dependence; Z96.651 Presence of right artificial knee joint; Z99.81 Dependence on supplemental oxygen; E66.9 Obesity, unspecified; K21.9 Gastro-esophageal reflux disease without esophagitis; M19.90 Unspecified osteoarthritis, unspecified site
CPT/HCPCS: 36415; 36430; 70450; 71045; 73562; 80048; 80053; 81001; 82274; 82728; 82962; 83540; 83550; 83605; 84484; 85007; 85025; 86140; 86850; 86900; 86901; 86920; 87040; 87077; 87086; 87186; 87426; 87493; 93005; 96374; J0692; J0696; J1756; J3480; J7050; P9016; U0003; 99285-25; G0378; J0122; J7030

== ENCOUNTER → 2021-09-25 | Outpatient (CLI) | payer MEDICARE ==
[~2021-09-25] MED LIST changes: +DIPH1TAB5 PO; +METO50TA4 PO
[2021-09-25 07:13] LABS: BASO % 1 % (0-3); EOS # 0.4 x10^3/uL (0.0-0.7); EOS % 7 % (0-3); HEMATOCRIT 24.5 % (39.0-53.0); LYMPH # 0.9 x10^3/uL (1.0-4.8); LYMPH % 16 % (24-48); MEAN CORPUSCULAR HEMOGLOBIN 32 pg (25-35); MEAN CORPUSCULAR HGB CONC 33 g/dL (31-37); MEAN CORPUSCULAR VOLUME 97 fL (79-100); MONO # 0.5 x10^3/uL (0.0-1.1); MONO % 9 % (0-9); NEUT # 3.7 x10^3/uL (1.8-7.7); NEUT % 68 % (31-73); PLATELET COUNT 298 x10^3/uL (140-400); RED BLOOD COUNT 2.52 x10^6/uL (4.30-5.70); RED CELL DISTRIBUTION WIDTH 21.8 % (11.5-14.5); WHITE BLOOD COUNT 5.5 x10^3/uL (4.0-11.0)
[2021-09-25 07:14] LABS: ALBUMIN 1.3 g/dL (3.4-5.0); ALBUMIN/GLOBULIN RATIO 0.5 (1.0-1.7); CALCIUM 7.4 mg/dL (8.5-10.1); CREATININE 0.6 mg/dL (0.7-1.3); GFR 132.8; POTASSIUM 3.8 mmol/L (3.5-5.1); TOTAL BILIRUBIN 0.3 mg/dL (0.2-1.0); TOTAL PROTEIN 3.8 g/dL (6.4-8.2)
== END ==
LOC: SPEC
PROVIDERS: ATTEND Family Medicine
DX: E88.09 Other disorders of plasma-protein metabolism, not elsewhere classified (principal); D64.9 Anemia, unspecified
CPT/HCPCS: 36415; 80053; 85025

== ENCOUNTER 2021-10-12 17:36 | Inpatient (IN) | payer MEDICARE ==
[~2021-10-12] VITALS: Ht 170.2 cm; Wt 117.7 kg
[2021-10-12] MEDS ORDERED: IV NORMAL SALINE 1000ML BAG 1,000 ML IV ONE (18:00)
[2021-10-12 18:01] LABS: HEMATOCRIT 20.9 % (39.0-53.0); RED BLOOD COUNT 2.06 x10^6/uL (4.30-5.70); RED CELL DISTRIBUTION WIDTH 22.1 % (11.5-14.5)
--- NOTE | 2021-10-12 18:08 | PHYS DOC ---
Past Medical History Past Medical History: A-Fib, Arthritis, Hypertension Additional Past Medical Histor: BPH,ENTEROCOLITIS,C-DIFF,SLEEP APNEA,COVID- 19,OSTEOARTHRITIS,OBESITY (DANICA CHAPIN MD) Past Medical History: A-Fib, Anemia, CAD, CHF, COPD, Depression, GERD, High Cholesterol, Hypertension Additional Past Medical Histor: COVID Jun 2021, Pulmonary Fibroisis, BPH, Cdiff Past Medical History Polyneuropathy, Urinary Retention (GORDY BURTON DO) Past Surgical History: Knee Replacement, Other Additional Past Surgical Histo: Back, hernia mesh placement, and rotator cuff x's 2 surgery. (DANICA CHAPIN MD) Past Surgical History: Knee Replacement Additional Past Surgical Histo: R TKA infection with removal of hardware (GORDY BURTON DO) Smoking Status: Former Smoker Alcohol Use: None Drug Use: None (DANICA CHAPIN MD) Smoking Status: Former Smoker Alcohol Use: None Drug Use: None (GORDY BURTON DO) General Adult EDM: Chief Complaint: ALTERED MENTAL STATUS HPI: HPI: 71-year-old male with past medical history of atrial fibrillation on Eliquis and congestive heart failure and recent hospitalization after a left knee joint replacement infection. Patient presents today from across the street at a rehab facility due to hypotension bradycardia and hypoxia. Patient has been requiring oxygen for the past 2 days at the nursing facility and he is normally not on any O2. Possible history of pulmonary fibrosis. The patient also was reported to have hypotension and bradycardia that began today. His mentation was decreased and he became increasingly confused starting this afternoon. No known head injuries. Given medical acuity and condition no further information is avai lable at this time. Nursing staff will attempt to reach out to the nurse at the other facility and gather more information. (DANICA CHAPIN MD) Review of Systems: Review of Systems: Cannot perform due to acuity of condition (DANICA CHAPIN MD) Heart Score: C/O Chest Pain: No Risk Factors: Risk Factors: DM, Current or recent (<one month) smoker, HTN, HLP, family history of CAD, obesity. Risk Scores: Score 0 - 3: 2.5% MACE over next 6 weeks - Discharge Home Score 4 - 6: 20.3% MACE over next 6 weeks - Admit for Clinical Observation Score 7 - 10: 72.7% MACE over next 6 weeks - Early Invasive Strategies (DANICA CHAPIN MD) Current Medications: Current Medications Medications (Trade) Dose Ordered Sig/Renetta Start Time Stop Time Status Last Admin Dose Admin Sodium Chloride 1,000 ml @ 1,000 mls/hr 1X ONCE 10/12/21 18:00 10/12/21 18:59 (DANICA CHAPIN MD) Allergies: Allergies: Allergies Coded Allergies Type Severity Reaction Last Updated Verified No Known Drug Allergies 07/02/21 No (DANICA CHAPIN MD) Physical Exam: PE: Constitutional: Well developed, well nourished, slightly tachypneic HENT: Normocephalic, atraumatic, bilateral external ears normal, oropharynx moist, no oral exudates, nose normal. Face looks edematous Eyes: PERRLA, EOMI, conjunctiva normal, no discharge. [] Neck: Normal range of motion, no tenderness, supple, no stridor. [] Cardiovascular:Heart rate regular rhythm, no murmur [] Lungs & Thorax: Very diminished cannot hear bilaterally Abdomen: Bowel sounds normal, soft, no tenderness, no masses, no pulsatile masses. [] Skin: Warm, dry, no erythema, no rash. [] Back: No tenderness, no CVA tenderness. [] Extremities: Bilateral lower extremity edema Neurologic: Alert and follows basic commands (DANICA CHAPIN MD) PE: Constitutional: Morbidly obese, moderate respiratory distress, ill appearance HENT: Normocephalic, atraumatic, mucous membranes dry Eyes: Conjunctiva normal, no discharge Neck: Normal range of motion, no tenderness, supple, no meningeal signs Lungs & Thorax: Rales noted at bases left > right, equal chest rise and fall, moderate respiratory distress Abdomen: Soft, no tenderness, obese Skin: Warm, dry, no erythema, no rash Extremities: No tenderness, ROM intact, 3+ BLE edema Neurologic: Alert and oriented X 3, no focal deficits noted Psychologic: Affect normal, judgment normal (GORDY BURTON DO) EKG: EKG: [] (DANICA CHAPIN MD) EKG: @1806 Sinus bradycardia at 44bpm, NO ST elevation, QRS 116ms, QT/QTc 596/509ms, artifact noted in V1 (GORDY BURTON DO) Radiology/Procedures: Radiology/Procedures: [] (DANICA CHAPIN MD) Radiology/Procedures: PROCEDURE: PORTABLE CHEST 1V Single view chest dated 10/12/2021 6:32 PM: COMPARISON: 08/22/2021 Clinical Indication: Shortness of breath. Findings: Single upright portable exam of the chest was performed. Heart and mediastinal contours are stable. There is consolidation at the retrocardiac left base, increased from prior study. Prominent interstitial markings bilaterally, similar. There is increasing hazy opacity at the right mid zone. No pneumothorax. Left-sided PICC in place, unchanged. IMPRESSION: 1. Consolidation at the retrocardiac left base is new from prior study and could represent atelectasis or pneumonia or developing pleural effusion. 2. Hazy bilateral airspace disease bilaterally, similar to slightly increased, edema versus atypical pneumonia. Electronically signed by: Gordy Carrasco MD (10/12/2021 6:33 PM) [facility] (GORDY BURTON DO) Course & Med Decision Making: Course & Med Decision Making Patient arrives clearly in an acute critical condition. I obtain the chest x- ray at bedside and looked at it preliminarily did not see any overt signs of infection or significant CHF congestion. There is some degree of overload however we will still await further labs before making a determination. Patient's bradycardia in the setting of hypotension could be due to a medication overdose versus blunted cardiac response in the setting of sepsis versus intravascular depletion and heart failure exacerbation. All labs and imaging results are currently pending and will be signed off to oncoming physician. Respiratory paged and will arrive and put the patient on BiPAP and obtain ABG. (DANICA CHAPIN MD) Course & Med Decision Making 1800- Sign out received from Dr. Chapin for patient who presents from [facility] via EMS with report of altered mental status, hypoxia, and hypotension. Patient pending laboratory and radiological imaging. Patient seen and evaluated by myself. [facility] patient with history of infected Right TKA hardware with MSSA bacteremia requiring hardware removal and empiric antibiotics. Patient currently being treated with PO Keflex and Bactrim. Also appears patient with history of Cdiff as he has prolonged course of PO vancomycin ordered. Patient significantly hypoxic upon arrival and previously placed on BIPAP with stabilization of O2 Sats. Levophed ordered with improvement of hypotension. Atropine 0.5mg provided. Labs reviewed. WBC and lactic acid WNL. BUN/Creat elevated from baseline. Hemoglobin 6.9. Transfusion of 1 unit pRBCs ordered. CXR with concern for atypical pneumonia and/or ateletasis vs vascular congestion and/or plerural effusion. Patient with some periorbtial edema and clinically with rales on exam. Bumex provided. Patient will require more IV access. Patient has PICC to left upper arm. Central line placed to right femoral vein under US guidance. Patient requiring admission for further evaluation and treatment. Discussed with Dr. Varela (hospitalist) who is in agreement with ICU admission. Dr. Varela requests consultation with Infectious Disease. Discussed case with Dr Andrade Huggins (ID) who request administration of Meropenem and Daptomycin. Requests discontinuation of Keflex and Bactrim. Discussed findings and plan with patient and family, who acknowledge understanding and agreement. (GORDY BURTON DO) Dragon Disclaimer: Dragon Disclaimer: This electronic medical record was generated, in whole or in part, using a voice recognition dictation system. (DANICA CHAPIN MD) Central Line Central Line : Central Line Lumen: triple Central Line Procedure: sterile drapes applied, sterile dressing applied Central Line Postion: femoral (R) Anesthesia: Lidocaine cc's of anesthesia: 4 Complications: none Central Line Post Position: sutured, good blood return Progress Written consent obtained. Patient verbalized understanding and agreement. Time out performed. Hand hygiene utilized. Sterile attire donned. Right femoral area cleaned with ChloraPrep. Sterile drapes placed. Anesthesia obtained via a 25- gauge hypodermic needle with (4) mL's of lidocaine 1% without epinephrine after visualization of thin walled, oval shaped, non-pulsatile, compressible hypoechoic structure consistent for right femoral vein. Triple-lumen catheter placed over guidewire via Seldinger technique. Patient tolerated procedure well and without difficulty. Empiric antibiotic ointment applied prior to sterile dressing. (GRODY BURTON DO) Departure Departure Impression: Primary Impression: Respiratory distress Additional Impressions: Hypotension Qualified Codes: I95.9 - Hypotension, unspecified Bradycardia Hypoxia Acute renal insufficiency Acute CHF Qualified Codes: I50.9 - Heart failure, unspecified Anemia Qualified Codes: D64.9 - Anemia, unspecified Disposition: 09 ADMITTED INPATIENT Admitting Physician: NANCY Morrow) (GORDY BURTON DO) Condition: GUARDED Referrals: Christina MAJANO MD (PCP) Critical Care Time Critical care time was 30 minutes which includes time at bedside, spent in discussion of patient's care with specialists and/or family members, with interpretation of laboratory and/or radiological studies and is exclusive of procedures. (GORDY BURTON DO) DANICA CHAPIN MD October 12, 2021 18:08 GORDY BURTON DO October 12, 2021 18:35
[2021-10-12 18:13] LABS: CALCIUM 7.5 mg/dL (8.5-10.1); CREATININE 1.5 mg/dL (0.7-1.3); GFR 46.1; HEMOGLOBIN 6.9 g/dL (13.0-17.5); POTASSIUM 5.2 mmol/L (3.5-5.1)
[2021-10-12 18:20] LABS: ALBUMIN 1.3 g/dL (3.4-5.0); ALBUMIN/GLOBULIN RATIO 0.5 (1.0-1.7); TOTAL BILIRUBIN 0.2 mg/dL (0.2-1.0)
[2021-10-12] MEDS ORDERED: NOREPINEPHRINE VIAL 8 MG in IV DEXTROSE 5% 250 ML IV ONE (18:30)
--- NOTE | 2021-10-12 18:35 | RAD ---
Single view chest dated 10/12/2021 6:32 PM: COMPARISON: 08/22/2021 Clinical Indication: Shortness of breath. Findings: Single upright portable exam of the chest was performed. Heart and mediastinal contours are stable. T here is consolidation at the retrocardiac left base, increased from prior study. Prominent interstiti al markings bilaterally, similar. There is increasing hazy opacity at the right mid zone. No pneumoth orax. Left-sided PICC in place, unchanged. IMPRESSION: 1. Consolidation at the retrocardiac left base is new from prior study and could represent atelectasi s or pneumonia or developing pleural effusion. 2. Hazy bilateral airspace disease bilaterally, similar to slightly increased, edema versus atypical pneumonia. Electronically signed by: Gordy Carrasco MD (10/12/2021 6:33 PM) SAM
[2021-10-12] MEDS ORDERED: ATROPINE 0.5 MG/5 ML DISP.SYRINGE. IV ONE (19:00)
[2021-10-12 19:01] LABS: INFLUENZA A PATIENT NEGATIVE (NEGATIVE); INFLUENZA B PATIENT NEGATIVE (NEGATIVE)
[2021-10-12] MEDS ORDERED: BUMETANIDE 1 MG/4 ML VIAL. IV ONE (19:30)
[2021-10-12 19:54] LABS: BACTERIA,URINE 0 /HPF (0-FEW); RBC,URINE >40 /HPF (0-2)
--- NOTE | 2021-10-12 19:54 | PDOC1 ---
History and Physical Date of Admission Date of Admission DATE: 10/12/21 TIME: 19:44 Identification/Chief Complaint Chief Complaint Altered mental status Source Source: Caregiver, Chart review History of Present Illness History of Present Illness Patient 71-year-old male with past medical history atrial fibrillation on Eliquis, congestive heart failure, and recent right total knee arthroplasty with wound dehiscence, who presents to the ED from [facility] for evaluation of hypotension. Per patient's , he was disoriented today at [facility], with some associated weakness. He is still having diarrhea from his recent history of C. difficile infection at [facility] is BP was reportedly 73/35 mmHg. His O2 saturation was 72% on 4 L nasal cannula, which improved to 95% on nonrebreather. In the ED he remained hypertensive requiring vasopressors, so he was initiated on Levophed. He is also well-known to infectious disease due to his history of MSSA bacteremia and follows with them regularly. Labs on admission showed WBC 4.0, hemoglobin 6.9, hematocrit 20.9, sodium 132, potassium 5.2, BUN 58, creatinine 1.5, CBG 107. Chest x-ray showed consolidation in the left base, which is new from prior study and hazy bilateral airspace disease. Patient will be admitted to ICU for further medical management. Past Medical History Cardiovascular: CAD, HTN, Hyperlipidemia Pulmonary: COPD, Other CENTRAL NERVOUS SYSTEM: Other GI: GERD Heme/Onc: No pertinent hx Hepatobiliary: No pertinent hx Psych: Depression Musculoskeletal: Osteoarthritis Rheumatologic: No pertinent hx Infectious disease: No pertinent hx Renal/: No pertinent hx Endocrine: No pertinent hx Past Surgical History Past Surgical History Right total knee arthroplasty Past Surgical History: Hernia Repair, Other Family History Family History: Diabetes, Hypertension Social History Smoke: No ALCOHOL: none Drugs: None Current Problem List Problem List Problems Medical Problems: (1) Bradycardia Status: Acute (2) Hypotension Status: Acute (3) Hypoxia Status: Acute Current Medications Current Medications Current Medications Sodium Chloride 1,000 ml @ 1,000 mls/hr 1X ONCE IV Last administered on 10/12/21at 18:00; Start 10/12/21 at 18:00; Stop 10/12/21 at 18:59; Status DC Norepinephrine Bitartrate 8 mg/ Dextrose 258 ml @ 23.607 mls/ hr 1X ONCE IV Last administered on 10/12/21at 18:35; Start 10/12/21 at 18:30; Stop 10/13/21 at 05:25 Atropine Sulfate (ATROPINE 0.5mg SYRINGE) 0.5 mg 1X ONCE IV Last administered on 10/12/21at 18:55; Start 10/12/21 at 19:00; Stop 10/12/21 at 19:01; Status DC Bumetanide (Bumex) 1 mg 1X ONCE IV Last administered on 10/12/21at 19:14; Start 10/12/21 at 19:30; Stop 10/12/21 at 19:31; Status DC Active Scripts Active Diphenoxylate-Atropine Tablet (Diphenoxylate Hcl/Atropine) 1 Each Tablet 1 Tab PO PRN QID PRN 14 Days Toprol XL (Metoprolol Succinate) 50 Mg Tab.er.24h 50 Mg PO DAILY 30 Days Ferrous Sulfate 325 Mg Tablet 1 Tab PO QODAY 30 Days Gabapentin (Gabapentin) 100 Mg Capsule 100 Mg PO Q8HRS 30 Days Lunesta (Eszopiclone) 3 Mg Tablet 3 Mg PO HS PRN 10 Days Reported Vancocin Hcl (Vancomycin Hcl) 125 Mg Capsule 1 Cap PO QID 3 Days Incruse Ellipta (Umeclidinium [place]) 62.5 Mcg Blst.w.dev 62.5 Mcg IH DAILY Losartan Potassium 50 Mg Tablet 50 Mg PO DAILY Ventolin Hfa Inhaler (Albuterol Sulfate) 18 Gm Hfa.aer.ad 2 Puff INH Q4HRS Culturelle (Lactobacillus Rhamnosus Gg) 1 Each Cap.sprink 1 Cap PO DAILY 30 Days Vitamin D3 (Vitamin D) 125 Mcg Capsule 125 Mcg PO DAILY 5,000 UNITS = 125 MCG Meloxicam 15 Mg Tablet 15 Mg PO DAILY Diltiazem 24Hr ER (LA) (Diltiazem HCl) 240 Mg Tab.er.24h 120 Mg PO DAILY Amiodarone Hcl 200 Mg Tablet 1 Tab PO DAILY08 Eliquis (Apixaban) 5 Mg Tablet 5 Mg PO BID Bumetanide 1 Mg Tablet 1 Tab PO BID Atorvastatin Calcium 80 Mg Tablet 1 Tab PO DAILY Tamsulosin Hcl 0.4 Mg Cap.er.24h 0.4 Mg PO DAILY Daily Value (Multivitamin) 1 Each Tablet 1 Each PO DAILY Hydrochlorothiazide Tablet (Hydrochlorothiazide) 25 Mg Tablet 25 Mg PO DAILY Adult Low Dose Aspirin Ec (Aspirin) 81 Mg Tablet. 81 Mg PO DAILY Allergies Allergies: Coded Allergies: No Known Drug Allergies (Unverified , 07/02/21) ROS Review of System GENERAL: Weakness, confusion. No history of fevers. SKIN: No bruising, hair changes or rashes. EYES: No blurred, double or loss of vision. NOSE AND THROAT: No history of nosebleeds, hoarseness or sore throat. HEART: Denies chest pain, denies palpitations. LUNGS: Shortness of breath. Denies cough, hemoptysis or wheezing. GASTROINTESTINAL: Diarrhea. Denies nausea, vomiting, abdominal pain. GENITOURINARY: Denies dysuria, frequency, urgency, hematuria. NEUROLOGIC: Denies history of numbness, tingling, tremor or weakness. PSYCHIATRIC: Denies anxiety, denies depression. ENDOCRINE: No history of heat or cold intolerance, polyuria or polydipsia. EXTREMITIES: Denies muscle weakness, joint pain, pain on walking or stiffness. Physical Exam Physical Exam General: Alert, Oriented X3, Cooperative, mild distress. Generalized anasarca. HEENT: Atraumatic, EOMI Lungs: Bibasilar rales, decreased breath sounds. Breathing on BiPAP. Heart: Bradycardic, no rubs Cardiovascular: S1, S2 Abdomen: Normal bowel sounds, Soft, No tenderness Extremities: 3+ bilateral leg edema Skin: No breakdown, No significant lesion Neuro: Normal speech, Sensation intact Psych/Mental Status: Somewhat lethargic, mood NL Vitals Vitals Vital Signs Date Time Temp Pulse Resp B/P (MAP) Pulse Ox O2 Delivery O2 Flow Rate FiO2 10/12/21 19:24 51 36 128/64 (85) 98 BiPAP/CPAP 10/12/21 18:02 97.8 4.0 97.8 Labs Labs Laboratory Tests Test 10/12/21 17:50 10/12/21 18:01 10/12/21 18:40 White Blood Count 4.0 x10^3/uL (4.0-11.0) Red Blood Count 2.06 x10^6/uL (4.30-5.70) Hemoglobin 6.9 g/dL (13.0-17.5) Hematocrit 20.9 % (39.0-53.0) Mean Corpuscular Volume 101 fL (79-100) Mean Corpuscular Hemoglobin 33 pg (25-35) Mean Corpuscular Hemoglobin Concent 33 g/dL (31-37) Red Cell Distribution Width 22.1 % (11.5-14.5) Platelet Count 221 x10^3/uL (140-400) Sodium Level 137 mmol/L (136-145) Potassium Level 5.2 mmol/L (3.5-5.1) Chloride Level 106 mmol/L (98-107) Carbon Dioxide Level 27 mmol/L (21-32) Anion Gap 4 (6-14) Blood Urea Nitrogen 58 mg/dL (8-26) Creatinine 1.5 mg/dL (0.7-1.3) Estimated GFR (Cockcroft-Gault) 46.1 BUN/Creatinine Ratio 39 (6-20) Glucose Level 107 mg/dL (70-99) Lactic Acid Level 1.3 mmol/L (0.4-2.0) Calcium Level 7.5 mg/dL (8.5-10.1) Total Bilirubin 0.2 mg/dL (0.2-1.0) Aspartate Amino Transf (AST/SGOT) 48 U/L (15-37) Alanine Aminotransferase (ALT/SGPT) 60 U/L (16-63) Alkaline Phosphatase 140 U/L (46-116) Troponin I High Sensitivity 13 ng/L (4-75) RN-Wmz-G-Type Natriuretic Peptide 409 pg/mL (0-124) Total Protein 4.0 g/dL (6.4-8.2) Albumin 1.3 g/dL (3.4-5.0) Albumin/Globulin Ratio 0.5 (1.0-1.7) Lipase 63 U/L (73-393) Glucose (Fingerstick) 120 mg/dL (70-99) Influenza Type A Antigen Negative (NEGATIVE) Influenza Type B Antigen Negative (NEGATIVE) SARS-CoV-2 Antigen (Rapid) Negative (NEGATIVE) Laboratory Tests Test 10/12/21 17:50 10/12/21 18:01 10/12/21 18:40 White Blood Count 4.0 x10^3/uL (4.0-11.0) Red Blood Count 2.06 x10^6/uL (4.30-5.70) Hemoglobin 6.9 g/dL (13.0-17.5) Hematocrit 20.9 % (39.0-53.0) Mean Corpuscular Volume 101 fL (79-100) Mean Corpuscular Hemoglobin 33 pg (25-35) Mean Corpuscular Hemoglobin Concent 33 g/dL (31-37) Red Cell Distribution Width 22.1 % (11.5-14.5) Platelet Count 221 x10^3/uL (140-400) Sodium Level 137 mmol/L (136-145) Potassium Level 5.2 mmol/L (3.5-5.1) Chloride Level 106 mmol/L (98-107) Carbon Dioxide Level 27 mmol/L (21-32) Anion Gap 4 (6-14) Blood Urea Nitrogen 58 mg/dL (8-26) Creatinine 1.5 mg/dL (0.7-1.3) Estimated GFR (Cockcroft-Gault) 46.1 BUN/Creatinine Ratio 39 (6-20) Glucose Level 107 mg/dL (70-99) Lactic Acid Level 1.3 mmol/L (0.4-2.0) Calcium Level 7.5 mg/dL (8.5-10.1) Total Bilirubin 0.2 mg/dL (0.2-1.0) Aspartate Amino Transf (AST/SGOT) 48 U/L (15-37) Alanine Aminotransferase (ALT/SGPT) 60 U/L (16-63) Alkaline Phosphatase 140 U/L (46-116) Troponin I High Sensitivity 13 ng/L (4-75) OH-Ynk-T-Type Natriuretic Peptide 409 pg/mL (0-124) Total Protein 4.0 g/dL (6.4-8.2) Albumin 1.3 g/dL (3.4-5.0) Albumin/Globulin Ratio 0.5 (1.0-1.7) Lipase 63 U/L (73-393) Glucose (Fingerstick) 120 mg/dL (70-99) Influenza Type A Antigen Negative (NEGATIVE) Influenza Type B Antigen Negative (NEGATIVE) SARS-CoV-2 Antigen (Rapid) Negative (NEGATIVE) Images Images PATIENT: JOSE CAPPS ACCOUNT: [id number] : 1950 LOCATION: ER AGE: 71 SEX: M EXAM STATUS: REG ER ORD. PHYSICIAN: DANICA MAJANO MD REASON: SOB PROCEDURE: PORTABLE CHEST 1V Single view chest dated 10/12/2021 6:32 PM: COMPARISON: 08/22/2021 Clinical Indication: Shortness of breath. Findings: Single upright portable exam of the chest was performed. Heart and mediastinal contours are stable. There is consolidation at the retrocardiac left base, increased from prior study. Prominent interstitial markings bilaterally, similar. There is increasing hazy opacity at the right mid zone. No pneumothorax. Left-sided PICC in place, unchanged. IMPRESSION: 1. Consolidation at the retrocardiac left base is new from prior study and could represent atelectasis or pneumonia or developing pleural effusion. 2. Hazy bilateral airspace disease bilaterally, similar to slightly increased, edema versus atypical pneumonia. VTE Prophylaxis Ordered VTE Prophylaxis Devices: Yes VTE Pharmacological Prophylaxi: No Assessment/Plan Assessment/Plan Sepsis Likely respiratory failure with hypoxia Hospital-acquired pneumonia Anemia Hx C. difficile History bacteremia Plan: Patient was placed on vasopressors in ED Will treat for hospital-acquired pneumonia with daptomycin and meropenem Consultation placed to ID, given his history of MSSA bacteremia and total knee replacement. Further antibiotics per ID. Blood cultures pending, urine cultures pending Give unit packed red blood cells. History of bleeding AVMs. Will hold Eliquis. Continues oral vancomycin for history of C. difficile describes history of nephrotic syndrome. Currently CKD 3A based on blood work. On vasopressors right now; he may benefit from 5% albumin. FEN - Cardiac diet PPX - SCDs FULL CODE/surrogate decision-maker is his son (Doug Capps) Dispo - inpatient for above. Critical care time 30 minutes spent reviewing charts, reviewing labs, reviewing imaging, discussion with , and discussion with Dr. Vides in the ED Justifications for Admission Other Justification MANJEET WOODSON MD October 12, 2021 19:54
[2021-10-12 20:01] LABS: PROTHROMBIN TIME PATIENT 18.4 SEC (11.7-14.0)
[2021-10-12] MEDS ORDERED: ACETAMINOPHEN 325 MG TABLET. PO PRN (20:15)
[2021-10-12] MEDS ORDERED: ONDANSETRON PF 4 MG/2 ML VIAL. IVP PRN (20:15)
[2021-10-12] MEDS ORDERED: MORPHINE SULFATE 2 MG/ML INJ. IV PRN (20:15)
[2021-10-12] MEDS ORDERED: fentaNYL PF VIAL 100 MCG/2 ML VIAL IV PRN (20:15)
[2021-10-12] MEDS ORDERED: 0.9 % SODIUM CHLORIDE 10 ML DISP.SYRIN. IV PRN (20:15)
[2021-10-12] MEDS ORDERED: DAPTOmycin (GENERIC) IVPB 500 MG in IV NORMAL SALINE 50ML 50 ML IV ONE (21:00)
[2021-10-12 21:30] VITALS: BP 110/60
[2021-10-12 22:00] VITALS: BP 103/65
[2021-10-12] MEDS: FAMOTIDINE 20 MG/2 ML VIAL IVP SCH (22:25)
[2021-10-12] MEDS: MEROPENEM 1 GM in IV NORMAL SALINE 100ML 100 ML IV SCH (22:26)
[2021-10-12 23:00] VITALS: BP 120/58
[2021-10-12 23:16] VITALS: BP 86/66
[2021-10-12] MEDS ORDERED: FURO80TA3 PO (23:55)
[2021-10-12] MEDS ORDERED: POTA20TA4 PO (23:55)
[2021-10-12] MEDS ORDERED: SULF1TAB23 PO (23:55)
[2021-10-12] MEDS ORDERED: CHOL4POW11 PO (23:55)
[2021-10-12] MEDS ORDERED: IPRA3AMP29 NEB (23:55)
[2021-10-12] MEDS ORDERED: LOSA100T14 PO (23:55)
[2021-10-12] MEDS ORDERED: CEPH500C PO (23:55)
[2021-10-13] VITALS (30 sets, daily range): BP systolic 80–139; BP diastolic 37–74
[2021-10-13 01:03] LABS: BASE EXCESS COOX 0 mmol/L (-3-3); HCO3 COOX 24 mmol/L (21-28); METHEMOGLOBIN 0.1 % (0.0-1.9); OXYHEMOGLOBIN 94.9 %; PCO2 COOX 39 mmHg (35-46); PO2 COOX 84 mmHg (65-108); SAT O2 COOX 95 % (92-99)
[2021-10-13 01:56] LABS: HEMATOCRIT 25.6 % (39.0-53.0); HEMOGLOBIN 8.4 g/dL (13.0-17.5); RED BLOOD COUNT 2.6 x10^6/uL (4.30-5.70)
--- NOTE | 2021-10-13 04:12 | EKG ---
[facility] [address] [place] [address] Test Date: 2021-10-12 Test Time: 18:06:45 Pat Name: JOSE GOLDSTEIN Department: Room: 112 1 Gender: M [employer] Tender: : 1950 Requested By: TORSTEN BURTON Order Number: [id number] Reading MD: Fabricio Jenkins MD Measurements Intervals [place] Rate: 44 P: 37 [place]: 270 QRS: -82 QRSD: 116 T: 10 QT: 596 QTc: 509 Interpretive Statements ATRIAL FIBRILLATION PROBABLE WITH VENTRICULAR ESCAPE Electronically Signed On 10-15-2021 8:58:22 CDT by Fabricio Jenkins MD
[2021-10-13] MEDS: MEROPENEM 1 GM in IV NORMAL SALINE 100ML 100 ML IV SCH ×3 (06:00→22:01)
--- NOTE | 2021-10-13 07:21 | NUR ---
PATIENT PLACED ON AVAPS WITH PMIN 14 AND PMAX AT 30, TO COMPENSATE FOR TIDAL VOLUMES PERIODICALLY WANING INTO THE 100S.
[2021-10-13] MEDS: ELECTROLYTE (ICU) PROTOCOL. MC SCH (09:00)
[2021-10-13 09:17] LABS: BACTERIA,URINE 0 /HPF (0-FEW); HYALINE CASTS, URINE FEW /HPF; RBC,URINE TNTC /HPF (0-2); WBC,URINE OCC /HPF (0-4)
[2021-10-13] MEDS: FAMOTIDINE 20 MG/2 ML VIAL IVP SCH ×2 (09:24→21:01)
[2021-10-13 09:57] LABS: BASO % 1 % (0-3); EOS # 0.1 x10^3/uL (0.0-0.7); EOS % 2 % (0-3); HEMATOCRIT 24.6 % (39.0-53.0); HEMOGLOBIN 8.2 g/dL (13.0-17.5); LYMPH # 0.5 x10^3/uL (1.0-4.8); LYMPH % 15 % (24-48); MEAN CORPUSCULAR HEMOGLOBIN 32 pg (25-35); MEAN CORPUSCULAR HGB CONC 33 g/dL (31-37); MEAN CORPUSCULAR VOLUME 97 fL (79-100); MONO # 0.2 x10^3/uL (0.0-1.1); MONO % 7 % (0-9); NEUT # 2.6 x10^3/uL (1.8-7.7); NEUT % 75 % (31-73); PLATELET COUNT 246 x10^3/uL (140-400); RED BLOOD COUNT 2.54 x10^6/uL (4.30-5.70); RED CELL DISTRIBUTION WIDTH 21.8 % (11.5-14.5); WHITE BLOOD COUNT 3.4 x10^3/uL (4.0-11.0)
[2021-10-13 10:09] LABS: CALCIUM 7.6 mg/dL (8.5-10.1); CREATININE 1.5 mg/dL (0.7-1.3); GFR 46.1; MAGNESIUM 2.1 mg/dL (1.8-2.4); POTASSIUM 4.8 mmol/L (3.5-5.1)
--- NOTE | 2021-10-13 11:59 | PDOC ---
[facility] PROGRESS NOTE Date of Service DOS: DATE: 10/13/21 TIME: 11:55 Chief Complaint Chief Complaint Sepsis Bradycardia Severe edema Likely respiratory failure with hypoxia Hospital-acquired pneumonia Anemia Hx C. difficile History bacteremia History of Present Illness History of Present Illness 10/13/2021 Patient seen and examined in the ICU He is quite edematous has 3+ edema on his feet He also has bradycardia this morning in the 40s Infectious disease following he has IV meropenem hanging He got 1 dose of Bumex in the emergency department Has Vasques to bedside drainage Discussed with RN Chart reviewed We will go ahead and consult cardiology for his bradycardia Vitals/I&O Vitals/I&O: Vital Signs Date Time Temp Pulse Resp B/P (MAP) Pulse Ox O2 Delivery O2 Flow Rate FiO2 10/13/21 08:00 Nasal Cannula 5.0 10/13/21 07:40 95 10/13/21 06:00 47 20 132/67 10/13/21 04:00 97.2 97.2 I & O 10/12/21 10/12/21 10/13/21 15:00 23:00 07:00 Intake Total 150 ml 438.97 ml Output Total 850 ml 20 ml Balance -700 ml 418.97 ml Physical Exam General: Alert Heart: Other (Bradycardic with distant S1-S2) Lungs: Clear, Other Abdomen: Normal bowel sounds Extremities: No clubbing, Other (3+ lower extremity edema) Skin: No rashes Labs Labs: Laboratory Tests Test 10/12/21 17:50 10/12/21 18:01 10/12/21 18:40 10/12/21 19:30 White Blood Count 4.0 x10^3/uL (4.0-11.0) Red Blood Count 2.06 x10^6/uL (4.30-5.70) Hemoglobin 6.9 g/dL (13.0-17.5) Hematocrit 20.9 % (39.0-53.0) Mean Corpuscular Volume 101 fL (79-100) Mean Corpuscular Hemoglobin 33 pg (25-35) Mean Corpuscular Hemoglobin Concent 33 g/dL (31-37) Red Cell Distribution Width 22.1 % (11.5-14.5) Platelet Count 221 x10^3/uL (140-400) Prothrombin Time 18.4 SEC (11.7-14.0) Prothromb Time International Ratio 1.6 (0.8-1.1) Activated Partial Thromboplast Time 43 SEC (24-38) Sodium Level 137 mmol/L (136-145) Potassium Level 5.2 mmol/L (3.5-5.1) Chloride Level 106 mmol/L (98-107) Carbon Dioxide Level 27 mmol/L (21-32) Anion Gap 4 (6-14) Blood Urea Nitrogen 58 mg/dL (8-26) Creatinine 1.5 mg/dL (0.7-1.3) Estimated GFR (Cockcroft-Gault) 46.1 BUN/Creatinine Ratio 39 (6-20) Glucose Level 107 mg/dL (70-99) Lactic Acid Level 1.3 mmol/L (0.4-2.0) Calcium Level 7.5 mg/dL (8.5-10.1) Total Bilirubin 0.2 mg/dL (0.2-1.0) Aspartate Amino Transf (AST/SGOT) 48 U/L (15-37) Alanine Aminotransferase (ALT/SGPT) 60 U/L (16-63) Alkaline Phosphatase 140 U/L (46-116) Troponin I High Sensitivity 13 ng/L (4-75) EA-Kju-N-Type Natriuretic Peptide 409 pg/mL (0-124) Total Protein 4.0 g/dL (6.4-8.2) Albumin 1.3 g/dL (3.4-5.0) Albumin/Globulin Ratio 0.5 (1.0-1.7) Lipase 63 U/L (73-393) Glucose (Fingerstick) 120 mg/dL (70-99) Influenza Type A Antigen Negative (NEGATIVE) Influenza Type B Antigen Negative (NEGATIVE) SARS-CoV-2 Antigen (Rapid) Negative (NEGATIVE) Urine Collection Type Unknown Urine Color (Auto) Yellow Urine Turbidity Hazy Urine pH (Auto) 5.5 (<5.0-8.0) Urine Specific [place] 1.010 (1.000-1.030) Urine Protein (Auto) Negative mg/dL (Negative) Urine Glucose (Auto)(UA) Negative mg/dL (Negative) Urine Ketones (Auto) Negative mg/dL (Negative) Urine Blood (Auto) Large (Negative) Urine Nitrite Negative (Negative) Urine Bilirubin (Auto) Negative (Negative) Urine Urobilinogen (Auto) Normal mg/dL (Normal) Urine Leukocyte Esterase (Auto) Moderate (Negative) Urine RBC >40 /HPF (0-2) Urine WBC 5-10 /HPF (0-4) Urine Bacteria 0 /HPF (0-FEW) Test 10/13/21 00:21 10/13/21 01:45 10/13/21 08:30 O2 Saturation 95 % (92-99) Arterial Blood pH 7.42 (7.35-7.45) Arterial Blood pCO2 at Patient Temp 39 mmHg (35-46) Arterial Blood pO2 at Patient Temp 84 mmHg (65-108) Arterial Blood HCO3 24 mmol/L (21-28) Arterial Blood Base Excess 0 mmol/L (-3-3) Oxyhemoglobin 94.9 % Methemoglobin 0.1 % (0.0-1.9) Carbon Monoxide, Quantitative 0.2 % (0.0-1.9) FiO2 40 White Blood Count 4.0 x10^3/uL (4.0-11.0) 3.4 x10^3/uL (4.0-11.0) Red Blood Count 2.60 x10^6/uL (4.30-5.70) 2.54 x10^6/uL (4.30-5.70) Hemoglobin 8.4 g/dL (13.0-17.5) 8.2 g/dL (13.0-17.5) Hematocrit 25.6 % (39.0-53.0) 24.6 % (39.0-53.0) Mean Corpuscular Volume 98 fL (79-100) 97 fL (79-100) Mean Corpuscular Hemoglobin 32 pg (25-35) 32 pg (25-35) Mean Corpuscular Hemoglobin Concent 33 g/dL (31-37) 33 g/dL (31-37) Red Cell Distribution Width 22.0 % (11.5-14.5) 21.8 % (11.5-14.5) Platelet Count 237 x10^3/uL (140-400) 246 x10^3/uL (140-400) Neutrophils (%) (Auto) 75 % (31-73) Lymphocytes (%) (Auto) 15 % (24-48) Monocytes (%) (Auto) 7 % (0-9) Eosinophils (%) (Auto) 2 % (0-3) Basophils (%) (Auto) 1 % (0-3) Neutrophils # (Auto) 2.6 x10^3/uL (1.8-7.7) Lymphocytes # (Auto) 0.5 x10^3/uL (1.0-4.8) Monocytes # (Auto) 0.2 x10^3/uL (0.0-1.1) Eosinophils # (Auto) 0.1 x10^3/uL (0.0-0.7) Basophils # (Auto) 0.0 x10^3/uL (0.0-0.2) Urine Collection Type Unknown Urine Color (Auto) Yellow Urine Turbidity Hazy Urine pH (Auto) 6.0 (<5.0-8.0) Urine Specific [place] 1.015 (1.000-1.030) Urine Protein (Auto) Negative mg/dL (Negative) Urine Glucose (Auto)(UA) Negative mg/dL (Negative) Urine Ketones (Auto) Negative mg/dL (Negative) Urine Blood (Auto) Large (Negative) Urine Nitrite (Auto) Negative (Negative) Urine Bilirubin (Auto) Negative (Negative) Urine Urobilinogen (Auto) Normal mg/dL (Normal) Urine Leukocyte Esterase (Auto) Negative (Negative) Urine RBC Tntc /HPF (0-2) Urine WBC Occ /HPF (0-4) Urine Squamous Epithelial Cells Occ /LPF Urine Bacteria 0 /HPF (0-FEW) Urine Hyaline Casts Few /HPF Urine Mucus Slight /LPF Sodium Level 138 mmol/L (136-145) Potassium Level 4.8 mmol/L (3.5-5.1) Chloride Level 106 mmol/L (98-107) Carbon Dioxide Level 28 mmol/L (21-32) Anion Gap 4 (6-14) Blood Urea Nitrogen 50 mg/dL (8-26) Creatinine 1.5 mg/dL (0.7-1.3) Estimated GFR (Cockcroft-Gault) 46.1 Glucose Level 75 mg/dL (70-99) Calcium Level 7.6 mg/dL (8.5-10.1) Magnesium Level 2.1 mg/dL (1.8-2.4) Assessment and Plan Assessmemt and Plan Problems Medical Problems: (1) Acute CHF Status: Acute (2) Acute renal insufficiency Status: Acute (3) Anemia Status: Acute (4) Bradycardia Status: Acute (5) Hypotension Status: Acute (6) Hypoxia Status: Acute (7) Respiratory distress Status: Acute Sepsis Bradycardia Severe edema Likely respiratory failure with hypoxia Hospital-acquired pneumonia Anemia Hx C. difficile History bacteremia Plan: ICU monitoring Consult cardiology Appreciate ID input Continue IV antibiotics Plus/ minus diuretics (await cardiology input) Await cultures Home meds DVT prophylaxis Trend labs Encourage p.o. intake FEN - Cardiac diet PPX - SCDs FULL CODE/surrogate decision-maker is his son (Doug Capps) Dispo - inpatient for above. CC time 31 minutes Comment Review of Relevant I have reviewed the following items rajeev (where applicable) has been applied. Medications: Current Medications Medications (Trade) Dose Ordered Sig/Renetta Route PRN Reason Start Time Stop Time Status Last Admin Dose Admin Sodium Chloride 1,000 ml @ 1,000 mls/hr 1X ONCE IV 10/12/21 18:00 10/12/21 18:59 DC 10/12/21 18:00 Norepinephrine Bitartrate 8 mg/ Dextrose 258 ml @ 23.607 mls/ hr 1X ONCE IV 10/12/21 18:30 10/13/21 05:25 DC 10/12/21 18:35 Atropine Sulfate (ATROPINE 0.5mg SYRINGE) 0.5 mg 1X ONCE IV 10/12/21 19:00 10/12/21 19:01 DC 10/12/21 18:55 Bumetanide (Bumex) 1 mg 1X ONCE IV 10/12/21 19:30 10/12/21 19:31 DC 10/12/21 19:14 Meropenem 1 gm/ Sodium Chloride 100 ml @ 200 mls/hr Q8HRS IV 10/12/21 22:00 10/13/21 06:00 Daptomycin 500 mg/ Sodium Chloride 50 ml @ 100 mls/hr 1X ONCE IV 10/12/21 21:00 10/12/21 21:29 DC 10/12/21 21:45 Famotidine (Pepcid Vial) 20 mg BID IVP 10/12/21 21:00 10/13/21 09:24 Justifications for Admission Other Justification RE MOJICA III DO October 13, 2021 11:59
[2021-10-13] MEDS ORDERED: ALBUMIN HUMAN 25% 100 ML IV ONE (13:45)
[2021-10-13] MEDS: VANCOMYCIN 125 MG/2.5 ML ORAL SOLUTION. PO SCH ×3 (13:47→21:01)
[2021-10-13] MEDS ORDERED: VITS A & D/LANOLIN TOPICAL OINTMENT 42GM TUBE. TP PRN (14:00)
[2021-10-13] MEDS ORDERED: TIGECYCLINE 100 MG in IV DEXTROSE 5% 100ML 100 ML IV ONE (14:00)
[2021-10-13] MEDS ORDERED: NOREPINEPHRINE VIAL 8 MG in IV DEXTROSE 5% 250 ML IV PRN (15:00)
--- NOTE | 2021-10-13 16:27 | PDOC2 ---
CONSULT Date of Consult Date of Consult DATE: 10/13/21 TIME: 16:20 Reason for Consult Reason for Consult: Bradycardia Referring Physician Referring Physician: Dr. Sanchez Identification/Chief Complaint Chief Complaint Increased confusion and hypotension Source Source: Chart review, Patient History of Present Illness Reason for Visit: The patient is a 71-year-old male who has been previously admitted for a prosthetic knee infection treated with IV antibiotics. He was at a nearby rehab hospital and yesterday became more confused with episodes of hypotension and hypoxia. He was transferred to the emergency room where he was worked up. Initial lab testing showed a hemoglobin hematocrit of 6.9 and 20.9, potassium 5.1, creatinine of 1.5. Chest x-ray showed hazy bilateral airspace disease. He is status post COVID in June of this year. He has been restarted on antibiotics and supportive treatment and this morning is appearing slightly better. His monitor shows a sinus rhythm with rates in the mid 40s to mid 50s. His rate now is 52 beats per minute. Past Medical History Cardiovascular: AFIB, CAD, CHF, HTN, Hyperlipidemia Pulmonary: COPD, Pulmonary embolus, Other CENTRAL NERVOUS SYSTEM: Other GI: GERD Heme/Onc: No pertinent hx Hepatobiliary: No pertinent hx Psych: Depression Musculoskeletal: Osteoarthritis Rheumatologic: No pertinent hx Infectious disease: No pertinent hx, Other (Septic right knee status post replacement procedure) Renal/: No pertinent hx Endocrine: No pertinent hx Past Surgical History Past Surgical History: Hernia Repair, Other (Right knee replacement) Family History Family History: Diabetes, Hypertension Social History No ALCOHOL: none Drugs: None Lives: with Family Current Problem List Problem List Problems Medical Problems: (1) Acute CHF Status: Acute (2) Acute renal insufficiency Status: Acute (3) Anemia Status: Acute (4) Bradycardia Status: Acute (5) Hypotension Status: Acute (6) Hypoxia Status: Acute (7) Respiratory distress Status: Acute Current Medications Current Medications Current Medications Sodium Chloride 1,000 ml @ 1,000 mls/hr 1X ONCE IV Last administered on 10/12/21at 18:00; Start 10/12/21 at 18:00; Stop 10/12/21 at 18:59; Status DC Norepinephrine Bitartrate 8 mg/ Dextrose 258 ml @ 23.607 mls/ hr 1X ONCE IV Last administered on 10/12/21at 18:35; Start 10/12/21 at 18:30; Stop 10/13/21 at 05:25; Status DC Atropine Sulfate (ATROPINE 0.5mg SYRINGE) 0.5 mg 1X ONCE IV Last administered on 10/12/21at 18:55; Start 10/12/21 at 19:00; Stop 10/12/21 at 19:01; Status DC Bumetanide (Bumex) 1 mg 1X ONCE IV Last administered on 10/12/21at 19:14; Start 10/12/21 at 19:30; Stop 10/12/21 at 19:31; Status DC Meropenem 1 gm/ Sodium Chloride 100 ml @ 200 mls/hr Q8HRS IV Last administered on 10/13/21at 13:57; Start 10/12/21 at 22:00 Daptomycin 500 mg/ Sodium Chloride 50 ml @ 100 mls/hr 1X ONCE IV Last administered on 10/12/21at 21:45; Start 10/12/21 at 21:00; Stop 10/12/21 at 21:29; Status DC Acetaminophen (Tylenol) 650 mg PRN Q6HRS PRN PO Headaches, Temp > 101.5'; Start 10/12/21 at 20:15 Lorazepam (Ativan Inj) 0.5 mg PRN Q6HRS PRN IVP ANXIETY / AGITATION; Start 10/12/21 at 20:15 Lorazepam (Ativan) 1 mg PRN Q6HRS PRN PO ANXIETY / AGITATION; Start 10/12/21 at 20:15 Ondansetron HCl (Zofran) 4 mg PRN Q6HRS PRN IVP NAUSEA/VOMITING; Start 10/12/21 at 20:15 Famotidine (Pepcid Vial) 20 mg BID IVP Last administered on 10/13/21at 09:24; Start 10/12/21 at 21:00 Info (Icu Electrolyte Protocol) 1 ea DAILY MC ; Start 10/13/21 at 09:00 Sodium Chloride (Normal Saline Flush) 3 ml QSHIFT PRN IV AFTER MEDS AND BLOOD DRAWS; Start 10/12/21 at 20:15 Morphine Sulfate (Morphine Sulfate) 2 mg PRN Q1HR PRN IV PAIN; Start 10/12/21 at 20:15 Fentanyl Citrate (Fentanyl 2ml Vial) 50 mcg PRN Q1HR PRN IV PAIN, 2ND CHOICE; Start 10/12/21 at 20:15 Tigecycline 50 mg/ Dextrose 50 ml @ 100 mls/hr Q12H IV ; Start 10/14/21 at 02:00 Tigecycline 100 mg/Dextrose 100 ml @ 200 mls/hr 1X ONCE IV Last administered on 10/13/21at 14:47; Start 10/13/21 at 14:00; Stop 10/13/21 at 14:29; Status DC Vancomycin HCl (Vancomycin Oral Solution) 125 mg [id number] PO Last administered on 10/13/21at 13:47; Start 10/13/21 at 13:00 Vitamin A/Vitamin D (Vitamin A & D Ointment) 1 ej PRN Q1HR PRN TP SKIN PROTECTION; Start 10/13/21 at 14:00 Albumin Human 100 ml @ 100 mls/hr 1X ONCE IV Last administered on 10/13/21at 13:56; Start 10/13/21 at 13:45; Stop 10/13/21 at 14:44; Status DC Norepinephrine Bitartrate 8 mg/ Dextrose 258 ml @ 23.936 mls/ hr CONT PRN IV PER PROTOCOL Last administered on 10/13/21at 15:03; Start 10/13/21 at 15:00 Active Scripts Active Diphenoxylate-Atropine Tablet (Diphenoxylate Hcl/Atropine) 1 Each Tablet 1 Tab PO PRN QID PRN 14 Days Toprol XL (Metoprolol Succinate) 50 Mg Tab.er.24h 50 Mg PO DAILY 30 Days Ferrous Sulfate 325 Mg Tablet 1 Tab PO QODAY 30 Days Gabapentin (Gabapentin) 100 Mg Capsule 100 Mg PO Q8HRS 30 Days Reported Bactrim 400-80 Mg Tablet (Sulfamethoxazole/Trimethoprim) 1 Each Tablet 2 Tab PO QID Keflex (Cephalexin) 500 Mg Capsule 1 Cap PO QID Potassium Chloride (Potassium Chloride) 20 Meq Tablet.er 20 Meq PO BID Questran Packet (Cholestyramine (With Sugar)) 4 Gm Powd.pack 1 Packet PO DAILY Duoneb 0.5-3(2.5) Mg/3 Ml (Albuterol/Ipratropium) 3 Ml Ampul.neb 3 Ml NEB Q6HRS Losartan Potassium 100 Mg Tablet 100 Mg PO DAILY Furosemide 80 Mg Tablet 1 Tab PO DAILY Vancocin Hcl (Vancomycin Hcl) 125 Mg Capsule 1 Cap PO QID 3 Days Ventolin Hfa Inhaler (Albuterol Sulfate) 18 Gm Hfa.aer.ad 2 Puff INH Q4HRS Culturelle (Lactobacillus Rhamnosus Gg) 1 Each Cap.sprink 1 Cap PO DAILY 30 Days Vitamin D3 (Vitamin D) 125 Mcg Capsule 125 Mcg PO DAILY 5,000 UNITS = 125 MCG Meloxicam 15 Mg Tablet 15 Mg PO DAILY Diltiazem 24Hr ER (LA) (Diltiazem HCl) 240 Mg Tab.er.24h 120 Mg PO DAILY Amiodarone Hcl 200 Mg Tablet 1 Tab PO DAILY08 Eliquis (Apixaban) 5 Mg Tablet 5 Mg PO BID Atorvastatin Calcium 80 Mg Tablet 1 Tab PO DAILY Tamsulosin Hcl 0.4 Mg Cap.er.24h 0.4 Mg PO DAILY Daily Value (Multivitamin) 1 Each Tablet 1 Each PO DAILY Hydrochlorothiazide Tablet (Hydrochlorothiazide) 25 Mg Tablet 25 Mg PO DAILY Adult Low Dose Aspirin Ec (Aspirin) 81 Mg Tablet.dr 81 Mg PO DAILY Allergies Allergies: Coded Allergies: No Known Drug Allergies (Unverified , 07/02/21) ROS General: YES: Fatigue Neurological: Yes Confusion, Yes Weakness Physical Exam General: mild distress HEENT: Atraumatic Lungs: Other (Mildly decreased breath sounds) Heart: Other (Regular rhythm with a rate of 52) Abdomen: Normal bowel sounds Vitals VITALS Vital Signs Date Time Temp Pulse Resp B/P (MAP) Pulse Ox O2 Delivery O2 Flow Rate FiO2 10/13/21 16:00 Nasal Cannula 5.0 10/13/21 15:00 52 17 80/37 93 10/13/21 15:00 94.3 94.3 Labs Labs Laboratory Tests Test 10/12/21 17:50 10/12/21 18:01 10/12/21 18:40 10/12/21 19:30 White Blood Count 4.0 x10^3/uL (4.0-11.0) Red Blood Count 2.06 x10^6/uL (4.30-5.70) Hemoglobin 6.9 g/dL (13.0-17.5) Hematocrit 20.9 % (39.0-53.0) Mean Corpuscular Volume 101 fL (79-100) Mean Corpuscular Hemoglobin 33 pg (25-35) Mean Corpuscular Hemoglobin Concent 33 g/dL (31-37) Red Cell Distribution Width 22.1 % (11.5-14.5) Platelet Count 221 x10^3/uL (140-400) Prothrombin Time 18.4 SEC (11.7-14.0) Prothromb Time International Ratio 1.6 (0.8-1.1) Activated Partial Thromboplast Time 43 SEC (24-38) Sodium Level 137 mmol/L (136-145) Potassium Level 5.2 mmol/L (3.5-5.1) Chloride Level 106 mmol/L (98-107) Carbon Dioxide Level 27 mmol/L (21-32) Anion Gap 4 (6-14) Blood Urea Nitrogen 58 mg/dL (8-26) Creatinine 1.5 mg/dL (0.7-1.3) Estimated GFR (Cockcroft-Gault) 46.1 BUN/Creatinine Ratio 39 (6-20) Glucose Level 107 mg/dL (70-99) Lactic Acid Level 1.3 mmol/L (0.4-2.0) Calcium Level 7.5 mg/dL (8.5-10.1) Total Bilirubin 0.2 mg/dL (0.2-1.0) Aspartate Amino Transf (AST/SGOT) 48 U/L (15-37) Alanine Aminotransferase (ALT/SGPT) 60 U/L (16-63) Alkaline Phosphatase 140 U/L (46-116) Troponin I High Sensitivity 13 ng/L (4-75) PY-Hty-L-Type Natriuretic Peptide 409 pg/mL (0-124) Total Protein 4.0 g/dL (6.4-8.2) Albumin 1.3 g/dL (3.4-5.0) Albumin/Globulin Ratio 0.5 (1.0-1.7) Lipase 63 U/L (73-393) Glucose (Fingerstick) 120 mg/dL (70-99) Coronavirus (COVID-19)(PCR) Not detected (NOT DETECTD) Influenza Type A Antigen Negative (NEGATIVE) Influenza Type B Antigen Negative (NEGATIVE) SARS-CoV-2 Antigen (Rapid) Negative (NEGATIVE) Urine Collection Type Unknown Urine Color (Auto) Yellow Urine Turbidity Hazy Urine pH (Auto) 5.5 (<5.0-8.0) Urine Specific [place] 1.010 (1.000-1.030) Urine Protein (Auto) Negative mg/dL (Negative) Urine Glucose (Auto)(UA) Negative mg/dL (Negative) Urine Ketones (Auto) Negative mg/dL (Negative) Urine Blood (Auto) Large (Negative) Urine Nitrite Negative (Negative) Urine Bilirubin (Auto) Negative (Negative) Urine Urobilinogen (Auto) Normal mg/dL (Normal) Urine Leukocyte Esterase (Auto) Moderate (Negative) Urine RBC >40 /HPF (0-2) Urine WBC 5-10 /HPF (0-4) Urine Bacteria 0 /HPF (0-FEW) Test 10/13/21 00:21 10/13/21 01:45 10/13/21 08:30 O2 Saturation 95 % (92-99) Arterial Blood pH 7.42 (7.35-7.45) Arterial Blood pCO2 at Patient Temp 39 mmHg (35-46) Arterial Blood pO2 at Patient Temp 84 mmHg (65-108) Arterial Blood HCO3 24 mmol/L (21-28) Arterial Blood Base Excess 0 mmol/L (-3-3) Oxyhemoglobin 94.9 % Methemoglobin 0.1 % (0.0-1.9) Carbon Monoxide, Quantitative 0.2 % (0.0-1.9) FiO2 40 White Blood Count 4.0 x10^3/uL (4.0-11.0) 3.4 x10^3/uL (4.0-11.0) Red Blood Count 2.60 x10^6/uL (4.30-5.70) 2.54 x10^6/uL (4.30-5.70) Hemoglobin 8.4 g/dL (13.0-17.5) 8.2 g/dL (13.0-17.5) Hematocrit 25.6 % (39.0-53.0) 24.6 % (39.0-53.0) Mean Corpuscular Volume 98 fL (79-100) 97 fL (79-100) Mean Corpuscular Hemoglobin 32 pg (25-35) 32 pg (25-35) Mean Corpuscular Hemoglobin Concent 33 g/dL (31-37) 33 g/dL (31-37) Red Cell Distribution Width 22.0 % (11.5-14.5) 21.8 % (11.5-14.5) Platelet Count 237 x10^3/uL (140-400) 246 x10^3/uL (140-400) Neutrophils (%) (Auto) 75 % (31-73) Lymphocytes (%) (Auto) 15 % (24-48) Monocytes (%) (Auto) 7 % (0-9) Eosinophils (%) (Auto) 2 % (0-3) Basophils (%) (Auto) 1 % (0-3) Neutrophils # (Auto) 2.6 x10^3/uL (1.8-7.7) Lymphocytes # (Auto) 0.5 x10^3/uL (1.0-4.8) Monocytes # (Auto) 0.2 x10^3/uL (0.0-1.1) Eosinophils # (Auto) 0.1 x10^3/uL (0.0-0.7) Basophils # (Auto) 0.0 x10^3/uL (0.0-0.2) Urine Collection Type Unknown Urine Color (Auto) Yellow Urine Turbidity Hazy Urine pH (Auto) 6.0 (<5.0-8.0) Urine Specific [place] 1.015 (1.000-1.030) Urine Protein (Auto) Negative mg/dL (Negative) Urine Glucose (Auto)(UA) Negative mg/dL (Negative) Urine Ketones (Auto) Negative mg/dL (Negative) Urine Blood (Auto) Large (Negative) Urine Nitrite (Auto) Negative (Negative) Urine Bilirubin (Auto) Negative (Negative) Urine Urobilinogen (Auto) Normal mg/dL (Normal) Urine Leukocyte Esterase (Auto) Negative (Negative) Urine RBC Tntc /HPF (0-2) Urine WBC Occ /HPF (0-4) Urine Squamous Epithelial Cells Occ /LPF Urine Bacteria 0 /HPF (0-FEW) Urine Hyaline Casts Few /HPF Urine Mucus Slight /LPF Sodium Level 138 mmol/L (136-145) Potassium Level 4.8 mmol/L (3.5-5.1) Chloride Level 106 mmol/L (98-107) Carbon Dioxide Level 28 mmol/L (21-32) Anion Gap 4 (6-14) Blood Urea Nitrogen 50 mg/dL (8-26) Creatinine 1.5 mg/dL (0.7-1.3) Estimated GFR (Cockcroft-Gault) 46.1 Glucose Level 75 mg/dL (70-99) Calcium Level 7.6 mg/dL (8.5-10.1) Magnesium Level 2.1 mg/dL (1.8-2.4) Laboratory Tests Test 10/12/21 17:50 10/12/21 18:01 10/12/21 18:40 10/12/21 19:30 White Blood Count 4.0 x10^3/uL (4.0-11.0) Red Blood Count 2.06 x10^6/uL (4.30-5.70) Hemoglobin 6.9 g/dL (13.0-17.5) Hematocrit 20.9 % (39.0-53.0) Mean Corpuscular Volume 101 fL (79-100) Mean Corpuscular Hemoglobin 33 pg (25-35) Mean Corpuscular Hemoglobin Concent 33 g/dL (31-37) Red Cell Distribution Width 22.1 % (11.5-14.5) Platelet Count 221 x10^3/uL (140-400) Prothrombin Time 18.4 SEC (11.7-14.0) Prothromb Time International Ratio 1.6 (0.8-1.1) Activated Partial Thromboplast Time 43 SEC (24-38) Sodium Level 137 mmol/L (136-145) Potassium Level 5.2 mmol/L (3.5-5.1) Chloride Level 106 mmol/L (98-107) Carbon Dioxide Level 27 mmol/L (21-32) Anion Gap 4 (6-14) Blood Urea Nitrogen 58 mg/dL (8-26) Creatinine 1.5 mg/dL (0.7-1.3) Estimated GFR (Cockcroft-Gault) 46.1 BUN/Creatinine Ratio 39 (6-20) Glucose Level 107 mg/dL (70-99) Lactic Acid Level 1.3 mmol/L (0.4-2.0) Calcium Level 7.5 mg/dL (8.5-10.1) Total Bilirubin 0.2 mg/dL (0.2-1.0) Aspartate Amino Transf (AST/SGOT) 48 U/L (15-37) Alanine Aminotransferase (ALT/SGPT) 60 U/L (16-63) Alkaline Phosphatase 140 U/L (46-116) Troponin I High Sensitivity 13 ng/L (4-75) OR-Swt-K-Type Natriuretic Peptide 409 pg/mL (0-124) Total Protein 4.0 g/dL (6.4-8.2) Albumin 1.3 g/dL (3.4-5.0) Albumin/Globulin Ratio 0.5 (1.0-1.7) Lipase 63 U/L (73-393) Glucose (Fingerstick) 120 mg/dL (70-99) Coronavirus (COVID-19)(PCR) Not detected (NOT DETECTD) Influenza Type A Antigen Negative (NEGATIVE) Influenza Type B Antigen Negative (NEGATIVE) SARS-CoV-2 Antigen (Rapid) Negative (NEGATIVE) Urine Collection Type Unknown Urine Color (Auto) Yellow Urine Turbidity Hazy Urine pH (Auto) 5.5 (<5.0-8.0) Urine Specific [place] 1.010 (1.000-1.030) Urine Protein (Auto) Negative mg/dL (Negative) Urine Glucose (Auto)(UA) Negative mg/dL (Negative) Urine Ketones (Auto) Negative mg/dL (Negative) Urine Blood (Auto) Large (Negative) Urine Nitrite Negative (Negative) Urine Bilirubin (Auto) Negative (Negative) Urine Urobilinogen (Auto) Normal mg/dL (Normal) Urine Leukocyte Esterase (Auto) Moderate (Negative) Urine RBC >40 /HPF (0-2) Urine WBC 5-10 /HPF (0-4) Urine Bacteria 0 /HPF (0-FEW) Test 10/13/21 00:21 10/13/21 01:45 10/13/21 08:30 O2 Saturation 95 % (92-99) Arterial Blood pH 7.42 (7.35-7.45) Arterial Blood pCO2 at Patient Temp 39 mmHg (35-46) Arterial Blood pO2 at Patient Temp 84 mmHg (65-108) Arterial Blood HCO3 24 mmol/L (21-28) Arterial Blood Base Excess 0 mmol/L (-3-3) Oxyhemoglobin 94.9 % Methemoglobin 0.1 % (0.0-1.9) Carbon Monoxide, Quantitative 0.2 % (0.0-1.9) FiO2 40 White Blood Count 4.0 x10^3/uL (4.0-11.0) 3.4 x10^3/uL (4.0-11.0) Red Blood Count 2.60 x10^6/uL (4.30-5.70) 2.54 x10^6/uL (4.30-5.70) Hemoglobin 8.4 g/dL (13.0-17.5) 8.2 g/dL (13.0-17.5) Hematocrit 25.6 % (39.0-53.0) 24.6 % (39.0-53.0) Mean Corpuscular Volume 98 fL (79-100) 97 fL (79-100) Mean Corpuscular Hemoglobin 32 pg (25-35) 32 pg (25-35) Mean Corpuscular Hemoglobin Concent 33 g/dL (31-37) 33 g/dL (31-37) Red Cell Distribution Width 22.0 % (11.5-14.5) 21.8 % (11.5-14.5) Platelet Count 237 x10^3/uL (140-400) 246 x10^3/uL (140-400) Neutrophils (%) (Auto) 75 % (31-73) Lymphocytes (%) (Auto) 15 % (24-48) Monocytes (%) (Auto) 7 % (0-9) Eosinophils (%) (Auto) 2 % (0-3) Basophils (%) (Auto) 1 % (0-3) Neutrophils # (Auto) 2.6 x10^3/uL (1.8-7.7) Lymphocytes # (Auto) 0.5 x10^3/uL (1.0-4.8) Monocytes # (Auto) 0.2 x10^3/uL (0.0-1.1) Eosinophils # (Auto) 0.1 x10^3/uL (0.0-0.7) Basophils # (Auto) 0.0 x10^3/uL (0.0-0.2) Urine Collection Type Unknown Urine Color (Auto) Yellow Urine Turbidity Hazy Urine pH (Auto) 6.0 (<5.0-8.0) Urine Specific [place] 1.015 (1.000-1.030) Urine Protein (Auto) Negative mg/dL (Negative) Urine Glucose (Auto)(UA) Negative mg/dL (Negative) Urine Ketones (Auto) Negative mg/dL (Negative) Urine Blood (Auto) Large (Negative) Urine Nitrite (Auto) Negative (Negative) Urine Bilirubin (Auto) Negative (Negative) Urine Urobilinogen (Auto) Normal mg/dL (Normal) Urine Leukocyte Esterase (Auto) Negative (Negative) Urine RBC Tntc /HPF (0-2) Urine WBC Occ /HPF (0-4) Urine Squamous Epithelial Cells Occ /LPF Urine Bacteria 0 /HPF (0-FEW) Urine Hyaline Casts Few /HPF Urine Mucus Slight /LPF Sodium Level 138 mmol/L (136-145) Potassium Level 4.8 mmol/L (3.5-5.1) Chloride Level 106 mmol/L (98-107) Carbon Dioxide Level 28 mmol/L (21-32) Anion Gap 4 (6-14) Blood Urea Nitrogen 50 mg/dL (8-26) Creatinine 1.5 mg/dL (0.7-1.3) Estimated GFR (Cockcroft-Gault) 46.1 Glucose Level 75 mg/dL (70-99) Calcium Level 7.6 mg/dL (8.5-10.1) Magnesium Level 2.1 mg/dL (1.8-2.4) Images Images Chest x-ray as above. Assessment/Plan Assessment/Plan 1. Possible sepsis. Patient has been restarted on IV antibiotics. Right orthopedic procedure as above. Followed by ID. 2. Bradycardia. History of paroxysmal atrial fibrillation. He is now in a sinus rhythm with a rate to the mid 40s to mid 50s. Had previously been on beta-blockers and possibly calcium blockers. We will hold these. Also history of possible amiodarone at this time would hold amiodarone. Continue present treatment and telemetry. Will check old records. 3. History of reported coronary artery disease. No chest pain. No ischemic EKG changes. 4. History of heart failure. Will check old records. Patient may need a repeat echo. 5. Hyperlipidemia. Will check morning lab. RUBY SÁNCHEZ MD October 13, 2021 16:27
--- NOTE | 2021-10-13 20:00 | CONS ---
DATE OF CONSULTATION: 10/13/2021 REQUESTING PHYSICIAN: Dr. Varela. REASON FOR CONSULTATION: Antibiotic management and hypotension. HISTORY OF PRESENT ILLNESS: This is a 71-year-old gentleman who is very well known to us. The patient had total knee arthroplasty done in June, subsequent fall in July with dehiscence. The patient had MSSA from superficial culture from the knee at [facility]. The patient then was transferred to [place] and I and D and poly exchange was done where the intraoperative culture from the knee with Stenotrophomonas. The patient was treated for that with IV full course and the patient had been on oral Bactrim and Keflex. The patient also had C. diff and he was treated with p.o. vancomycin. Also has had pseudomonas, I believe UTI last admission and he was treated for that. The patient at this time comes in from the [facility] [facility] with changes in mental status and significant hypotension, also bradycardia. The patient required vasopressor support. The patient is currently alert, awake. The patient was found to also have dehydrated with volume depletion. The patient is alert, awake. The patient is able to communicate. He denies any nausea or vomiting. He has had off and on diarrhea. He denies any chest pain, shortness of breath, abdominal pain, headache or visual symptoms. PAST MEDICAL HISTORY: Positive for morbid obesity, total knee arthroplasty and then dehiscence and subsequent I and D, atrial fibrillation, hypertension, COPD, sleep apnea, hyperlipidemia, coronary artery disease, history of C. diff, history of pseudomonas, history of Stenotrophomonas in the knee as well as MSSA superficial culture on the knee. ALLERGIES: No known drug allergies. CURRENT MEDICATIONS: The patient is on meropenem and one dose of daptomycin was given. REVIEW OF SYSTEMS: As per HPI. All other systems reviewed and are negative. PHYSICAL EXAMINATION: GENERAL: Alert and oriented gentleman, not in distress. VITAL SIGNS: Temperature 97.2, pulse 44, respirations 20, blood pressure 132/67. HEENT: Both pupils are round and reacting. No conjunctival lesion. No lesion in the mouth. NECK: Supple. No JVP. No lymphadenopathy. LUNGS: Clear. HEART: S1, S2, regular. ABDOMEN: Soft, nontender. No organomegaly. EXTREMITIES: No edema or cyanosis other than his usual. Right knee has a small superficial wound. No other signs of infection. Joint feels okay. SKIN: Rest of the skin exam is unremarkable. The patient does have femoral central line. NEUROLOGIC: The patient is alert, awake, and appropriate. No focal neurologic deficit. LABORATORY DATA: White count is 3.4, hemoglobin 8.2, platelets are normal. BUN and creatinine are 50 and 1.5. COVID and influenza is negative. Blood cultures are pending. Urine culture is so far negative. Chest x-ray showed bilateral pulmonary infiltrate. IMPRESSION: 1. Severe hypotension, likely multifactorial. The patient has been dehydrated as well as he was bradycardic. 2. Bilateral pulmonary infiltrate. 3. Right knee total arthroplasty in 06/2021, subsequent in July after a fall, wound dehiscence, superficial culture positive with MSSA at [facility] and deep culture with I and D and poly exchange was done here showed Stenotrophomonas. The patient has been on chronic suppression, now with Bactrim and Keflex. 4. History of Clostridium difficile. 5. History of pseudomonas urinary tract infection. 6. Obesity. RECOMMENDATIONS: Continue meropenem. Add Tygacil and p.o. vancomycin. Supportive care and we will follow the cultures. We will check the stool for C. diff and we will continue to follow. Thank you very much, Dr. Varela, for giving me opportunity to participate in this patient's care. YANA/BESSY SANDOVAL: YANA/latricia TID: [id number]
[2021-10-13] MEDS: LACTOBACILLUS RHAMNOSUS GG 1 CAPSULE. PO SCH (21:01)
[2021-10-14] VITALS (15 sets, daily range): BP systolic 100–145; BP diastolic 48–78
[2021-10-14] MEDS: TIGECYCLINE 50 MG in IV DEXTROSE 5% 50 ML IV SCH ×3 (02:02→21:42)
[2021-10-14 05:37] LABS: BASO % 0 % (0-3); EOS # 0.1 x10^3/uL (0.0-0.7); EOS % 5 % (0-3); HEMATOCRIT 22.3 % (39.0-53.0); HEMOGLOBIN 7.5 g/dL (13.0-17.5); LYMPH # 0.6 x10^3/uL (1.0-4.8); LYMPH % 21 % (24-48); MEAN CORPUSCULAR HEMOGLOBIN 32 pg (25-35); MEAN CORPUSCULAR HGB CONC 33 g/dL (31-37); MEAN CORPUSCULAR VOLUME 97 fL (79-100); MONO # 0.3 x10^3/uL (0.0-1.1); MONO % 11 % (0-9); NEUT # 1.7 x10^3/uL (1.8-7.7); NEUT % 63 % (31-73); PLATELET COUNT 244 x10^3/uL (140-400); RED CELL DISTRIBUTION WIDTH 21.5 % (11.5-14.5); WHITE BLOOD COUNT 2.6 x10^3/uL (4.0-11.0)
[2021-10-14 05:53] LABS: ALBUMIN 1.7 g/dL (3.4-5.0); ALBUMIN/GLOBULIN RATIO 0.6 (1.0-1.7); CALCIUM 7.6 mg/dL (8.5-10.1); CREATININE 1.1 mg/dL (0.7-1.3); POTASSIUM 4.5 mmol/L (3.5-5.1); TOTAL BILIRUBIN 0.4 mg/dL (0.2-1.0); TOTAL PROTEIN 4.5 g/dL (6.4-8.2)
[2021-10-14] MEDS: MEROPENEM 1 GM in IV NORMAL SALINE 100ML 100 ML IV SCH ×3 (06:04→22:37)
[2021-10-14] MEDS: LACTOBACILLUS RHAMNOSUS GG 1 CAPSULE. PO SCH ×2 (08:32→21:45)
[2021-10-14] MEDS: FAMOTIDINE 20 MG/2 ML VIAL IVP SCH ×2 (08:32→21:42)
[2021-10-14] MEDS: VANCOMYCIN 125 MG/2.5 ML ORAL SOLUTION. PO SCH ×4 (08:33→21:48)
[2021-10-14] MEDS: ELECTROLYTE (ICU) PROTOCOL. MC SCH (09:00)
--- NOTE | 2021-10-14 10:31 | PDOC ---
Infectious Disease Note Subjective: Subjective Patient states he feels much better today Denies any fever chills nausea vomiting diarrhea abdominal pain Shortness of breath is improving Discussed with RN Vital Signs: Vital Signs Vital Signs Date Time Temp Pulse Resp B/P (MAP) Pulse Ox O2 Delivery O2 Flow Rate FiO2 10/14/21 10:00 56 20 140/65 99 Nasal Cannula 5.0 10/14/21 08:00 97.4 97.4 Physical Exam: PHYSICAL EXAM GENERAL: Alert and oriented gentleman, not in distress. HEENT: Both pupils are round and reacting. No conjunctival lesion. No lesion in the mouth. NECK: Supple. No JVP. No lymphadenopathy. LUNGS: Clear. HEART: S1, S2, regular. ABDOMEN: Soft, nontender. No organomegaly. EXTREMITIES: Bilateral lower extremity and upper extremity edema edema appears to be at baseline, no cyanosis. Right knee has a small superficial wound. No other signs of infection. Joint feels okay. SKIN: No generalized rash the patient does have femoral central line. NEUROLOGIC: The patient is alert, awake, and appropriate. No focal neurologic deficit. PICC line present Medications: Inpatient Meds: Medications reviewed. Labs: Lab Laboratory Tests Test 10/14/21 05:15 White Blood Count 2.6 x10^3/uL (4.0-11.0) Red Blood Count 2.30 x10^6/uL (4.30-5.70) Hemoglobin 7.5 g/dL (13.0-17.5) Hematocrit 22.3 % (39.0-53.0) Mean Corpuscular Volume 97 fL (79-100) Mean Corpuscular Hemoglobin 32 pg (25-35) Mean Corpuscular Hemoglobin Concent 33 g/dL (31-37) Red Cell Distribution Width 21.5 % (11.5-14.5) Platelet Count 244 x10^3/uL (140-400) Neutrophils (%) (Auto) 63 % (31-73) Lymphocytes (%) (Auto) 21 % (24-48) Monocytes (%) (Auto) 11 % (0-9) Eosinophils (%) (Auto) 5 % (0-3) Basophils (%) (Auto) 0 % (0-3) Neutrophils # (Auto) 1.7 x10^3/uL (1.8-7.7) Lymphocytes # (Auto) 0.6 x10^3/uL (1.0-4.8) Monocytes # (Auto) 0.3 x10^3/uL (0.0-1.1) Eosinophils # (Auto) 0.1 x10^3/uL (0.0-0.7) Basophils # (Auto) 0.0 x10^3/uL (0.0-0.2) Sodium Level 140 mmol/L (136-145) Potassium Level 4.5 mmol/L (3.5-5.1) Chloride Level 108 mmol/L (98-107) Carbon Dioxide Level 29 mmol/L (21-32) Anion Gap 3 (6-14) Blood Urea Nitrogen 37 mg/dL (8-26) Creatinine 1.1 mg/dL (0.7-1.3) Estimated GFR (Cockcroft-Gault) 66.0 BUN/Creatinine Ratio 34 (6-20) Glucose Level 62 mg/dL (70-99) Calcium Level 7.6 mg/dL (8.5-10.1) Phosphorus Level 3.0 mg/dL (2.6-4.7) Magnesium Level 2.0 mg/dL (1.8-2.4) Total Bilirubin 0.4 mg/dL (0.2-1.0) Aspartate Amino Transf (AST/SGOT) 45 U/L (15-37) Alanine Aminotransferase (ALT/SGPT) 53 U/L (16-63) Alkaline Phosphatase 139 U/L (46-116) Total Protein 4.5 g/dL (6.4-8.2) Albumin 1.7 g/dL (3.4-5.0) Albumin/Globulin Ratio 0.6 (1.0-1.7) Objective: Assessment: LABORATORY DATA: White count is 3.4, hemoglobin 8.2, platelets are normal. BUN and creatinine are 50 and 1.5. COVID and influenza is negative. Blood cultures are pending. Urine culture is so far negative. Chest x-ray showed bilateral pulmonary infiltrate. 1. Severe hypotension, likely multifactorial. 2. Bilateral pulmonary infiltrates appears CHF 3. Right knee total arthroplasty in 06/2021, subsequent in July after a fall, wound dehiscence, superficial culture positive with MSSA at [facility] and deep culture with I and D and poly exchange was done here showed Stenotrophomonas. Patient completed IV therapy. The patient has been on chronic suppression, now with Bactrim and Keflex. 4. History of Clostridium difficile. 5. History of pseudomonas urinary tract infection. 6. Obesity. Plan: Plan of Care Continue meropenem ,Tygacil and p.o. vancomycin. DC femoral line Supportive care and we will follow the cultures. Follow-up C. difficile PCR Monitor labs and cultures Continue supportive care Continue local wound care as directed Discussed with BRUNO MENDOZA MD October 14, 2021 10:31
[2021-10-14] MEDS ORDERED: ALTEPLASE 2MG VIAL 5 MG in IV NORMAL SALINE 50ML 30 ML IV ONE (11:30)
[2021-10-14] MEDS ORDERED: ALTEPLASE 2 MG VIAL INT CAT ONE (12:00)
[2021-10-14] MEDS ORDERED: FUROSEMIDE 20 MG/2 ML VIAL. IVP ONE ×2 (12:30→16:00)
--- NOTE | 2021-10-14 12:49 | PDOC ---
[facility] PROGRESS NOTE Date of Service DOS: DATE: 10/14/21 TIME: 12:47 Chief Complaint Chief Complaint Sepsis Bradycardia Severe edema Likely respiratory failure with hypoxia Hospital-acquired pneumonia Anemia Hx C. difficile History bacteremia History of Present Illness History of Present Illness 10/15/2019 Patient seen and examined in the ICU Currently on IV tigecycline FiO2 requirements are down to 3 L from 5 yesterday Still bradycardic at 54 bpm Has Vasques to bedside drain Discussed with RN Chart reviewed 10/13/2021 Patient seen and examined in the ICU He is quite edematous has 3+ edema on his feet He also has bradycardia this morning in the 40s Infectious disease following he has IV meropenem hanging He got 1 dose of Bumex in the emergency department Has Vasques to bedside drainage Discussed with RN Chart reviewed We will go ahead and consult cardiology for his bradycardia Vitals/I&O Vitals/I&O: Vital Signs Date Time Temp Pulse Resp B/P (MAP) Pulse Ox O2 Delivery O2 Flow Rate FiO2 10/14/21 12:13 57 20 126/68 96 Nasal Cannula 5.0 10/14/21 08:00 97.4 97.4 I & O 10/13/21 10/13/21 10/14/21 15:00 23:00 07:00 Intake Total 780 ml 814 ml 50 ml Output Total 1875 ml 1050 ml 665 ml Balance -1095 ml -236 ml -615 ml Physical Exam Physical Exam: GENERAL: Alert and oriented gentleman, not in distress. HEENT: Both pupils are round and reacting. No conjunctival lesion. No lesion in the mouth. NECK: Supple. No JVP. No lymphadenopathy. LUNGS: Clear. HEART: S1, S2, regular. ABDOMEN: Soft, nontender. No organomegaly. EXTREMITIES: Bilateral lower extremity and upper extremity edema edema appears to be at baseline, no cyanosis. Right knee has a small superficial wound. No other signs of infection. Joint feels okay. SKIN: No generalized rash the patient does have femoral central line. NEUROLOGIC: The patient is alert, awake, and appropriate. No focal neurologic deficit. PICC line present General: mild distress Heart: Other (Regular rhythm with a rate of 52) Lungs: Clear, Other Abdomen: Normal bowel sounds Extremities: No clubbing, Other (3+ lower extremity edema) Skin: No rashes Labs Labs: Laboratory Tests Test 10/14/21 05:15 White Blood Count 2.6 x10^3/uL (4.0-11.0) Red Blood Count 2.30 x10^6/uL (4.30-5.70) Hemoglobin 7.5 g/dL (13.0-17.5) Hematocrit 22.3 % (39.0-53.0) Mean Corpuscular Volume 97 fL (79-100) Mean Corpuscular Hemoglobin 32 pg (25-35) Mean Corpuscular Hemoglobin Concent 33 g/dL (31-37) Red Cell Distribution Width 21.5 % (11.5-14.5) Platelet Count 244 x10^3/uL (140-400) Neutrophils (%) (Auto) 63 % (31-73) Lymphocytes (%) (Auto) 21 % (24-48) Monocytes (%) (Auto) 11 % (0-9) Eosinophils (%) (Auto) 5 % (0-3) Basophils (%) (Auto) 0 % (0-3) Neutrophils # (Auto) 1.7 x10^3/uL (1.8-7.7) Lymphocytes # (Auto) 0.6 x10^3/uL (1.0-4.8) Monocytes # (Auto) 0.3 x10^3/uL (0.0-1.1) Eosinophils # (Auto) 0.1 x10^3/uL (0.0-0.7) Basophils # (Auto) 0.0 x10^3/uL (0.0-0.2) Sodium Level 140 mmol/L (136-145) Potassium Level 4.5 mmol/L (3.5-5.1) Chloride Level 108 mmol/L (98-107) Carbon Dioxide Level 29 mmol/L (21-32) Anion Gap 3 (6-14) Blood Urea Nitrogen 37 mg/dL (8-26) Creatinine 1.1 mg/dL (0.7-1.3) Estimated GFR (Cockcroft-Gault) 66.0 BUN/Creatinine Ratio 34 (6-20) Glucose Level 62 mg/dL (70-99) Calcium Level 7.6 mg/dL (8.5-10.1) Phosphorus Level 3.0 mg/dL (2.6-4.7) Magnesium Level 2.0 mg/dL (1.8-2.4) Total Bilirubin 0.4 mg/dL (0.2-1.0) Aspartate Amino Transf (AST/SGOT) 45 U/L (15-37) Alanine Aminotransferase (ALT/SGPT) 53 U/L (16-63) Alkaline Phosphatase 139 U/L (46-116) Total Protein 4.5 g/dL (6.4-8.2) Albumin 1.7 g/dL (3.4-5.0) Albumin/Globulin Ratio 0.6 (1.0-1.7) Assessment and Plan Assessmemt and Plan Problems Medical Problems: (1) Acute CHF Status: Acute (2) Acute renal insufficiency Status: Acute (3) Anemia Status: Acute (4) Bradycardia Status: Acute (5) Hypotension Status: Acute (6) Hypoxia Status: Acute (7) Respiratory distress Status: Acute Sepsis Bradycardia Severe edema Likely respiratory failure with hypoxia Hospital-acquired pneumonia Anemia Hx C. difficile History bacteremia Plan: ICU monitoring Appreciate cardiology input Appreciate ID input Continue IV antibiotics Plus/ minus IV diuretics Await cultures Home meds DVT prophylaxis Trend labs Encourage p.o. intake FEN - Cardiac diet PPX - SCDs FULL CODE/surrogate decision-maker is his son (Doug Capps) Dispo - inpatient for above. Comment Review of Relevant I have reviewed the following items rajeev (where applicable) has been applied. Medications: Current Medications Medications (Trade) Dose Ordered Sig/Renetta Route PRN Reason Start Time Stop Time Status Last Admin Dose Admin Tigecycline 50 mg/ Dextrose 50 ml @ 100 mls/hr Q12H IV 10/14/21 02:00 10/14/21 11:35 Tigecycline 100 mg/Dextrose 100 ml @ 200 mls/hr 1X ONCE IV 10/13/21 14:00 10/13/21 14:29 DC 10/13/21 14:47 Vancomycin HCl (Vancomycin Oral Solution) 125 mg [id number] PO 10/13/21 13:00 10/14/21 08:33 Albumin Human 100 ml @ 100 mls/hr 1X ONCE IV 10/13/21 13:45 10/13/21 14:44 DC 10/13/21 13:56 Norepinephrine Bitartrate 8 mg/ Dextrose 258 ml @ 23.936 mls/ hr CONT PRN IV PER PROTOCOL 10/13/21 15:00 10/13/21 15:03 Lactobacillus Rhamnosus (Culturelle) 1 cap BID PO 10/13/21 21:00 10/14/21 08:32 Justifications for Admission Other Justification RE MOJICA III DO October 14, 2021 12:49
--- NOTE | 2021-10-14 13:39 | PDOC ---
PROGRESS NOTES Date of Service DATE: 10/14/21 TIME: 13:37 Subjective Subjective Patient seen and examined He looks and feels better today. Objective Objective Vital Signs Date Time Temp Pulse Resp B/P (MAP) Pulse Ox O2 Delivery O2 Flow Rate FiO2 10/14/21 12:13 57 20 126/68 96 Nasal Cannula 5.0 10/14/21 08:00 97.4 97.4 Intake and Output 10/14/21 07:00 Intake Total 1644 ml Output Total 3590 ml Balance -1946 ml Intake Oral 1245 ml IV Total 399 ml Output Urine Total 3590 ml Physical Exam Abdomen: Normal bowel sounds Heart: Regular rate General: mild distress Lungs: Other (Mildly decreased breath sounds) Assessment Assessment Problems Medical Problems: (1) Acute CHF Status: Acute (2) Acute renal insufficiency Status: Acute (3) Anemia Status: Acute (4) Bradycardia Status: Acute (5) Hypotension Status: Acute (6) Hypoxia Status: Acute (7) Respiratory distress Status: Acute 1. Possible sepsis. Patient has been restarted on IV antibiotics. The patient looks and feels better today. Followed by ID. 2. Bradycardia. History of paroxysmal atrial fibrillation. Patient's heart rate has improved and is now in the mid 50s. Holding beta-blockers and calcium channel blockers. Also holding amiodarone at this time. 3. History of reported coronary artery disease. No chest pain. No ischemic EKG changes. 4. History of heart failure. Feeling better today as above. Will check old records. Patient may need a repeat echo. 5. Hyperlipidemia. Lab pending. Comment Review of Relevant I have reviewed the following items rajeev (where applicable) has been applied. Labs Laboratory Tests Test 10/12/21 17:50 10/12/21 18:01 10/12/21 18:40 10/12/21 19:30 White Blood Count 4.0 x10^3/uL (4.0-11.0) Red Blood Count 2.06 x10^6/uL (4.30-5.70) Hemoglobin 6.9 g/dL (13.0-17.5) Hematocrit 20.9 % (39.0-53.0) Mean Corpuscular Volume 101 fL (79-100) Mean Corpuscular Hemoglobin 33 pg (25-35) Mean Corpuscular Hemoglobin Concent 33 g/dL (31-37) Red Cell Distribution Width 22.1 % (11.5-14.5) Platelet Count 221 x10^3/uL (140-400) Prothrombin Time 18.4 SEC (11.7-14.0) Prothromb Time International Ratio 1.6 (0.8-1.1) Activated Partial Thromboplast Time 43 SEC (24-38) Sodium Level 137 mmol/L (136-145) Potassium Level 5.2 mmol/L (3.5-5.1) Chloride Level 106 mmol/L (98-107) Carbon Dioxide Level 27 mmol/L (21-32) Anion Gap 4 (6-14) Blood Urea Nitrogen 58 mg/dL (8-26) Creatinine 1.5 mg/dL (0.7-1.3) Estimated GFR (Cockcroft-Gault) 46.1 BUN/Creatinine Ratio 39 (6-20) Glucose Level 107 mg/dL (70-99) Lactic Acid Level 1.3 mmol/L (0.4-2.0) Calcium Level 7.5 mg/dL (8.5-10.1) Total Bilirubin 0.2 mg/dL (0.2-1.0) Aspartate Amino Transf (AST/SGOT) 48 U/L (15-37) Alanine Aminotransferase (ALT/SGPT) 60 U/L (16-63) Alkaline Phosphatase 140 U/L (46-116) Troponin I High Sensitivity 13 ng/L (4-75) TB-Siw-V-Type Natriuretic Peptide 409 pg/mL (0-124) Total Protein 4.0 g/dL (6.4-8.2) Albumin 1.3 g/dL (3.4-5.0) Albumin/Globulin Ratio 0.5 (1.0-1.7) Lipase 63 U/L (73-393) Glucose (Fingerstick) 120 mg/dL (70-99) Coronavirus (COVID-19)(PCR) Not detected (NOT DETECTD) Influenza Type A Antigen Negative (NEGATIVE) Influenza Type B Antigen Negative (NEGATIVE) SARS-CoV-2 Antigen (Rapid) Negative (NEGATIVE) Urine Collection Type Unknown Urine Color (Auto) Yellow Urine Turbidity Hazy Urine pH (Auto) 5.5 (<5.0-8.0) Urine Specific Mark [place] 1.010 (1.000-1.030) Urine Protein (Auto) Negative mg/dL (Negative) Urine Glucose (Auto)(UA) Negative mg/dL (Negative) Urine Ketones (Auto) Negative mg/dL (Negative) Urine Blood (Auto) Large (Negative) Urine Nitrite Negative (Negative) Urine Bilirubin (Auto) Negative (Negative) Urine Urobilinogen (Auto) Normal mg/dL (Normal) Urine Leukocyte Esterase (Auto) Moderate (Negative) Urine RBC >40 /HPF (0-2) Urine WBC 5-10 /HPF (0-4) Urine Bacteria 0 /HPF (0-FEW) Test 10/13/21 00:21 10/13/21 01:45 10/13/21 08:30 10/14/21 05:15 O2 Saturation 95 % (92-99) Arterial Blood pH 7.42 (7.35-7.45) Arterial Blood pCO2 at Patient Temp 39 mmHg (35-46) Arterial Blood pO2 at Patient Temp 84 mmHg (65-108) Arterial Blood HCO3 24 mmol/L (21-28) Arterial Blood Base Excess 0 mmol/L (-3-3) Oxyhemoglobin 94.9 % Methemoglobin 0.1 % (0.0-1.9) Carbon Monoxide, Quantitative 0.2 % (0.0-1.9) FiO2 40 White Blood Count 4.0 x10^3/uL (4.0-11.0) 3.4 x10^3/uL (4.0-11.0) 2.6 x10^3/uL (4.0-11.0) Red Blood Count 2.60 x10^6/uL (4.30-5.70) 2.54 x10^6/uL (4.30-5.70) 2.30 x10^6/uL (4.30-5.70) Hemoglobin 8.4 g/dL (13.0-17.5) 8.2 g/dL (13.0-17.5) 7.5 g/dL (13.0-17.5) Hematocrit 25.6 % (39.0-53.0) 24.6 % (39.0-53.0) 22.3 % (39.0-53.0) Mean Corpuscular Volume 98 fL (79-100) 97 fL (79-100) 97 fL (79-100) Mean Corpuscular Hemoglobin 32 pg (25-35) 32 pg (25-35) 32 pg (25-35) Mean Corpuscular Hemoglobin Concent 33 g/dL (31-37) 33 g/dL (31-37) 33 g/dL (31-37) Red Cell Distribution Width 22.0 % (11.5-14.5) 21.8 % (11.5-14.5) 21.5 % (11.5-14.5) Platelet Count 237 x10^3/uL (140-400) 246 x10^3/uL (140-400) 244 x10^3/uL (140-400) Neutrophils (%) (Auto) 75 % (31-73) 63 % (31-73) Lymphocytes (%) (Auto) 15 % (24-48) 21 % (24-48) Monocytes (%) (Auto) 7 % (0-9) 11 % (0-9) Eosinophils (%) (Auto) 2 % (0-3) 5 % (0-3) Basophils (%) (Auto) 1 % (0-3) 0 % (0-3) Neutrophils # (Auto) 2.6 x10^3/uL (1.8-7.7) 1.7 x10^3/uL (1.8-7.7) Lymphocytes # (Auto) 0.5 x10^3/uL (1.0-4.8) 0.6 x10^3/uL (1.0-4.8) Monocytes # (Auto) 0.2 x10^3/uL (0.0-1.1) 0.3 x10^3/uL (0.0-1.1) Eosinophils # (Auto) 0.1 x10^3/uL (0.0-0.7) 0.1 x10^3/uL (0.0-0.7) Basophils # (Auto) 0.0 x10^3/uL (0.0-0.2) 0.0 x10^3/uL (0.0-0.2) Urine Collection Type Unknown Urine Color (Auto) Yellow Urine Turbidity Hazy Urine pH (Auto) 6.0 (<5.0-8.0) Urine Specific Mark Center 1.015 (1.000-1.030) Urine Protein (Auto) Negative mg/dL (Negative) Urine Glucose (Auto)(UA) Negative mg/dL (Negative) Urine Ketones (Auto) Negative mg/dL (Negative) Urine Blood (Auto) Large (Negative) Urine Nitrite (Auto) Negative (Negative) Urine Bilirubin (Auto) Negative (Negative) Urine Urobilinogen (Auto) Normal mg/dL (Normal) Urine Leukocyte Esterase (Auto) Negative (Negative) Urine RBC Tntc /HPF (0-2) Urine WBC Occ /HPF (0-4) Urine Squamous Epithelial Cells Occ /LPF Urine Bacteria 0 /HPF (0-FEW) Urine Hyaline Casts Few /HPF Urine Mucus Slight /LPF Sodium Level 138 mmol/L (136-145) 140 mmol/L (136-145) Potassium Level 4.8 mmol/L (3.5-5.1) 4.5 mmol/L (3.5-5.1) Chloride Level 106 mmol/L (98-107) 108 mmol/L (98-107) Carbon Dioxide Level 28 mmol/L (21-32) 29 mmol/L (21-32) Anion Gap 4 (6-14) 3 (6-14) Blood Urea Nitrogen 50 mg/dL (8-26) 37 mg/dL (8-26) Creatinine 1.5 mg/dL (0.7-1.3) 1.1 mg/dL (0.7-1.3) Estimated GFR (Cockcroft-Gault) 46.1 66.0 Glucose Level 75 mg/dL (70-99) 62 mg/dL (70-99) Calcium Level 7.6 mg/dL (8.5-10.1) 7.6 mg/dL (8.5-10.1) Magnesium Level 2.1 mg/dL (1.8-2.4) 2.0 mg/dL (1.8-2.4) BUN/Creatinine Ratio 34 (6-20) Phosphorus Level 3.0 mg/dL (2.6-4.7) Total Bilirubin 0.4 mg/dL (0.2-1.0) Aspartate Amino Transf (AST/SGOT) 45 U/L (15-37) Alanine Aminotransferase (ALT/SGPT) 53 U/L (16-63) Alkaline Phosphatase 139 U/L (46-116) Total Protein 4.5 g/dL (6.4-8.2) Albumin 1.7 g/dL (3.4-5.0) Albumin/Globulin Ratio 0.6 (1.0-1.7) Laboratory Tests Test 10/14/21 05:15 White Blood Count 2.6 x10^3/uL (4.0-11.0) Red Blood Count 2.30 x10^6/uL (4.30-5.70) Hemoglobin 7.5 g/dL (13.0-17.5) Hematocrit 22.3 % (39.0-53.0) Mean Corpuscular Volume 97 fL (79-100) Mean Corpuscular Hemoglobin 32 pg (25-35) Mean Corpuscular Hemoglobin Concent 33 g/dL (31-37) Red Cell Distribution Width 21.5 % (11.5-14.5) Platelet Count 244 x10^3/uL (140-400) Neutrophils (%) (Auto) 63 % (31-73) Lymphocytes (%) (Auto) 21 % (24-48) Monocytes (%) (Auto) 11 % (0-9) Eosinophils (%) (Auto) 5 % (0-3) Basophils (%) (Auto) 0 % (0-3) Neutrophils # (Auto) 1.7 x10^3/uL (1.8-7.7) Lymphocytes # (Auto) 0.6 x10^3/uL (1.0-4.8) Monocytes # (Auto) 0.3 x10^3/uL (0.0-1.1) Eosinophils # (Auto) 0.1 x10^3/uL (0.0-0.7) Basophils # (Auto) 0.0 x10^3/uL (0.0-0.2) Sodium Level 140 mmol/L (136-145) Potassium Level 4.5 mmol/L (3.5-5.1) Chloride Level 108 mmol/L (98-107) Carbon Dioxide Level 29 mmol/L (21-32) Anion Gap 3 (6-14) Blood Urea Nitrogen 37 mg/dL (8-26) Creatinine 1.1 mg/dL (0.7-1.3) Estimated GFR (Cockcroft-Gault) 66.0 BUN/Creatinine Ratio 34 (6-20) Glucose Level 62 mg/dL (70-99) Calcium Level 7.6 mg/dL (8.5-10.1) Phosphorus Level 3.0 mg/dL (2.6-4.7) Magnesium Level 2.0 mg/dL (1.8-2.4) Total Bilirubin 0.4 mg/dL (0.2-1.0) Aspartate Amino Transf (AST/SGOT) 45 U/L (15-37) Alanine Aminotransferase (ALT/SGPT) 53 U/L (16-63) Alkaline Phosphatase 139 U/L (46-116) Total Protein 4.5 g/dL (6.4-8.2) Albumin 1.7 g/dL (3.4-5.0) Albumin/Globulin Ratio 0.6 (1.0-1.7) Microbiology 10/12/21 Urine Culture - Final, Complete 10/12/21 Blood Culture - Preliminary, Resulted NO GROWTH AFTER 1 DAY Medications Current Medications Sodium Chloride 1,000 ml @ 1,000 mls/hr 1X ONCE IV Last administered on 10/12/21at 18:00; Start 10/12/21 at 18:00; Stop 10/12/21 at 18:59; Status DC Norepinephrine Bitartrate 8 mg/ Dextrose 258 ml @ 23.607 mls/ hr 1X ONCE IV Last administered on 10/12/21at 18:35; Start 10/12/21 at 18:30; Stop 10/13/21 at 05:25; Status DC Atropine Sulfate (ATROPINE 0.5mg SYRINGE) 0.5 mg 1X ONCE IV Last administered on 10/12/21at 18:55; Start 10/12/21 at 19:00; Stop 10/12/21 at 19:01; Status DC Bumetanide (Bumex) 1 mg 1X ONCE IV Last administered on 10/12/21at 19:14; Start 10/12/21 at 19:30; Stop 10/12/21 at 19:31; Status DC Meropenem 1 gm/ Sodium Chloride 100 ml @ 200 mls/hr Q8HRS IV Last administered on 10/14/21at 13:25; Start 10/12/21 at 22:00 Daptomycin 500 mg/ Sodium Chloride 50 ml @ 100 mls/hr 1X ONCE IV Last administered on 10/12/21at 21:45; Start 10/12/21 at 21:00; Stop 10/12/21 at 21:29; Status DC Acetaminophen (Tylenol) 650 mg PRN Q6HRS PRN PO Headaches, Temp > 101.5'; Start 10/12/21 at 20:15 Lorazepam (Ativan Inj) 0.5 mg PRN Q6HRS PRN IVP ANXIETY / AGITATION; Start 10/12/21 at 20:15 Lorazepam (Ativan) 1 mg PRN Q6HRS PRN PO ANXIETY / AGITATION; Start 10/12/21 at 20:15 Ondansetron HCl (Zofran) 4 mg PRN Q6HRS PRN IVP NAUSEA/VOMITING; Start 10/12/21 at 20:15 Famotidine (Pepcid Vial) 20 mg BID IVP Last administered on 10/14/21at 08:32; Start 10/12/21 at 21:00 Info (Icu Electrolyte Protocol) 1 ea DAILY MC ; Start 10/13/21 at 09:00 Sodium Chloride (Normal Saline Flush) 3 ml QSHIFT PRN IV AFTER MEDS AND BLOOD DRAWS; Start 10/12/21 at 20:15 Morphine Sulfate (Morphine Sulfate) 2 mg PRN Q1HR PRN IV PAIN; Start 10/12/21 at 20:15 Fentanyl Citrate (Fentanyl 2ml Vial) 50 mcg PRN Q1HR PRN IV PAIN, 2ND CHOICE; Start 10/12/21 at 20:15 Tigecycline 50 mg/ Dextrose 50 ml @ 100 mls/hr Q12H IV Last administered on 10/14/21at 11:35; Start 10/14/21 at 02:00 Tigecycline 100 mg/Dextrose 100 ml @ 200 mls/hr 1X ONCE IV Last administered on 10/13/21at 14:47; Start 10/13/21 at 14:00; Stop 10/13/21 at 14:29; Status DC Vancomycin HCl (Vancomycin Oral Solution) 125 mg [id number] PO Last administered on 10/14/21at 13:25; Start 10/13/21 at 13:00 Vitamin A/Vitamin D (Vitamin A & D Ointment) 1 ej PRN Q1HR PRN TP SKIN PROTECTION; Start 10/13/21 at 14:00 Albumin Human 100 ml @ 100 mls/hr 1X ONCE IV Last administered on 10/13/21at 13:56; Start 10/13/21 at 13:45; Stop 10/13/21 at 14:44; Status DC Norepinephrine Bitartrate 8 mg/ Dextrose 258 ml @ 23.936 mls/ hr CONT PRN IV PER PROTOCOL Last administered on 10/13/21at 15:03; Start 10/13/21 at 15:00 Lactobacillus Rhamnosus (Culturelle) 1 cap BID PO Last administered on 10/14/21at 08:32; Start 10/13/21 at 21:00 Alteplase, Recombinant 5 mg/ Sodium Chloride 30 ml @ 30 mls/hr 1X ONCE IV ; Start 10/14/21 at 11:30; Stop 10/14/21 at 12:29; Status UNV Alteplase, Recombinant (Cathflo) 2 mg 1X ONCE INT CAT Last administered on 10/14/21at 13:26; Start 10/14/21 at 12:00; Stop 10/14/21 at 12:01; Status DC Furosemide (Lasix) 20 mg 1X ONCE IVP Last administered on 10/14/21at 13:25; Sta rt 10/14/21 at 12:30; Stop 10/14/21 at 12:32; Status DC Furosemide (Lasix) 20 mg 1X ONCE IVP ; Start 10/14/21 at 16:00; Stop 10/14/21 at 16:01 Active Scripts Active Diphenoxylate-Atropine Tablet (Diphenoxylate Hcl/Atropine) 1 Each Tablet 1 Tab PO PRN QID PRN 14 Days Toprol XL (Metoprolol Succinate) 50 Mg Tab.er.24h 50 Mg PO DAILY 30 Days Ferrous Sulfate 325 Mg Tablet 1 Tab PO QODAY 30 Days Gabapentin (Gabapentin) 100 Mg Capsule 100 Mg PO Q8HRS 30 Days Reported Bactrim 400-80 Mg Tablet (Sulfamethoxazole/Trimethoprim) 1 Each Tablet 2 Tab PO QID Keflex (Cephalexin) 500 Mg Capsule 1 Cap PO QID Potassium Chloride (Potassium Chloride) 20 Meq Tablet.er 20 Meq PO BID Questran Packet (Cholestyramine (With Sugar)) 4 Gm Powd.pack 1 Packet PO DAILY Duoneb 0.5-3(2.5) Mg/3 Ml (Albuterol/Ipratropium) 3 Ml Ampul.neb 3 Ml NEB Q6HRS Losartan Potassium 100 Mg Tablet 100 Mg PO DAILY Furosemide 80 Mg Tablet 1 Tab PO DAILY Vancocin Hcl (Vancomycin Hcl) 125 Mg Capsule 1 Cap PO QID 3 Days Ventolin Hfa Inhaler (Albuterol Sulfate) 18 Gm Hfa.aer.ad 2 Puff INH Q4HRS Culturelle (Lactobacillus Rhamnosus Gg) 1 Each Cap.sprink 1 Cap PO DAILY 30 Days Vitamin D3 (Vitamin D) 125 Mcg Capsule 125 Mcg PO DAILY 5,000 UNITS = 125 MCG Meloxicam 15 Mg Tablet 15 Mg PO DAILY Diltiazem 24Hr ER (LA) (Diltiazem HCl) 240 Mg Tab.er.24h 120 Mg PO DAILY Amiodarone Hcl 200 Mg Tablet 1 Tab PO DAILY08 Eliquis (Apixaban) 5 Mg Tablet 5 Mg PO BID Atorvastatin Calcium 80 Mg Tablet 1 Tab PO DAILY Tamsulosin Hcl 0.4 Mg Cap.er.24h 0.4 Mg PO DAILY Daily Value (Multivitamin) 1 Each Tablet 1 Each PO DAILY Hydrochlorothiazide Tablet (Hydrochlorothiazide) 25 Mg Tablet 25 Mg PO DAILY Adult Low Dose Aspirin Ec (Aspirin) 81 Mg Tablet.dr 81 Mg PO DAILY Vitals/I & O Vital Sign - Last 24 Hours 10/13/21 10/13/21 10/13/21 10/13/21 14:00 15:00 15:00 15:15 Temp 93.4 94.3 93.4 94.3 Pulse 52 52 54 Resp 18 17 18 B/P (MAP) 80/37 80/37 99/59 Pulse Ox 93 93 93 O2 Delivery Nasal Cannula BiPAP/CPAP Nasal Cannula O2 Flow Rate 5.0 5.0 10/13/21 10/13/21 10/13/21 10/13/21 16:00 16:00 16:15 17:00 Temp 97.4 97.4 Pulse 56 54 58 Resp 20 20 18 B/P (MAP) 124/65 118/61 120/62 Pulse Ox 93 96 96 O2 Delivery Nasal Cannula Nasal Cannula Nasal Cannula Nasal Cannula O2 Flow Rate 5.0 5.0 5.0 5.0 10/13/21 10/13/21 10/13/21 10/13/21 17:15 18:00 18:41 19:00 Pulse 58 60 60 59 Resp 17 17 18 20 B/P (MAP) 116/55 105/60 133/67 139/74 Pulse Ox 91 94 94 95 O2 Delivery Nasal Cannula Nasal Cannula Nasal Cannula Nasal Cannula O2 Flow Rate 5.0 5.0 5.0 5.0 10/13/21 10/13/21 10/13/21 10/13/21 20:00 20:00 20:15 20:30 Temp 97.5 97.5 Pulse 60 Resp 22 B/P (MAP) 129/57 129/45 110/51 Pulse Ox 99 O2 Delivery Nasal Cannula Nasal Cannula O2 Flow Rate 5.0 5.0 10/13/21 10/13/21 10/13/21 10/13/21 21:00 22:00 23:00 23:35 Pulse 60 54 56 Resp 20 22 21 B/P (MAP) 110/51 99/49 126/60 Pulse Ox 93 95 94 98 O2 Delivery Nasal Cannula Nasal Cannula BiPAP/CPAP BiPAP/CPAP O2 Flow Rate 5.0 5.0 10/14/21 10/14/21 10/14/21 10/14/21 00:00 00:00 01:00 01:44 Temp 97.3 97.3 Pulse 60 54 Resp 20 B/P (MAP) 115/60 100/48 Pulse Ox 96 97 99 O2 Delivery BiPAP/CPAP Bi-pap BiPAP/CPAP BiPAP/CPAP 10/14/21 10/14/21 10/14/21 10/14/21 02:00 03:00 03:35 04:00 Pulse 50 48 Resp 21 B/P (MAP) 107/51 100/53 Pulse Ox 99 97 93 O2 Delivery BiPAP/CPAP BiPAP/CPAP BiPAP/CPAP Nasal Cannula O2 Flow Rate 5.0 10/14/21 10/14/21 10/14/21 10/14/21 04:00 05:00 05:39 06:00 Temp 97.3 97.3 Pulse 60 55 58 Resp 20 22 20 B/P (MAP) 104/56 118/55 111/59 Pulse Ox 93 94 95 95 O2 Delivery Nasal Cannula BiPAP/CPAP BiPAP/CPAP Nasal Cannula O2 Flow Rate 5.0 5.0 10/14/21 10/14/21 10/14/21 10/14/21 07:00 08:00 08:00 08:00 Temp 97.4 97.4 Pulse 60 60 64 Resp 18 20 20 B/P (MAP) 129/56 145/78 125/64 Pulse Ox 95 94 96 O2 Delivery Nasal Cannula Nasal Cannula Nasal Cannula Nasal Cannula O2 Flow Rate 5.0 5.0 5.0 5.0 10/14/21 10/14/21 10/14/21 09:00 10:00 12:13 Pulse 55 56 57 Resp 20 20 20 B/P (MAP) 140/67 140/65 126/68 Pulse Ox 96 99 96 O2 Delivery Nasal Cannula Nasal Cannula Nasal Cannula O2 Flow Rate 5.0 5.0 5.0 Intake and Output 10/13/21 10/13/21 10/14/21 15:00 23:00 07:00 Intake Total 780 ml 814 ml 50 ml Output Total 1875 ml 1050 ml 665 ml Balance -1095 ml -236 ml -615 ml Justifications for Admission Other Justification RUBY SÁNCHEZ MD October 14, 2021 13:39
[2021-10-15 02:20] VITALS: BP 119/61
[2021-10-15] MEDS: MEROPENEM 1 GM in IV NORMAL SALINE 100ML 100 ML IV SCH ×3 (05:17→21:46)
[2021-10-15 05:19] LABS: CALCIUM 7.5 mg/dL (8.5-10.1); GFR 73.7
[2021-10-15 05:36] LABS: BASO % 1 % (0-3); EOS # 0.2 x10^3/uL (0.0-0.7); EOS % 6 % (0-3); HEMATOCRIT 23.6 % (39.0-53.0); HEMOGLOBIN 7.8 g/dL (13.0-17.5); LYMPH # 0.7 x10^3/uL (1.0-4.8); LYMPH % 22 % (24-48); MEAN CORPUSCULAR HEMOGLOBIN 32 pg (25-35); MEAN CORPUSCULAR HGB CONC 33 g/dL (31-37); MEAN CORPUSCULAR VOLUME 97 fL (79-100); MONO # 0.3 x10^3/uL (0.0-1.1); MONO % 11 % (0-9); NEUT # 1.9 x10^3/uL (1.8-7.7); NEUT % 61 % (31-73); PLATELET COUNT 262 x10^3/uL (140-400); RED BLOOD COUNT 2.43 x10^6/uL (4.30-5.70); RED CELL DISTRIBUTION WIDTH 21.7 % (11.5-14.5); WHITE BLOOD COUNT 3.1 x10^3/uL (4.0-11.0)
[2021-10-15 07:00] VITALS: BP 160/76
[2021-10-15] MEDS: ELECTROLYTE (ICU) PROTOCOL. MC SCH (09:00)
[2021-10-15] MEDS: TIGECYCLINE 50 MG in IV DEXTROSE 5% 50 ML IV SCH (09:48)
[2021-10-15] MEDS: VANCOMYCIN 125 MG/2.5 ML ORAL SOLUTION. PO SCH ×3 (09:49→20:31)
[2021-10-15] MEDS: LACTOBACILLUS RHAMNOSUS GG 1 CAPSULE. PO SCH ×2 (09:50→20:31)
[2021-10-15] MEDS: FAMOTIDINE 20 MG/2 ML VIAL IVP SCH (09:50)
--- NOTE | 2021-10-15 10:57 | PDOC ---
[facility] PROGRESS NOTE Date of Service DOS: DATE: 10/15/21 TIME: 10:34 Chief Complaint Chief Complaint Sepsis Bradycardia Severe edema Likely respiratory failure with hypoxia Hospital-acquired pneumonia Anemia Hx C. difficile History bacteremia Pulmonary infiltrates - likely CHF S/p Right knee total arthroplasty in 06/2021 - had a fall in July with wound dehiscence, superficial culture positive with MSSA at [facility] and deep culture with I and D and poly exchange then positive for Stenotrophomonas. Completed IV therapy. On chronic Bactrim + Keflex. History of pseudomonas urinary tract infection. Obesity. History of Present Illness History of Present Illness 10/13: Patient seen and examined in the ICU. He is quite edematous has 3+ edema on his feet. He also has bradycardia this morning in the 40s. Infectious disease following he has IV meropenem hanging. He got 1 dose of Bumex in the emergency department. Has deras 10/14: Patient seen and examined in the ICU, Currently on IV tigecycline, FiO2 requirements are down to 3 L from 5 yesterday, Still bradycardic at 54 bpm, Has Deras to bedside drain 10/15: Patient seen and examined CBC. Still on O2 was on BiPAP overnight. He is asking to discharge home he wants to stop aggressive treatment and go home in a wheelchair he is asked for referral to hospice but he does want to talk to his first. I have attempted to dissuade him and assess whether this is a depressive episode. He notes he is requested this on 3 separate occasions since July for his multiple hospitalizations but his has previously asked him to continue doing treatment. Vitals/I&O Vitals/I&O: Vital Signs Date Time Temp Pulse Resp B/P (MAP) Pulse Ox O2 Delivery O2 Flow Rate FiO2 10/15/21 08:19 94 Nasal Cannula 3.0 10/15/21 07:00 98.0 56 21 160/76 (104) 98.0 I & O 10/14/21 10/14/21 10/15/21 15:00 23:00 07:00 Intake Total 675 ml 900 ml 0 ml Output Total 1070 ml 1600 ml 1150 ml Balance -395 ml -700 ml -1150 ml Physical Exam Physical Exam: GENERAL: Alert and oriented gentleman, not in distress. HEENT: Both pupils are round and reacting. No conjunctival lesion. No lesion in the mouth. NECK: Supple. No JVP. No lymphadenopathy. LUNGS: Clear. HEART: S1, S2, regular. ABDOMEN: Soft, nontender. No organomegaly. EXTREMITIES: Bilateral lower extremity and upper extremity edema edema appears to be at baseline, no cyanosis. Right knee has a small superficial wound. No other signs of infection. Joint feels okay. SKIN: No generalized rash the patient does have femoral central line. NEUROLOGIC: The patient is alert, awake, and appropriate. No focal neurologic deficit. PICC line present General: mild distress Heart: Regular rate Lungs: Clear, Other Abdomen: Normal bowel sounds Extremities: No clubbing, Other (3+ lower extremity edema) Skin: No rashes Labs Labs: Laboratory Tests Test 10/15/21 04:50 White Blood Count 3.1 x10^3/uL (4.0-11.0) Red Blood Count 2.43 x10^6/uL (4.30-5.70) Hemoglobin 7.8 g/dL (13.0-17.5) Hematocrit 23.6 % (39.0-53.0) Mean Corpuscular Volume 97 fL (79-100) Mean Corpuscular Hemoglobin 32 pg (25-35) Mean Corpuscular Hemoglobin Concent 33 g/dL (31-37) Red Cell Distribution Width 21.7 % (11.5-14.5) Platelet Count 262 x10^3/uL (140-400) Neutrophils (%) (Auto) 61 % (31-73) Lymphocytes (%) (Auto) 22 % (24-48) Monocytes (%) (Auto) 11 % (0-9) Eosinophils (%) (Auto) 6 % (0-3) Basophils (%) (Auto) 1 % (0-3) Neutrophils # (Auto) 1.9 x10^3/uL (1.8-7.7) Lymphocytes # (Auto) 0.7 x10^3/uL (1.0-4.8) Monocytes # (Auto) 0.3 x10^3/uL (0.0-1.1) Eosinophils # (Auto) 0.2 x10^3/uL (0.0-0.7) Basophils # (Auto) 0.0 x10^3/uL (0.0-0.2) Sodium Level 140 mmol/L (136-145) Potassium Level 4.0 mmol/L (3.5-5.1) Chloride Level 106 mmol/L (98-107) Carbon Dioxide Level 30 mmol/L (21-32) Anion Gap 4 (6-14) Blood Urea Nitrogen 26 mg/dL (8-26) Creatinine 1.0 mg/dL (0.7-1.3) Estimated GFR (Cockcroft-Gault) 73.7 Glucose Level 57 mg/dL (70-99) Calcium Level 7.5 mg/dL (8.5-10.1) Assessment and Plan Assessmemt and Plan Problems Medical Problems: (1) Acute CHF Status: Acute (2) Acute renal insufficiency Status: Acute (3) Anemia Status: Acute (4) Bradycardia Status: Acute (5) Hypotension Status: Acute (6) Hypoxia Status: Acute (7) Respiratory distress Status: Acute Comment Review of Relevant I have reviewed the following items rajeev (where applicable) has been applied. Medications: Current Medications Medications (Trade) Dose Ordered Sig/Renetta Route PRN Reason Start Time Stop Time Status Last Admin Dose Admin Alteplase, Recombinant (Cathflo) 2 mg 1X ONCE INT CAT 10/14/21 12:00 10/14/21 12:01 DC 10/14/21 13:26 Furosemide (Lasix) 20 mg 1X ONCE IVP 10/14/21 12:30 10/14/21 12:32 DC 10/14/21 13:25 Furosemide (Lasix) 20 mg 1X ONCE IVP 10/14/21 16:00 10/14/21 16:01 DC 10/14/21 16:28 Justifications for Admission Other Justification DARIO FARRELL MD October 15, 2021 10:57
[2021-10-15 11:00] VITALS: BP 105/68
--- NOTE | 2021-10-15 11:19 | PDOC ---
ANNE HENRIQUEZ INSTRUMENTATION SPECIALIST 10/15/21 1119: CARDIO Progress Notes Date and Time Date of Service 10/15/21 Time of Evaluation 1115 Subjective Subjective: No Chest Pain, No Palpitations, No Dizziness, Other (expresses desire to be done taking meds and being poked. ) Vitals Vitals Vital Signs Date Time Temp Pulse Resp B/P (MAP) Pulse Ox O2 Delivery O2 Flow Rate FiO2 10/15/21 11:00 98.0 62 21 105/68 (80) 93 Nasal Cannula 3.0 98.0 Weight Weight [ ] Input and Output Intake and Output Intake and Output 10/15/21 07:00 Intake Total 1575 ml Output Total 3820 ml Balance -2245 ml Intake Oral 1575 ml Output Urine Total 3820 ml Laboratory Labs Laboratory Tests Test 10/15/21 04:50 White Blood Count 3.1 x10^3/uL (4.0-11.0) Red Blood Count 2.43 x10^6/uL (4.30-5.70) Hemoglobin 7.8 g/dL (13.0-17.5) Hematocrit 23.6 % (39.0-53.0) Mean Corpuscular Volume 97 fL (79-100) Mean Corpuscular Hemoglobin 32 pg (25-35) Mean Corpuscular Hemoglobin Concent 33 g/dL (31-37) Red Cell Distribution Width 21.7 % (11.5-14.5) Platelet Count 262 x10^3/uL (140-400) Neutrophils (%) (Auto) 61 % (31-73) Lymphocytes (%) (Auto) 22 % (24-48) Monocytes (%) (Auto) 11 % (0-9) Eosinophils (%) (Auto) 6 % (0-3) Basophils (%) (Auto) 1 % (0-3) Neutrophils # (Auto) 1.9 x10^3/uL (1.8-7.7) Lymphocytes # (Auto) 0.7 x10^3/uL (1.0-4.8) Monocytes # (Auto) 0.3 x10^3/uL (0.0-1.1) Eosinophils # (Auto) 0.2 x10^3/uL (0.0-0.7) Basophils # (Auto) 0.0 x10^3/uL (0.0-0.2) Sodium Level 140 mmol/L (136-145) Potassium Level 4.0 mmol/L (3.5-5.1) Chloride Level 106 mmol/L (98-107) Carbon Dioxide Level 30 mmol/L (21-32) Anion Gap 4 (6-14) Blood Urea Nitrogen 26 mg/dL (8-26) Creatinine 1.0 mg/dL (0.7-1.3) Estimated GFR (Cockcroft-Gault) 73.7 Glucose Level 57 mg/dL (70-99) Calcium Level 7.5 mg/dL (8.5-10.1) Microbiology Micro Microbiology 10/13/21 Gram Stain - Final, Resulted 10/13/21 Aerobic and Anaerobic Culture - Preliminary, Resulted 10/12/21 Urine Culture - Final, Complete 10/12/21 Blood Culture - Preliminary, Resulted NO GROWTH AFTER 2 DAYS Physical Exam HEENT: Neck Supple W Full Motion Chest: Symmetric LUNGS: Other (diminished bases) Heart: RRR (SR) Abdomen: Soft N/T, Other (obese) Extremities: Other (anasarca) Neurology: alert, oriented, follow commands Assessment Assessment 1. Sinus bradycardia; HR in 40's upon arrival. Metoprolol and Cardizem held. resolved 2. PAFIB; presently SR 3. H/o hypertension presenting with hypotension 4. CAD with known CAUSTIC LOADER of the RCA with [id number] collaterals. 5. Acute on chronic diastolic CHF; s/p IV Lasix 6. H/o cardiomyopathy; suspected to be tachy-mediated. Recent echo with LV recovery with an EF of 50-55% 7. Hyperlipidemia; statin 8. S/p Right TKA 06/2021; s/p fall 07/31 with wound dehiscence. s/p I and D and poly exchange due to MSSA infection. On chronic Bactrim + Keflex. 9. ROX; improved 10. Anemia; s/p transfusion. hgb stable 11. Vasques, hematuria 12. Protein calorie malnutrition, anasarca Recommendations BB, CCB held due to bradycardia Hydralazine IV PRN Consider addition of amiodarone for rhythm maintenance as patient has a history of PAFIB and cannot tolerate AV shereen blocking agents at this time No ASA/anticoagulation with anemia requiring transfusion and hematuria Patient considering comfort measures/Hospice, but would like to discussed with Supportive care Edmondfation of Admission Dx: Justifications for Admission: Justification of Admission Dx: Yes CASSIE GARCIA MD 10/15/21 1810: CARDIO Progress Notes Assessment Assessment Patient seen and examined. Agree with CIVIL ENGINEERING PROJECT MANAGER's assessment and plan. PAF presently SR Bradycardia resolved after holding BB and CCB Patient poor candidate for residential anticoagulation Considering comfort care ANNE HENRIQUEZ APRN October 15, 2021 11:19 CASSIE GARCIA MD October 15, 2021 18:10
--- NOTE | 2021-10-15 13:58 | PDOC ---
Infectious Disease Note Subjective: Subjective Patient states he feels much better today Vital Signs: Vital Signs Vital Signs Date Time Temp Pulse Resp B/P (MAP) Pulse Ox O2 Delivery O2 Flow Rate FiO2 10/15/21 11:00 98.0 62 21 105/68 (80) 93 Nasal Cannula 3.0 98.0 Physical Exam: PHYSICAL EXAM GENERAL: Alert and oriented gentleman, not in distress. HEENT: Both pupils are round and reacting. No conjunctival lesion. No lesion in the mouth. NECK: Supple. No JVP. No lymphadenopathy. LUNGS: Clear. HEART: S1, S2, regular. ABDOMEN: Soft, nontender. No organomegaly. EXTREMITIES: Bilateral lower extremity and upper extremity edema edema appears to be at baseline, no cyanosis. Right knee has a small superficial wound. No other signs of infection. Joint feels okay. SKIN: No generalized rash the patient does have femoral central line. NEUROLOGIC: The patient is alert, awake, and appropriate. No focal neurologic deficit. PICC line present femoral line removed Medications: Inpatient Meds: Medications reviewed. Labs: Lab Laboratory Tests Test 10/15/21 04:50 White Blood Count 3.1 x10^3/uL (4.0-11.0) Red Blood Count 2.43 x10^6/uL (4.30-5.70) Hemoglobin 7.8 g/dL (13.0-17.5) Hematocrit 23.6 % (39.0-53.0) Mean Corpuscular Volume 97 fL (79-100) Mean Corpuscular Hemoglobin 32 pg (25-35) Mean Corpuscular Hemoglobin Concent 33 g/dL (31-37) Red Cell Distribution Width 21.7 % (11.5-14.5) Platelet Count 262 x10^3/uL (140-400) Neutrophils (%) (Auto) 61 % (31-73) Lymphocytes (%) (Auto) 22 % (24-48) Monocytes (%) (Auto) 11 % (0-9) Eosinophils (%) (Auto) 6 % (0-3) Basophils (%) (Auto) 1 % (0-3) Neutrophils # (Auto) 1.9 x10^3/uL (1.8-7.7) Lymphocytes # (Auto) 0.7 x10^3/uL (1.0-4.8) Monocytes # (Auto) 0.3 x10^3/uL (0.0-1.1) Eosinophils # (Auto) 0.2 x10^3/uL (0.0-0.7) Basophils # (Auto) 0.0 x10^3/uL (0.0-0.2) Sodium Level 140 mmol/L (136-145) Potassium Level 4.0 mmol/L (3.5-5.1) Chloride Level 106 mmol/L (98-107) Carbon Dioxide Level 30 mmol/L (21-32) Anion Gap 4 (6-14) Blood Urea Nitrogen 26 mg/dL (8-26) Creatinine 1.0 mg/dL (0.7-1.3) Estimated GFR (Cockcroft-Gault) 73.7 Glucose Level 57 mg/dL (70-99) Calcium Level 7.5 mg/dL (8.5-10.1) Objective: Assessment: 1. Severe hypotension, likely multifactorial. 2. Bilateral pulmonary infiltrates appears CHF 3. Right knee total arthroplasty in 06/2021, subsequent in July after a fall, wound dehiscence, superficial culture positive with MSSA at [facility] and deep culture with I and D and poly exchange was done here showed Stenotrophomonas. Patient completed IV therapy. The patient has been on chronic suppression, now with Bactrim and Keflex. 4. History of Clostridium difficile. 5. History of pseudomonas urinary tract infection. 6. Obesity. Plan: Plan of Care Continue meropenem DC tigecycline, restart Bactrim p.o. vancomycin twice daily. Femoral line DC'd C. difficile negative Monitor labs and cultures Continue supportive care Continue local wound care as directed Discussed with BRUNO MENDOZA MD October 15, 2021 13:58
[2021-10-15 15:00] VITALS: BP 188/86
--- NOTE | 2021-10-15 15:27 | NUR ---
SS following for discharge planning. SS reviewed pt chart and discussed with pt RN. Pt is skilled rehabilitation resident from [facility], ; fax [phone]. Pt is currently requiring oxygen at three liters nasal canula. COVID19 negative. Pt on IV Meropenem. PT/OT ordered. Pt spoke with Dr. Momin this morning and is considering hospice. Pt reported that he will make decision by tomorrow. SS will continue to follow for discharge planning.
[2021-10-15] MEDS ORDERED: hydrALAZINE 20 MG/ML VIAL. IVP PRN (16:15)
--- NOTE | 2021-10-15 18:10 | NUR ---
Wound/Ostomy Care Wound Type/Assessment: Patient seen per wound care consult. See wound assessment. Patient comes from for rehab regaridng a right knee replacement. Patient has right knee wound dehiscence that is small and slough covered, Hydrofera Blue being used for this wound per patient. Patient has IAD to right buttock, intertrigo to sacrum, and a stage III pressure ulcer to urethral opening most likely from catheter. Patient states none of these wounds are causing him any pain. During assessment patient brief removed and patient had bright red blood coming from rectum and there was a large clot in the brief. RN notified and this is a new finding. Patient argumentative stating that the bleeding was from the wound because he was not cleansed well enough at facility. Patient then again was informed this was a not from the wound. All wounds cleansed, assessed, measured. Treatment Recommendations/Plan: Recommendations to cleanse all wounds and pat dry. Apply A&D ointment to sacrum, buttock, and penis wounds BID and PRN. Hydrofera Blue to be applied to the right knee and covered with foam dressing. Change every other day. Dressings applied, and brief changed. No other wounds noted. Education provided: Patient educated on dressing changes and PU treatment and management. Offloading surface/device: Patient is able to assist with turning and bilateral heels floated using pillows. Recommended Referrals/Tests: N/A Discharge Recommendations for dressings: Dressing change instructions left in room as well as Hydrofera blue for dressing changes. Bed lowered and call light in reach. Wound care will follow up on 10/24/21.
[2021-10-15 19:23] VITALS: BP 167/79
[2021-10-15] MEDS: SMZ/TMP 800/160MG TABLET. PO SCH (20:31)
[2021-10-15] MEDS: FAMOTIDINE 20 MG TABLET. PO SCH (20:31)
[2021-10-15 22:43] VITALS: BP 123/69
[2021-10-16] VITALS (7 sets, daily range): BP systolic 127–198; BP diastolic 66–94
[2021-10-16 04:52] LABS: BASO % 1 % (0-3); EOS # 0.3 x10^3/uL (0.0-0.7); EOS % 9 % (0-3); HEMATOCRIT 24.9 % (39.0-53.0); HEMOGLOBIN 8.5 g/dL (13.0-17.5); LYMPH # 0.9 x10^3/uL (1.0-4.8); LYMPH % 28 % (24-48); MEAN CORPUSCULAR HEMOGLOBIN 33 pg (25-35); MEAN CORPUSCULAR HGB CONC 34 g/dL (31-37); MEAN CORPUSCULAR VOLUME 97 fL (79-100); MONO # 0.4 x10^3/uL (0.0-1.1); MONO % 11 % (0-9); NEUT # 1.6 x10^3/uL (1.8-7.7); NEUT % 51 % (31-73); PLATELET COUNT 267 x10^3/uL (140-400); RED BLOOD COUNT 2.57 x10^6/uL (4.30-5.70); RED CELL DISTRIBUTION WIDTH 21.2 % (11.5-14.5); WHITE BLOOD COUNT 3.2 x10^3/uL (4.0-11.0)
[2021-10-16] MEDS: MEROPENEM 1 GM in IV NORMAL SALINE 100ML 100 ML IV SCH ×3 (05:07→21:47)
[2021-10-16] MEDS: LACTOBACILLUS RHAMNOSUS GG 1 CAPSULE. PO SCH ×2 (08:22→20:28)
[2021-10-16] MEDS: SMZ/TMP 800/160MG TABLET. PO SCH ×2 (08:23→20:28)
[2021-10-16] MEDS: FAMOTIDINE 20 MG TABLET. PO SCH ×2 (08:23→20:28)
[2021-10-16] MEDS: VANCOMYCIN 125 MG/2.5 ML ORAL SOLUTION. PO SCH ×2 (08:24→20:28)
[2021-10-16] MEDS: ELECTROLYTE (ICU) PROTOCOL. MC SCH (09:00)
--- NOTE | 2021-10-16 10:35 | NUR ---
SS following up with discharge planning. SS reviewed pt chart and discussed with pt RN. Pt is currently requiring oxygen at three liters nasal canula. Pt on IV Meropenem. COVID19 negative. PT/OT ordered. Pt is skilled rehabilitation resident from [facility], ; fax [phone]. Pt also considering hospice at home. SS met with pt this morning and discussed. Pt reported that he needs to speak with his spouse in regards to his options. Pt reported that he may go back to [facility] for continued therapy pending his conversation with his spouse. Pt encouraged to work with PT/OT. Physician notified. SS will continue to follow for discharge planning.
--- NOTE | 2021-10-16 11:20 | PDOC ---
ANNE HENRIQUEZ TRAVELING FREIGHT AGENT 10/16/21 1120: CARDIO Progress Notes Date and Time Date of Service 10/16/21 Time of Evaluation 1115 Subjective Subjective: No Chest Pain, No Palpitations, No Dizziness Vitals Vitals Vital Signs Date Time Temp Pulse Resp B/P (MAP) Pulse Ox O2 Delivery O2 Flow Rate FiO2 10/16/21 08:00 Nasal Cannula 2.5 10/16/21 07:00 97.5 63 20 151/77 (101) 92 97.5 Weight Weight [ ] Input and Output Intake and Output Intake and Output 10/16/21 07:00 Intake Total 840 ml Output Total 1200 ml Balance -360 ml Intake Oral 640 ml IV Total 200 ml Output Urine Total 1200 ml # Bowel Movements 2 Laboratory Labs Laboratory Tests Test 10/16/21 04:48 White Blood Count 3.2 x10^3/uL (4.0-11.0) Red Blood Count 2.57 x10^6/uL (4.30-5.70) Hemoglobin 8.5 g/dL (13.0-17.5) Hematocrit 24.9 % (39.0-53.0) Mean Corpuscular Volume 97 fL (79-100) Mean Corpuscular Hemoglobin 33 pg (25-35) Mean Corpuscular Hemoglobin Concent 34 g/dL (31-37) Red Cell Distribution Width 21.2 % (11.5-14.5) Platelet Count 267 x10^3/uL (140-400) Neutrophils (%) (Auto) 51 % (31-73) Lymphocytes (%) (Auto) 28 % (24-48) Monocytes (%) (Auto) 11 % (0-9) Eosinophils (%) (Auto) 9 % (0-3) Basophils (%) (Auto) 1 % (0-3) Neutrophils # (Auto) 1.6 x10^3/uL (1.8-7.7) Lymphocytes # (Auto) 0.9 x10^3/uL (1.0-4.8) Monocytes # (Auto) 0.4 x10^3/uL (0.0-1.1) Eosinophils # (Auto) 0.3 x10^3/uL (0.0-0.7) Basophils # (Auto) 0.0 x10^3/uL (0.0-0.2) Microbiology Micro Microbiology 5/7/22 Gram Stain - Final, Resulted 10/13/21 Aerobic and Anaerobic Culture - Preliminary, Resulted 10/12/21 Urine Culture - Final, Complete 10/12/21 Blood Culture - Preliminary, Resulted NO GROWTH AFTER 3 DAYS Physical Exam HEENT: Neck Supple W Full Motion Chest: Symmetric LUNGS: Other (diminished bases) Heart: RRR (SR) Abdomen: Soft N/T, Other (obese) Extremities: Other (anasarca) Neurology: alert, oriented, follow commands Assessment Assessment 1. Sinus bradycardia; HR in 40's upon arrival. Metoprolol and Cardizem held. resolved 2. PAFIB; presently SR 3. Hypotension; upon presentation- now hypertensive 4. CAD with known GROUP THERAPIST of the RCA with [id number] collaterals. 5. Acute on chronic diastolic CHF; s/p IV Lasix 6. H/o cardiomyopathy; suspected to be tachy-mediated. Recent echo with LV recovery with an EF of 50-55% 7. Hyperlipidemia; statin 8. S/p Right TKA 06/2021; s/p fall 07/31 with wound dehiscence. s/p I and D and poly exchange due to MSSA infection. On chronic Bactrim + Keflex. 9. ROX; improved 10. Anemia; s/p transfusion. hgb stable 11. Vasques, hematuria 12. Protein calorie malnutrition, anasarca Recommendations BB, CCB held due to bradycardia Consider addition of amiodarone for rhythm maintenance as patient has a history of PAFIB and cannot tolerate AV shereen blocking agents at this time No ASA/anticoagulation with anemia requiring transfusion and hematuria Add lisinopril for BP control Supportive care Justicifation of Admission Dx: Justifications for Admission: Justification of Admission Dx: Yes CASSIE GARCIA MD 10/16/21 1444: CARDIO Progress Notes Assessment Assessment Patient seen and examined. Agree with RIVER TRANSPORTATION WORKER's assessment and plan. PAF presently SR Bradycardia resolved after holding BB and CCB Patient poor candidate for tank terminal gauger anticoagulation ANNE HENRIQUEZ APRN October 16, 2021 11:20 CASSIE GARCIA MD October 16, 2021 14:44
--- NOTE | 2021-10-16 11:45 | PDOC ---
[employer] PROGRESS NOTE Date of Service DOS: DATE: 10/16/21 TIME: 11:43 Chief Complaint Chief Complaint Sepsis Bradycardia Severe edema Likely respiratory failure with hypoxia Hospital-acquired pneumonia Anemia Hx C. difficile History bacteremia Pulmonary infiltrates - likely CHF S/p Right knee total arthroplasty in 06/2021 - had a fall in July with wound dehiscence, superficial culture positive with MSSA at [facility] and deep culture with I and D and poly exchange then positive for Stenotrophomonas. Completed IV therapy. On chronic Bactrim + Keflex. History of pseudomonas urinary tract infection. Obesity. History of Present Illness History of Present Illness 10/13: Patient seen and examined in the ICU. He is quite edematous has 3+ edema on his feet. He also has bradycardia this morning in the 40s. Infectious disease following he has IV meropenem hanging. He got 1 dose of Bumex in the emergency department. Has dears 10/14: Patient seen and examined in the ICU, Currently on IV tigecycline, FiO2 requirements are down to 3 L from 5 yesterday, Still bradycardic at 54 bpm, Has Deras to bedside drain 10/15: Patient seen and examined CBC. Still on O2 was on BiPAP overnight. He is asking to discharge home he wants to stop aggressive treatment and go home in a wheelchair he is asked for referral to hospice but he does want to talk to his first. I have attempted to dissuade him and assess whether this is a depressive episode. He notes he is requested this on 3 separate occasions since July for his multiple hospitalizations but his has previously asked him to continue doing treatment. 10/16: Back on Bactrim. Blood pressure improved confusion improved. Wore his home CPAP last night. He is less depressed today and wants to continue rehab with this depressive episode he had asked to wait on therapy Vitals/I&O Vitals/I&O: Vital Signs Date Time Temp Pulse Resp B/P (MAP) Pulse Ox O2 Delivery O2 Flow Rate FiO2 10/16/21 11:00 97.4 61 20 184/89 (120) 94 Nasal Cannula 3.0 97.4 I & O 10/15/21 10/15/21 10/16/21 15:00 23:00 07:00 Intake Total 360 ml 380 ml 100 ml Output Total 600 ml 600 ml Balance 360 ml -220 ml -500 ml Physical Exam Physical Exam: GENERAL: Alert and oriented gentleman, not in distress. HEENT: Both pupils are round and reacting. No conjunctival lesion. No lesion in the mouth. NECK: Supple. No JVP. No lymphadenopathy. LUNGS: Clear. HEART: S1, S2, regular. ABDOMEN: Soft, nontender. No organomegaly. EXTREMITIES: Bilateral lower extremity and upper extremity edema edema appears to be at baseline, no cyanosis. Right knee has a small superficial wound. No other signs of infection. Joint feels okay. SKIN: No generalized rash the patient does have femoral central line. NEUROLOGIC: The patient is alert, awake, and appropriate. No focal neurologic deficit. PICC line present femoral line removed General: mild distress Heart: Regular rate Lungs: Clear, Other Abdomen: Normal bowel sounds Extremities: No clubbing, Other (3+ lower extremity edema) Skin: No rashes Labs Labs: Laboratory Tests Test 10/16/21 04:48 White Blood Count 3.2 x10^3/uL (4.0-11.0) Red Blood Count 2.57 x10^6/uL (4.30-5.70) Hemoglobin 8.5 g/dL (13.0-17.5) Hematocrit 24.9 % (39.0-53.0) Mean Corpuscular Volume 97 fL (79-100) Mean Corpuscular Hemoglobin 33 pg (25-35) Mean Corpuscular Hemoglobin Concent 34 g/dL (31-37) Red Cell Distribution Width 21.2 % (11.5-14.5) Platelet Count 267 x10^3/uL (140-400) Neutrophils (%) (Auto) 51 % (31-73) Lymphocytes (%) (Auto) 28 % (24-48) Monocytes (%) (Auto) 11 % (0-9) Eosinophils (%) (Auto) 9 % (0-3) Basophils (%) (Auto) 1 % (0-3) Neutrophils # (Auto) 1.6 x10^3/uL (1.8-7.7) Lymphocytes # (Auto) 0.9 x10^3/uL (1.0-4.8) Monocytes # (Auto) 0.4 x10^3/uL (0.0-1.1) Eosinophils # (Auto) 0.3 x10^3/uL (0.0-0.7) Basophils # (Auto) 0.0 x10^3/uL (0.0-0.2) Assessment and Plan Assessmemt and Plan Problems Medical Problems: (1) Acute CHF Status: Acute (2) Acute renal insufficiency Status: Acute (3) Anemia Status: Acute (4) Bradycardia Status: Acute (5) Hypotension Status: Acute (6) Hypoxia Status: Acute (7) Respiratory distress Status: Acute Comment Review of Relevant I have reviewed the following items rajeev (where applicable) has been applied. Medications: Current Medications Medications (Trade) Dose Ordered Sig/Renetta Route PRN Reason Start Time Stop Time Status Last Admin Dose Admin Famotidine (Pepcid) 20 mg BID PO 10/15/21 21:00 10/16/21 08:23 Vancomycin HCl (Vancomycin Oral Solution) 125 mg BID PO 10/15/21 21:00 10/16/21 08:24 Trimethoprim/ Sulfamethoxazole (Bactrim Ds) 1 tab BID PO 10/15/21 21:00 10/16/21 08:23 Justifications for Admission Other Justification DARIO FARRELL MD October 16, 2021 11:45
[2021-10-16] MEDS: LISINOPRIL 20 MG TABLET PO SCH (13:41)
--- NOTE | 2021-10-16 15:57 | PDOC ---
Infectious Disease Note Subjective: Subjective Patient without complaints Vital Signs: Vital Signs Vital Signs Date Time Temp Pulse Resp B/P (MAP) Pulse Ox O2 Delivery O2 Flow Rate FiO2 10/16/21 15:00 97.9 62 20 168/87 (114) 92 Nasal Cannula 3.0 97.9 Physical Exam: PHYSICAL EXAM GENERAL: Alert and oriented gentleman, not in distress. HEENT: Both pupils are round and reacting. No conjunctival lesion. No lesion in the mouth. NECK: Supple. No JVP. No lymphadenopathy. LUNGS: Clear. HEART: S1, S2, regular. ABDOMEN: Soft, nontender. No organomegaly. EXTREMITIES: Bilateral lower extremity and upper extremity edema edema appears to be at baseline, no cyanosis. Right knee has a small superficial wound. No other signs of infection. Joint feels okay. SKIN: No generalized rash the patient does have femoral central line. NEUROLOGIC: The patient is alert, awake, and appropriate. No focal neurologic deficit. PICC line present femoral line removed Medications: Inpatient Meds: Medications reviewed. Labs: Lab Laboratory Tests Test 10/16/21 04:48 White Blood Count 3.2 x10^3/uL (4.0-11.0) Red Blood Count 2.57 x10^6/uL (4.30-5.70) Hemoglobin 8.5 g/dL (13.0-17.5) Hematocrit 24.9 % (39.0-53.0) Mean Corpuscular Volume 97 fL (79-100) Mean Corpuscular Hemoglobin 33 pg (25-35) Mean Corpuscular Hemoglobin Concent 34 g/dL (31-37) Red Cell Distribution Width 21.2 % (11.5-14.5) Platelet Count 267 x10^3/uL (140-400) Neutrophils (%) (Auto) 51 % (31-73) Lymphocytes (%) (Auto) 28 % (24-48) Monocytes (%) (Auto) 11 % (0-9) Eosinophils (%) (Auto) 9 % (0-3) Basophils (%) (Auto) 1 % (0-3) Neutrophils # (Auto) 1.6 x10^3/uL (1.8-7.7) Lymphocytes # (Auto) 0.9 x10^3/uL (1.0-4.8) Monocytes # (Auto) 0.4 x10^3/uL (0.0-1.1) Eosinophils # (Auto) 0.3 x10^3/uL (0.0-0.7) Basophils # (Auto) 0.0 x10^3/uL (0.0-0.2) Objective: Assessment: 1. Severe hypotension, likely multifactorial. 2. Bilateral pulmonary infiltrates appears CHF 3. Right knee total arthroplasty in 06/2021, subsequent in July after a fall, wound dehiscence, superficial culture positive with MSSA at [facility] and deep culture with I and D and poly exchange was done here showed Stenotrophomonas. Patient completed IV therapy. The patient has been on chronic suppression, now with Bactrim and Keflex. 4. History of Clostridium difficile. 5. History of pseudomonas urinary tract infection. 6. Obesity. Plan: Plan of Care Continue meropenem Restarted on Bactrim p.o. vancomycin twice daily. Femoral line DC'd C. difficile negative Monitor labs and cultures Continue supportive care Continue local wound care as directed Discussed with BRUNO MENDOZA MD October 16, 2021 15:57
[2021-10-17 02:55] VITALS: BP 154/71
--- NOTE | 2021-10-17 03:30 | NUR ---
PT INCREASINGLY CONFUSED AND AGITATED. PLACED ON HOSPITAL BIPAP MACHINE I SUSPECT THAT HOME CPAP IS NOT ADEQUATELY VENTILATING PATIENT. PT TOLERATING BIPAP OK, WILL CONTINUE TO MONITOR.
[2021-10-17 05:40] LABS: BASO % 1 % (0-3); EOS # 0.3 x10^3/uL (0.0-0.7); EOS % 9 % (0-3); HEMATOCRIT 24.2 % (39.0-53.0); HEMOGLOBIN 8.2 g/dL (13.0-17.5); LYMPH # 0.6 x10^3/uL (1.0-4.8); LYMPH % 18 % (24-48); MEAN CORPUSCULAR HEMOGLOBIN 33 pg (25-35); MEAN CORPUSCULAR HGB CONC 34 g/dL (31-37); MEAN CORPUSCULAR VOLUME 97 fL (79-100); MONO # 0.4 x10^3/uL (0.0-1.1); MONO % 11 % (0-9); NEUT % 61 % (31-73); PLATELET COUNT 250 x10^3/uL (140-400); RED CELL DISTRIBUTION WIDTH 21.1 % (11.5-14.5); WHITE BLOOD COUNT 3.2 x10^3/uL (4.0-11.0)
[2021-10-17 05:52] LABS: CALCIUM 7.5 mg/dL (8.5-10.1); CREATININE 0.8 mg/dL (0.7-1.3); GFR 95.3; POTASSIUM 3.9 mmol/L (3.5-5.1)
[2021-10-17] MEDS: MEROPENEM 1 GM in IV NORMAL SALINE 100ML 100 ML IV SCH (06:13)
[2021-10-17 07:00] VITALS: BP 129/102
[2021-10-17] MEDS: SMZ/TMP 800/160MG TABLET. PO SCH (08:16)
[2021-10-17] MEDS: LACTOBACILLUS RHAMNOSUS GG 1 CAPSULE. PO SCH (08:16)
[2021-10-17] MEDS: LISINOPRIL 20 MG TABLET PO SCH (08:16)
[2021-10-17] MEDS: VANCOMYCIN 125 MG/2.5 ML ORAL SOLUTION. PO SCH (08:16)
[2021-10-17] MEDS: FAMOTIDINE 20 MG TABLET. PO SCH (08:16)
--- NOTE | 2021-10-17 10:22 | PDOC ---
ANNE HENRIQUEZ SAJI 10/17/21 1022: CARDIO Progress Notes Date and Time Date of Service 10/17/21 Time of Evaluation 1020 Subjective Subjective: No Chest Pain, No Palpitations, No Dizziness Vitals Vitals Vital Signs Date Time Temp Pulse Resp B/P (MAP) Pulse Ox O2 Delivery O2 Flow Rate FiO2 10/17/21 08:16 55 154/71 10/17/21 08:00 Nasal Cannula 3.0 10/17/21 07:57 98 10/17/21 07:00 97.3 18 97.3 Weight Weight [ ] Input and Output Intake and Output Intake and Output 10/17/21 06:59 Intake Total 1120 ml Output Total 650 ml Balance 470 ml Intake Oral 1120 ml Output Urine Total 650 ml Laboratory Labs Laboratory Tests Test 10/17/21 04:57 White Blood Count 3.2 x10^3/uL (4.0-11.0) Red Blood Count 2.50 x10^6/uL (4.30-5.70) Hemoglobin 8.2 g/dL (13.0-17.5) Hematocrit 24.2 % (39.0-53.0) Mean Corpuscular Volume 97 fL (79-100) Mean Corpuscular Hemoglobin 33 pg (25-35) Mean Corpuscular Hemoglobin Concent 34 g/dL (31-37) Red Cell Distribution Width 21.1 % (11.5-14.5) Platelet Count 250 x10^3/uL (140-400) Neutrophils (%) (Auto) 61 % (31-73) Lymphocytes (%) (Auto) 18 % (24-48) Monocytes (%) (Auto) 11 % (0-9) Eosinophils (%) (Auto) 9 % (0-3) Basophils (%) (Auto) 1 % (0-3) Neutrophils # (Auto) 2.0 x10^3/uL (1.8-7.7) Lymphocytes # (Auto) 0.6 x10^3/uL (1.0-4.8) Monocytes # (Auto) 0.4 x10^3/uL (0.0-1.1) Eosinophils # (Auto) 0.3 x10^3/uL (0.0-0.7) Basophils # (Auto) 0.0 x10^3/uL (0.0-0.2) Sodium Level 139 mmol/L (136-145) Potassium Level 3.9 mmol/L (3.5-5.1) Chloride Level 106 mmol/L (98-107) Carbon Dioxide Level 31 mmol/L (21-32) Anion Gap 2 (6-14) Blood Urea Nitrogen 15 mg/dL (8-26) Creatinine 0.8 mg/dL (0.7-1.3) Estimated GFR (Cockcroft-Gault) 95.3 Glucose Level 61 mg/dL (70-99) Calcium Level 7.5 mg/dL (8.5-10.1) Microbiology Micro Microbiology 10/13/21 Gram Stain - Final, Resulted 10/13/21 Aerobic and Anaerobic Culture - Preliminary, Resulted 10/12/21 Urine Culture - Final, Complete 10/12/21 Blood Culture - Preliminary, Resulted NO GROWTH AFTER 4 DAYS Physical Exam HEENT: Neck Supple W Full Motion Chest: Symmetric LUNGS: Other (diminished bases) Heart: RRR (SR) Abdomen: Soft N/T, Other (obese) Extremities: Other (anasarca) Neurology: alert, oriented, follow commands Assessment Assessment 1. Sinus bradycardia; HR in 40's upon arrival. Metoprolol and Cardizem held. resolved 2. PAFIB; presently SR 3. Hypotension; upon presentation- now hypertensive. better controlled 4. CAD with known [employer]FFIC [employer] MAGISTRATE of the RCA with [id number] collaterals. 5. Acute on chronic diastolic CHF; s/p IV Lasix 6. H/o cardiomyopathy; suspected to be tachy-mediated. Recent echo with LV recovery with an EF of 50-55% 7. Hyperlipidemia; statin 8. S/p Right TKA 06/2021; s/p fall 07/31 with wound dehiscence. s/p I and D and poly exchange due to MSSA infection. On chronic Bactrim + Keflex. 9. ROX; improved 10. Anemia; s/p transfusion. hgb stable 11. Protein calorie malnutrition, anasarca Recommendations BB, CCB held due to bradycardia Avoid AV shereen blocking agents Poor candidate for anticoagulation with anemia requiring transfusion Continue lisinopril for BP control Supportive care Okay to discharge to rehab Follow up with in our office as arranged. Justicifation of Admission Dx: Justifications for Admission: Justification of Admission Dx: Yes CASSIE GARCIA MD 10/17/21 1628: CARDIO Progress Notes Assessment Assessment Patient seen and examined. Agree with SHOVEL OPERATOR's assessment and plan. 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
--- NOTE | 2021-10-17 10:56 | PDOC2 ---
CONSULT Date of Consult Date of Consult DATE: 10/17/21 TIME: 10:56 Reason for Consult Reason for Consult: ROX Identification/Chief Complaint Chief Complaint Currently No new complaints Source Source: Chart review, Patient History of Present Illness Reason for Visit: Patient is a 71-year-old male who underwent total knee arthroplasty done in June 2021 ,subsequent fall in July with dehiscence.he presented to the ED from [facility] for evaluation of hypotension, admitted on 10/12/2021 Per History from he was disoriented at [facility], with some as sociated weakness. He was having diarrhea from his recent history of C. difficile infection at [facility] , and his BP at was 73/35 mmHg;Bradycardia O2 saturation was 72% on 4 L nasal cannula In the ED he remained hypertensive requiring vasopressors. He was found be dehydrated with volume depletion. He was admitted to the ICU He had MSSA from superficial culture from the knee at [facility]. He was treated with IV Abx was on oral Bactrim and Keflex. Also had C. diff treated with p.o. vancomycin. UTI at last admission with pseudomonas Currently alert, awake.No complaints . Denies SOB. No N/V . No Urinary complaints . No F/C . We are Consulted for ROX .He was started back on Bactrim by primary Past Medical History Cardiovascular: AFIB, CAD, CHF, HTN, Hyperlipidemia Pulmonary: COPD, Pulmonary embolus, Other CENTRAL NERVOUS SYSTEM: Other GI: GERD Heme/Onc: No pertinent hx Hepatobiliary: No pertinent hx Psych: Depression Musculoskeletal: Osteoarthritis Rheumatologic: No pertinent hx Infectious disease: No pertinent hx, Other (Septic right knee status post replacement procedure) Renal/: No pertinent hx Endocrine: No pertinent hx Past Surgical History Past Surgical History: Hernia Repair, Other (Right knee replacement) Family History Family History: Diabetes, Hypertension Social History No ALCOHOL: none Drugs: None Lives: with Family Current Problem List Problem List Problems Medical Problems: (1) Acute CHF Status: Acute (2) Acute renal insufficiency Status: Acute (3) Anemia Status: Acute (4) Bradycardia Status: Acute (5) Hypotension Status: Acute (6) Hypoxia Status: Acute (7) Respiratory distress Status: Acute Current Medications Current Medications Current Medications Sodium Chloride 1,000 ml @ 1,000 mls/hr 1X ONCE IV Last administered on 10/12/21at 18:00; Start 10/12/21 at 18:00; Stop 10/12/21 at 18:59; Status DC Norepinephrine Bitartrate 8 mg/ Dextrose 258 ml @ 23.607 mls/ hr 1X ONCE IV Last administered on 10/12/21at 18:35; Start 10/12/21 at 18:30; Stop 10/13/21 at 05:25; Status DC Atropine Sulfate (ATROPINE 0.5mg SYRINGE) 0.5 mg 1X ONCE IV Last administered on 10/12/21at 18:55; Start 10/12/21 at 19:00; Stop 10/12/21 at 19:01; Status DC Bumetanide (Bumex) 1 mg 1X ONCE IV Last administered on 10/12/21at 19:14; Start 10/12/21 at 19:30; Stop 10/12/21 at 19:31; Status DC Meropenem 1 gm/ Sodium Chloride 100 ml @ 200 mls/hr Q8HRS IV Last administered on 10/17/21at 06:13; Start 10/12/21 at 22:00 Daptomycin 500 mg/ Sodium Chloride 50 ml @ 100 mls/hr 1X ONCE IV Last administered on 10/12/21at 21:45; Start 10/12/21 at 21:00; Stop 10/12/21 at 21:29; Status DC Acetaminophen (Tylenol) 650 mg PRN Q6HRS PRN PO Headaches, Temp > 101.5'; Start 10/12/21 at 20:15 Lorazepam (Ativan Inj) 0.5 mg PRN Q6HRS PRN IVP ANXIETY / AGITATION; Start 10/12/21 at 20:15 Lorazepam (Ativan) 1 mg PRN Q6HRS PRN PO ANXIETY / AGITATION; Start 10/12/21 at 20:15 Ondansetron HCl (Zofran) 4 mg PRN Q6HRS PRN IVP NAUSEA/VOMITING; Start 10/12/21 at 20:15 Famotidine (Pepcid Vial) 20 mg BID IVP Last administered on 10/15/21at 09:50; Start 10/12/21 at 21:00; Stop 10/15/21 at 12:31; Status DC Info (Icu Electrolyte Protocol) 1 ea DAILY MC ; Start 10/13/21 at 09:00 Sodium Chloride (Normal Saline Flush) 3 ml QSHIFT PRN IV AFTER MEDS AND BLOOD DRAWS; Start 10/12/21 at 20:15 Morphine Sulfate (Morphine Sulfate) 2 mg PRN Q1HR PRN IV PAIN; Start 10/12/21 at 20:15 Fentanyl Citrate (Fentanyl 2ml Vial) 50 mcg PRN Q1HR PRN IV PAIN, 2ND CHOICE; Start 10/12/21 at 20:15 Tigecycline 50 mg/ Dextrose 50 ml @ 100 mls/hr Q12H IV Last administered on 10/15/21at 09:48; Start 10/14/21 at 02:00; Stop 10/15/21 at 15:00; Status DC Tigecycline 100 mg/Dextrose 100 ml @ 200 mls/hr 1X ONCE IV Last administered on 10/13/21at 14:47; Start 10/13/21 at 14:00; Stop 10/13/21 at 14:29; Status DC Vancomycin HCl (Vancomycin Oral Solution) 125 mg [id number] PO Last administered on 10/15/21at 13:31; Start 10/13/21 at 13:00; Stop 10/15/21 at 15:01; Status DC Vitamin A/Vitamin D (Vitamin A & D Ointment) 1 ej PRN Q1HR PRN TP SKIN PROTECTION; Start 10/13/21 at 14:00 Albumin Human 100 ml @ 100 mls/hr 1X ONCE IV Last administered on 10/13/21at 13:56; Start 10/13/21 at 13:45; Stop 10/13/21 at 14:44; Status DC Norepinephrine Bitartrate 8 mg/ Dextrose 258 ml @ 23.936 mls/ hr CONT PRN IV PER PROTOCOL Last administered on 10/13/21at 15:03; Start 10/13/21 at 15:00; Stop 10/15/21 at 00:41; Status DC Lactobacillus Rhamnosus (Culturelle) 1 cap BID PO Last administered on 10/17/21at 08:16; Start 10/13/21 at 21:00 Alteplase, Recombinant 5 mg/ Sodium Chloride 30 ml @ 30 mls/hr 1X ONCE IV ; Start 10/14/21 at 11:30; Stop 10/14/21 at 12:29; Status UNV Alteplase, Recombinant (Cathflo) 2 mg 1X ONCE INT CAT Last administered on 10/14/21 13:26; Start 10/14/21 at 12:00; Stop 10/14/21 at 12:01; Status DC Furosemide (Lasix) 20 mg 1X ONCE IVP Last administered on 10/14/21at 13:25; Start 10/14/21 at 12:30; Stop 10/14/21 at 12:32; Status DC Furosemide (Lasix) 20 mg 1X ONCE IVP Last administered on 10/14/21at 16:28; Start 10/14/21 at 16:00; Stop 10/14/21 at 16:01; Status DC Famotidine (Pepcid) 20 mg BID PO Last administered on 10/17/21 08:16; Start 10/15/21 at 21:00 Vancomycin HCl (Vancomycin Oral Solution) 125 mg BID PO Last administered on 10/17/21 08:16; Start 10/15/21 at 21:00 Trimethoprim/ Sulfamethoxazole (Bactrim Ds) 1 tab BID PO Last administered on 10/17/21at 08:16; Start 10/15/21 at 21:00 Hydralazine HCl (Apresoline Inj) 10 mg PRN Q4HRS PRN IVP ELEVATED BP, SEE COMMENTS Last administered on 10/16/21at 19:21; Start 10/15/21 at 16:15 Lisinopril (Prinivil) 20 mg DAILY PO Last administered on 10/17/21 08:16; Start 10/16/21 at 13:15 Active Scripts Active Diphenoxylate-Atropine Tablet (Diphenoxylate Hcl/Atropine) 1 Each Tablet 1 Tab PO PRN QID PRN 14 Days Toprol XL (Metoprolol Succinate) 50 Mg Tab.er.24h 50 Mg PO DAILY 30 Days Ferrous Sulfate 325 Mg Tablet 1 Tab PO QODAY 30 Days Gabapentin (Gabapentin) 100 Mg Capsule 100 Mg PO Q8HRS 30 Days Reported Bactrim 400-80 Mg Tablet (Sulfamethoxazole/Trimethoprim) 1 Each Tablet 2 Tab PO QID Keflex (Cephalexin) 500 Mg Capsule 1 Cap PO QID Potassium Chloride (Potassium Chloride) 20 Meq Tablet.er 20 Meq PO BID Questran Packet (Cholestyramine (With Sugar)) 4 Gm Powd.pack 1 Packet PO DAILY Duoneb 0.5-3(2.5) Mg/3 Ml (Albuterol/Ipratropium) 3 Ml Ampul.neb 3 Ml NEB Q6HRS Losartan Potassium 100 Mg Tablet 100 Mg PO DAILY Furosemide 80 Mg Tablet 1 Tab PO DAILY Vancocin Hcl (Vancomycin Hcl) 125 Mg Capsule 1 Cap PO QID 3 Days Ventolin Hfa Inhaler (Albuterol Sulfate) 18 Gm Hfa.aer.ad 2 Puff INH Q4HRS Culturelle (Lactobacillus Rhamnosus Gg) 1 Each Cap.sprink 1 Cap PO DAILY 30 Days Vitamin D3 (Vitamin D) 125 Mcg Capsule 125 Mcg PO DAILY 5,000 UNITS = 125 MCG Meloxicam 15 Mg Tablet 15 Mg PO DAILY Diltiazem 24Hr ER (LA) (Diltiazem HCl) 240 Mg Tab.er.24h 120 Mg PO DAILY Amiodarone Hcl 200 Mg Tablet 1 Tab PO DAILY08 Eliquis (Apixaban) 5 Mg Tablet 5 Mg PO BID Atorvastatin Calcium 80 Mg Tablet 1 Tab PO DAILY Tamsulosin Hcl 0.4 Mg Cap.er.24h 0.4 Mg PO DAILY Daily Value (Multivitamin) 1 Each Tablet 1 Each PO DAILY Hydrochlorothiazide Tablet (Hydrochlorothiazide) 25 Mg Tablet 25 Mg PO DAILY Adult Low Dose Aspirin Ec (Aspirin) 81 Mg Tablet.dr 81 Mg PO DAILY Allergies Allergies: Coded Allergies: No Known Drug Allergies (Unverified , 07/02/21) ROS Review of System As per HPI , rest of the ROS is negative Physical Exam Physical Exam GENERAL:not in distress. HEENT: OM moist NECK: Supple. No JVP. No lymphadenopathy. LUNGS: Clear.Non labored HEART: S1, S2, regular. ABDOMEN: Soft, nontender. No organomegaly. EXTREMITIES: Bilateral lower extremity and upper extremity edema edema appears to be at baseline, no cyanosis. SKIN: No generalized rash NEUROLOGIC: No focal neurologic deficit. Vital Signs Vital Signs Date Time Temp Pulse Resp B/P (MAP) Pulse Ox O2 Delivery O2 Flow Rate FiO2 10/17/21 08:16 55 154/71 10/17/21 08:00 Nasal Cannula 3.0 10/17/21 07:57 98 10/17/21 07:00 97.3 18 97.3 Assessment & Plan ROX - 2/2 Dehydration / Sepsis POA- resolved ; Creat 1.5--> 0.8. Currently on Bactrim and Lisinopril , Monitor , Supportive care, Avoid nephrotoxins Hypotension POA - now hypertensive Sinus bradycardia; POA- HR in 40's upon arrival. Metoprolol and Cardizem held. resolved PAFIB; presently SR Acute on chronic diastolic CHF; s/p IV Lasix / H/o cardiomyopathy; suspected to be tachy-mediated. Recent echo with LV recovery with an EF of 50-55% S/p Right TKA 06/2021; On chronic Bactrim + Keflex. Anemia; s/p transfusion. hgb stable Labs Labs Laboratory Tests Test 10/16/21 04:48 10/17/21 04:57 White Blood Count 3.2 x10^3/uL (4.0-11.0) 3.2 x10^3/uL (4.0-11.0) Red Blood Count 2.57 x10^6/uL (4.30-5.70) 2.50 x10^6/uL (4.30-5.70) Hemoglobin 8.5 g/dL (13.0-17.5) 8.2 g/dL (13.0-17.5) Hematocrit 24.9 % (39.0-53.0) 24.2 % (39.0-53.0) Mean Corpuscular Volume 97 fL (79-100) 97 fL (79-100) Mean Corpuscular Hemoglobin 33 pg (25-35) 33 pg (25-35) Mean Corpuscular Hemoglobin Concent 34 g/dL (31-37) 34 g/dL (31-37) Red Cell Distribution Width 21.2 % (11.5-14.5) 21.1 % (11.5-14.5) Platelet Count 267 x10^3/uL (140-400) 250 x10^3/uL (140-400) Neutrophils (%) (Auto) 51 % (31-73) 61 % (31-73) Lymphocytes (%) (Auto) 28 % (24-48) 18 % (24-48) Monocytes (%) (Auto) 11 % (0-9) 11 % (0-9) Eosinophils (%) (Auto) 9 % (0-3) 9 % (0-3) Basophils (%) (Auto) 1 % (0-3) 1 % (0-3) Neutrophils # (Auto) 1.6 x10^3/uL (1.8-7.7) 2.0 x10^3/uL (1.8-7.7) Lymphocytes # (Auto) 0.9 x10^3/uL (1.0-4.8) 0.6 x10^3/uL (1.0-4.8) Monocytes # (Auto) 0.4 x10^3/uL (0.0-1.1) 0.4 x10^3/uL (0.0-1.1) Eosinophils # (Auto) 0.3 x10^3/uL (0.0-0.7) 0.3 x10^3/uL (0.0-0.7) Basophils # (Auto) 0.0 x10^3/uL (0.0-0.2) 0.0 x10^3/uL (0.0-0.2) Sodium Level 139 mmol/L (136-145) Potassium Level 3.9 mmol/L (3.5-5.1) Chloride Level 106 mmol/L (98-107) Carbon Dioxide Level 31 mmol/L (21-32) Anion Gap 2 (6-14) Blood Urea Nitrogen 15 mg/dL (8-26) Creatinine 0.8 mg/dL (0.7-1.3) Estimated GFR (Cockcroft-Gault) 95.3 Glucose Level 61 mg/dL (70-99) Calcium Level 7.5 mg/dL (8.5-10.1) Laboratory Tests Test 10/17/21 04:57 White Blood Count 3.2 x10^3/uL (4.0-11.0) Red Blood Count 2.50 x10^6/uL (4.30-5.70) Hemoglobin 8.2 g/dL (13.0-17.5) Hematocrit 24.2 % (39.0-53.0) Mean Corpuscular Volume 97 fL (79-100) Mean Corpuscular Hemoglobin 33 pg (25-35) Mean Corpuscular Hemoglobin Concent 34 g/dL (31-37) Red Cell Distribution Width 21.1 % (11.5-14.5) Platelet Count 250 x10^3/uL (140-400) Neutrophils (%) (Auto) 61 % (31-73) Lymphocytes (%) (Auto) 18 % (24-48) Monocytes (%) (Auto) 11 % (0-9) Eosinophils (%) (Auto) 9 % (0-3) Basophils (%) (Auto) 1 % (0-3) Neutrophils # (Auto) 2.0 x10^3/uL (1.8-7.7) Lymphocytes # (Auto) 0.6 x10^3/uL (1.0-4.8) Monocytes # (Auto) 0.4 x10^3/uL (0.0-1.1) Eosinophils # (Auto) 0.3 x10^3/uL (0.0-0.7) Basophils # (Auto) 0.0 x10^3/uL (0.0-0.2) Sodium Level 139 mmol/L (136-145) Potassium Level 3.9 mmol/L (3.5-5.1) Chloride Level 106 mmol/L (98-107) Carbon Dioxide Level 31 mmol/L (21-32) Anion Gap 2 (6-14) Blood Urea Nitrogen 15 mg/dL (8-26) Creatinine 0.8 mg/dL (0.7-1.3) Estimated GFR (Cockcroft-Gault) 95.3 Glucose Level 61 mg/dL (70-99) Calcium Level 7.5 mg/dL (8.5-10.1) Review All relevant outside records, renal labs, imaging studies, telemetry/EKG's were reviewed. Images Images Single view chest dated 10/12/2021 6:32 PM: COMPARISON: 08/22/2021 Clinical Indication: Shortness of breath. Findings: Single upright portable exam of the chest was performed. Heart and mediastinal contours are stable. There is consolidation at the retrocardiac left base, increased from prior study. Prominent interstitial markings bilaterally, similar. There is increasing hazy opacity at the right mid zone. No pneumothorax. Left-sided PICC in place, unchanged. IMPRESSION: 1. Consolidation at the retrocardiac left base is new from prior study and could represent atelectasis or pneumonia or developing pleural effusion. 2. Hazy bilateral airspace disease bilaterally, similar to slightly increased, edema versus atypical pneumonia. SNOI GLASGOW MD October 17, 2021 10:56
[2021-10-17 11:00] VITALS: BP 175/89
[2021-10-17] MEDS ORDERED: FAMO20TA5 PO (11:31)
[2021-10-17] MEDS ORDERED: VANC125C10 PO (11:31)
[2021-10-17] MEDS ORDERED: ACET325T21 PO (11:31)
[2021-10-17] MEDS ORDERED: TRAM50TA PO (11:31)
[2021-10-17] MEDS ORDERED: CEPH500C PO (11:31)
--- NOTE | 2021-10-17 11:34 | SNU/HH DC ---
DISCHARGE ORDERS DISCHARGE INFORMATION: DISCHARGE DATE: October 17, 2021 FINAL DIAGNOSIS Problems Medical Problems: (1) Acute CHF Status: Acute (2) Acute renal insufficiency Status: Acute (3) Anemia Status: Acute (4) Bradycardia Status: Acute (5) Hypotension Status: Acute (6) Hypoxia Status: Acute (7) Respiratory distress Status: Acute CONDITION ON DISCHARGE: Stable CODE STATUS: Code Status: Full USP: SNF STAY <30 DAYS: Yes POST DISCHARGE ORDERS: ACTIVITY ORDERS: No restrictions, Resume previous activity, Activity as tolerated WEIGHT BEARING STATUS: No restrictions, As tolerated BATHING ORDERS: Shower-keep dressing dry, No Tub Bath until see Dr. MIRAMONTES AFTER DISCHARGE: Cardiac WOUND/INCISION CARE: Keep wound/cast CDI, Change dressing CHECKS AFTER DISCHARGE: CHECKS AFTER DISCHARGE: Check blood press - daily, Weigh Yourself Daily FOLLOW-UP: LAB ORDERS FOR FOLLOW-UP: CBC, BMP, CRP, Sed rate on 10/19, then weekly Additional Instructions: Vasques catheter to remain in replace every 30 days or as needed. TREATMENT/EQUIPMENT ORDERS: ADAPTIVE EQUIPMENT NEEDED: None RESPIRATORY EQUIPMENT NEEDED: Oxygen, BiPAP Physical Therapy For: Evalulation/Treatment Occupational Therapy For: Evaluation/Treatment DISCHARGE MEDICATIONS: Home Meds Active Scripts Tramadol Hcl (TRAMADOL HCL) 50 Mg Tablet, 50 MG PO PRN Q6HRS PRN for PAIN for 6 Days, #24 TAB Prov:DARIO FARRELL MD 10/17/21 Famotidine (FAMOTIDINE) 20 Mg Tablet, 20 MG PO BID for GERD for 30 Days, #60 TAB Prov:DARIO FARRELL MD 10/17/21 Acetaminophen (ACETAMINOPHEN) 325 Mg Tablet, 650 MG PO PRN Q6HRS PRN for Headaches, Temp > 101.5' for 30 Days, #120 TAB Prov:DARIO FARRELL MD 10/17/21 Cephalexin (KEFLEX) 500 Mg Capsule, 1 CAP PO BID for Right knee infection for 30 Days, #60 CAP Prov:DARIO FARRELL MD 10/17/21 Vancomycin Hcl (VANCOCIN HCL) 125 Mg Capsule, 1 CAP PO BID for Cdiff for 14 Days, #28 CAP 0 Refills Prov:DARIO FARRELL MD 10/17/21 Gabapentin (GABAPENTIN ) 100 Mg Capsule, 100 MG PO Q8HRS for . for 30 Days, #90 CAP Prov:CASTLE,NIAL K III DO 07/16/21 Reported Medications Sulfamethoxazole/Trimethoprim (BACTRIM 400-80 MG TABLET) 1 Each Tablet, 2 TAB PO QID for infection, TAB 0 Refills 10/12/21 Ipratropium/Albuterol Sulfate (DUONEB 0.5-3(2.5) MG/3 ML) 3 Ml Ampul.neb, 3 ML NEB Q6HRS for COPD, EACH 10/12/21 Losartan Potassium (LOSARTAN POTASSIUM) 100 Mg Tablet, 100 MG PO DAILY for HYPERTENSION, TAB 10/12/21 Albuterol Sulfate (VENTOLIN HFA INHALER) 18 Gm Hfa.aer.ad, 2 PUFF INH Q4HRS for FOR ASTHMA, EACH 0 Refills 06/27/21 Lactobacillus Rhamnosus Gg (CULTURELLE) 1 Each Cap.sprink, 1 CAP PO DAILY for PROBIOTIC for 30 Days, #30 CAP 0 Refills 02/13/21 Cholecalciferol (Vitamin D3) (Vitamin D3 ) 125 Mcg Capsule, 125 MCG PO DAILY for SUPPLEMENT, CAP 5,000 UNITS = 125 MCG 02/13/21 Atorvastatin Calcium (ATORVASTATIN CALCIUM) 80 Mg Tablet, 1 TAB PO DAILY, #30 TAB 5 Refills 08/26/17 Tamsulosin Hcl (TAMSULOSIN HCL) 0.4 Mg Cap.er.24h, 0.4 MG PO DAILY 08/10/13 Multivitamin (DAILY VALUE) 1 Each Tablet, 1 EACH PO DAILY 08/10/13 Aspirin (ADULT LOW DOSE ASPIRIN EC) 81 Mg Tablet.dr, 81 MG PO DAILY 08/10/13 Discontinued Reported Medications Potassium Chloride (POTASSIUM CHLORIDE ) 20 Meq Tablet.er, 20 MEQ PO BID for SUPPLEMENT, TAB.SR 10/12/21 Cholestyramine (With Sugar) (QUESTRAN PACKET) 4 Gm Powd.pack, 1 PACKET PO DAILY for diarrhea, PACKET 0 Refills 10/12/21 Furosemide (FUROSEMIDE) 80 Mg Tablet, 1 TAB PO DAILY for edema, TAB 10/12/21 Meloxicam (MELOXICAM) 15 Mg Tablet, 15 MG PO DAILY for PAIN CONTROL, TAB 08/07/20 Diltiazem HCl (Diltiazem 24Hr ER (LA)) 240 Mg Tab.er.24h, 120 MG PO DAILY for AFIB, TAB.SR 08/07/20 Amiodarone Hcl (AMIODARONE HCL) 200 Mg Tablet, 1 TAB PO DAILY08 for atrial fibrillation, #90 TAB 3 Refills 12/30/18 Apixaban (ELIQUIS) 5 Mg Tablet, 5 MG PO BID for a-fib, TAB 11/30/18 Hydrochlorothiazide (HYDROCHLOROTHIAZIDE TABLET ) 25 Mg Tablet, 25 MG PO DAILY 08/10/13 Discontinued Scripts Diphenoxylate Hcl/Atropine (DIPHENOXYLATE-ATROPINE TABLET) 1 Each Tablet, 1 TAB PO PRN QID PRN for DIARRHEA for 14 Days, TAB 2 Refills Prov:MANJEET WOODSON MD 08/24/21 Metoprolol Succinate (Toprol XL) 50 Mg Tab.er.24h, 50 MG PO DAILY for Afib for 30 Days, #30 TAB.SR 4 Refills Prov:MANJEET WOODSON MD 08/24/21 Ferrous Sulfate (FERROUS SULFATE) 325 Mg Tablet, 1 TAB PO QODAY for for 30 Days, #30 TAB 3 Refills Prov:PENNIE RODGERS MD 08/08/21 DARIO FARRELL MD October 17, 2021 11:34
--- NOTE | 2021-10-17 11:37 | PDOC ---
[employer] PROGRESS NOTE Date of Service DOS: DATE: 10/17/21 TIME: 11:35 Chief Complaint Chief Complaint Sepsis Bradycardia Severe edema Likely respiratory failure with hypoxia Hospital-acquired pneumonia Anemia Hx C. difficile History bacteremia Pulmonary infiltrates - likely CHF S/p Right knee total arthroplasty in 06/2021 - had a fall in July with wound dehiscence, superficial culture positive with MSSA at [facility] and deep culture with I and D and poly exchange then positive for Stenotrophomonas. Completed IV therapy. On chronic Bactrim + Keflex. History of pseudomonas urinary tract infection. Obesity. History of Present Illness History of Present Illness 10/13: Patient seen and examined in the ICU. He is quite edematous has 3+ edema on his feet. He also has bradycardia this morning in the 40s. Infectious disease following he has IV meropenem hanging. He got 1 dose of Bumex in the emergency department. Has deras 10/14: Patient seen and examined in the ICU, Currently on IV tigecycline, FiO2 requirements are down to 3 L from 5 yesterday, Still bradycardic at 54 bpm, Has Deras to bedside drain 10/15: Patient seen and examined CBC. Still on O2 was on BiPAP overnight. He is asking to discharge home he wants to stop aggressive treatment and go home in a wheelchair he is asked for referral to hospice but he does want to talk to his first. I have attempted to dissuade him and assess whether this is a depressive episode. He notes he is requested this on 3 separate occasions since July for his multiple hospitalizations but his has previously asked him to continue doing treatment. 10/16: Back on Bactrim. Blood pressure improved confusion improved. Wore his home CPAP last night. He is less depressed today and wants to continue rehab with this depressive episode he had asked to wait on therapy 10/17: Seen bedside is sinus rhythm. Discussed with cardiology to continue to hold metoprolol diltiazem and Eliquis high risk for recurrent bleed. Can consider reinitiation of amiodarone in the future. Has been on lisinopril can get back on his losartan is on Bactrim and discussed with infectious disease to discontinue meropenem remove PICC line and transition to addition of Keflex for chronic knee infection. Seen by nephrology discussed importance of accurate urine output to maintain Deras catheter for now on discharge and follow metabolic panel in 2 days and weekly thereafter. He worked with therapy today and actually did fairly well. Tolerating his home BiPAP well. Vitals/I&O Vitals/I&O: Vital Signs Date Time Temp Pulse Resp B/P (MAP) Pulse Ox O2 Delivery O2 Flow Rate FiO2 10/17/21 08:16 55 154/71 10/17/21 08:00 Nasal Cannula 3.0 10/17/21 07:57 98 10/17/21 07:00 97.3 18 97.3 I & O 10/16/21 10/16/21 10/17/21 15:00 23:00 07:00 Intake Total 700 ml 420 ml 0 ml Output Total 650 ml Balance 700 ml 420 ml -650 ml Physical Exam Physical Exam: GENERAL: Alert and oriented gentleman, not in distress. HEENT: Both pupils are round and reacting. No conjunctival lesion. No lesion in the mouth. NECK: Supple. No JVP. No lymphadenopathy. LUNGS: Clear. HEART: S1, S2, regular. ABDOMEN: Soft, nontender. No organomegaly. EXTREMITIES: Bilateral lower extremity and upper extremity edema edema appears to be at baseline, no cyanosis. Right knee has a small superficial wound. No other signs of infection. Joint feels okay. SKIN: No generalized rash the patient does have femoral central line. NEUROLOGIC: The patient is alert, awake, and appropriate. No focal neurologic deficit. PICC line present femoral line removed General: mild distress Heart: Regular rate Lungs: Clear, Other Abdomen: Normal bowel sounds Extremities: No clubbing, Other (3+ lower extremity edema) Skin: No rashes Labs Labs: Laboratory Tests Test 10/17/21 04:57 White Blood Count 3.2 x10^3/uL (4.0-11.0) Red Blood Count 2.50 x10^6/uL (4.30-5.70) Hemoglobin 8.2 g/dL (13.0-17.5) Hematocrit 24.2 % (39.0-53.0) Mean Corpuscular Volume 97 fL (79-100) Mean Corpuscular Hemoglobin 33 pg (25-35) Mean Corpuscular Hemoglobin Concent 34 g/dL (31-37) Red Cell Distribution Width 21.1 % (11.5-14.5) Platelet Count 250 x10^3/uL (140-400) Neutrophils (%) (Auto) 61 % (31-73) Lymphocytes (%) (Auto) 18 % (24-48) Monocytes (%) (Auto) 11 % (0-9) Eosinophils (%) (Auto) 9 % (0-3) Basophils (%) (Auto) 1 % (0-3) Neutrophils # (Auto) 2.0 x10^3/uL (1.8-7.7) Lymphocytes # (Auto) 0.6 x10^3/uL (1.0-4.8) Monocytes # (Auto) 0.4 x10^3/uL (0.0-1.1) Eosinophils # (Auto) 0.3 x10^3/uL (0.0-0.7) Basophils # (Auto) 0.0 x10^3/uL (0.0-0.2) Sodium Level 139 mmol/L (136-145) Potassium Level 3.9 mmol/L (3.5-5.1) Chloride Level 106 mmol/L (98-107) Carbon Dioxide Level 31 mmol/L (21-32) Anion Gap 2 (6-14) Blood Urea Nitrogen 15 mg/dL (8-26) Creatinine 0.8 mg/dL (0.7-1.3) Estimated GFR (Cockcroft-Gault) 95.3 Glucose Level 61 mg/dL (70-99) Calcium Level 7.5 mg/dL (8.5-10.1) Assessment and Plan Assessmemt and Plan Problems Medical Problems: (1) Acute CHF Status: Acute (2) Acute renal insufficiency Status: Acute (3) Anemia Status: Acute (4) Bradycardia Status: Acute (5) Hypotension Status: Acute (6) Hypoxia Status: Acute (7) Respiratory distress Status: Acute Comment Review of Relevant I have reviewed the following items rajeev (where applicable) has been applied. Medications: Current Medications Medications (Trade) Dose Ordered Sig/Renetta Route PRN Reason Start Time Stop Time Status Last Admin Dose Admin Lisinopril (Prinivil) 20 mg DAILY PO 10/16/21 13:15 10/17/21 08:16 Justifications for Admission Other Justification DARIO FARRELL MD October 17, 2021 11:37
--- NOTE | 2021-10-17 11:41 | PDOC3 ---
Discharge Summary Visit Information Date of Admission: October 12, 2021 Date of Discharge: October 17, 2021 Admitting Diagnosis: Bradycardia, ROX Final Diagnosis Problems Medical Problems: (1) Acute CHF Status: Acute (2) Acute renal insufficiency Status: Acute (3) Anemia Status: Acute (4) Bradycardia Status: Acute (5) Hypotension Status: Acute (6) Hypoxia Status: Acute (7) Respiratory distress Status: Acute Brief Hospital Course Allergies Allergies Coded Allergies Type Severity Reaction Last Updated Verified No Known Drug Allergies 07/02/21 No Vital Signs Vital Signs Date Time Temp Pulse Resp B/P (MAP) Pulse Ox O2 Delivery O2 Flow Rate FiO2 10/17/21 08:16 55 154/71 10/17/21 08:00 Nasal Cannula 3.0 10/17/21 07:57 98 10/17/21 07:00 97.3 18 97.3 Lab Results Laboratory Tests Test 10/16/21 04:48 10/17/21 04:57 White Blood Count 3.2 x10^3/uL (4.0-11.0) 3.2 x10^3/uL (4.0-11.0) Red Blood Count 2.57 x10^6/uL (4.30-5.70) 2.50 x10^6/uL (4.30-5.70) Hemoglobin 8.5 g/dL (13.0-17.5) 8.2 g/dL (13.0-17.5) Hematocrit 24.9 % (39.0-53.0) 24.2 % (39.0-53.0) Mean Corpuscular Volume 97 fL (79-100) 97 fL (79-100) Mean Corpuscular Hemoglobin 33 pg (25-35) 33 pg (25-35) Mean Corpuscular Hemoglobin Concent 34 g/dL (31-37) 34 g/dL (31-37) Red Cell Distribution Width 21.2 % (11.5-14.5) 21.1 % (11.5-14.5) Platelet Count 267 x10^3/uL (140-400) 250 x10^3/uL (140-400) Neutrophils (%) (Auto) 51 % (31-73) 61 % (31-73) Lymphocytes (%) (Auto) 28 % (24-48) 18 % (24-48) Monocytes (%) (Auto) 11 % (0-9) 11 % (0-9) Eosinophils (%) (Auto) 9 % (0-3) 9 % (0-3) Basophils (%) (Auto) 1 % (0-3) 1 % (0-3) Neutrophils # (Auto) 1.6 x10^3/uL (1.8-7.7) 2.0 x10^3/uL (1.8-7.7) Lymphocytes # (Auto) 0.9 x10^3/uL (1.0-4.8) 0.6 x10^3/uL (1.0-4.8) Monocytes # (Auto) 0.4 x10^3/uL (0.0-1.1) 0.4 x10^3/uL (0.0-1.1) Eosinophils # (Auto) 0.3 x10^3/uL (0.0-0.7) 0.3 x10^3/uL (0.0-0.7) Basophils # (Auto) 0.0 x10^3/uL (0.0-0.2) 0.0 x10^3/uL (0.0-0.2) Sodium Level 139 mmol/L (136-145) Potassium Level 3.9 mmol/L (3.5-5.1) Chloride Level 106 mmol/L (98-107) Carbon Dioxide Level 31 mmol/L (21-32) Anion Gap 2 (6-14) Blood Urea Nitrogen 15 mg/dL (8-26) Creatinine 0.8 mg/dL (0.7-1.3) Estimated GFR (Cockcroft-Gault) 95.3 Glucose Level 61 mg/dL (70-99) Calcium Level 7.5 mg/dL (8.5-10.1) Laboratory Tests Test 10/17/21 04:57 White Blood Count 3.2 x10^3/uL (4.0-11.0) Red Blood Count 2.50 x10^6/uL (4.30-5.70) Hemoglobin 8.2 g/dL (13.0-17.5) Hematocrit 24.2 % (39.0-53.0) Mean Corpuscular Volume 97 fL (79-100) Mean Corpuscular Hemoglobin 33 pg (25-35) Mean Corpuscular Hemoglobin Concent 34 g/dL (31-37) Red Cell Distribution Width 21.1 % (11.5-14.5) Platelet Count 250 x10^3/uL (140-400) Neutrophils (%) (Auto) 61 % (31-73) Lymphocytes (%) (Auto) 18 % (24-48) Monocytes (%) (Auto) 11 % (0-9) Eosinophils (%) (Auto) 9 % (0-3) Basophils (%) (Auto) 1 % (0-3) Neutrophils # (Auto) 2.0 x10^3/uL (1.8-7.7) Lymphocytes # (Auto) 0.6 x10^3/uL (1.0-4.8) Monocytes # (Auto) 0.4 x10^3/uL (0.0-1.1) Eosinophils # (Auto) 0.3 x10^3/uL (0.0-0.7) Basophils # (Auto) 0.0 x10^3/uL (0.0-0.2) Sodium Level 139 mmol/L (136-145) Potassium Level 3.9 mmol/L (3.5-5.1) Chloride Level 106 mmol/L (98-107) Carbon Dioxide Level 31 mmol/L (21-32) Anion Gap 2 (6-14) Blood Urea Nitrogen 15 mg/dL (8-26) Creatinine 0.8 mg/dL (0.7-1.3) Estimated GFR (Cockcroft-Gault) 95.3 Glucose Level 61 mg/dL (70-99) Calcium Level 7.5 mg/dL (8.5-10.1) Brief Hospital Course Mr Capps is a 71yo male with PMHx COPD, SPENSER on home CPAP/BIPAP, HTN, HLD, paroxysmal afib admitted from SNF for altered mental status, hypotension, bradycardia and renal failure initially admitted to the ICU on vasopressor support. The patient had total knee arthroplasty done in June 2021 and subsequent fall in July with dehiscence. The patient had MSSA from superficial culture from the knee at [facility]. The patient then was transferred to [place] and I and D and poly exchange was done where the intraoperative culture from the knee with Stenotrophomonas. The patient was treated for that with IV full course and the patient had been on oral Bactrim and Keflex. The patient also had C. diff and he was treated with p.o. vancomycin. He has significant urinary retention history of Pseudomonas UTI and Deras catheter placed for this. 10/13: Patient seen and examined in the ICU. He is quite edematous has 3+ edema on his feet. He also has bradycardia this morning in the 40s. Infectious disease following he has IV meropenem hanging. He got 1 dose of Bumex in the emergency department. Has deras 10/14: Patient seen and examined in the ICU, Currently on IV tigecycline, FiO2 requirements are down to 3 L from 5 yesterday, Still bradycardic at 54 bpm, Has Deras to bedside drain 10/15: Patient seen and examined CBC. Still on O2 was on BiPAP overnight. He is asking to discharge home he wants to stop aggressive treatment and go home in a wheelchair he is asked for referral to hospice but he does want to talk to his first. I have attempted to dissuade him and assess whether this is a depressive episode. He notes he is requested this on 3 separate occasions since July for his multiple hospitalizations but his has previously asked him to continue doing treatment. 10/16: Back on Bactrim. Blood pressure improved confusion improved. Wore his home CPAP last night. He is less depressed today and wants to continue rehab with this depressive episode he had asked to wait on therapy 10/17: Seen bedside is sinus rhythm. Discussed with cardiology to continue to hold metoprolol diltiazem and Eliquis high risk for recurrent bleed. Can consider reinitiation of amiodarone in the future. Has been on lisinopril can get back on his losartan is on Bactrim and discussed with infectious disease to discontinue meropenem remove PICC line and transition to addition of Keflex for chronic knee infection. Seen by nephrology discussed importance of accurate urine output to maintain Deras catheter for now on discharge and follow metabolic panel in 2 days and weekly thereafter. He worked with therapy today and actually did fairly well. Tolerating his home BiPAP well. Consults: Cardiology, infectious disease, nephrology Problem list: Sepsis Bradycardia Severe edema Likely respiratory failure with hypoxia Hospital-acquired pneumonia Anemia Hx C. difficile History bacteremia Pulmonary infiltrates - likely CHF S/p Right knee total arthroplasty in 06/2021 - had a fall in July with wound dehiscence, superficial culture positive with MSSA at [facility] and deep culture with I and D and poly exchange then positive for Stenotrophomonas. Completed IV therapy. On chronic Bactrim + Keflex. History of pseudomonas urinary tract infection. Obesity. Greater than 30 minutes spent on discharge back to SNF for continued rehab Discharge Information Condition at Discharge: Improved Follow Up: Weeks (1) Disposition/Orders: D/C to Another Facility Scheduled Albuterol Sulfate (Ventolin Hfa Inhaler) 18 Gm Hfa.aer.ad, 2 PUFF INH Q4HRS for FOR ASTHMA, Ref 0 (Reported) Entered as Reported by: ANJUM TINEO on 06/27/21 1334 Last Action: Reviewed on 10/12/212354 by JOSE FRANCISCO SORIANO RN Aspirin (Adult Low Dose Aspirin Ec) 81 Mg Tablet.dr, 81 MG PO DAILY, (Reported) Entered as Reported by: HUGH MAHMOOD on 08/10/13 0913 Last Action: Reviewed on 10/12/212354 by JOSE FRANCISCO SORIANO RN Atorvastatin Calcium (Atorvastatin Calcium) 80 Mg Tablet, 1 TAB PO DAILY, #30 Ref 5 (Reported) Entered as Reported by: JEFF TURNER on 08/26/17 1206 Last Action: Reviewed on 10/12/212354 by JOSE FRANCISCO SORIANO RN Cephalexin (Keflex) 500 Mg Capsule, 1 CAP PO BID for Right knee infection for 30 Days, #60 Prescribed by: DARIO FARRELL MD on 10/17/21 1131 Cholecalciferol (Vitamin D3) (Vitamin D3 ) 125 Mcg Capsule, 125 MCG PO DAILY for SUPPLEMENT, (Reported) 5,000 UNITS = 125 MCG Entered as Reported by: Nyasia Miranda on 02/13/21 1434 Last Action: Reviewed on 10/12/212354 by JOSE FRANCISCO SORIANO RN Famotidine (Famotidine) 20 Mg Tablet, 20 MG PO BID for GERD for 30 Days, #60 Prescribed by: DARIO FARRELL MD on 10/17/21 1131 Gabapentin (Gabapentin ) 100 Mg Capsule, 100 MG PO Q8HRS for . for 30 Days, #90 Prescribed by: RE MOJICA on 07/16/21 1202 Last Action: Reviewed on 10/12/212354 by JOSE FRANCISCO SORIANO RN Ipratropium/Albuterol Sulfate (Duoneb 0.5-3(2.5) Mg/3 Ml) 3 Ml Ampul.neb, 3 ML NEB Q6HRS for COPD, (Reported) Entered as Reported by: JOSE FRANCISCO SORIANO RN on 10/12/212354 Last Action: New Order on 10/12/212354 by JOSE FRANCISCO SORIANO RN Lactobacillus Rhamnosus Gg (Culturelle) 1 Each Cap.sprink, 1 CAP PO DAILY for PROBIOTIC for 30 Days, #30 Ref 0 (Reported) Entered as Reported by: Nyasia Miranda on 02/13/21 1434 Last Action: Reviewed on 10/12/212354 by JOSE FRANCISCO SORIANO RN Losartan Potassium (Losartan Potassium) 100 Mg Tablet, 100 MG PO DAILY for HYPERTENSION, (Reported) Entered as Reported by: JOSE FRANCISCO SORIANO RN on 10/12/212354 Last Action: New Order on 10/12/212354 by JOSE FRANCISCO SORIANO RN Multivitamin (Daily Value) 1 Each Tablet, 1 EACH PO DAILY, (Reported) Entered as Reported by: HUGH MHAMOOD on 08/10/13 0915 Last Action: Reviewed on 10/12/212354 by JOSE FRANCISCO SORIANO RN Sulfamethoxazole/Trimethoprim (Bactrim 400-80 Mg Tablet) 1 Each Tablet, 2 TAB PO QID for infection, Ref 0 (Reported) Entered as Reported by: JOSE FRANCISCO SORIANO RN on 10/12/212354 Last Action: New Order on 10/12/212354 by JOSE FRANCISCO SORIANO RN Tamsulosin Hcl (Tamsulosin Hcl) 0.4 Mg Cap.er.24h, 0.4 MG PO DAILY, (Reported) Entered as Reported by: HUGH MAHMOOD on 08/10/13 0916 Last Action: Reviewed on 10/12/212354 by JOSE FRANCISCO SORIANO RN Vancomycin Hcl (Vancocin Hcl) 125 Mg Capsule, 1 CAP PO BID for Cdiff for 14 Days, #28 Ref 0 Prescribed by: DARIO FARRELL MD on 10/17/21 1131 Scheduled PRN Acetaminophen (Acetaminophen) 325 Mg Tablet, 650 MG PO PRN Q6HRS PRN for Headaches, Temp > 101.5' for 30 Days, #120 Prescribed by: DARIO FARRELL MD on 10/17/21 1131 Tramadol Hcl (Tramadol Hcl) 50 Mg Tablet, 50 MG PO PRN Q6HRS PRN for PAIN for 6 Days, #24 Prescribed by: DARIO FARRELL MD on 10/17/21 1132 Discontinued Medications Amiodarone Hcl (Amiodarone Hcl) 200 Mg Tablet, 1 TAB PO DAILY08 for atrial fibrillation, #90 Ref 3 (Reported) Entered as Reported by: CARRI ALVARES on 12/30/18 1416 Last Action: Reviewed on 10/12/212354 by JOSE FRANCISCO SORIANO RN Apixaban (Eliquis) 5 Mg Tablet, 5 MG PO BID for a-fib, (Reported) Entered as Reported by: Polo Horta on 11/30/18 1712 Last Action: Reviewed on 10/12/212354 by JOSE FRANCISCO SORIANO RN Cholestyramine (With Sugar) (Questran Packet) 4 Gm Powd.pack, 1 PACKET PO DAILY for diarrhea, Ref 0 (Reported) Entered as Reported by: JOSE FRANCISCO SORIANO RN on 10/12/212354 Last Action: New Order on 10/12/212354 by JOSE FRANCISCO SORIANO RN Diltiazem HCl (Diltiazem 24Hr ER (LA)) 240 Mg Tab.er.24h, 120 MG PO DAILY for AFIB, (Reported) Entered as Reported by: DEREK CARDONA on 08/07/20 1545 Last Action: Reviewed on 10/12/212354 by JOSE FRANCISCO SORIANO RN Diphenoxylate Hcl/Atropine (Diphenoxylate-Atropine Tablet) 1 Each Tablet, 1 TAB PO PRN QID PRN for DIARRHEA for 14 Days, Ref 2 Prescribed by: MANJEET WOODSON MD on 08/24/21 1130 Last Action: Reviewed on 10/12/212354 by JOSE FRANCISCO SORIANO RN Ferrous Sulfate (Ferrous Sulfate) 325 Mg Tablet, 1 TAB PO QODAY for for 30 Days, #30 Ref 3 Prescribed by: PENNIE RODGERS MD on 08/08/21 1503 Last Action: Reviewed on 10/12/212354 by JOSE FRANCISCO SORIANO RN Furosemide (Furosemide) 80 Mg Tablet, 1 TAB PO DAILY for edema, (Reported) Entered as Reported by: JOSE FRANCISCO SORIANO RN on 5/6/22 2355 Last Action: New Order on 10/12/212354 by JOSE FRANCISCO SORIANO RN Hydrochlorothiazide (Hydrochlorothiazide Tablet ) 25 Mg Tablet, 25 MG PO DAILY, (Reported) Entered as Reported by: HUGH MAHMOOD on 08/10/13 0913 Last Action: Reviewed on 10/12/212354 by JOSE FRANCISCO SORIANO RN Meloxicam (Meloxicam) 15 Mg Tablet, 15 MG PO DAILY for PAIN CONTROL, (Reported) Entered as Reported by: DEREK CARDONA on 08/07/20 1545 Last Action: Reviewed on 10/12/212354 by JOSE FRANCISCO SORIANO RN Metoprolol Succinate (Toprol XL) 50 Mg Tab.er.24h, 50 MG PO DAILY for Afib for 30 Days, #30 Ref 4 Prescribed by: MANJEET WOODSON MD on 08/24/21 1130 Last Action: Reviewed on 10/12/212354 by JOSE FRANCISCO SORIANO RN Potassium Chloride (Potassium Chloride ) 20 Meq Tablet.er, 20 MEQ PO BID for SUPPLEMENT, (Reported) Entered as Reported by: JOSE FRANCISCO SORIANO RN on 10/12/212354 Last Action: New Order on 10/12/212354 by JOSE FRANCISCO SORIANO RN Justicifation of Admission Dx: Justifications for Admission: Justification of Admission Dx: Yes DARIO FARRELL MD October 17, 2021 11:41
--- NOTE | 2021-10-17 11:43 | NUR ---
SS following up with discharge planning. SS reviewed pt chart and discussed with pt RN. Pt is currently requiring oxygen at three liters nasal canula. COVID19 negative. PT/OT recommended half-way unit. Pt stating that he wants to return to [facility], ; fax [phone]. Discharge orders received and sent to [facility] with referral. Bed available today. Pt will discharge today and return to [facility] via [facility] transport, [phone]. Pt and pt's RN notified.
[2021-10-17] MEDS ORDERED: AMIO200T53 PO (14:30)
--- NOTE | 2021-10-17 14:45 | NUR ---
REPORT CALLED TO A NURSING STAFF AT [facility]. DISCHARGED PATIENT TO [facility]. PATIENT ESCORTED OFF UNIT PER [facility] TRANSPORTER.
--- NOTE | 2021-10-17 14:50 | PDOC ---
Infectious Disease Note Subjective: Subjective Patient without complaints Vital Signs: Vital Signs Vital Signs Date Time Temp Pulse Resp B/P (MAP) Pulse Ox O2 Delivery O2 Flow Rate FiO2 10/17/21 11:00 97.0 60 20 175/89 (117) 95 97.0 10/17/21 08:00 Nasal Cannula 3.0 Physical Exam: PHYSICAL EXAM GENERAL: Alert and oriented gentleman, not in distress. HEENT: Both pupils are round and reacting. No conjunctival lesion. No lesion in the mouth. NECK: Supple. No JVP. No lymphadenopathy. LUNGS: Clear. HEART: S1, S2, regular. ABDOMEN: Soft, nontender. No organomegaly. EXTREMITIES: Bilateral lower extremity and upper extremity edema edema appears to be at baseline, no cyanosis. Right knee has a small superficial wound. No other signs of infection. Joint feels okay. SKIN: No generalized rash the patient does have femoral central line. NEUROLOGIC: The patient is alert, awake, and appropriate. No focal neurologic deficit. PICC line present femoral line removed Medications: Inpatient Meds: Medications reviewed. Labs: Lab Laboratory Tests Test 10/17/21 04:57 White Blood Count 3.2 x10^3/uL (4.0-11.0) Red Blood Count 2.50 x10^6/uL (4.30-5.70) Hemoglobin 8.2 g/dL (13.0-17.5) Hematocrit 24.2 % (39.0-53.0) Mean Corpuscular Volume 97 fL (79-100) Mean Corpuscular Hemoglobin 33 pg (25-35) Mean Corpuscular Hemoglobin Concent 34 g/dL (31-37) Red Cell Distribution Width 21.1 % (11.5-14.5) Platelet Count 250 x10^3/uL (140-400) Neutrophils (%) (Auto) 61 % (31-73) Lymphocytes (%) (Auto) 18 % (24-48) Monocytes (%) (Auto) 11 % (0-9) Eosinophils (%) (Auto) 9 % (0-3) Basophils (%) (Auto) 1 % (0-3) Neutrophils # (Auto) 2.0 x10^3/uL (1.8-7.7) Lymphocytes # (Auto) 0.6 x10^3/uL (1.0-4.8) Monocytes # (Auto) 0.4 x10^3/uL (0.0-1.1) Eosinophils # (Auto) 0.3 x10^3/uL (0.0-0.7) Basophils # (Auto) 0.0 x10^3/uL (0.0-0.2) Sodium Level 139 mmol/L (136-145) Potassium Level 3.9 mmol/L (3.5-5.1) Chloride Level 106 mmol/L (98-107) Carbon Dioxide Level 31 mmol/L (21-32) Anion Gap 2 (6-14) Blood Urea Nitrogen 15 mg/dL (8-26) Creatinine 0.8 mg/dL (0.7-1.3) Estimated GFR (Cockcroft-Gault) 95.3 Glucose Level 61 mg/dL (70-99) Calcium Level 7.5 mg/dL (8.5-10.1) Objective: Assessment: 1. Severe hypotension, likely multifactorial. 2. Bilateral pulmonary infiltrates appears CHF 3. Right knee total arthroplasty in 06/2021, subsequent in July after a fall, wound dehiscence, superficial culture positive with MSSA at [facility] and deep culture with I and D and poly exchange was done here showed Stenotrophomonas. Patient completed IV therapy. The patient has been on chronic suppression, now with Bactrim and Keflex. 4. History of Clostridium difficile. 5. History of pseudomonas urinary tract infection. 6. Obesity. Plan: Plan of Care Continue meropenem Restarted on Bactrim p.o. vancomycin twice daily. Femoral line DC'd C. difficile negative Monitor labs and cultures Continue supportive care Continue local wound care as directed Discussed with BRUNO MENDOZA MD October 17, 2021 14:50
== END 2021-10-17 14:45 | DRG 871 ==
LOC: ER 17:36 → 1 WEST ICU 19:35 → 6 SOUTH 10-14 19:50
PROVIDERS: ADMIT Family Medicine; ATTEND Family Medicine
PROC: 30233N1 Transfusion of Nonautologous Red Blood Cells into Peripheral Vein, Percutaneous Approach (ICD-10-PCS; principal; 2021-10-12)
PROC: 5A09357 Assistance with Respiratory Ventilation, Less than 24 Consecutive Hours, Continuous Positive Airway Pressure (ICD-10-PCS; 2021-10-12)
PROC: 06HY33Z Insertion of Infusion Device into Lower Vein, Percutaneous Approach (ICD-10-PCS; 2021-10-12)
PROC: B54CZZA Ultrasonography of Left Lower Extremity Veins, Guidance (ICD-10-PCS; 2021-10-12)
PROC: 5A09357 Assistance with Respiratory Ventilation, Less than 24 Consecutive Hours, Continuous Positive Airway Pressure (ICD-10-PCS; 2021-10-13)
PROC: 5A09357 Assistance with Respiratory Ventilation, Less than 24 Consecutive Hours, Continuous Positive Airway Pressure (ICD-10-PCS; 2021-10-14)
PROC: 5A09357 Assistance with Respiratory Ventilation, Less than 24 Consecutive Hours, Continuous Positive Airway Pressure (ICD-10-PCS; 2021-10-15)
PROC: 5A09357 Assistance with Respiratory Ventilation, Less than 24 Consecutive Hours, Continuous Positive Airway Pressure (ICD-10-PCS; 2021-10-16)
DX: A41.9 Sepsis, unspecified organism (principal); J18.9 Pneumonia, unspecified organism; J96.91 Respiratory failure, unspecified with hypoxia; I50.33 Acute on chronic diastolic (congestive) heart failure; E46 Unspecified protein-calorie malnutrition; I42.9 Cardiomyopathy, unspecified; J44.0 Chronic obstructive pulmonary disease with (acute) lower respiratory infection; N17.9 Acute kidney failure, unspecified; Z68.41 Body mass index [BMI] 40.0-44.9, adult; Z20.822 Contact with and (suspected) exposure to COVID-19; D64.9 Anemia, unspecified; E66.9 Obesity, unspecified; E78.00 Pure hypercholesterolemia, unspecified; E78.5 Hyperlipidemia, unspecified; E86.0 Dehydration; F32.A Depression, unspecified; I25.10 Atherosclerotic heart disease of native coronary artery without angina pectoris; I25.82 Chronic total occlusion of coronary artery; I48.0 Paroxysmal atrial fibrillation; J84.10 Pulmonary fibrosis, unspecified; N40.1 Benign prostatic hyperplasia with lower urinary tract symptoms; R33.8 Other retention of urine; Y95 Nosocomial condition; Z79.2 Long term (current) use of antibiotics; Z82.49 Family history of ischemic heart disease and other diseases of the circulatory system; Z83.3 Family history of diabetes mellitus; Z86.16 Personal history of COVID-19; Z86.19 Personal history of other infectious and parasitic diseases; Z86.711 Personal history of pulmonary embolism; Z87.891 Personal history of nicotine dependence; Z91.81 History of falling; Z96.653 Presence of artificial knee joint, bilateral; K21.9 Gastro-esophageal reflux disease without esophagitis; M19.90 Unspecified osteoarthritis, unspecified site; I95.9 Hypotension, unspecified; I12.9 Hypertensive chronic kidney disease with stage 1 through stage 4 chronic kidney disease, or unspecified chronic kidney disease; N18.31 Chronic kidney disease, stage 3a; R31.9 Hematuria, unspecified
CPT/HCPCS: 36415; 36430; 36556; 71045; 80048; 80053; 81001; 82805; 82962; 83605; 83690; 83735; 83880; 84100; 84484; 85025; 85027; 85610; 85730; 86850; 86900; 86901; 86920; 87040; 87075; 87086; 87428; 87493; 93005; 94660; 94760; 96361; 96365; 96375; J0360; J0461; J0878; J1940; J2185; J2997; J3243; J3490; J7030; J7060; P9016; P9046; U0003; 97530-GP; 97535-GO; 99291-25; G0378